=== PATIENT | female | born 1990 | race Caucasian/White ===

== ENCOUNTER → 2022-01-13 14:11 | Outpatient (CLI) | payer OTHER, SELFPAY ==
--- NOTE | ~2022-01-13 | XR_ITS ---
EXAMINATION: XR chest 2V 01/13/2022 14:25 INDICATION: Cough PROCEDURE: 2 view chest COMPARISON: No prior studies for comparison. FINDINGS: The lungs are clear. The cardiomediastinal silhouette is within normal limits. There are no pleural effusions. There is no pneumothorax suspected. IMPRESSION: 1: NO ACUTE CARDIOPULMONARY DISEASE. Reviewed, dictated and finalized at location B.
== END ==
PROVIDERS: PCP Nurse Practitioner; Visit Provider Nurse Practitioner
DX: R05.9 Cough, unspecified (principal)
CPT/HCPCS: 71046

== ENCOUNTER 2024-09-22 19:55 | Outpatient (CLI) | payer OTHER, SELFPAY ==
[2024-09-22] VITALS (11 sets, daily range): BP systolic 111–124; BP diastolic 48–64; PULSE 81–111; O2SAT 99–100; BMI 44.4
[2024-09-22] MEDS: TERBUTALINE SULFATE 1 MG/ML VIAL 0.25 MG SUB-Q (21:33)
--- NOTE | 2024-09-22 22:11 | PM.OBTRLD ---
OB - Triage/Final Diagnosis Visit Information Reason for evaluation: threatened labor and other ( leaking of fluid) Comments/Additional reasons for admission: I have assessed the risk for this patient, Marika Caban, and determined that she would benefit from observation care. Evaluation Vital signs: Vital Signs - 24 hr 09/22/24 20:23 09/22/24 20:30 09/22/24 21:33 Pulse Rate 111 H 96 Blood Pressure 124/64 111/48 L Pulse Oximetry 100 09/22/24 21:38 09/22/24 21:43 09/22/24 21:48 Pulse Rate Blood Pressure Pulse Oximetry 100 100 100 09/22/24 21:53 09/22/24 21:55 09/22/24 21:58 Pulse Rate 93 Blood Pressure 121/63 Pulse Oximetry 100 100 09/22/24 22:03 09/22/24 22:08 Pulse Rate Blood Pressure Pulse Oximetry 99 100
[2024-09-22 23:54] LABS: Add Urine Microscopic? YES; Appearance Urine Cloudy (Clear); Bacteria Urine 1+ /hpf; Bilirubin Urine 1+ (Negative); Blood Urine Negative (Negative); Color Urine Dark Yellow (Yellow); Glucose Urine UA 1+ mg/dL (Negative); Ketones Urine 3+ mg/dL (Negative); Leukocyte Esterase Ur Negative LEU/UL (Negative); Mucus Urine Present /lpf; Need Manual Microscopic Reviewed; Nitrate Urine Negative (Negative); Protein Urine 1+ mg/dL (Negative); Specific Grav Ur 1.035 (1.001-1.035); Squamous Epithelial Cell Urine Few /hpf (Few); pH Urine 5.5 (5.0-9.0)
== END 2024-09-22 23:05 | disposition home or self-care (01) ==
LOC: ANHOBOP 20:04 → ANHLDR 20:07
PROVIDERS: Obstetrics & Gynecology Gynecology; PCP Obstetrics & Gynecology; Visit Provider Obstetrics & Gynecology
DX: O41.8X90 Other specified disorders of amniotic fluid and membranes, unspecified trimester, not applicable or unspecified (principal); Z3A.00 Weeks of gestation of pregnancy not specified
CPT/HCPCS: 81001; 84112; 87086; J3105

== ENCOUNTER 2024-10-15 15:57 | Outpatient (RCR) | payer OTHER, SELFPAY ==
[2024-09-03 16:46] VITALS: BP 120/59; PULSE 84
[2024-09-03 17:00] VITALS: BP 108/61; PULSE 85
[2024-09-03 17:19] VITALS: BP 120/59; PULSE 85
[2024-09-10 18:26] VITALS: BP 122/47; PULSE 93
[2024-09-17 17:37] VITALS: BP 131/73; PULSE 86
[2024-09-19] VITALS (9 sets, daily range): BP systolic 114–119; BP diastolic 60–67; PULSE 88–99; O2SAT 99–100
--- NOTE | 2024-09-19 21:03 | PC.NURSE ---
Called Dr. Vaughn Bryant, update on pt , decreased movement, pt marking movement, tracing, and blood pressure. Orders received to discharge pt with instructions to keep next scheduled appointment and when to return to the unit.
--- NOTE | 2024-09-19 21:06 | PC.NURSE ---
Pt discharged with instructions to keep next scheduled appointment and when to return to the unit.
[2024-10-01 09:12] VITALS: BP 128/76; PULSE 100
[2024-10-08 10:27] VITALS: BP 102/71; PULSE 96
[2024-10-15 17:16] VITALS: BP 116/70; PULSE 967
== END 2024-11-10 16:15 | disposition home or self-care (01) ==
LOC: ANHOBOP 15:57
PROVIDERS: PCP Obstetrics & Gynecology; Visit Provider Obstetrics & Gynecology
DX: O24.419 Gestational diabetes mellitus in pregnancy, unspecified control (principal); Z3A.31 31 weeks gestation of pregnancy
CPT/HCPCS: 59025

== ENCOUNTER 2024-10-17 18:22 | Outpatient (CLI) | payer OTHER, SELFPAY ==
[2024-10-17] VITALS (19 sets, daily range): BP systolic 125–130; BP diastolic 69–78; PULSE 72–94; TEMP 36.6; O2SAT 99–100; BMI 44.9
--- NOTE | 2024-10-17 18:22 | PC.NURSE ---
Pt arrives to unit with a headache, blurred vision, and nausea.
[2024-10-17 19:16] LABS: Basophils Percent Auto 0.2 % (0.2-1.2); Eosinophils Absolute Auto 0.1 K/mm3 (0-0.3); Eosinophils Percent Auto 0.5 % (0-4.4); Hemoglobin 8.4 g/dL (12.0-15.0); Immature Granulocyte Absolute 0.05 K/mm3 (0.00-0.031); Immature Granulocyte Percent A 0.5 % (0-0.5); Immature Platelet Fraction Pct 16.2 % (0.9-11.2); Lymphocytes Absolute Auto 1.62 K/mm3 (0.9-3.2); Lymphocytes Percent Auto 16.6 % (18.3-44.2); Mean Corpuscular Hemoglobin 20.2 pg (26-34); Mean Corpuscular Volume 69.9 fl (80-100); Monocytes Absolute Auto 0.6 K/mm3 (0.1-0.6); Monocytes Percent Auto 6.1 % (2.6-8.5); Neutrophils Absolute Auto 7.4 K/mm3 (1.3-6.7); Neutrophils Percent Auto 76.1 % (45.5-73.1); Platelet Count Result 151 k/mm3 (150-375); Red Blood Count 4.15 M/mm3 (4.2-5.4); Red Cell Distribution Width 17.2 % (11.5-14.5); White Blood Count 9.7 K/mm3 (4.5-10.0)
[2024-10-17 19:25] LABS: Alanine Aminotransferase 8 U/L (6-35); Albumin Level 3.6 g/dL (3.5-5.1); Alkaline Phosphatase 142 U/L (38-126); Anion Gap 3 mmol/L (4-12); Aspartate Amino Transferase 14 U/L (14-36); Bilirubin,Total 0.5 mg/dL (0.2-1.3); Blood Urea Nitrogen 17 mg/dL (7-17); Calcium 8.6 mg/dL (8.4-10.2); Carbon Dioxide 20 mmol/L (22-30); Chloride 107 mmol/L (98-107); Estimated CRCL calculation 146 ml/min; Estimated Glomerular Filt Rate > 60; Glucose 91 mg/dL (65-110); Potassium 3.6 mmol/L (3.4-5.0); Sodium 130 mmol/L (137-145)
[2024-10-17 19:42] LABS: Platelet Estimate Adequate (Adequate)
[2024-10-17 19:43] LABS: Hypochromasia 1+; Microcytosis 1+ (NORMAL); Schistocytes None Seen
[2024-10-17 19:44] LABS: Anisocytosis 2+
--- NOTE | 2024-10-17 20:05 | PC.NURSE ---
Called Dr. Vaughn Bryant, update on pt, headache, blurred vision, nausea, swelling, blood pressure, tracing, and labs. Orders received to discharge pt with instructions to hydrate, make an appointment for early next week if wants to see the provider before scheduled section, and when to return to the unit.
--- NOTE | 2024-10-17 20:16 | PC.NURSE ---
Pt discharged with instructions to hydrate, make an appointment for next week to see provider if wants to be seen before section, and when to return to the unit, pt verbalizes understanding.
--- NOTE | 2024-10-17 21:22 | PM.OBTRLD ---
OB - Triage/Final Diagnosis Visit Information Date of evaluation: 10/17/24 Reason for evaluation: threatened labor Comments/Additional reasons for admission: I have assessed the risk for this patient, Marika Caban, and determined that she would benefit from observation care. Evaluation Laboratory results: Laboratory Tests 10/17/24 18:47 WBC 9.7 RBC 4.15 L Hgb 8.4 L Hct 29.0 L MCV 69.9 L MCH 20.2 L MCHC 29.0 L RDW 17.2 H Plt Count 151 D MPV TNP Immature Gran % (Auto) 0.5 Neut % (Auto) 76.1 H Lymph % (Auto) 16.6 L [place] % (Auto) 6.1 Eos % (Auto) 0.5 Baso % (Auto) 0.2 Lymph # (Auto) 1.62 [place] # (Auto) 0.6 Eos # (Auto) 0.1 Baso # (Auto) 0.0 Abs Immat Gran (auto) 0.05 H Absolute Neuts (auto) 7.4 H Absolute Nucleated RBC 0.000 Nucleated RBC % 0.0 Platelet Estimate Adequate % Immature Plt Fraction 16.2 H Hypochromasia 1+ Anisocytosis 2+ Microcytosis 1+ Schistocytes None seen Sodium 130 L Potassium 3.6 Chloride 107 Carbon Dioxide 20 L Anion Gap 3 L BUN 17 Creatinine 0.60 L Estim Creat Clear Calc 146 Estimated GFR > 60 Glucose 91 Uric Acid 3.0 Calcium 8.6 Total Bilirubin 0.5 AST 14 ALT 8 Alkaline Phosphatase 142 H Total Protein 7.0 Albumin 3.6 Vital signs: Vital Signs - 24 hr 10/17/24 18:56 10/17/24 18:58 10/17/24 18:59 Temperature Pulse Rate 84 80 Blood Pressure 125/69 Blood Pressure [Left Arm] 125/69 Pulse Oximetry 100 10/17/24 19:00 10/17/24 19:01 10/17/24 19:06 Temperature 97.8 F Pulse Rate 75 Blood Pressure 130/73 Blood Pressure [Left Arm] Pulse Oximetry 99 100 10/17/24 19:11 10/17/24 19:16 10/17/24 19:21 Temperature Pulse Rate Blood Pressure Blood Pressure [Left Arm] Pulse Oximetry 100 100 100 10/17/24 19:26 10/17/24 19:31 10/17/24 19:36 Temperature Pulse Rate 81 Blood Pressure 129/76 Blood Pressure [Left Arm] Pulse Oximetry 100 99 100 10/17/24 19:49 10/17/24 19:54 10/17/24 19:59 Temperature Pulse Rate Blood Pressure Blood Pressure [Left Arm] Pulse Oximetry 100 100 100 10/17/24 20:01 10/17/24 20:05 10/17/24 20:10 Temperature Pulse Rate 81 Blood Pressure 130/78 Blood Pressure [Left Arm] Pulse Oximetry 100 100
== END 2024-10-17 20:16 | disposition home or self-care (01) ==
LOC: ANHOBOP 18:26 → ANHOBPP 18:27
PROVIDERS: PCP Obstetrics & Gynecology; Visit Provider Obstetrics & Gynecology
DX: O13.9 Gestational [pregnancy-induced] hypertension without significant proteinuria, unspecified trimester (principal); Z3A.00 Weeks of gestation of pregnancy not specified
CPT/HCPCS: 36415; 59025; 80053; 84550; 85025; 85055

== ENCOUNTER 2024-10-25 04:54 | Inpatient (IN) | payer OTHER, SELFPAY ==
[2024-10-25] VITALS (43 sets, daily range): BP systolic 84–134; BP diastolic 29–103; PULSE 49–141; RESP 13–18; TEMP 36.6–37.4; O2SAT 97–100; BMI 43.2; BMI 43.3
[2024-10-25] MEDS: LACTATED RINGERS 1,000 ML 125 ML IV CONT ×2 (05:15→06:33)
[2024-10-25] MEDS: ACETAMINOPHEN 500 MG TABLET 1000 MG PO (05:30)
--- NOTE | 2024-10-25 05:34 | LDADM ---
This patient, Marika Caban, was admitted to Labor/Delivery/Recovery 120 on 10/25/24 at 04:54. Plans for labor, pain management and were discussed with patient. Patient/family oriented to hospital policies and general routines including ID bracelet, bed and alarms, visiting hours, pain management, procedures, bathroom and other care routines, personal items, smoking policy, room service/diet and guest tray routines, infant security routines, and visiting hours. Patient/Family are encouraged to report perceived risks to care and to ask questions if they do not understand what they are told or what they should do. See OBIX for further documentation.
[2024-10-25 05:47] LABS: Basophils Percent Auto 0.4 % (0.2-1.2); Eosinophils Percent Auto 0.5 % (0-4.4); Hemoglobin 8.1 g/dL (12.0-15.0); Immature Granulocyte Absolute 0.03 K/mm3 (0.00-0.031); Immature Granulocyte Percent A 0.4 % (0-0.5); Immature Platelet Fraction Pct 16.3 % (0.9-11.2); Lymphocytes Absolute Auto 1.32 K/mm3 (0.9-3.2); Lymphocytes Percent Auto 17.5 % (18.3-44.2); Mean Corpuscular HGB Conc 28.9 g/dl (32-36); Mean Corpuscular Hemoglobin 20.3 pg (26-34); Monocytes Absolute Auto 0.4 K/mm3 (0.1-0.6); Monocytes Percent Auto 5.2 % (2.6-8.5); Neutrophils Absolute Auto 5.7 K/mm3 (1.3-6.7); Platelet Count Result 145 k/mm3 (150-375); White Blood Count 7.5 K/mm3 (4.5-10.0)
[2024-10-25 06:23] LABS: HIV 1/2 Ab P24 Ag Result Negative (Negative)
[2024-10-25 06:24] LABS: Anisocytosis 2+; Hypochromasia 1+; Microcytosis 1+ (NORMAL); Platelet Estimate Adequate (Adequate)
[2024-10-25 06:25] LABS: Schistocytes None Seen
--- NOTE | 2024-10-25 06:41 | PM.IMHP ---
H&P: HPI History of Present Illness Date/Time: 10/25/24 06:41 Chief Complaint: Repeat section tubal ligation Narrative: this is a 34-year-old 5 para 3 whose last menstrual period was 01/26/2024, EDC is 11/01/2024, presents at 39 weeks gestation for repeat section bilateral tubal ligation. She desires permanent irreversible sterilization. Her has been complicated by gestational diabetes but has been diet controlled. She is also positive for group B strep she understands the bilateral tubal ligation be permanent and irreversible for and risks and benefits reviewed with out in full. Review of Systems Review of Systems: All systems reviewed & are unremarkable except as noted in HPI and below PMFSH Family History Family History Other No pertinent family history Social History Social History Smoking status: Never smoker Second hand tobacco smoke exposure: No Substance use: never Do You Feel Safe in your Home?: Yes Lack of Transportation: No Lack of Food: Never True Current Housing: I Have Housing Concerned About Future Housing: No Difficulty Paying Gas/Electric Bills: No Difficulty Paying for Meds: No Currently Unemployed: No Education: Associate Degree Difficulty w/ Childcare or Family Care: No Gender identity (if verbalized by the patient): Female Spiritual care concerns: No Meds Home Medications and Allergies Home Medications ?Medication ?Instructions ?Recorded ?Confirmed ?Type ferrous sulfate 142 mg (45 mg 142 mg PO DAILY 10/15/19 10/22/24 History iron) tablet,extended release (Slow Fe) vit no.133-ferrous 1 tablet PO DAILY 10/15/19 10/22/24 History fumarate 28 mg-folic acid 800 mcg tablet () Allergies Allergy/AdvReac Type Severity Reaction Status Date / Time No Known Allergies Allergy Verified 10/22/24 15:50 Vital Signs Vital Signs - 24 hr 10/25/24 05:08 10/25/24 05:30 10/25/24 05:32 Temperature Pulse Rate 91 95 Blood Pressure 132/85 134/75 Pulse Oximetry Oxygen Delivery Room Air 10/25/24 05:45 10/25/24 05:45 10/25/24 05:50 Temperature 99.4 F Pulse Rate 84 Blood Pressure 126/72 Pulse Oximetry 100 Oxygen Delivery 10/25/24 05:55 10/25/24 06:00 10/25/24 06:05 Temperature Pulse Rate Blood Pressure Pulse Oximetry 100 100 100 Oxygen Delivery 10/25/24 06:10 10/25/24 06:15 10/25/24 06:20 Temperature Pulse Rate Blood Pressure Pulse Oximetry 100 100 100 Oxygen Delivery Exam Const: General: cooperative, healthy appearing and comfortable Nutritional Appearance: average body habitus Orientation/consciousness: oriented to person, oriented to place and oriented to time HENMT: Head: normal to inspection Resp: Effort & Inspection: normal respiratory effort Cardio: Rate: regular rate Rhythm: regular rhythm Heart sounds: S1 normal heart sound present and S2 normal heart sound present GI: Inspection: normal to inspection ( Gravid soft uterus) : External Female Exam: normal external appearance Speculum Exam - Vagina: normal appearance of the vagina Bimanual Exam- Adnexa, other: normal adnexae H&P: Results Labs Labs: Short CBC 10/25/24 Range/Units 05:25 WBC 7.5 (4.5-10.0) K/mm3 Hgb 8.1 L (12.0-15.0) g/dL Hct 28.0 L (37.0-47.0) % Plt Count 145 L (150-375) k/mm3 Assessment and Plan Assessment and plan (1) Term : Code(s): Z34.90 - Encounter for supervision of normal , unspecified, unspecified trimester Status: Acute (2) Previous section: Code(s): Z98.891 - History of uterine scar from previous surgery Status: Acute (3) Sterilization: Code(s): Z30.2 - Encounter for sterilization Status: Acute Plan proceed with low-transverse section and bilateral tubal ligation
--- NOTE | 2024-10-25 06:45 | WPDHPUPDATE1 ---
History and Physical Update Update Date/Time: 10/25/24 06:45 History and Physical has been reviewed, including an updated exam of the patient. There are NO changes in the patient's condition. Risks, benefits, and alternatives have been discussed and questions answered. Patient agrees to proceed with procedure.
--- NOTE | 2024-10-25 06:48 | P.PNAN_ITS ---
Anes - Initial Pre Proc Eval Procedure: Operation Date: 10/25/24 07:30 Proposed Procedures p Repeat Section with Tubal Ligation with Rings - Jj Bryant MD Date/Time: 10/25/24 06:48 Surgeon: Jj Bryant MD Pre Op Diagnosis: C/S Patient Data Age: 34 Gender: F Height: 1.65 m Weight: 118.18 kg Last Vital Signs Temp 37.4 C 10/25/24 05:45 Pulse 84 10/25/24 05:45 BP 126/72 10/25/24 05:45 Pulse Ox 100 10/25/24 06:20 O2 Del Method Room Air 10/25/24 05:32 Allergies Allergy/AdvReac Type Severity Reaction Status Date / Time No Known Allergies Allergy Verified 10/22/24 15:50 Home Medications ?Medication ?Instructions ?Recorded ?Confirmed ?Type ferrous sulfate 142 mg (45 mg 142 mg PO DAILY 10/15/19 10/22/24 History iron) tablet,extended release (Slow Fe) vit no.133-ferrous 1 tablet PO DAILY 10/15/19 10/22/24 History fumarate 28 mg-folic acid 800 mcg tablet () hydrocodone 5 mg-acetaminophen 325 1 tablet PO Q4H PRN pain #30 tabs 10/25/24 Rx mg tablet Laboratory Tests 10/25/24 05:25 WBC 7.5 K/mm3 (4.5-10.0) RBC 4.00 L M/mm3 (4.2-5.4) Hgb 8.1 L g/dL (12.0-15.0) Hct 28.0 L % (37.0-47.0) MCV 70.0 L fl (80-100) MCH 20.3 L pg (26-34) MCHC 28.9 L g/dl (32-36) RDW 17.0 H % (11.5-14.5) Plt Count 145 L k/mm3 (150-375) MPV TNP Immature Gran % (Auto) 0.4 % (0-0.5) Neut % (Auto) 76.0 H % (45.5-73.1) Lymph % (Auto) 17.5 L % (18.3-44.2) [place] % (Auto) 5.2 % (2.6-8.5) Eos % (Auto) 0.5 % (0-4.4) Baso % (Auto) 0.4 % (0.2-1.2) Lymph # (Auto) 1.32 K/mm3 (0.9-3.2) [place] # (Auto) 0.4 K/mm3 (0.1-0.6) Eos # (Auto) 0.0 K/mm3 (0-0.3) Baso # (Auto) 0.0 K/mm3 (0.0-0.1) Abs Immat Gran (auto) 0.03 K/mm3 (0.00-0.031) Absolute Neuts (auto) 5.7 K/mm3 (1.3-6.7) Absolute Nucleated RBC 0.000 K/mm3 (0.0-0.012) Nucleated RBC % 0.0 % (0.0-0.2) Platelet Estimate Adequate (Adequate) % Immature Plt Fraction 16.3 H % (0.9-11.2) Hypochromasia 1+ Anisocytosis 2+ Microcytosis 1+ (NORMAL) Schistocytes None seen RPR Pending Hep Bs Antigen Pending HIV 1&2 Ab/P24 Ag 4thGn Negative (Negative) Blood Type Pending Antibody Screen Pending Patient hx anesthesia problems: none Family hx anesthesia problems: none Results Review: All pre-operative results and documents have been reviewed as part of the pre- operative evaluation. [facility] Past Medical History Medical History (Updated 10/25/24 @ 07:06 by Leon Griffin DO) GDM (gestational diabetes mellitus) Family History Family History Other No pertinent family history Social History Social History Smoking status: Never smoker Second hand tobacco smoke exposure: No Substance use: never Do You Feel Safe in your Home?: Yes Lack of Transportation: No Lack of Food: Never True Current Housing: I Have Housing Concerned About Future Housing: No Difficulty Paying Gas/Electric Bills: No Difficulty Paying for Meds: No Currently Unemployed: No Education: Associate Degree Difficulty w/ Childcare or Family Care: No Gender identity (if verbalized by the patient): Female Spiritual care concerns: No Anes - Eval Final PreProcedure Day of Procedure 12/26/24 06:48 Patient weight: morbidly obese Heart: regular rate and rhythm Lungs: clear to auscultation and normal air movement Airway: Mallampati scale class II Neurological: alert and oriented Last oral intake: >/= 8 hours ASA classification: III Emergent: no Anesthetic plan: proceed Anesthesia type and monitoring: regional spinal and standard monitoring Results Review: All pre-operative results and documents have been reviewed as part of the pre- operative evaluation. Informed Consent: The patient's anesthetic plan and its attendant risks and benefits were discussed with the patient/family/POA. Questions were solicited and answers provided to the satisfaction of the patient/family/POA.
[2024-10-25 06:56] LABS: Hepatitis B Surface Antigen Negative (Negative)
[2024-10-25] MEDS: FAMOTIDINE 20 MG/2 ML VIAL IV PUSH (06:59)
[2024-10-25] MEDS: ONDANSETRON INJ 4 MG/2 ML VIAL IV PUSH (06:59)
[2024-10-25] MEDS: ceFAZolin 2 GM/D5W 50 ML 2 GM/50 ML BAG IVPB (07:23)
[2024-10-25 07:50] LABS: Rapid Plasma Reagin Non-Reactive (NonReactive)
--- NOTE | 2024-10-25 08:20 | W.PM.OBCSD ---
OB - Delivery Note Procedure Delivery date: 10/25/24 Pre-op diagnosis: Previous Delivery and Other ( sterilization) Post-op Diagnosis: Same Induction method: None Delivery monitor: External FHT Prior to decision for section, ACOG/SMFM labor guidelines were considered and discussed with the patient and staff. Decision made to proceed with the section.: Yes Procedure Performed: Repeat and Tubal Ligation Surgeon: Jj Bryant MD Anesthesia type: Spinal Description of Procedure/Findings: patient was prepped draped in normal sterile fashion placed in the supine position. Under excellent spinal anesthetic the abdomen was entered through the previous Pfannenstiel incision progressive layers the fascia. Fascia incised midline carried in upward outward fashion bilaterally. Underlying muscles sharply dissected. Parietal perineum 0 by Estelle clamps and by sharp dissection in was carried superiorly inferiorly of the bladder. Bladder blade placed. Bladder flap formed. Bladder blade returned. Low-transverse incision made the head delivered in the ALLISON position. Nuchal cord noted be loose x2 relieved around occiput. Anterior posterior shoulder delivered spontaneously. Cord clamped x2 and cut passed off the table with a cry. Placenta delivered intact manually. Uterus delivered the abdomen wrapped in a moist towel. After assuring no membranes or debris remained in the uterus, the uterus closed continuous running locking 0 Vicryl from lateral edge to lateral edge. This followed by 2nd imbricating running locking 0 Vicryl from lateral edge to lateral edge. Hemostasis was assured. Multiple fibroids were noted. The patient had desired tubal ligation. The right fallopian tube was grasped at its midportion. A good knuckle of tube free tied with 0 chromic the distal and proximal legs and free tied with 0 chromic the portion between cut passed off as portion right fallopian tube. In similar fashion on the left the right the left fallopian tube was grasped with Katie clamp. Free tied with 0 chromic. The distal proximal portions were free tied with 0 chromic in portion between cut passed off the table as portions left fallopian hemostasis was assured. The laps removed and accounted for after the uterus was turned the abdomen. Uterine incision noted be hemostatic. The fascia closed with continuous running 0 Vicryl from lateral edge to lateral edge. Irrigation subcutaneous layer and the skin closed with 4 Monocryl glue. QBL was 305. All sponge, needle, instrument counts were correct. There were immediate complications Specimen: Yes ( bilateral fallopian tubes) Estimated Blood Loss: 305 Drains: No Packing: No Pathology: Yes ( bilateral portions of fallopian tubes) Complications: No immediate complications Condition: Stable Disposition: Floor [place] Baby Date of : 10/25/24 Time of : 07:52 Gestational Age by Date: 39 Infant gender: Male Weight (pounds): 7 Weight (ounces): 10 presentation: vertex position: Right Occiput Anterior Placenta delivery description: Manual Removal Cord Vessel Description: 3 Vessels and Nuchal Cord ( x2)
--- NOTE | 2024-10-25 08:26 | PM.DS ---
DS: Admitting Diagnosis Discharge Date 10/27/24 <Karen Peacock MD - Last Filed: 10/27/24 12:03> Admitting Diagnosis term /previous section / sterilization <Jj Bryant MD - Last Filed: 10/25/24 08:29> DS: Discharge Diagnosis Discharge Diagnosis (1) Sterilization: Code(s): Z30.2 - Encounter for sterilization <Jj Bryant MD - Last Filed: 10/25/24 08:29> Status: Acute <Jj Bryant MD - Last Filed: 10/25/24 08:29> (2) Previous section: Code(s): Z98.891 - History of uterine scar from previous surgery <Jj Bryant MD - Last Filed: 10/25/24 08:29> Status: Acute <Jj Bryant MD - Last Filed: 10/25/24 08:29> (3) Term : Code(s): Z34.90 - Encounter for supervision of normal , unspecified, unspecified trimester <Jj Bryant MD - Last Filed: 10/25/24 08:29> Status: Acute <Jj Bryant MD - Last Filed: 10/25/24 08:29> DS: Summary Hospital Course Reason for hospitalization: patient was admitted for repeat section bilateral tubal ligation. She underwent an unremarkable in procedure on 10/25/2024. <Jj Bryant MD - Last Filed: 10/25/24 08:29> Hospital Course: Patient's hospital course unremarkable. She remained afebrile. She was up, voiding, regular, <Jj Bryant MD - Last Filed: 10/25/24 08:29> Time Spent with Patient Time attestation: Total time spent providing and/or coordinating discharge services: <Jj Bryant MD - Last Filed: 10/25/24 08:29> Exam Const: General: cooperative, healthy appearing and comfortable <Jj Bryant MD - Last Filed: 10/25/24 08:29> Nutritional Appearance: average body habitus <Jj Bryant MD - Last Filed: 10/25/24 08:29> Orientation/consciousness: oriented to person, oriented to place and oriented to time <Jj Bryant MD - Last Filed: 10/25/24 08:29> HENMT: Head: normal to inspection <Jj Bryant MD - Last Filed: 10/25/24 08:29> Resp: Effort & Inspection: normal respiratory effort <Jj Bryant MD - Last Filed: 10/25/24 08:29> Cardio: Rate: regular rate <Jj Bryant MD - Last Filed: 10/25/24 08:29> Rhythm: regular rhythm <Jj Bryant MD - Last Filed: 10/25/24 08:29> Heart sounds: S1 normal heart sound present and S2 normal heart sound present <Jj Bryant MD - Last Filed: 10/25/24 08:29> GI: Inspection: normal to inspection and incision ( wound is clean dry and intact) <Jj Bryant MD - Last Filed: 10/25/24 08:29> DS: Data Data Completed and Pending Labs on day of discharge: Labs from last 24 hours 10/25/24 05:25 WBC 7.5 RBC 4.00 L Hgb 8.1 L Hct 28.0 L MCV 70.0 L MCH 20.3 L MCHC 28.9 L RDW 17.0 H Plt Count 145 L MPV TNP Immature Gran % (Auto) 0.4 Neut % (Auto) 76.0 H Lymph % (Auto) 17.5 L [place] % (Auto) 5.2 Eos % (Auto) 0.5 Baso % (Auto) 0.4 Lymph # (Auto) 1.32 [place] # (Auto) 0.4 Eos # (Auto) 0.0 Baso # (Auto) 0.0 Abs Immat Gran (auto) 0.03 Absolute Neuts (auto) 5.7 Absolute Nucleated RBC 0.000 Nucleated RBC % 0.0 Platelet Estimate Adequate % Immature Plt Fraction 16.3 H Hypochromasia 1+ Anisocytosis 2+ Microcytosis 1+ Schistocytes None seen RPR Non-reactive Hep Bs Antigen Negative HIV 1&2 Ab/P24 Ag 4thGn Negative Blood Type A Positive Antibody Screen Negative <Jj Bryant MD - Last Filed: 10/25/24 08:29> Discharge Plan Discharge Attending physician on discharge: Jj King <Jj Bryant MD - Last Filed: 10/25/24 08:29> Jj King <Karen Peacock MD - Last Filed: 10/27/24 12:03> Discharging Clinician: Karen Peacock <Jj Bryant MD - Last Filed: 10/25/24 08:29> Karen Peacock <Karen Peacock MD - Last Filed: 10/27/24 12:03> Patient Disposition: Home, Self-Care <Jj Bryant MD - Last Filed: 10/25/24 08:29> Activity: may shower, no straining and pelvic rest <Jj Bryant MD - Last Filed: 10/25/24 08:29> may shower, no straining and pelvic rest <Karen Peacock MD - Last Filed: 10/27/24 12:03> Diet: heart healthy <Jj Bryant MD - Last Filed: 10/25/24 08:29> heart healthy <Karen Peacock MD - Last Filed: 10/27/24 12:03> Wound Care Instructions: follow printed instructions <Jj Bryant MD - Last Filed: 10/25/24 08:29> follow printed instructions <Karen Peacock MD - Last Filed: 10/27/24 12:03> Patient Instructions: Antibiotic Form <Jj Bryant MD - Last Filed: 10/25/24 08:29> Patient Language: Mozambican <Jj Bryant MD - Last Filed: 10/25/24 08:29> Stand Alone Forms: General Discharge Information <Jj Bryant MD - Last Filed: 10/25/24 08:29> Follow-up/Referrals: Jj King MD [Physician] - <Jj Bryant MD - Last Filed: 10/25/24 08:29> Discharge Medications: New hydrocodone-acetaminophen 5-325 mg tablet 1 tablet PO Q4H PRN (Reason: pain) Qty: 30 0RF Continued ferrous sulfate [Slow Fe] 142 mg (45 mg iron) Tablet Extended Release 142 mg PO DAILY 28-800 mg-mcg Tablet 1 tablet PO DAILY <Jj Bryant MD - Last Filed: 10/25/24 08:29> Date of admission: 10/25/24 04:54 <Jj Bryant MD - Last Filed: 10/25/24 08:29> Primary Care Provider: UNKNOWN,DOCTOR <Jj Bryant MD - Last Filed: 10/25/24 08:29> Admitting Provider: Jj King <Jj Bryant MD - Last Filed: 10/25/24 08:29> Attending physician on admission: Jj King <Jj Bryant MD - Last Filed: 10/25/24 08:29> Condition: Stable <Jj Bryant MD - Last Filed: 10/25/24 08:29>
[2024-10-25] MEDS: OXYTOCIN 30 UNITS/NS 500 ML 30 UNITS/500 ML BAG 125 UNITS IV CONT (08:59)
[2024-10-25] MEDS: diphenhydrAMINE HCl INJ 50 MG/ML VIAL 25 MG IV PUSH (09:03)
[2024-10-25 09:28] LABS: Glucose Point of Care 64 mg/dl (65-105)
[2024-10-25] MEDS: KETOROLAC 15 MG/ML VIAL (*BKC) IV PUSH (12:08)
[2024-10-25] MEDS: SIMETHICONE 80 MG TAB.CHEW PO (12:08)
[2024-10-25] MEDS: ACETAMINOPHEN 325 MG TABLET 650 MG PO ×2 (12:08→19:12)
[2024-10-25] MEDS: DEXTROSE 5%/0.45% SOD CHL 1,000 ML 125 ML IV CONT (13:37)
[2024-10-25] MEDS: DOCUSATE SODIUM 100 MG CAPSULE PO (19:12)
[2024-10-25] MEDS: IBUPROFEN 600 MG TABLET PO (19:23)
[2024-10-26] MEDS: ACETAMINOPHEN 325 MG TABLET 650 MG PO ×4 (01:14→20:17)
[2024-10-26] MEDS: IBUPROFEN 600 MG TABLET PO ×4 (01:14→20:16)
[2024-10-26 01:16] VITALS: BP 108/49; PULSE 74; RESP 18; TEMP 36.6; O2SAT 100
--- NOTE | 2024-10-26 06:46 | P.PNOB_ITS ---
OB - PN: Subj Subjective Date/time seen: 10/26/24 06:46 Patient comments: no complaints, pain well controlled, tolerating diet and flatus present Mcdavid baby status: doing well (level II) OB - PN: Obj Data Labs 10/25/24 05:25 Labs: Laboratory Results - last 24 hr 10/25/24 10/25/24 05:25 06:54 POC Capillary Glucose 64 L RPR Non-reactive Hep Bs Antigen Negative Blood Type A Positive Antibody Screen Negative OB - PN A/P Assessment and Plan (1) Sterilization: Code(s): Z30.2 - Encounter for sterilization Status: Acute (2) Previous section: Code(s): Z98.891 - History of uterine scar from previous surgery Status: Acute (3) Term : Code(s): Z34.90 - Encounter for supervision of normal , unspecified, unspecified trimester Status: Acute (4) Anemia: Code(s): D64.9 - Anemia, unspecified Status: Acute Plan Comments: start iron. routine care Time Spent With Patient Time: Total time spent is greater than 50% in coordination of care (as documented) at patient's floor/unit and/or counseling patient: Review of Systems 2 Review of Systems: All systems reviewed & are unremarkable except as noted in HPI and below Exam 2 Const: General: cooperative, healthy appearing and comfortable Nutritional Appearance: average body habitus Orientation/consciousness: oriented to person, oriented to place and oriented to time Resp: Effort & Inspection: normal respiratory effort Cardio: Rate: regular rate Rhythm: regular rhythm Heart sounds: S1 normal heart sound present and S2 normal heart sound present GI: Inspection: normal to inspection and incision (cdi)
[2024-10-26 07:50] VITALS: BP 108/56; PULSE 79; RESP 16; TEMP 36.4
[2024-10-26] MEDS: SIMETHICONE 80 MG TAB.CHEW PO ×3 (07:52→16:45)
[2024-10-26] MEDS: DOCUSATE SODIUM 100 MG CAPSULE PO ×2 (07:52→16:45)
[2024-10-26] MEDS: POLYSACCHARIDE IRON COMPLEX 150 MG CAPSULE PO ×2 (07:52→16:45)
[2024-10-26 09:22] LABS: Basophils Percent Auto 0.4 % (0.2-1.2); Eosinophils Absolute Auto 0.1 K/mm3 (0-0.3); Eosinophils Percent Auto 0.7 % (0-4.4); Hematocrit 24.5 % (37.0-47.0); Hemoglobin 7.1 g/dL (12.0-15.0); Immature Granulocyte Absolute 0.06 K/mm3 (0.00-0.031); Immature Granulocyte Percent A 0.6 % (0-0.5); Immature Platelet Fraction Pct 14.9 % (0.9-11.2); Lymphocytes Absolute Auto 0.93 K/mm3 (0.9-3.2); Lymphocytes Percent Auto 8.8 % (18.3-44.2); Mean Corpuscular Hemoglobin 20.5 pg (26-34); Mean Corpuscular Volume 70.6 fl (80-100); Monocytes Absolute Auto 0.5 K/mm3 (0.1-0.6); Monocytes Percent Auto 4.9 % (2.6-8.5); Neutrophils Absolute Auto 8.9 K/mm3 (1.3-6.7); Neutrophils Percent Auto 84.6 % (45.5-73.1); Platelet Count Result 111 k/mm3 (150-375); Red Blood Count 3.47 M/mm3 (4.2-5.4); Red Cell Distribution Width 17.2 % (11.5-14.5); White Blood Count 10.5 K/mm3 (4.5-10.0)
[2024-10-26 10:02] LABS: Hypochromasia 2+; Microcytosis 2+ (NORMAL); Platelet Estimate Slightly Decreased (Adequate)
[2024-10-26 10:04] LABS: Ovalocytes 1+; Schistocytes None Seen
--- NOTE | 2024-10-26 10:05 | WPDANLDPN2 ---
Anes-Prog Note L&D Date/Time: 10/26/24 10:05 Comfortable throughout: section Neuraxial method: epidural (CSE) Epidural/Spinal procedure site: clean & non-tender Neuro status: Neuro function grossly intact. Cardiovascular status: normal Respiratory status: normal Airway patency: baseline Mental status: baseline Post-Op hydration status: normal Vital Signs: Last Vital Signs Temp 36.4 C L 10/26/24 07:50 Pulse 79 10/26/24 07:50 Resp 16 10/26/24 07:50 BP 108/56 L 10/26/24 07:50 Pulse Ox 100 10/26/24 01:16 O2 Del Method Room Air 10/26/24 01:16 Pain score (VAS): 0/10 I/O: Intake & Output 10/25/24 10/26/24 10/26/24 23:59 07:59 15:59 Intake Total 1110 Output Total 1625 Balance -515 Post-procedural complaints: none Patient feedback: Patient satisfied with anesthetic care.
--- NOTE | 2024-10-26 10:05 | WPDANLDNPN2 ---
Anes-Prog Note L&D-Neuraxial Date/Time: 10/26/24 10:05 Neuraxial medications: intrathecal PF morphine Opiod-related complaints: pruritis moderate, treatment effective Patient feedback: Patient satisfied with post-operative pain management.
[2024-10-26] MEDS: HYDROcodone/acetaminophen (*CRX) 5-325 MG TABLET 1 TAB PO ×3 (11:41→23:36)
[2024-10-26] MEDS: HYDROcodone/acetaminophen (*CRX) 10-325 MG TABLET 1 TAB PO (18:39)
[2024-10-26 20:15] VITALS: BP 115/51; PULSE 74; RESP 16; TEMP 36.8; O2SAT 100
[2024-10-27] MEDS: ACETAMINOPHEN 325 MG TABLET 650 MG PO ×2 (02:18→08:12)
[2024-10-27] MEDS: IBUPROFEN 600 MG TABLET PO ×2 (02:18→08:12)
[2024-10-27 04:30] VITALS: BP 101/54; PULSE 60; RESP 16; TEMP 36.7; O2SAT 99
[2024-10-27] MEDS: HYDROcodone/acetaminophen (*CRX) 10-325 MG TABLET 1 TAB PO (05:40)
[2024-10-27 08:05] VITALS: BP 116/60; PULSE 81; RESP 16; TEMP 36.3
[2024-10-27] MEDS: POLYSACCHARIDE IRON COMPLEX 150 MG CAPSULE PO (08:12)
[2024-10-27] MEDS: SIMETHICONE 80 MG TAB.CHEW PO (08:12)
[2024-10-27] MEDS: DOCUSATE SODIUM 100 MG CAPSULE PO (08:12)
--- NOTE | 2024-10-27 12:00 | P.PNOB_ITS ---
OB - PN: Subj Subjective Date/time seen: 10/27/24 12:00 Patient comments: no complaints and pain well controlled baby status: doing well OB - PN: Obj Data Labs 10/26/24 09:05 OB - PN A/P Plan day: 2 Plan: routine care and discharge home Time Spent With Patient Time: Total time spent is greater than 50% in coordination of care (as documented) at patient's floor/unit and/or counseling patient: Exam 2 Narrative: inc c/d/i : Bimanual exam- vagina & uterus: other (Uterus firm, nt @U)
[2024-10-29 10:29] VITALS: BP 129/77; PULSE 80; RESP 18; TEMP 36.9; O2SAT 100
--- OUTSIDE RECORDS SUMMARY | 2024-11-01 05:19 | XMS_ITS | Clinical Summary ---
Author Organization [facility] [employer] Address [address] [place] [address] Care Team Providers Care Digital Print Operator Name Role Phone Catina Rios APRN-PRODUCTION MATERIAL COORDINATOR Primary Care Provi saloni Source Comments [facility] [employer],non-owned Affiliates and Associated Physician Practices is amultiple site organization consisting of ambulatory clinics and hospital sitesin [place], [place], [place] and [place]. This disclosure is being madepursuant to the Care Everywhere program and may not contain all information available regarding this patient. Last updated 18.[facility] [employer] Allergies No known active allergies Medications * Be aware that medications may not be up to date on this document. Alwaysverify current medications with the patient. Medication Sig Dispensed Refills Start Date End Date Status biotin 2.5 MG tablets Take 1 (one) tablet by mouth once daily Active senna-docusate (Senokot-S) 8.6-50 MG tablet Take 1 (one) tablet by mouth 2 times daily as needed for Constipation 12/15/2022 Active Additional Information Patient not taking.Reported on 12/27/2022 ondansetron, disintegrating, (Zofran ODT) 4 MG tablet Take 1 (one) tablet by mouth every 6 hours as needed for Nausea/Vomiting Allow tablet to dissolve on the tongue 30 tablet 12/15/2022 Active Additional Information Patient not taking.Reported on 12/27/2022 oxyCODONE (Roxicodone) 5 MG/5ML oral solutionIndications :Abdominal pain, generalized Take 5 mL by mouth every 6 hours as needed for Pain 120 mL 12/15/2022 Active Additional Information Patient not taking.Reported on 12/27/2022 Active Problems Problem Noted Date Diagnosed Date Acute pancreatitis, unspecif ied complication status, unspecified pancreatitis type 12/13/2022 Transaminitis 12/13/2022 Morbid obesity 06/09/2022 Fall 02/21/2009 Asthma Overview (07/16/2008): does not use inhaler Immunizations Name Administration Dates Next Due Covid Moderna primary monovalent 12+ yr 0.5mL INFLUENZA VACCINE, QUADR. (F LUZONE; FLULAVAL; FLUARIX; AFLURIA QUADRIVALENT; 6MO+), 0.5 ML (IIV4) 10/18/2019 TDAP (7yrs+) 10/15/2019,02/21/2009 Family History Medical History Relation Name Comments Asthma Maternal Grandmother Asthma Mother Hypertension Mother Migraine Mother Other Mother Relation Name Status Comments Father Alive Maternal Grandmother Mother Social History Tobacco Use Types Packs/Day Years Used Date Smoking Tobacco: Never Smokeless Tobacco: Never Alcohol Use Standard Drinks/Week Comments Yes 0 (1 standard drink = 0.6 oz pur e alcohol) AUDIT-C Answer Date Recorded Q1: How often do you have a drink containing alc ohol? Monthly or less 12/13/2022 Q2: How many drinks containi ng alcohol do you have on a typical day when you are drinking? 1 or 2 12/13/2022 Q3: How often do you have si x or more drinks on one occasion? Less than monthly 12/13/2022 Overall Financial Resource Strain (CARDIA) Answe r Date Recorded How hard is it for you to pa y for the very basics like food, housing, medical care, and heating? Not hard at all 12/14/2022 [facility] [place] of Occupat ional Health - Occupational Stress Questionnaire Answer Date Recorded Do you feel stress - tense, restless, nervous, or anxious, or unable to sleep at night because your mind is troubled all the time - these days? Not at all 12/14/2022 Hunger Vital Sign Answer Date Recorded Within the past 12 months, y ou worried that your food would run out before you got the money to buy more. Never true 12/14/19 23 Within the past 12 months, t he food you bought just didn't last and you didn't have money to get more. Never true 12/14/2022 PRAPARE - Transportation Answer Date Re corded In the past 12 months, has l ack of transportation kept you from medical appointments or from getting medications? No 12/01 In the past 12 months, has l ack of transportation kept you from meetings, work, or from getting things needed for daily living? No 12/14/2022 Housing Stability Vital Sign Answer Gilbert e Recorded In the last 12 months, was t here a time when you were not able to pay the mortgage or rent on time? No 12/14/2022 In the last 12 months, how many places have you lived? 1 12/14/2022 In the last 12 months, was t here a time when you did not have a steady place to sleep or slept in a detention (including now)? No 12/14/2022 Sex and Gender Information Value Date Recorded Sex Assigned at Not on file Gender Identity Not on file Sexual Orientation Not on file Last Filed Vital Signs Vital Sign Reading Time Taken Comments Blood Pressure 119/85 12/27/2022 11:41 AM CIGAR HEAD PEGGER Pulse 78 12/27/2022 11:41 AM CIGAR HEAD PEGGER Temperature 36.7 ??C (98.1 ??F) 12/15/2022 3:09 PM CS T Respiratory Rate 16 12/15/2022 3:09 PM CIGAR HEAD PEGGER Oxygen Saturation 97% 12/27/2022 11:41 AM CIGAR HEAD PEGGER Inhaled Oxygen Concentration - - Weight 110.2 kg (243 lb) 12/27/2022 11:41 AM CIGAR HEAD PEGGER Height 165.1 cm (5' 5 ) 12/27/2022 11:41 AM CIGAR HEAD PEGGER Body Mass Index 40.44 12/27/2022 11:41 AM CIGAR HEAD PEGGER Plan of Treatment Health Maintenance Due Date Last Done Comments PAP SMEAR 1989 PNEUMOCOCCAL VACCINE (1 of 2 - PCV) 1995 HIV SCREENING 2004 HEPATITIS C SCREENING 08/11/2007 HEPATITIS B VACCINE (1 of 3 - 19+ 3-dose series) 2008 DEPRESSION SCREENING 10/31/2023 COVID-19 VACCINE (2 - 2023-2 5 season) 2024 11/20/2020 INFLUENZA VACCINE (#1) 2024 10/18/2019 DTAP/TDAP/TD VACCINES (3 - T d or Tdap) 10/15/2029 10/15/2019, 02/21/2009 ZOSTER VACCINE (1 of 2) 2039 HIB VACCINE Aged Out No longer eligi ble based on patient's age to complete this topic HPV VACCINE Aged Out No longer eligi ble based on patient's age to complete this topic MENINGOCOCCAL VACCINE Aged Out No elela elise eligible based on patient's age to complete this topic Advance Directives * Full Code (Latest Code Status on File) Date Activated Date Inactivated Comments 12/14/2022 1:52 AM 12/15/2022 7:00 PM * Full Code Date Activated Date Inactivated Comments 06/09/2022 1:40 PM 06/10/2022 8:21 PM * Full Code Date Activated Date Inactivated Comments 07/16/2008 2:32 AM 07/20/2008 3:38 AM Care Teams Digital Print Operator Relationship Specialty Start Date End Date Catina Rios, PETROPHYSICAL ENGINEER-PRODUCTION MATERIAL COORDINATOR [address] [place] [address] PCP - General Nurse Practitioner 03/30/22
--- OUTSIDE RECORDS SUMMARY | 2024-11-01 05:19 | XMS_ITS | Referral Summary ---
Author Organization [facility] [employer] Address [address] [place] [address] Care Team Providers Care Forest Engineer Name Role Phone Catina Rios APRN-VASCULAR ULTRASOUND TECHNOLOGIST Primary Care Provi saloni Source Comments [facility] [employer],non-owned Affiliates and Associated Physician Practices is amultiple site organization consisting of ambulatory clinics and hospital sitesin [place], [place], [place] and [place]. This disclosure is being madepursuant to the Care Everywhere program and may not contain all information available regarding this patient. Last updated 18.[facility] [employer] Allergies No known active allergies Medications * [...] 0.5 ML (IIV4) 10/18/2019 TDAP (7yrs+) 10/15/2019,02/21/2009 Social History Tobacco Use Types Packs/Day Years [...] and heating? Not hard at all 12/14/2022 [facility] [place] of Occupat ional Health - Occupational Stress [...] place to sleep or slept in a fpc (including now)? No 12/14/2022 Sex and Gender Information Value Date Recorded Sex Assigned at Not on file Gender Identity Not on file Sexual Orientation Not on file Last Filed Vital Signs Vital Sign Reading Time Taken Comments Blood Pressure 119/85 12/27/2022 11:41 AM SANITARIAN AIDE Pulse 78 12/27/2022 11:41 AM SANITARIAN AIDE Temperature 36.7 ??C (98.1 ??F) 12/15/2022 3:09 PM CS T Respiratory Rate 16 12/15/2022 3:09 PM SANITARIAN AIDE Oxygen Saturation 97% 12/27/2022 11:41 AM SANITARIAN AIDE Inhaled Oxygen Concentration - - Weight 110.2 kg (243 lb) 12/27/2022 11:41 AM SANITARIAN AIDE Height 165.1 cm (5' 5 ) 12/27/2022 11:41 AM SANITARIAN AIDE Body Mass Index 40.44 12/27/2022 11:41 AM SANITARIAN AIDE Functional Status Functional Status Response Date of Assess ment Is person deaf or have serious hearing difficult y? No 12/14/2022 Is person blind or have serious difficulty seein g? No 12/14/2022 Does person have serious dif ficulty walking/climbing stairs? No 12/14/2022 Does person have difficulty dressing/bathing? No 12/14/2022 Does person have difficulty doing errands alone? No 12/14/2022 Cognitive Status Response Date of Assessm ent Does person have difficulty concentrating/remembering/making decisions? No 12/14/2022 Plan of Treatment Not on file Advance Directives * Full Code (Latest Code Status on File) Date Activated Date Inactivated Comments 12/14/2022 1:52 AM 12/15/2022 7:00 PM * Full Code Date Activated Date Inactivated Comments 06/09/2022 1:40 PM 06/10/2022 8:21 PM * Full Code Date Activated Date Inactivated Comments 07/16/2008 2:32 AM 07/20/2008 3:38 AM Care Teams Forest Engineer Relationship Specialty Start Date End Date Catina Rios APRN-MARIS [address] [place] [address] PCP - General Nurse Practitioner 03/30/22
--- OUTSIDE RECORDS SUMMARY | 2024-11-01 05:20 | XMS_ITS | Encounter Summary ---
Author Organization [facility] Address [address] [place] [address] Care Team Providers Care Manager Rn Case Name Role Phone Catina Rios [facility] Primary Care Provi slaoni Encounter Details Date Type Department Care Team (Late st Contact Info) Description 12/27/2022 11:30 AM SHOP TAILOR Office Visit [facility] Weight Management Services [id number] [place] [address] [address] [place] [address] Jenny Pollard [facility] [address] [place] [address] S/P laparoscopic cholecystectomy (Primary Dx) Social History Tobacco Use Types Packs/Day Years [...] and heating? Not hard at all 12/14/2022 [facility] [place] of Occupat ional Health - Occupational Stress [...] place to sleep or slept in a halfway (including now)? No 12/14/2022 Sex and Gender Information Value Date Recorded Sex Assigned at Not on file Gender Identity Not on file Sexual Orientation Not on file COVID-19 Exposure Response Date Recorded In the last 10 days, have yo u been in contact with someone who was confirmed or suspected to have Coronavirus/COVID-19? No / Unsure 12/27/2022 11:17 AM SHOP TAILOR documented as of this encounter Last Filed Vital Signs Vital Sign Reading Time Taken Comments Blood Pressure 119/85 12/27/2022 11:41 AM SHOP TAILOR Pulse 78 12/27/2022 11:41 AM SHOP TAILOR Temperature - - Respiratory Rate - - Oxygen Saturation 97% 12/27/2022 11:41 AM SHOP TAILOR Inhaled Oxygen Concentration - - Weight 110.2 kg (243 lb) 12/27/2022 11:41 AM SHOP TAILOR Height 165.1 cm (5' 5 ) 12/27/2022 11:41 AM SHOP TAILOR Body Mass Index 40.44 12/27/2022 11:41 AM SHOP TAILOR documented in this encounter Functional Status Functional Status Response Date of [...] person have difficulty concentrating/remembering/making decisions? No 12/14/2022 documented as of this encounter Progress Notes * Jenny Pollard, BUN PANNER-PROCESSING ASSISTANT - 12/27/2022 9:37 AM CST Bariatric Surgery Clinic Note Marika Caban CC: Abdominal Pain, abnormal test results Previous Procedure: Laparoscopic Cholecystectomy with intraoperative fluoroscopic cholangiogram (04332) ([facility]) Date of Procedure: 12/13/2022 Initial Weight: 240 Todays Weight: 243 Weight Lost: -3 IBW: 150 EBW: 90 % of EBW loss 0% Subjective: Patient is here today for their 1 week post surgery follow up She reports overall she is doing better She is getting in all of the protein She is getting in all of the fluids She has not started on the recommended daily vitamins as instructed She has been up and ambulating. She denies any fevers, CP or SOB She denies any nausea, vomiting or reflux. She has started on the PPI as instructed Abdominal pain is minimal-off pain medications She is moving her bowels without difficulty. Incisions: C/D/I Tolerating a Regular diet well She was constipated and lots of gas pains. She was having chest pains with this. She did speak with. Gemr. Her CP subsided and so she didn't go to the ED . She did a supossitory that evening and had a BM which helped Data Vitals: 12/27/22 1141 BP: 119/85 Pulse: 78 SpO2: 97% Weight: 110.2 kg (243 lb) Height: 1.651 m (5' 5 ) BMI (Calculated): 40.44 Current Outpatient Medications Medication ??? biotin 2.5 MG tablets ??? ondansetron, disintegrating, (Zofran ODT) 4 MG tablet ??? oxyCODONE (Roxicodone) 5 MG/5ML oral solution ??? senna-docusate (Senokot-S) 8.6-50 MG tablet No current facility-administered medications for this visit. Recent Labs Component Name 12/15/2221012/14/2221012/13/22 1727 SODIUM 142 138 140 POTASSIUM 3.3* 3.4* 3.5 CHLORIDE 115* 108* 107 CO2 18* 24 23 BUN 11 15 17 CREATININE 0.58 0.69 0.78 GLUCOSE 71 89 105 CALCIUM 7.2* 8.3* 9.3 Recent Labs Component Name 12/15/2221012/14/2221012/13/22 1727 WBC 3.5* 3.5* 7.2 HGB 10.5* 10.3* 12.8 HCT 31.3* 30.7* 37.7 PLTCOUNT 138* 137* 184 Physical Exam A+O x 3, NAD CTA B/L RRR ABD soft, ND, NT, incisions C/D/I, no e/o hernias Neg BLE edema Assessment/Plan: Pt s/p Laparoscopic Cholecystectomy with intraoperative fluoroscopic cholangiogram (54522) ([facility]) - we reviewed postoperative complications following bariatric surgery and when to call the office. Patient is to continue with Regular diet as tolerated - we discussed signs and symptoms of dehydration and when to call the office Incisional pain - pain has overall improved - patient is off pain medication - continue with ICE pack PRN - continue with abdominal binder - patient is to call the office with any worsening abdominal pain. Constipation : - add fiber daily - add stool softener 1-2 per day - add MOM or miralax daily PRN Patient is to advance activity to include light cardio,light weights and no heavy lifting over 15 lbs for the next 3 weeks until seen in the office. Patient is not to start on the recommended daily vitamins until the 1 month visit Patient is to follow up with PCP in 1-2 week Patient is to RTC in 3 weeks ADAM Robles TAILOR documented in this encounter Plan of Treatment Not on file documented as of this encounter Visit Diagnoses Diagnosis S/P laparoscopic cholecystectomy- Primary Other postprocedural status documented in this encounter Care Teams Manager Rn Case Relationship Specialty Start Date End Date Catina Rios APRN-MARIS [address] [place] [address] PCP - General Nurse Practitioner 03/30/22 documented as of this encounter
--- OUTSIDE RECORDS SUMMARY | 2024-11-01 05:20 | XMS_ITS | Encounter Summary ---
Author Organization [facility] Address [address] [place] [address] Care Team Providers Care Dish Network Installer Name Role Phone [facility] Primary Care Provi saloni Reason for Visit * Reason Onset Date Comments Pre Authorization 12/13/2022 Surgery Scheduling 12/13/2022 Encounter Details Date Type Department Care Team (Late st Contact Info) Description 12/13/2022 Telephone [facility] Weight Management Services [id number] [place] [address] [place] [address] [address] Pre Authorization; Surgery Scheduling Social History Tobacco Use Types Packs/Day Years [...] and heating? Not hard at all 12/14/2022 [facility] [place] of Occupat ional Health - Occupational Stress [...] place to sleep or slept in a long-term (including now)? No 12/14/2022 Sex and Gender Information Value Date Recorded Sex Assigned at Not on file Gender Identity Not on file Sexual Orientation Not on file COVID-19 Exposure Response Date Recorded In the last 10 days, have yo u been in contact with someone who was confirmed or suspected to have Coronavirus/COVID-19? No / Unsure 12/09/2022 12:27 PM COLOR STRAINING BAG WASHER documented as of this encounter Functional Status Functional Status Response Date of Assess ment Is person deaf or have serious hearing difficult y? No 06/09/2022 Is person blind or have serious difficulty seein g? No 06/09/2022 Does person have serious dif ficulty walking/climbing stairs? No 06/09/2022 Does person have difficulty dressing/bathing? No 06/09/2022 Does person have difficulty doing errands alone? No 06/09/2022 Cognitive Status Response Date of Assessm ent Does person have difficulty concentrating/remembering/making decisions? No 06/09/2022 documented as of this encounter Miscellaneous Notes * Telephone Encounter - Yesenia Leos - 12/14/2022 10:18 AM CST Patient went to ER evening of 12/13/22 and has been admitted. Surgery is now scheduled for 12/15/22. R STRAINING BAG WASHER * Telephone Encounter - Yesenia Leos - 12/14/2022 10:04 AM CST Sx Date : 12/20/22 Prior Authorization for CPT 79270 Laparoscopic Cholecystectomy Dx: K82.8 Gallbladder dysmotility, R10.13 Epigastric pain Referring Provider: Dr. Alverto Engel Hospital: [facility], Outpatient Insurance Name: [facility] Insurance Group #: [id number] Insurance Rep you spoke to: Chaparrita Baig Auth/Reference #: No auth required Auth Phone #: [phone] Auth Fax #: N/R Call Reference Number: [id number] Clinicals: Not required R STRAINING BAG WASHER * Telephone Encounter - Yesenia Leos - 12/13/2022 3:01 PM CST ----- Message from ADAM Robles sent at 12/13/2022 10:58 AM COLOR STRAINING BAG WASHER ----- Eduardo, This patient needs to be scheduled for a Lap Mala with Dr. Engel on Tuesday12/20/2022. She is having abdominal pain. She had a HIDA with an EF 15%. ELIZABETH Williamson R STRAINING BAG WASHER documented in this encounter Plan of Treatment Not on file documented as of this encounter Visit Diagnoses Not on filedocumented in this encounter Care Teams Dish Network Installer Relationship Specialty Start Date End Date Catina Rios APRN-CNP [address] [place] [address] PCP - General Nurse Practitioner 03/30/22 documented as of this encounter
--- OUTSIDE RECORDS SUMMARY | 2024-11-01 05:20 | XMS_ITS | Encounter Summary ---
Author Organization [facility] Address [address] [place] [address] Care Team Providers Care Correctional Agency Director Name Role Phone Catina Rios APRN-DISTANCE LEARNING PROGRAM COORDINATOR Primary Care Provi saloni Encounter Details Date Type Department Care Team (Latest Contact Info) Description 04/16/2022 10:15 AM CDT Clinical Support [facility] Weight Management Services [address] [place] [address] [phone] Morbid obesity (HCC) Social History Tobacco Use Types Packs/Day Years Used Date Smoking Tobacco: Never Smokeless Tobacco: Never Alcohol Use Standard Drinks/Week Comments No 0 (1 standard drink = 0.6 oz pur e alcohol) Sex and Gender Information Value Date Recorded Sex Assigned at Not on file Gender Identity Not on file Sexual Orientation Not on file documented as of this encounter Last Filed Vital Signs Vital Sign Reading Time Taken Comments Blood Pressure - - Pulse - - Temperature - - Respiratory Rate - - Oxygen Saturation - - Inhaled Oxygen Concentration - - Weight 142.6 kg (314 lb 6.4 oz) 04/16/2022 9:58 AM CDT Height 165.1 cm (5' 5 ) 04/16/2022 9:58 AM CDT Body Mass Index 52.32 04/16/2022 9:58 AM CDT documented in this encounter Progress Notes * Marcial Garza, MAC/LD - 04/16/2022 9:24 AM CDT Weight Management Medical Nutrition Therapy Session 2 Date: 04/16/2022 Patient: Marika Garcia Arsh Date of : 1990 (31 year old) PCP Physician: Catina Rios, SURVEILLANCE OPERATOR-DISTANCE LEARNING PROGRAM COORDINATOR Referring Physician: Alverto Engel MD Progress towards previous goals: 1. Continue with current behaivors, emphasizing adequate fluids (70oz), protein (75g), and activitydaily. - Goal Met Assessment: Pt planning sleeve. 17 lb weight loss. Pt appears to be making dietary and behavior modifications suggested to her. Pt has eliminated sugar and caffeine, her activity level is high, and protein and fluids remain adequate. Diet recall suggests similar intake to previous assessment. Vitamins and calcium discussed today. Pt asked appropriate questions PRN. Past Medical History: Diagnosis Date ??? Asthma does not use inhaler Pertinent Nutrition Medications: Reviewed Pertinent Nutrition Labs: Reviewed Clinical Data: Height: 5' 5 (165.1 cm) Weight: (!) 314 lb 6.4 oz (142.6 kg) BMI (Calculated): 52.[address] visit: 331 Diagnostic Statement: Obesity related to excess energy intake and decreased physical activity AEB elevated BMI. Interventions: Bariatric Nutrition Guide provided and reviewed, including: portion sizes using food models, adequate hydration, proper eating habits, tips for dining out and goals for a lifetime of success and previous food records, goals, and behavior modification tips reviewed Materials Provided: Bariatric Nutrition Guide, Support Group Schedule, High Protein Liquid Supplement Handout, Fitness Center Membership Information and Vitamin Option Sheet Behavior and Lifestyle Modifications Discussed: Eat 3 meals daily with 1-2 high protein snacks as needed Choose low fat/low sugar items Eat 75 gm protein per day Eliminate caloric beverages, carbonated beverages and limit caffeine Perform 30 minutes of cardiovascular exercise per day, most days of the week as able and approved by physician Do not graze between meals Incorporate fruits and vegetables Include whole grain foods Take 15-20 minutes to eat meals Reduce stress and emotional eating Portion control Recipe modifications/cooking methods Monitoring: Pt encouraged to call RD with questions and/or concerns. Pt verbalizes understanding of expectation of gradual weight loss or weight maintenance prior to surgery. Evaluation of Overall Compliance Potential: High Nutritional Review ?? Cleared, no additional RD visits required ___ ?? Not cleared, additional RD visit(s) required ___ ?? Continue with Medically Managed Diet visits _X__ ?? Bariatric Case Conference review required ___ Session Information Session date: 04/16/2022 Session total minutes: [address]/[place] documented in this encounter Plan of Treatment Not on file documented as of this encounter Visit Diagnoses Diagnosis Morbid obesity (HCC)- Primary Morbid obesity documented in this encounter Care Teams Correctional Agency Director Relationship Specialty Start Date End Date Catina Rios APRN-DISTANCE LEARNING PROGRAM COORDINATOR [address] [place] [address] PCP - General Nurse Practitioner 03/30/22 documented as of this encounter
--- OUTSIDE RECORDS SUMMARY | 2024-11-01 05:20 | XMS_ITS | Encounter Summary ---
Author Organization [facility] Address [address] [place] [address] Care Team Providers Care Diamond Sizer And Sorter Name Role Phone Maverick Kauffman MD Primary Care Provider [phone] Reason for Visit * Reason Comments Rupture of Membranes at 0100 clear fluid Encounter Details Date Type Department Care Team (Latest Contact Info) Description 07/16/2008 1:24 AM CDT - 07/19/2008 2:45 PM CDT Hospital Encounter [facility] - Labor & Delivery [address] [place] [address] Margarito Vega MD [address] [place] [address] Obstetrics Discharge Disposition: Cancer Center or [facility] Social History Tobacco Use Types Packs/Day Years Used Date Smoking Tobacco: Never Alcohol Use Standard Drinks/Week Comments No 0 (1 standard drink = 0.6 oz pur e alcohol) Sex and Gender Information Value Date Recorded Sex Assigned at Not on file Gender Identity Not on file Sexual Orientation Not on file documented as of this encounter Last Filed Vital Signs Vital Sign Reading Time Taken Comments Blood Pressure 141/68 07/19/2008 2:00 PM CDT Pulse 76 07/19/2008 2:00 PM CDT Temperature 36.8 ??C (98.3 ??F) 07/19/2008 2:00 PM CD T Respiratory Rate 16 07/19/2008 2:00 PM CDT Oxygen Saturation 98% 07/16/2008 8:30 PM CDT Inhaled Oxygen Concentration - - Weight 113.4 kg (250 lb) 07/16/2008 1:34 AM CDT Height 167.6 cm (5' 6 ) 07/16/2008 1:34 AM CDT Body Mass Index 40.35 07/16/2008 1:34 AM CDT Body Mass Index Percentile 98.96% 07/16/2008 1:3 4 AM CDT Growth Chart: [facility] (Girls, 2- 20 Years) documented in this encounter Discharge Summaries * Margarito Vega MD - 07/19/2008 8:46 AM CDT OB Discharge Note Subjective: Patient is feeling well, pain adequately controlled, passing flatus, tolerating diet, ambulating. Objective: Vitals: 07/18/2008 12:35 PM 07/18/2008 5:00 PM 07/19/2008 12:30 AM 07/19/2008 7:45 AM BP: 133/62 148/66 144/69 Pulse: 94 74 77 Temp: 98.7 ??F 98.2 ??F 98.5 ??F 98.2 ??F Resp: 16 18 Weight: SpO2: No intake or output data in the 24 hours ending 07/19 846 Exam: Lungs: breath sounds normal and symmetric; no rales or wheezes Heart: regular rhythm Extremities: NT Abdomen: Soft, non-distended. Incision intact, clean. Scant flow. Results: There are no new results to review at this time. Reasons for Admission: labor management Discharge Date: 07/19/2008 Discharge Diagnosis: Pre-term delivery. Delivery Type: section Antepartum complications: none Incision: Pfannensteil or LCT uterus Feeding method: breast Rhogam: not indicated Rubella: not indicated Assessment: 1, Para 1, None filed, Estimated Date of Delivery: None noted. Gestational Age day 3, section. Complications: none Condition at discharge: good Discharge Instructions: Discharge Procedure Orders REGULAR DIET AT HOME FOLLOW UP Follow up with Dr. Vega in 2 weeks.. NOTHING PER VAGINA until follow up appointment. DISCHARGE ACTIVITY RESTRICTIONS Tonal Regulator activity until follow up appointment. Order Specific Question Answer Comments For how long? Until follow up appointment DRIVING RESTRICTIONS No driving for 2 weeks. NO HEAVY LIFTING for 6 weeks. CALL PHYSICIAN Call Physician for fever of 101.0 or higher, increased vaginal bleeding, increased pain, or wound drainage. CALL PHYSICIAN Call MD if increasing redness or discharge from incision site. CALL PHYSICIAN If severe pain/cramping or if heavy vaginal bleeding occurs SHOWER AND BATH INSTRUCTIONS May shower. No baths for 2 weeks. START taking these medications ibuprofen (MOTRIN) 600 MG tablet Ordered Dose: 600 mg Take 1 Tab by mouth every 6 hours as needed for Pain. Qty: 30 Refills: 1 oxycodone-acetaminophen (PERCOCET) 5-325 MG tablet Ordered Dose: 1-2 Tab Take 1-2 Tabs by mouth every 4 hours as needed for Pain. Qty: 50 Refills: 0 Instructions: Call if increased pain, bleeding, or temperature greater than 101. Discharge to home. documented in this encounter Discharge Instructions * Discharge Instructions* Loretta Leon RN - 07/19/2008 9:24 AM CDT DELIVERED MOTHER DISCHARGE INSTRUCTIONS for: Marika Liu Refer to Care for Mother Booklet for more information. Please contact your dispatch machine runner for the following (page 4): 1. Any burning or itching when urinating. 2. Any significant increase or change in color or odor of vaginal discharge. 3. Any increased vaginal bleeding that may contain clots. 3. Temperature greater than 100.4 degrees. 4. Any significant increase in pain, tenderness, or redness in your abdominal incision (). 5. Any pus draining from your abdominal incision (). 6. Any pus or blood draining from nipples. START taking these medications ibuprofen (MOTRIN) 600 MG tablet Ordered Dose: 600 mg Take 1 Tab by mouth every 6 hours as needed for Pain. Qty: 30 Refills: 1 oxycodone-acetaminophen (PERCOCET) 5-325 MG tablet Ordered Dose: 1-2 Tab Take 1-2 Tabs by mouth every 4 hours as needed for Pain. Qty: 50 Refills: 0 Discharge Procedure Orders REGULAR DIET AT HOME FOLLOW UP Follow up with Dr. Vega in 2 weeks.. NOTHING PER VAGINA until follow up appointment. DISCHARGE ACTIVITY RESTRICTIONS Tonal Regulator activity until follow up appointment. Order Specific Question Answer Comments For how long? Until follow up appointment DRIVING RESTRICTIONS No driving for 2 weeks. NO HEAVY LIFTING for 6 weeks. CALL PHYSICIAN Call Physician for fever of 101.0 or higher, increased vaginal bleeding, increased pain, or wound drainage. CALL PHYSICIAN Call MD if increasing redness or discharge from incision site. CALL PHYSICIAN If severe pain/cramping or if heavy vaginal bleeding occurs SHOWER AND BATH INSTRUCTIONS May shower. No baths for 2 weeks. Do not smoke. Avoid second hand smoke. Remember to collect all your belongings kept at the beside, for example: your cell phone and cell phone edge glue machine tender. The following belongings have been returned to you: Clothing Clothing: Yes With Patient: Shirt;Pants Sent Home: Shirt;Pants Jewelry Jewelry: Yes With Patient: Earring Sent Home: Earring Electronics Electronic Items: Yes With Patient: Cell Phone Sent Home: Cell Phone Dentures Dentures/Retainers: None Vision Visual Aids: None Hearing Aids Hearing Aids: None Equipment/Assistive Devices Equipment with Patient: None Equipment At Home: None Home Medications Home Medications: None Miscellaneous Belongings Miscellaneous Items: None PLEASE REMEMBER: 1) Always place your on his/her back to sleep. 2) Always use a car seat when transporting your child. I have received and understand my self care instructions. If I have any problems or questions, I will call my physician. Patient Signature: Nurse's Signature: 07/19/2008 * Discharge Instructions* Document, Scanned - 07/16/2008 12:00 AM CDT documented in this encounter Medications at Time of Discharge Medication Sig Dispensed Refills Start Date End Date ibuprofen (MOTRIN) 600 MG tablet Take 1 Tab by mouth every 6 hours as needed for Pain. 30 1 07/19/2008 02/21/2009 oxycodone-acetaminophen (PERCOCET) 5-325 MG tablet Take 1-2 Tabs by mouth every 4 hours as needed for Pain. 50 0 07/19/2008 02/21/2009 documented as of this encounter Progress Notes * Margarito Vega MD - 07/18/2008 8:18 AM CDT OB Progress Note Subjective: Patient is feeling well, pain adequately controlled, passing flatus, tolerating diet, ambulating. Objective: Temp (36hrs) Max:98.8 ??F Vitals: 07/17/2008 8:30 AM 07/17/2008 4:00 PM 07/17/2008 5:40 PM 07/18/2008 12:00 AM BP: 117/50 134/64 123/51 Pulse: 103 101 Temp: 98.8 ??F 98.3 ??F 98.5 ??F Resp: 18 20 16 Weight: SpO2: Intake/Output Summary (Last 24 hours) at 07/18 818 Last data filed at 07/17 2000 Gross per 24 hour Intake 600 ml Output 2200 ml Net -1600 ml Exam: Lungs: breath sounds normal and symmetric; no rales or wheezes Heart: regular rhythm Extremities: NT Abdomen: Soft, non-distended. Dressing clean, dry Small amt flow. Data: Results: There are no new results to review at this time. Assessment: day 2, section. Complications: none The patient feels well. Pain is well controlled with current medications. Urinary output is adequate. The patient is ambulating well. The patient is tolerating a normal diet. Flatus has been passed. Plan: Routine care. * Margarito Vega MD - 07/17/2008 8:30 PM CDT MgSO4 off, arellano dc'd. Pt. Ambulating, feels well, pain controlled. BP OK. Stable. Previous note re Robitussin and Z-ela in error - wrong pt. * Margarito Vega MD - 07/17/2008 8:24 PM CDT RX for Robitussin ac and Z-ela given. * Margarito Vega MD - 07/17/2008 11:25 AM CDT OB Progress Note Subjective: Patient is feeling well, pain adequately controlled, passing flatus, tolerating diet, ambulating. Objective: Temp (36hrs) Max:98.8 ??F Vitals: 07/16/2008 9:30 PM 07/17/2008 12:20 AM 07/17/2008 3:51 AM 07/17/2008 8:30 AM BP: 146/68 108/42 106/47 117/50 Pulse: Temp: 98.7 ??F 98.5 ??F 97.6 ??F 98.8 ??F Resp: Weight: SpO2: Intake/Output Summary (Last 24 hours) at 07/17 1125 Last data filed at 07/17 0731 Gross per 24 hour Intake 4000 ml Output 3475 ml Net 525 ml Exam: Lungs: breath sounds normal and symmetric; no rales or wheezes Heart: RRR Extremities: NT. Abdomen: FF. Dressing clean, dry. Small amt. Flow. Data: Results: WBCs 12.8. H/H 9.9/29.9. Plt 100K Assessment: day 1, section. Complications: none The patient feels well. Pain is well controlled with current medications. Urinary output is adequate. The patient is not ambulating well. Plan: eileen Willoughby at 7pm. * Dwayne Wang MD - 07/16/2008 7:31 PM CDT I assisted at at the request of the patient's attending physician. * Dwayne Wang MD - 07/16/2008 11:32 AM CDT T's improved, Dr. Vega informed. * Deborah Davis - 07/16/2008 11:26 AM CDT At 1100 am noted lated decelerations with baseline of 145 moderate variability. BP 137/59. LR bolusinfusing. At 1104am pitocin discontinued, pt. Turned to right side. Continued to have frequent contractions; lates with each contraction. Pt. Turned back to left side and O2 at 15L/min per nrb mask at 1111am. Dr. Dominguez at bedside to review tracing. SVE done per Ole Ramirez. Scalp stimulation done Cervix noted to be 3cm/70/-3. At 1125am Dr. Dominguez notified Dr. Vega of FHT late decelerations, pitocin off, current tracing review. Will continue to watch at present. * Dwayne Wang MD - 07/16/2008 11:22 AM CDT CTSP re late decelerations after epidural placement. There was a small pressure change. Pt repositioned and Pitocin turned off. Pt is now 3/75/-2. FHT's improving. Will leave Pitocin off for now to see how pt does on her spontaneous contractions. * Dwayne Wagn MD - 07/16/2008 9:06 AM CDT At the request of the patient's private physician, an IUPC and FSE were inserted. The partient's membranes were previously ruptured. FHT's were satisfactory. Cervical exam was as follows: 1-2 cm/50% effaced/-2 station. documented in this encounter H&P Notes * Surjit Roche MD - 07/16/2008 2:51 AM CDT Obstetric History and Physical Exam Subjective: Marika Alan is a 17 y.o. G 1 P None filed A None filed female at 35w 5d weeks gestation. Patient reports: leaking of clear fluid since 003. Her current obstetrical history is significant for: Unremarkable. is galindo. Movement: normal.Pt states that 18wk ultrasound showed 08/03/08 as her EDC. No record is available at time of examination. Objective: BP 150/82 Pulse 94 Resp 20 Ht 1.676 m (5' 6 ) Wt 113.399 kg (250 lb) LMP OB (08/15/08) ? Yes Allergies: NKDA Curent Medications: Vitamins Obstetric History T0 E0 M0 L0 Name of Baby 1 Not recorded ??? Outcome Date Not recorded GA Not recorded ??? Outcome / Delivery Type Not recorded ??? at 1 min. Not recorded at 5 min. Not recorded ??? Is living? Not recorded Surgeries: none Medical History: no significant illness Family History: History is not significant for heart diseases, stroke hypertension, renal disease, significant defects or chromosomal disorders. Social History: Patient denies smoking, alcohol abuse and drug abuse. Review of Systems: A 12 point review of systems was obtained and is negative . Physical Exam: General: alert, cooperative, no distress Lungs: clear to auscultation bilaterally Heart: regular rate and rhythm, S1, S2 normal, no murmur, click, rub or gallop Extremities: normal, non-tender bilaterally Abdomen: gravid Deep tendon reflexes 4+/4+ Cervix: Dilation: 1-2cm Effacement: 50% Station: -3 Consistency: Soft Position: Posterior heart tones: 150 BPM heart variability: moderate Membranes: Grossly ruptured Lab Review: Blood type: unknown GBS: unknown Nitrizine: N/A Fern: N/A Assessment: 1, Para None filed, None filed, Estimated Date of Delivery: 08/15/08 Gestational Age 35w 5d Not in labor. Obstetrical history Unremarkable. Last BP 148/97 Clinical picture compatable with some degree of pre-eclampsia. Plan: As per Dr. Vega who was informed of the patient's arrival to Labor and Delivery Admitted for SROM. Will institute magnesium sulfate drip and prophylactically treat for unknown GBS status. Will probably require pitocin augmentation of labor. [facility] labs ordered. documented in this encounter Consult Notes * Leeann Martell - 07/19/2008 2:32 PM CDT handouts given and explained. discharge plan completed. Resource numbers given for contact. * Alicja Torres - 07/16/2008 11:48 AM CDTAssociated Order(s): IP CONSULT TO CASE MANAGEMENT Referral received for teen . Pt is an 17 year old female admitted for labor and delivery. SW met with the pt and her family. Pt lives with her parents and plans to return home at discharge. Pt reported her family is supportive and will provide assistance with the baby. Pt has private insurance and plans to add the baby when he is born. Pt said she has all the necessary equiptment and supp lies for the baby and her family confirmed this. Pt said she has information about [facility] but she has not met with them yet. Pt plans to follow up with the [facility] office at discharge. Pthas no other concerns or questions at this time. Pt is aware she can ask for SW if a need arises. documented in this encounter OR Notes * Operative - Margarito Vega MD - 07/16/2008 12:[facility] PATIENT NAME: MARIKA ALAN MR#: [id number] ROOM#: [id number] SEX: F SURGEON: MARGARITO VEGA M.D. : 1990 SURGERY DATE: 07/16/2008 PREOPERATIVE DIAGNOSES: 1. Intrauterine at 36 weeks; failure to progress in labor. 2. Mild preeclampsia PROCEDURE: Primary low transverse section. POSTOPERATIVE DIAGNOSES: 1. Intrauterine at 36 weeks; failure to progress in labor. 2. Mild preeclampsia ANESTHESIA: Epidural. VISUAL EFFECTS EDITOR: Dr. Dwayne Wang. INDICATIONS FOR PROCEDURE: Events leading up to , the patient is an 17-year-old, 1, para 0 at 36 weeks gestation by early ultrasound. She presented on the morning of after spontaneous rupture of membranes. The patient on admission after spontaneous rupture of membranes, the patient was mikayla very irregularly. However, her blood pressure was elevated with brisk reflexes. Pre- eclamptic labs show a platelet count of 118,000. Decision at that time was made to proceed with magnesium sulfate and induction of labor. An epidural was placed per patient's request. After the epidural, there were repetitive late decelerations which stopped when the oxytocin was discontinued. It was later restarted without return and variability remained good. The patient was 3 cm dilated at 11:00 a.m. with station was high. At 5:30 p.m., she was only 4 cm, again with extreme high station. Decision at this time was made to proceed with section for failure to progress. PROCEDURE IN DETAIL: The patient was placed on the operating table in the supine position. An epidural was already in place as was a Arellano catheter. A Pfannenstiel skin incision was then made with a scalpel down into the level of fascia. The fascia was nicked in the midline and carried the length incision with the Gates scissors. The fascia was bluntly and sharply dissected from the underlying rectus muscles. The muscles bluntly and sharply dissected in the midline. The peritoneum was then grasped, entered bluntly and extended in a vertical manner. The bladder blade was then placed. The visceral peritoneum overlying the uterus was then taken down by blunt and sharp dissection and placed beneath the bladder blade. A low transverse uterine incision was then made with a scalpel and extended with the alysonage scissors. A hand was placed through the incision, the 's head elevated and delivered using fundal pressure. The mouth and nose were bulb suctioned and the rest of the infant delivered in normal vertex fashion. The cord was doubly cut, clamped and cut. The handed off the table to the awaiting nursing personnel and maintenance shop clerk. The is a viable male weighing 7 pounds 7 ounces, having scores of 9 at one minutes and 9 at five minutes. No resuscitation was required. The uterus was then exteriorized and oxytocin infusion begun. The uterine cavity was moist lapped free of any remaining placental fragments. The uterine incision was then closed in layers, the first of which was a running locking suture of 0 chromic and a second layer, a running locking imbricating suture of 0 chromic was placed. This adequately controlled hemostasis. The anterior and posterior cul-de-sacs were then damp lapped free of any remaining blood and clots. The uterus returned to the abdomen. The gutters were damp lapped free of any remaining blood clots. The anterior peritoneum closed with a running suture of 2-0 chromic. The muscles were reapproximated in the midline with 2-0 chromic. The fascia was then closed with running suture of 0 Vicryl from one corner to the midline and the opposite corner to the midline. The subcutaneous tissue was then irrigated with warm normal saline and several small bleeders cauterized. The subcutaneous tissue was then reapproximated using interrupted sutures of 3-0 plain. The skin edges were reapproximated using running subcuticular suture of 4-0 Vicryl. A sterile dressing was then applied. The patient tolerated the procedure well and there were no complications. Estimated blood loss 800 mL. Both patient and infant were returned to [facility] in stable condition. Ish ROCHA A:mq - [id number] cc: documented in this encounter Miscellaneous Notes * Delivery Summary - Deborah Davis RN - 07/17/2008 7:35 AM CDT Delivery Summary /Para: GBS: Unknown Number of Antibiotic Doses: 4 Transcribed Labs: Blood Type (Manually Reproduced): A RH (Manually Reproduced): Positive Syphilis Serology (Manually Reproduced): Negative HIV (Manually Reproduced): Negative Hepatitis B Surface Antigen (Manually Reproduced): Negative Rubella Status ( Manually Reproduced): Immune Delivery Data Mother: Labor Events Membrane Status: Ruptured Rupture Date: 07/16/2008 Rupture Time: 1:00 AM Fluid Description: Clear Augmentation Method: Oxytocin Induction Method: None Intrapartum Events Anesthesia/Analgesia: Epidural Time of Decision for C/S: 1740 Indications: Failure to progress Labor Complications: None Delivery Estimated Blood Loss: 600 Delivery Personnel Resident: assist:eloina Arrival: RN Name: suellen davis/carlos ramirez Arrival: Physician: brooke Arrival: COLOR CONTROL SUPERVISOR/MDA: nadir leo Arrival: Anesthesiologist: srinivasan Arrival: Delivery Data: Information for the patient's : Key Baby Boy [[id number]] Estimated Gestational Age: Unknown Delivery Details Date of 07/16/2008 Time of : 6:43 PM Delivery Type: Primary Delivering Clinician: Dr. Vega Placenta Data Placenta Delivery Date and Time: 07/16/2008 6:44 PM Placenta Appearance/Removal: Manual Removal Cord Data Cord Vessels: 3 Vessels Cord Blood Disposition: Lab Airway Suction Method: Suction Trap Bulb Secretions: Clear More Interventions Needed: No Assessment (1 min): 9 (5 min): 9 Delivery Outcome Living: Yes Sex: Male Measurements Weight: 3387 g (7 lb 7.5 oz) Length: 20 Head Circumference: 13.75 in. Chest Circumference: 12.756 in Delivery Personnel Assistant Restaurant General Manager: Arrival: RN: nadir kramer Arrival: ING GUIDE * Miscellaneous Scans - Document, Scanned - 07/16/2008 12:00 AM CDT * Miscellaneous Scans - Document, Scanned - 07/16/2008 12:00 AM CDT * Miscellaneous Scans - Document, Scanned - 07/16/2008 12:00 AM CDT * Miscellaneous Scans - Document, Scanned - 07/16/2008 12:00 AM CDT * Miscellaneous Scans - Document, Scanned - 07/16/2008 12:00 AM CDT * Miscellaneous Scans - Document, Scanned - 07/16/2008 12:00 AM CDT documented in this encounter Plan of Treatment Not on file documented as of this encounter Procedures Procedure Name Priority Date/Time Associated Diagnosis Comments MAGNESIUM BLOOD Routine 07/18/2008 5:54 AM CDT Complic Labor NEC-Antepart (HCC) CBC W AUTO DIFFERENTIAL Routine 07/17/2008 7:09 AM CDT Complic Labor [facility]-Antepart (HCC) URIC ACID BLOOD STAT 07/16/2008 3:15 AM CDT Complic Labor [facility]EC-Antepart (HCC) CBC W AUTO DIFFERENTIAL STAT 07/16/2008 3:15 AM CDT Complic Labor [facility]EC-Antepart (HCC) COMPREHENSIVE METABOLIC PANEL STAT 07/16/2008 3:15 AM CDT Complic Labor NEC-Antepart (HCC) documented in this encounter Results * MAGNESIUM BLOOD (07/18/2008 5:54 AM CDT) Magnesium 1.7 1.4 - 1.8 mEq/L [facility] 07/18/2008 5:54 AM CDT 07/18/2008 5:59 AM CDT Margarito Vega MD LAB - CHEMISTRY MARIBEL WEISS [facility] Organization Address City/State/[facility] Co de Phone Number [address] [address] * (ABNORMAL) CBC W AUTO DIFFERENTIAL (07/17/2008 7:09 AM CDT) WBC 12.8(H) 4.2 - 10.2 K/CUMM [facility] RBC 3.61(L) 4.10 - 5.10 M/CUMM [facility] Hemoglobin 9.9(DL) 12.0 - 15.5 gm/dl [facility] Hematocrit 29.9(DL) 36 - 47 % [facility] MCV 82.8 78 - 102 fl [facility] MCH 27.4 27.1 - 33.1 pg [facility] MCHC 33.1 32 - 36 gm/dl [facility] RDW 14.7(H) 11.5 - 14.5 % [facility] Platelet Count 100(L) 150 - 400 K/CUMM [facility] Granulocytes % 87.0(H) 45 - 73 % [facility] Lymphocytes % 7.3(L) 22 - 41 % [facility] Monocytes % 5.4 2 - 13 % [facility] Eosinophils % 0.2 0 - 6 % [facility] Basophils % 0.1 0 - 2 % [facility] Granulocytes Absolute 11.1(H) 1.7 - 7.7 [facility] Lymphocytes Absolute 0.9(L) 1.0 - 3.0 [facility] Monocytes Absolute 0.7 0.2 - 1.0 [facility] Eosinophils Absolute 0.0 0.0 - 0.4 [facility] Basophils Absolute 0.0 0.0 - 0.1 [facility] Comment Manual Diff Automated Diff Performed [facility] BLOOD SPECIMEN / Unknown 07/17/2008 7:09 AM CDT 07/17/2008 7:17 AM CDT Margarito Vega MD LAB - HEMATOLOGY ORD LEVI Performing Organization Address City/[facility]/ZIP Co de Phone Number [address] [address] * URIC ACID BLOOD (07/16/2008 3:15 AM CDT) Uric Acid 3.4 3.0 - 5.8 mg/dL [facility] BLOOD SPECIMEN / Unknown 07/16/2008 3:15 AM CDT 07/16/2008 3:27 AM CDT Margarito Vega MD LAB - CHEMISTRY MARIBEL WEISS Performing Organization Address [facility] Co de Phone Number [address] [address] * (ABNORMAL) COMPREHENSIVE METABOLIC PANEL (07/16/2008 3:15 AM CDT) Glucose 115.(H) 70 - 106 mg/dL [facility] BUN 10. 7 - 18 mg/dL [facility] Creatinine .55 0.50 - 1.05 mg/dL [facility] BUN/Creatinine Ratio 17.4 [facility] Sodium 137. 137 - 145 mEq/L [facility] Potassium 4.1 3.6 - 5.0 mEq/L [facility] Chloride 109.(H) 98 - 107 mEq/L [facility] CO2 21.(L) 22 - 31 mEq/L [facility] Anion Gap 7. [facility] Calcium 8.9 8.4 - 10.6 mg/dL [facility] Alkaline Phosphatase 155.(H) 38 - 126 U/L [facility] ALT 17. 5 - 35 U/L [facility] AST 16. 5 - 40 U/L [facility] Protein Total 5.9(L) 6.3 - 8.6 gm/dl [facility] Albumin 3.1(L) 3.7 - 5.6 gm/dl [facility] Bilirubin Total .2 0.2 - 1.3 mg/dL [facility] eGFR by MDRD >60 SEE BELOW mL/min/1.7 3 m2 [facility] Comment: >60 Normal Chronic Disease <60 Renal Failure <15 BLOOD SPECIMEN / Unknown 07/16/2008 3:15 AM CDT 07/16/2008 3:27 AM CDT Margarito Vega MD LAB - CHEMISTRY [facility] Organization Address City/State/ZIP Co de Phone Number [facility] [address] [place] [address] * (ABNORMAL) CBC W AUTO DIFFERENTIAL (07/16/2008 3:15 AM CDT) WBC 11.7(H) 4.2 - 10.2 K/CUMM [facility] RBC 4.17 4.10 - 5.10 M/CUMM [facility] Hemoglobin 11.4(L) 12.0 - 15.5 gm/dl [facility] Hematocrit 34.0(L) 36 - 47 % [facility] MCV 81.5 78 - 102 fl [facility] MCH 27.3 27.1 - 33.1 pg [facility] MCHC 33.5 32 - 36 gm/dl [facility] RDW 14.5 11.5 - 14.5 % [facility] Platelet Count 118(L) 150 - 400 K/CUMM [facility] Granulocytes % 79.8(H) 45 - 73 % [facility] Lymphocytes % 12.6(L) 22 - 41 % [facility] Monocytes % 6.8 2 - 13 % [facility] Eosinophils % 0.6 0 - 6 % [facility] Basophils % 0.2 0 - 2 % [facility] Granulocytes Absolute 9.3(H) 1.7 - 7.7 [facility] Lymphocytes Absolute 1.5 1.0 - 3.0 [facility] Monocytes Absolute 0.8 0.2 - 1.0 [facility] Eosinophils Absolute 0.1 0.0 - 0.4 [facility] Basophils Absolute 0.0 0.0 - 0.1 [facility] Comment Manual Diff Automated Diff Performed [facility] RBC Morphology Occasional Macrocytes, Occasional Ovalocytes [facility] BLOOD SPECIMEN / Unknown 07/16/2008 3:15 AM CDT 07/16/2008 3:28 AM CDT Margarito Vega MD LAB - HEMATOLOGY ORD ERABLES Performing Organization Address City/State/[facility] Co de Phone Number [address] [address] documented in this encounter Visit Diagnoses Diagnosis Other specified indication for care or intervention related to labor and delivery, antepartum (HCC) Other specified indication for care or intervention related to labor and delivery, antepartum documented in this encounter Administered Medications Inactive Administered Medications - up to 3 most recent administrations Medication Order MAR Action Action Date Dose Rate Site ampicillin (OMNIPEN) IVPB+ 1 g 1 g, at 100 mL/hr, Intravenous, EVERY 4 HOURS, First dose on Tue07/16/08 at 0645, Until Discontinued $ Given 07/16/2008 4:29 PM CDT 1 g 100 mL/hr $ Given 07/16/2008 8:23 AM CDT 1 g 100 mL/hr ampicillin (OMNIPEN) IVPB+ 2 g 2 g, at 200 mL/hr, Intravenous, ONCE, 1 dose, On Tue07/16/08 at 0245, Infuse over 30 minutes $ Given 07/16/2008 3:49 AM CDT 2 g 200 mL/hr ceFAZolin (ANCEF) IV syringe 2 g 2 g, Intravenous, EVERY 8 HOURS, First dose on Tue07/16/08 at 2200, Until Discontinued $ Given 07/17/2008 7:00 PM CDT 2 g $ Given 07/17/2008 11:17 AM CDT 1 g $ Given 07/17/2008 3:39 AM CDT 2 g citric acid-sodium citrate (BICITRA) solution 30 mL 30 mL, Oral, PRE-OP ONCE, 1 dose, Dilute in water before taking; follow with additional water if desired. $ Given 07/16/2008 6:14 PM CDT 15 mL dextrose 5 % and 0.45% nacl infusion at 125 mL/hr, Intravenous, CONTINUOUS, Starting on Tue07/16/08 at 1930, Until Tue07/17/08 at 1131, May discontinue IV when taking PO and afebrile. $ New Bag/Syringe 07/17/2008 6:10 AM CDT 125 mL/hr $ New Bag/Syringe 07/16/2008 9:27 PM CDT 125 mL /hr dextrose 5 % and 0.45% nacl infusion at 75 mL/hr, Intravenous, CONTINUOUS, Starting on Tue07/17/08 at 1145, Until Kavya 07/18/08 at 0747, May discontinue IV when taking PO and afebrile. $ New Bag/Syringe 07/17/2008 4:27 PM CDT 75 mL/hr diphenhydrAMINE (BENADRYL) injection 25-50 mg 25-50 mg, Intravenous, EVERY 4 HOURS PRN, Itching, Starting on Tue07/16/08 at 1756, Until 07/20/08 at 0338, May use IM or IV $ Given 07/17/2008 12:37 AM CDT 25 mg docusate sodium (COLACE) capsule 100-200 mg 100-200 mg, Oral, AT BEDTIME PRN, Constipation, Starting on Tue07/16/08 at 1921, Until 07/20/08 at 0338 $ Given 07/19/2008 5:47 AM CDT 200 mg famotidine (PEPCID) injection 20 mg 20 mg, Intravenous, PRE-OP ONCE, 1 dose $ Given 07/16/2008 6:15 PM CDT 20 mg fentanyl 2 mcg/ml and ropivicaine 0.2% in 0.9% nacl Epidural at 10 mL/hr, Epidural, CONTINUOUS, Starting on Tue07/16/08 at 1000, Until Tue07/16/08 at 2304, Prior to infusion 7 ml bolus. PCEA 5 ml bolus every 30 minutes PRN. $ New Bag/Syringe 07/16/2008 10:32 AM CDT 10 mL/hr 10 mL/hr ibuprofen (MOTRIN) tablet 600 mg 600 mg, Oral, EVERY 6 HOURS PRN, Pain, Starting on Tue07/16/08 at 1921, Until Tue07/20/08 at 0338, Mild per patient description. Maximum allowable ibuprofen amount = 3200 mg / 24 hours. $ Given 07/19/2008 11:38 AM CDT 600 mg $ Given 07/19/2008 5:46 AM CDT 600 mg $ Given 07/19/2008 1:00 AM CDT 600 mg lactated ringers infusion at 125 mL/hr, Intravenous, CONTINUOUS, Starting on Tue07/16/08 at 0245, Until Tue07/16/08 at 2304, Start IV with 18 gauge angiocath. $ New Bag/Syringe 07/16/2008 9:50 AM CDT 125 mL /hr $ New Bag/Syringe 07/16/2008 3:06 AM CDT 125 mL /hr lactated ringers infusion at 125 mL/hr, Intravenous, CONTINUOUS, Starting on Tue07/16/08 at 1000, Until Tue07/16/08 at 2304 $ New Bag/Syringe 07/16/2008 5:56 PM CDT 125 mL/hr $ New Bag/Syringe 07/16/2008 11:12 AM CDT 125 m L/hr magnesium sulfate in sterile water bag 2 g/hr 2 g/hr (rounded to 50 mL/hr), Intravenous, CONTINUOUS, Starting on Tue07/16/08 at 0245, Until Tue07/17/08 at 1131, 2 g/hr = 50 ml/hr $ New Bag/Syringe 07/16/2008 2:11 PM CDT 2 g/hr 50 mL/hr $ New Bag/Syringe 07/16/2008 3:49 AM CDT 2 g/hr 50 mL/ hr magnesium sulfate in sterile water bag 2 g/hr 2 g/hr (rounded to 50 mL/hr), Intravenous, CONTINUOUS, Starting on Tue07/16/08 at 1930, Until Tue07/17/08 at 1131 $ New Bag/Syringe 07/17/2008 3:23 AM CDT 2 g/hr 50 mL/hr Restarted 07/16/2008 7:50 PM CDT 2 g/hr 50 mL/hr magnesium sulfate in sterile water bag 2 g/hr 2 g/hr (rounded to 50 mL/hr), Intravenous, CONTINUOUS, Starting on Tue07/17/08 at 1145, Until Tue07/17/08 at 1844 $ New Bag/Syringe 07/17/2008 2:41 PM CDT 2 g/hr 50 mL/hr magnesium sulfate in sterile water bag 4 g 4 g, Intravenous, BOLUS IV, 1 dose, On Tue07/16/08 at 0245, Run over 20-30 minutes. Monitor BP, Pulse, and Respirations every 5 minutes, and assess for the following side effects: - [employer]STATION SUPER[employer]OR Depression - Chest Pain - Palpitations - Flushing - Nausea - Vomiting - Headache - Blurred Vision - Respiratory Depression $ Given 07/16/2008 3:18 AM CDT 4 g metoclopramide (REGLAN) injection 10 mg 10 mg, Intravenous, PRE-OP ONCE, 1 dose $ Given 07/16/2008 6:14 PM CDT 10 mg nalbuphine (NUBAIN) injection 10 mg 10 mg, Intravenous, EVERY 6 HOURS PRN, Pain, Starting on Tue07/16/08 at 1757, Until Tue07/17/08 at 1756 $ Given 07/17/2008 3:39 AM CDT 10 mg ondansetron (ZOFRAN) injection 4 mg 4 mg, Intravenous, EVERY 6 HOURS PRN, Nausea/Vomiting, Starting on Tue07/16/08 at 0231, Until 07/20/08 at 0338 $ Given 07/16/2008 4:29 PM CDT 4 mg ondansetron (ZOFRAN) injection 4 mg 4 mg, Intravenous, PRE-OP ONCE, 1 dose $ Given 07/16/2008 6:14 PM CDT 4 mg ondansetron (ZOFRAN) injection 4 mg 4 mg, Intravenous, EVERY 4 HOURS PRN, Nausea/Vomiting, Starting on Tue07/16/08 at 1757, Until 07/20/08 at 0338 $ Given 07/16/2008 10:54 PM CDT 4 mg oxycodone-acetaminophen (PERCOCET) 5-325 MG tablet 1-2 Tab 1-2 tablet, Oral, EVERY 4 HOURS PRN, Pain, Starting on Tue07/16/08 at 1921, Until 07/20/08 at 0338, For pain not controlled by non-opiod analgesics. Maximum allowable acetaminophen amount = 4 Grams / 24 hours. $ Given 07/19/2008 2:40 PM CDT 1 tablet $ Given 07/19/2008 5:46 AM CDT 1 tablet $ Given 07/19/2008 1:00 AM CDT 1 tablet oxytocin (PITOCIN) 30 units in 500 ml normal saline IV solution 1-12 raffaele-units/min (rounded to 1-12 mL/hr), Intravenous, CONTINUOUS, Starting on Tue07/16/08 at 0715, Until Tue07/16/08 at 2304, Initiate Oxytocin infusion at 1 milliunits/min. Increase up to 2, 4, 8, 12,16, 20 milliunits per minute every 60 minutes PRN good labor. If Oxytocin infusion is turned off, restart as followed: A. If Oxytocin has been off for less than 30 minutes, restart induction at rate prior to non-reassuring pattern or per physicians order. B. If Oxytocin has been off for more than 30 minutes, restart induction at half rate, or per physicians order. Rate Change 07/16/2008 5:34 PM CDT 12 raffaele-units/min 12 mL/hr Rate Change 07/16/2008 5:02 PM CDT 10 raffaele-units/min 10 m L/hr Rate Change 07/16/2008 4:00 PM CDT 9 raffaele-units/min 9 mL/ hr documented in this encounter Active and Recently Administered Medications Times are shown in CDT. Scheduled Medication Order 07/17/2008 07/18/2008 07/19/2008 ceFAZolin (ANCEF) IV syringe 2 g (CANCELED) 2 g, Intravenous, EVERY 8 HOURS, First dose on Tue07/16/08 at 2200, Until Discontinued 0339 ($ Given - Provider: Lilian Fraser RN)1117 ($ Given - Provider: Mary Corrales)1900 ($ Given - Provider: Mary Corrales)2200 (Due) 0600 (Due) Continuous Medication Order 07/17/2008 07/18/2008 07/19/2008 dextrose 5 % and 0.45% nacl infusion (CANCELED) at 125 mL/hr, Intravenous, CONTINUOUS, Starting on Tue07/16/08 at 1930, Until Tue07/17/08 at 1131, May discontinue IV when taking PO and afebrile. 0610 ($ New Bag/Syringe - Provider: Lilian Fraser, CODY) dextrose 5 % and 0.45% nacl infusion (CANCELED) at 75 mL/hr, Intravenous, CONTINUOUS, Starting on Tue07/17/08 at 1145, Until Kavya 07/18/08 at 0747, May discontinue IV when taking PO and afebrile. 1627 ($ New Bag/Syringe - Provider: Mary Corrales) magnesium sulfate in sterile water bag 2 g/hr (CANCELED) 2 g/hr (rounded to 50 mL/hr), Intravenous, CONTINUOUS, Starting on Tue07/16/08 at 1930, Until Tue07/17/08 at 1131 0323 ($ New Bag/Syringe - Provider: Lilian Fraser RN) magnesium sulfate in sterile water bag 2 g/hr () 2 g/hr (rounded to 50 mL/hr), Intravenous, CONTINUOUS, Starting on Tue07/17/08 at 1145, Until Tue07/17/08 at 1844 1441 ($ New Bag/Syringe - Provider: Mary Corrales) PRN Medication Order 07/17/2008 07/18/2008 07/19/2008 diphenhydrAMINE (BENADRYL) injection 25-50 mg (CANCELED) 25-50 mg, Intravenous, EVERY 4 HOURS PRN, Itching, Starting on Tue07/16/08 at 1756, Until 07/20/08 at 0338, May use IM or IV 0037 ($ Given - Provider: Lilian Fraser, CODY) docusate sodium (COLACE) capsule 100-200 mg (CANCELED) 100-200 mg, Oral, AT BEDTIME PRN, Constipation, Starting on Tue07/16/08 at 1921, Until 07/20/08 at 0338 0547 ($ Given - Provider: Shanita Glasgow) ibuprofen (MOTRIN) tablet 600 mg (CANCELED) 600 mg, Oral, EVERY 6 HOURS PRN, Pain, Starting on Tue07/16/08 at 1921, Until 07/20/08 at 0338, Mild per patient description. Maximum allowable ibuprofen amount = 3200 mg / 24 hours. 190 ($ Given - Provider: Mary Corrales) 0936 ($ Given - Provider: Archana Madrigal)142 ($ Given - Provider: Archana Madrigal) 0100 ($ Given - Provider: Britany Fernandes)0546 ($ Given - Provider: Shanita Glasgow)1138 ($ Given - Provider: Loretta Leon, CODY) nalbuphine (NUBAIN) injection 10 mg () 10 mg, Intravenous, EVERY 6 HOURS PRN, Pain, Starting on Tue07/16/08 at 1757, Until Tue07/17/08 at 1756 0339 ($ Given - Provider: Lilian Fraser RN) oxycodone-acetaminophen (PERCOCET) 5-325 MG tablet 1-2 Tab (CANCELED) 1-2 tablet, Oral, EVERY 4 HOURS PRN, Pain, Starting on Tue07/16/08 at 1921, Until 07/20/08 at 0338, For pain not controlled by non-opiod analgesics. Maximum allowable acetaminophen amount = 4 Grams / 24 hours. 1900 ($ Given - Provider: Mary Corrales) 0936 ($ Given - Provider: Archana Madrigal)1420 ($ Given - Provider: Archana Madrigal)2020 ($ Given - Provider: Shanita Glasgow) 0100 ($ Given - Provider: Britany Fernandes)0546 ($ Given - Provider: Shanita Glasgow)1440 ($ Given - Provider: Loretta Leon, CODY) documented in this encounter Care Teams Diamond Sizer And Sorter Relationship Specialty Start Date End Date Maverick Kauffman MD [address] [place] [id number] PCP - General 03/15/08 05/02/09 documented as of this encounter
--- OUTSIDE RECORDS SUMMARY | 2024-11-01 05:20 | XMS_ITS | Encounter Summary ---
Author Organization [facility] Address [address] [place] [address] Care Team Providers Care Development Vice President Name Role Phone Catina Rios APRNENCOM[facility] Primary Care Provi saloni Reason for Referral * Radiology Services (Routine) - Closed Specialty Diagnoses / Procedures Referred By Contac t Referred To Contact Diagnoses Morbid obesity due to excess calories (HCC) Preop testing BMI 50.0-59.9, adult (HCC) [place] [address] [place] [address] Referral ID Status Reason Start Date Expiration Date Visits Re quested Visits Authorized [id number] Closed 03/16/2022 03/16/2023 1 1 Reason for Visit * Radiology Services (Routine) - Closed Specialty Diagnoses / Procedures Referred By Contac t Referred To Contact Diagnoses Morbid obesity due to excess calories (HCC) Preop testing BMI 50.0-59.9, adult (HCC) [place] [address] [place] [address] Referral ID Status Reason Start Date Expiration Date Visits Re quested Visits Authorized [id number] Closed 03/16/2022 03/16/2023 1 1 Encounter Details Date Type Department Care Team (Latest Contact Info) Description 03/30/2022 8:58 AM CDT - 03/30/2022 11:59 PM CDT Hospital Encounter [facility] Health Imaging Services - Radiology [address] [place] [address] [place] [address] [place] [phone] Discharge Disposition: Home or Self Care Social History Tobacco Use Types Packs/Day Years Used Date Smoking Tobacco: Never Smokeless Tobacco: Never Alcohol Use Standard Drinks/Week Comments No 0 (1 standard drink = 0.6 oz pur e alcohol) Sex and Gender Information Value Date Recorded Sex Assigned at Not on file Gender Identity Not on file Sexual Orientation Not on file documented as of this encounter Medications at Time of Discharge Medication Sig Dispensed Refills Start Date End Date albuterol HFA (PROVENTIL; VENTOLIN; PROAIR) 108 (90 Base) MCG/ACT inhaler Inhale 2 puffs by mouth every 6 hours as needed 10/07/2021 06/09/2022 Cholecalciferol 50 MCG (1999 UT) 06/09/2022 diclofenac sodium EC (VOLTAREN) 75 MG tablet Take 75 mg by mouth 2 times daily 06/09/2022 naproxen (NAPROSYN) 500 MG tablet Take 1 Tab by mouth 2 times daily as needed for Pain. 20 0 05/03/2009 06/09/2022 oxycodone-acetaminophen (PERCOCET) 5-325 MG tablet Take 1 Tab by mouth every 4 hours as needed for Pain. 20 0 05/03/2009 06/09/2022 penicillin v potassium (VEETIDS) 500 MG tablet Take 1 Tab by mouth every 6 hours. 28 0 05/03/2009 06/09/2022 documented as of this encounter Plan of Treatment Not on file documented as of this encounter Procedures Procedure Name Priority Date/Time Associated Diagnosis Comments FL UGI SERIES Routine 03/30/2022 9:41 AM CDT Morbid obesity due to excess calories (HCC) Preop testing BMI 50.0-59.9, adult (HCC) documented in this encounter Results * FL UGI SERIES (03/30/2022 9:41 AM CDT) Anatomical Region Laterality Modality Abdomen Radio Fluoroscop y 03/30/2022 9:44 AM CDT Impressions 03/30/2022 10:02 AM CDT Normal upper GI. Delfino Hardwick, have personally reviewed the images and I agree with this report. *Reading Radiologist: Delfino Teran on 03/30/2022 at 10:02 AM Narrative 03/30/2022 10:02 AM CDT INDICATION: Pre-operative evaluation for bariatric surgery COMPARISON: None available. CONTRAST: 1 cup thin barium administered by mouth. FLUOROSCOPY: 1 minutes 2 seconds FINDINGS: The initiation of deglutition is normal. There are no episodes of laryngeal penetration or aspiration during limited visualization of swallowing. The esophagus demonstrates normal distensibility and peristalsis. There are no intrinsic or extrinsic abnormalities. The stomach distends normally and empties promptly. The gastric mucosal pattern is normal. There is no evidence of hiatal hernia. The duodenal sweep is normal. The duodenojejunal junction is in normal position. Procedure Note Delfino Teran MD - 03/30/2022 INDICATION: Pre-operative evaluation for bariatric surgery COMPARISON: None available. CONTRAST: 1 cup thin barium administered by mouth. FLUOROSCOPY: 1 minutes 2 seconds FINDINGS: The initiation of deglutition is normal. There are no episodes of laryngeal penetration or aspiration during limited visualization of swallowing. The esophagus demonstrates normal distensibility and peristalsis. There are no intrinsic or extrinsic abnormalities. The stomach distends normally and empties promptly. The gastric mucosal pattern is normal. There is no evidence of hiatal hernia. The duodenal sweep is normal. The duodenojejunal junction is in normal position. IMPRESSION Normal upper GI. Delfino Hardwick, have personally reviewed the images and I agree with this report. *Reading Radiologist: Delfino Teran on 03/30/2022 at 10:02 AM Alverto Engel MD FLUOROSCOPY ORDERABL ES documented in this encounter Visit Diagnoses Diagnosis Morbid obesity due to excess calories (HCC) Preop testing Preoperative examination, unspecified BMI 50.0-59.9, adult (HCC) Body Mass Index 50.0-59.9, adult documented in this encounter Care Teams Development Vice President Relationship Specialty Start Date End Date Catina Rios APRN-[facility] [place] [address] [place] [address] PCP - General Nurse Practitioner 03/30/22 documented as of this encounter
--- OUTSIDE RECORDS SUMMARY | 2024-11-01 05:20 | XMS_ITS | Encounter Summary ---
Author Organization [facility] Address [address] [place] [address] Care Team Providers Care Crayon Sawyer Name Role Phone Unknown, Provider Primary Care Provider Unavaila ble Reason for Visit * Reason Comments Diet Encounter Details Date Type Department Care Team (Latest Contact Info) Description 03/16/2022 10:45 AM CDT Clinical Support [facility] Weight Management Services [address] [place] [address] [phone] Morbid obesity (HCC) Social History Tobacco Use [...] - Inhaled Oxygen Concentration - - Weight 150.4 kg (331 lb 9.6 oz) 022 10:47 AM CDT Height 165.1 cm (5' 5 ) 03/16/2022 10:4 7 AM CDT Body Mass Index 55.18 03/16/2022 10:47 AM CDT documented in this encounter Progress Notes * Marcial Garza RD/LD - 03/16/2022 10:40 AM CDT Weight Management Medical Nutrition Therapy Session 1 Date: 03/16/2022 Patient: Marika Caban Date of : 1990 (31 year old) PCP Physician: Provider Unknown Referring Physician: Alverto Engel MD Assessment: Pt planning sleeve or RNY. Pt states she has struggled with weight her entire life. Hasbeen considering tello since 2011. Pt appears to have made a lot of positive changes since she has begun the process. Caffiene is limited to a cup. Denies carbonated soda and smoking. Occasional alcohol. Recommendations for previous behaviors were noted. Fluids are self reported as low-moderate and could improve. Activity is high, 3-5x/week for about an hour. Diet recall suggests pretty bariatric friendly diet. Pt consumes 3 meals with 1 snack daily, tracks using eulalio as well. Currently eulalio is about 2200 calories with smaller breakfast and progressive calories throughout the day. B - Protein shake, OJ, czech yogurt, or oatmeal with bananas, eggs and avocado L - varies, S - yogurt or granola D - protein source and vegetable Discussed expectations of the program, diet principles, importance of protein, calories and macros currently vs after surgery, and brief overview of Na and recommendations. Pt asked appropriate questions PRN. Past Medical History: Diagnosis Date ??? Asthma does not use inhaler Pertinent Nutrition Medications: Reviewed Pertinent Nutrition Labs: Reviewed Clinical Data: Height: 5' 5 (165.1 cm) Weight: (!) 331 lb 9.6 oz (150.4 kg) BMI (Calculated): 55.18 Diagnostic Statement: Obesity related to excess energy intake and decreased physical activity AEB elevated BMI. Interventions: Bariatric Nutrition Guide provided and reviewed, including: portion sizes using food models, adequate hydration, proper eating habits, potential Bariatric post- op concerns: dumping syndrome, nausea/vomiting, constipation and previous food records, goals, and behavior modification tips reviewed Materials Provided: Bariatric Nutrition Guide, Food and Activity Guide, Support Group Schedule, High Protein Liquid Supplement Handout, Fitness Center Membership Information and Vitamin Option Handout Behavior and Lifestyle Modifications Discussed: Eat 3 [...] surgery. Evaluation of Overall Compliance Potential: High Pt has reviewed pre-operative weight management contract, and verbalizes understanding of program expectations: Yes Goals for this month: 1. Continue with current behaivors, emphasizing adequate fluids (70oz), protein (75g), and activitydaily. Nutritional Review ?? Cleared, no additional RD visits required ___ ?? Not cleared, additional RD visit(s) required ___ ?? Continue with Medically Managed Diet visits _X__ ?? Bariatric Case Conference review required ___ Session Information Session date: 03/16/2022 Session total minutes: [address]/[place] documented in this encounter Plan of Treatment Not on file documented as of this encounter Visit Diagnoses Diagnosis Morbid obesity (HCC)- Primary Morbid obesity documented in this encounter Care Teams Crayon Sawyer Relationship Specialty Start Date End Date Unknown, Provider PCP - General 09/18/21 03/29/22 documented as of this encounter
--- OUTSIDE RECORDS SUMMARY | 2024-11-01 05:20 | XMS_ITS | Encounter Summary ---
Author Organization [facility] Address [address] [place] [address] Care Team Providers Care Office Machine Servicer Name Role Phone [facility] Primary Care Provi saloni Reason for Visit * Auth/Cert Specialty Diagnoses / Procedures Referred By Contac t Referred To Contact Procedures LAPAROSCOPIC GASTRECTOMY (LONGITUDINAL/SLEEVE) Referral ID Status Reason Start Date Expiration Date Visits Re quested Visits Authorized [id number] 1 1 Encounter Details Date Type Department Care Team (Latest Contact Info) Description 06/09/2022 7:01 AM CDT - 06/10/2022 7:21 PM CDT Hospital Encounter [facility] 2S SURG/BARIATRIC [address] [place] [address] [place] [address] [facility] [address] [place] [address] Bariatric Surgery Discharge Disposition: Home or Self Care Social History Tobacco Use Types Packs/Day Years Used Date Smoking Tobacco: Never Smokeless Tobacco: Never Alcohol Use Standard Drinks/Week Comments No 0 (1 standard drink = 0.6 oz pur e alcohol) AUDIT-C Answer Date Recorded Q1: How often do you have a drink containing alcohol? Monthly or less 06/09/2022 Q2: How many drinks containi ng alcohol do you have on a typical day when you are drinking? Patient does not drink Q3: How often do you have si x or more drinks on one occasion? Never 06/09/2022 Hunger Vital Sign Answer Date Recorded Within the past 12 months, y ou worried that your food would run out before you got the money to buy more. Never true 06/10/20 22 Within the past 12 months, t he food you bought just didn't last and you didn't have money to get more. Never true 06/10/2022 Sex and Gender Information Value Date Recorded Sex Assigned at Not on file Gender Identity Not on file Sexual Orientation Not on file COVID-19 Exposure Response Date Recorded In the last 10 days, have yo u been in contact with someone who was confirmed or suspected to have Coronavirus/COVID-19? No / Unsure 05/21/2022 9:14 AM CDT documented as of this encounter Last Filed Vital Signs Vital Sign Reading Time Taken Comments Blood Pressure 124/80 06/10/2022 11:18 AM CDT Pulse 52 06/10/2022 11:18 AM CDT Temperature 36.8 ??C (98.2 ??F) 06/10/2022 11:18 AM C DT Respiratory Rate 18 06/10/2022 11:18 AM CDT Oxygen Saturation 100% 06/10/2022 11:18 AM CDT Inhaled Oxygen Concentration - - Weight 136 kg (299 lb 12.8 oz) 06/09/2022 7:21 A M CDT Height 165.1 cm (5' 5 ) 06/09/2022 7:21 AM CDT Body Mass Index 49.89 06/09/2022 7:21 AM CDT documented in this encounter Functional Status Functional [...] No 06/09/2022 documented as of this encounter Discharge Summaries * Adriana Zimmerman APRN-CNP - 06/10/2022 3:17 PM CDT Physician Discharge Summary PCP: ADAM Lr, Admit date: 06/09/2022 Discharge date: 06/10/2022 Admitting Physician: Alverto Engel MD Attending Physician: Alverto Engel MD Discharge Provider : ADAM Mauro Admission weight: Weight: 299 lb 12.8 oz (136 kg) (06/09/22720) Most recent weight: Weight: 299 lb 12.8 oz (136 kg) (06/09/22720) [id number] Admitting Diagnosis Clinically Severe Obesity with multiple co-morbidities Body mass index is 49.89 kg/m??. Past Medical History: Diagnosis Date ??? Asthma does not use inhaler Discharge Diagnosis: Same Consults : hospitalist Diagnostic Studies UGI Principal Procedures Performed: 1. Laparoscopic sleeve gastrectomy Hospital Course The patient underwent the procedures noted above on the day of admission. Following surgery, the patient was taken from the operating room to the recovery room, and later to hospital room. Vital signs were carefully monitored. The patient was started on a phase I bariatric diet. The patient underwent an UGI study which demonstrated no evidence of gastric leak or obstruction. Preoperative medication was administered when indicated by either an oral or parenteral route. Additional assessments of the patient's vital signs, laboratory values and level of pain were performed throughout the patient's hospitalization. The patient was also followed by a hospitalist to manage comorbid conditions. Onthe day of discharge, the patient was instructed on diet and medication, as well as on wound care. The patient was given a prescription for pain medication and told to take a PPI daily. Patient was educated and instructions given on vitamin supplement and when to begin. Showers were allowed, but the patient was told not to submerge in water. The patient was instructed on constipation management if needed. Finally, the patient was printed discharge instructions. We are to see the patient in the office in 1 week and this appointment has been arranged. The patient is to call if fever occurred, nausea persisted, emesis occurred or if there was excessive redenss at the wound sites. Patient Instructions Current Discharge Medication List START taking these medications Instructions Authorizing Provider acetaminophen 160 MG/5ML solution Commonly known as: Tylenol Take 31.25 mL by mouth every 8 hours as needed for Fever or Pain ADAM Robles magnesium hydroxide 400 MG/5ML suspension Commonly known as: Milk Of Magnesia Take 15 mL by mouth as needed for Constipation ADAM Robles omeprazole 20 MG capsule Commonly known as: PriLOSEC Quantity Dispensed: 30 capsule Take 1 (one) capsule by mouth once daily ADAM Robles ondansetron (disintegrating) 4 MG tablet Commonly known as: Zofran ODT Quantity Dispensed: 20 tablet Take 1 (one) tablet by mouth every 6 hours as needed for Nausea/Vomiting Allow tablet to dissolve on the tongue ADAM Robles oxyCODONE 5 MG/5ML oral solution Commonly known as: Roxicodone Quantity Dispensed: 120 mL Take 5 mL by mouth every 6 hours as needed for Pain Alverto Engel MD senna-docusate 8.6-50 MG tablet Commonly known as: Senokot-S Take 1 (one) tablet by mouth 2 times daily as needed for Constipation ADAM Robles Discharge Procedure Orders Why you were hospitalized Order Specific Question Answer Comments Your discharge diagnosis is: Bariatric surgery status [V45.86.ICD-9-CM] Activity as tolerated -- Walk at least four times a day. -- If you are driving for longer than an hour, stop and walk for ten minutes every hour during the drive. No heavy lifting Do not lift anything over 15 pounds until cleared by Dr. Engel Shower with incision uncovered -- Remove dressings before showering, then replace dressing afterwards. -- Leave dressings off after 48 hours. No tub baths Until your incision(s) are completely healed. Incentive spirometer Continue to use your incentive spirometer four times a day for two more weeks. Return to work -- You may return to work after you are cleared by Dr. Engel Follow up with Primary Care Provider (PCP) Our records show your Primary Care Provider (PCP) is ADAM Lr. Order Specific Question Answer Comments Follow Up Instructions: 1-2 weeks Follow up with provider Order Specific Question Answer Comments Follow Up Instructions: 1 week Medication instructions Upon discharge from the hospital you may take capsules and regular pills (nothing larger than the size of an aspirin). Bariatric vitamins Patient not to take bariatric multivitamin or calcium supplement until your 1 month follow up Ok to take Prilosec No aspirin or NSAID's Until cleared by Dr. Engel -- Aspirin may be found in other medications, such as Excedrin or Anacin. -- Non-steroidal Anti-inflammatories (NSAID's) are found in many other medications, such as ibuprofen, Motrin, Aleve, or naproxen. -- Please ask if you are unsure about any medications. For relief of pain Take prescribed pain medications for relief of pain or discomfort. Diet instructions No alcoholic drinks Until cleared by Dr. Engel When to call your provider Call Dr. Engel if you have questions or concerns, or for any of the following issues: -- heart rate over 100 -- temperature higher than 101 F -- increased shortness of breath -- pain that gets worse or does not get better after taking your pain medication(s) as directed. Severe abdominal pain is defined as 8-10 on the pain scale. -- nausea or vomiting or cannot eat or drink -- bleeding from your incision or IV site -- if your incision or IV site looks infected (red, swollen, warm to the touch, or non-clear, foul-smelling drainage) documented in this encounter Discharge Instructions * Discharge Instructions* Greta Humphrey, RD/LDN - 06/10/2022 3:19 PM CDT Bariatric Surgery Guidelines Daily Protein Goal: Men - 80 gm Daily Fluid Goal: 64 oz (includes protein drinks) Women - 60 gm In hospital start sipping slowly 1 to 2 oz/hour increasing to goal of 4 to 6 oz/hour Initial Diet Guidelines After Surgery: Ice chips/water when ordered by physician. Phase 1 diet once tolerating ice chips/water. Phase 1 Diet - Sugar-free Clear Liquids + Protein supplements(4-6oz/hr for 64oz daily) Includes clear broth, tea/coffee (only 2 cups of caffeine per day), sugar-free gelatin, sugar-free Crystal Light/Garfield-Aid, sugar-free fruit ices, sugar-free popsicles, low-carbohydrate sports drinks (with 50 calories or less per serving), juice diluted 1:1 with water (limit to 3 servings daily - nocitrus), skim milk with protein powder and/or protein supplements, unsweetened soy or almond milk. At 1 to 1 ?? weeks (after follow-up appointment with MD): Phase 2 Diet - Semi-soft foods (3 meals per day - ?? cup food per meal) Includes cooked cereal ( cream of wheat, cream of rice or blended oatmeal), low- fat or fat-free cottage cheese, low-fat/low sugar yogurt, boiled/mashed potato, blended soups (chicken noodle, chicken rice, cream of chicken, cream of mushroom, turkey noodle, vegetarian vegetable, cream of potato, andcream of tomato), sugar-free pudding Refer to Bariatric Nutrition Guide for further information on diet progression. Vitamin/Mineral Supplementation (For Life) Multivitamin - Bariatric formula chewable multivitamin recommended. Gastric sleeve / Latrice-en-Y : 1/day multivitamin Duodenal Switch : 3/day capsule or 2/day chewable multivitamin Calcium Citrate 1500mg daily - take 500mg TID for optimal absorption. Additional B12 &/or Vitamin D may be needed depending on your lab values. NOTE: Begin vitamins when instructed by MD (typically 1 month post op). You may take regular pills and capsules as long as they are no bigger than a regular aspirin. Normal sized pills or capsules can be resumed after the first month per physician's order. Use chewable or open capsule if instructedto take multivitamin in first month. Additional herbs or supplements must be cleared by your physician. Reminders No alcohol for one year, unless directed otherwise by physician No carbonated beverages or flat soda No shredded coconut Avoid high fat foods and simple sugars Chew foods thoroughly and take small bites Stop drinking liquids 15 min. before meals and do not resume drinking until 30 min. after meals Eat protein foods first. Do not lie down 1 hour after eating Support Group: Tuesday of the month from 5:30PM to 7:00PM Contact Information: [facility]: [phone] email: [email or web address] [facility]: [phone] Weight Management Program: [phone] [facility] Program: [phone] High Protein Supplements Options High Protein Supplement Calories* Carbohydrate* Protein* Acceptable for Lactose Intolerance Atkins Advantage (11 oz) (www.atkins.YesVideo) 160 7 15 No Ensure Max Protein (11 oz) (www.abbottnutrition.com) 150 6 30 Yes Muscle Milk (14 oz) (www.YoombaacostThe Social Coin SL or JasonDB) 170 11 25 Yes Optisource (8 oz) (www.nestlenutritionstore.YesVideo) 200 12 24 Yes Bariatric Advantage High Protein Meal Replacement Powder 160 11 27 No Advanced Nutrition Slim Fast (11oz) (www.[employer] or JasonDB) 180 7 20 Yes Fairlife Core Power 170 8 26 Yes Fairlife High Protein Shake 150 3 30 Yes Bariatric Advantage Clearly Protein (16.9 oz) ([facility] or Bariatric Advantage Website) 80 0 20 No Qjnlkam95 Water (qxqkjhkypimk26.com) 70 7 15 Yes Premier Protein Shake (11oz) (Dobleas or coin4ce) 160 5 30 No Unjury Protein Powder (per 1 Scoop) (www.FiberZone Networks) 100 3 21 Yes *Calories, Carbohydrate, and Protein amounts may vary slightly with each different flavor. Supplements must contain at least twice the protein amount as carbohydrate. High Protein Recipes High Protein Fruit Punch Instructions: In a snuff blender, mix: 6 ounces sugar-free powdered fruit Drink (such as Crystal Light or Sugar-free Garfield Aid) 2 scoops(ounce) protein powder 4 ice cubes This recipe provides: 110 calories 20 grams protein 4 grams carbohydrate High Protein Cream Soup Instructions: Mix: 1/3 cup nonfat dry milk powder 1 teaspoon chicken or beef bouillon 3 tablespoons protein powder Add enough hot water to equal 1 cup. Mix well. Eat soup when it is lukewarm. This recipe provides: 200calories 24grams protein 20 grams carbohydrate documented in this encounter Medications at Time of Discharge Medication Sig Dispensed Refills Start Date End Date acetaminophen (Tylenol) 160 MG/5ML solution Take 31.25 mL by mouth every 8 hours as needed for Fever or Pain 06/09/2022 12/14/2022 magnesium hydroxide (Milk Of Magnesia) 400 MG/5ML suspension Take 15 mL by mouth as needed for Constipation 06/09/2022 12/09/2022 omeprazole (PriLOSEC) 20 MG capsule Take 1 (one) capsule by mouth once daily 30 capsule 06/09/2022 12/14/2022 ondansetron, disintegrating, (Zofran ODT) 4 MG tablet Take 1 (one) tablet by mouth every 6 hours as needed for Nausea/Vomiting Allow tablet to dissolve on the tongue 20 tablet 06/09/2022 12/14/2022 oxyCODONE (Roxicodone) 5 MG/5ML oral solution Take 5 mL by mouth every 6 hours as needed for Pain 120 mL 06/10/2022 12/09/2022 senna-docusate (Senokot-S) 8.6-50 MG tablet Take 1 (one) tablet by mouth 2 times daily as needed for Constipation 06/09/2022 12/09/2022 documented as of this encounter Progress Notes * Jose G Banks RN - 06/10/2022 3:45 PM CDT Discharge Summary: IV Removed Went over discharge orders/instructions/follow up visits/meds Verified pt had all belongings Received meds [facility]. * Greta Humphrey RD/BABATUNDE - 06/10/2022 3:20 PM CDT Nutrition: Consult received post bariatric surgery. Education materials attached to chart. Diet order accuracy Current diet order: Bariatric Phase 1 Nutrition recommendation: agree with current nutrition order P.O.Intake for the past 48 hrs:% Meal Taken Av % Min: 0 % Max: 0 % Height: 5' 5 (165.1 cm) Weight: 299 lb 12.8 oz (136 kg) Body mass index is 49.89 kg/m??. Laboratory values reviewed. Medications noted. No acute nutrition issues identified at this time. Recommendations: Continue Phase 1 diet Monitor nutrition per nutrition guidelines. * Jose G Banks RN - 06/10/2022 2:43 PM CDT Shift Summary: Pt A&Ox4 Up ad lamonte Phase 1 diet/Tolerating Well Ambulated halls several times Passing Gas/No BM today Pt has denied pain/discomfort during shift Pt currently resting in bed IV Fluids infusing Will continue to monitor. * Jose G Banks RN - 06/10/2022 2:42 PM CDT Problem: Pain/Discomfort Goal: Patient exhibits reduced pain/discomfort as evidenced by pain scores Outcome: Progressing * Jaden Lemus MD - 06/10/2022 12:35 PM CDT IM PROGRESS NOTE Admit Date: 06/09/2022 7:01 AM Hospital Day: 1 PCP:Catina Rios APRN-RESISTOR [employer]IVE Patient is seen and examined at bedside No acute events overnight, states feeling better. No nausea, vomiting, positive cast. Upper GI series negative Assessment and Plan ??Severe obesity POA History of asthma. History of prediabetes Prophylaxis ?? Plan: - s/p laparoscopic sleeve gastrectomy, currently on bariatric phase 1 diet. Pain control on IVF. P.r.n., Reglan - encouraged to be up ad lamonte, incentive spirometry. Upper GIs series negative, able to tolerate diet. Possible DC home later today - on p.r.n. albuterol inhaler. - ordered A1c. - DVT prophylaxis on heparin This note was transcribed using a voice recognition system without human business support professional. This report has not been adjusted for typographical, grammatical, and syntax mistakes by a trained medical case worker. Jaden Lemus MD [employer] Exam Patient Vitals for the past 12 hrs: Temp Pulse Resp BP 06/10/22 0123 98.2 ??F (36.8 ??C) 64 18 135/75 06/10/22 0458 98.3 ??F (36.8 ??C) 66 18 154/54 06/10/22 0822 98.3 ??F (36.8 ??C) 61 18 137/81 06/10/22 1118 98.2 ??F (36.8 ??C) 52 18 124/80 Supplemental Oxygen (last filed value): O2 L/M: 2 (06/09/22 1045) General appearance: alert, cooperative, no distress Head/eyes: No deformity, non icteric conjunctiva ENT: mucous membranes moist CVS: regular rhythm, normal S1 and S2, without murmurs, rubs or gallops Pulm: breath sounds normal and symmetric; no rales or wheezes GI: soft without mass, non-tender, with normal bowel sounds MSK: no clubbing, cyanosis or edema Neuro: Alert and oriented x 3 , Strength 5/5 in bilateral UE and LE , No gross focal deficits Data Recent Labs Component Name 06/10/22 0518 06/09/22 0733 SODIUM 139 - POTASSIUM 4.1 3.8 CHLORIDE 112* - CO2 21* - BUN 8 - CREATININE 0.74 - GLUCOSE 130* - CALCIUM 8.8 - Recent Labs Component Name 06/10/22 0518 WBC 12.5* HGB 12.9 HCT 39.4 PLTCOUNT 203 Labs and imaging were reviewed by me Current Meds SCHEDULED MEDICATIONS: acetaminophen (Tylenol) solution 1,000 mg, Oral, q8h dextrose 5 % 500 mL with M.V.I. (MVI Adult) 10 mL infusion, Intravenous, QDAY heparin injection 5,000 Units, Subcutaneous, BID hyoscyamine (Levsin SL) sublingual tablet 0.125 mg, Sublingual, q6h iopamidol (Isovue 300) 61 % contrast, Oral, Contrast - Once ketorolac (Toradol) injection 15 mg, Intravenous, q8h ondansetron (Zofran) injection 4 mg, Intravenous, q6h pantoprazole (Protonix) injection 40 mg, Intravenous, QDAY [COMPLETED] dexAMETHasone (Decadron) injection 10 mg, Intravenous, Once [COMPLETED] magnesium hydroxide (Milk Of Magnesia) suspension 15 mL, Oral, Once CONTINUOUS MEDICATIONS: 0.45% NaCl with potassium chloride 20meq infusion, Intravenous, Continuous Peripheral IV Left Wrist (Active) Placement Date/Time: 06/09/22 0737 Orientation: Left Location: Wrist Name/Credentials of person whoplaced: CODY Cummins IV Catheter Size: 20 Gauge Number of start attempts: 1 Local Anesthetic Used?: None Procedure Tolerance: Well Number of days: 1 Procedural Site (Incision) Upper Abdomen (Active) Date/Time: 06/09/22 0937 Orientation: Upper Location: Abdomen Number of days: 1 * Nina Malave RN - 06/10/2022 9:23 AM CDT Case Management Progress Note Anticipated level of care at discharge: Home Laparoscopic sleeve gastrectomy Discharge Plan: home when medically stable Basic Needs Assessment (BNA) Score: 5 Anticipated Discharge Date: Anticipated Discharge Date: 06/11/22 Patient/Family provided with list of resources? Yes Preferred Provider / High Quality Network List given?: Unknown Reason for provider choice: Pt. choice - Physician driven Transportation at Discharge: Family Follow Up Appointment: Follow up appointment/arrangements made Physician Follow Up Appointment(s) Made: Yes Appointment(s) made with the following physician providers: Surgeon Follow up date with Surgeon: 06/16/22 Transportation to MD:Drives self Equipment at Home: List DME patient requires but does not have: List DME pt. requires but does not have.: None Hunger Screening: Within the past 12 months, you worried that your food would run out before you got the money to buymore.: Never true Within the past 12 months, the food you bought just didn't last and you didn't have money to get more.: Never true [employer] Resources Provided: Not offered to the patient Medication affordability concerns: No Auth Number (if required) NH: DME: Medications: Transportation: Name: Nina Malave RN Phone: [phone] * Adriana Zimmerman APRN-MARIS - 06/10/2022 5:55 AM CDT Bariatric Surgery Progress Note Marika Caban Admit Date: 06/09/2022 7:01 AM Hospital Day: 1 Procedure: Laparoscopic sleeve gastrectomy POD#1 Overnight Events: Nausea and vomiting Subjective: Pain well controlled, nausea and vomiting most of yesterday, decadron given. She feels better than she did. She was able to drink 2 oz of water this am , better this am, ambulated, denies any CP or SOB Tolerating Phase I diet, slowly Positive gas Data Vitals: 06/09/22 1537 06/09/22 2017 06/10/22 0123 06/10/22 0458 BP: 157/83 157/88 135/75 154/54 Pulse: 62 63 64 66 Resp: 18 18 18 18 Temp: 97.9 ??F (36.6 ??C) 98.5 ??F (36.9 ??C) 98.2 ??F (36.8 ??C) 98.3 ??F (36.8 ??C) SpO2: 100% 100% 100% 96% Weight: Height: Intake/Output Summary (Last 24 hours) at 06/10/2022 0555 Last data filed at 06/10/2022 0513 Gross per 24 hour Intake 1300 ml Output 100 ml Net 1200 ml Current Facility-Administered Medications Medication ??? 0.45% NaCl with potassium chloride 20meq infusion ??? acetaminophen (Tylenol) solution 1,000 mg ??? acetaminophen (Tylenol) solution 500 mg ??? albuterol HFA (Proventil; Ventolin; Proair) 108 (90 Base) MCG/ACT inhaler 2 puff ??? dextrose 5 % 500 mL with M.V.I. (MVI Adult) 10 mL infusion ??? heparin injection 5,000 Units ??? hyoscyamine (Levsin SL) sublingual tablet 0.125 mg ??? ketorolac (Toradol) injection 15 mg ??? metoclopramide (Reglan) injection 10 mg ??? ondansetron (Zofran) injection 4 mg ??? oxyCODONE (Roxicodone) oral solution 5 mg ??? pantoprazole (Protonix) injection 40 mg ??? prochlorperazine (Compazine) injection 10 mg Recent Labs Component Name 06/09/22 0733 POTASSIUM 3.8 No results for input(s): WBC, HGB, HCT, PLTCOUNT in the last 79675 hours. UGI: pending Physical Exam A+O x 3, NAD ABD soft, ND, appropriate TTP, incisions C/D/I Neg BLE edema Assessment/Plan: S/P Laparoscopic sleeve gastrectomy POD #1 Neuro: PO pain control PULM: aggressive IS, ambulation, OOBTC CV: stable GI: Cont Phase I diet, PPI, UGI pending - nausea and vomiting: s/p decadron last night. Better this am Await UGI , may need second dose of decadron FEN: wean IVF : adequate UOP HEME: stable H/H ID: afebrile, no abx DVT: cont SCD and heparin Dispo: await UGI results, - continue with pain and nausea control and monitor oral intake - discharge instructions reviewed. - discussed prescriptions for pain medication and antiemetics, these will be sent down to our pharmacy. Patient is agreeable. Adriana Zimmerman APRN-RESISTOR WINDER * Lilian Hollins RN - 06/10/2022 12:27 AM CDT Problem: Pain/Discomfort Goal: Patient exhibits reduced pain/discomfort as evidenced by pain scores Outcome: Progressing Goal: Patient uses pharmacological and non-pharmacological pain management strategies. Outcome: Progressing Goal: Patient verbalizes acceptable level of pain relief and ability to engage in desired activity. Outcome: Progressing * Gabriele Soto PharmD - 06/09/2022 5:55 PM CDT Bariatric Surgery Pharmacy Service Issa Caban is a 31 year old female Height: 5' 5 (165.1 cm) Weight: 136 kg (299 lb 12.8 oz) BMI (Calculated): 49.89 Type of Bariatric Surgery: sleeve gastrectomy Recommendations Due to size restriction and absorption changes, it is recommend for the first four weeks postop, all medications be changed to liquid when possible and to crush medications larger than an aspirin or M&M. NSAIDS (other than aspirin for cardiac benefit) are not recommended post surgery in bariatric patients. Changes during inpatient admission -Recommend holding all vitamins from home medication list x 1 month. -All other home medications can be safely swallowed whole due to small size, and do not require adjustment for this admission. Education performed -Discussed above recommendations. -Use of daily OTC omeprazole. Please add OTC omeprazole 20 mg daily to discharge paperwork. -Importance of avoiding NSAIDs., Importance of avoiding any medications larger than the size of an aspirin or M&M, and prescription pain medication + common side effects will be discussed during discharge education class. Thank you for including pharmacy in the care of this patient, Gabriele Soto PharmD 06/09/2022 5:55 PM * Gabriele Soto PharmD - 06/09/2022 5:55 PM CDT [facility] Pharmacy Services Admission Medication Review Marika Caban is a 31 year old female I have reviewed patient's home medication list with the patient and the electronic medical record. The medication list review was after the physician has seen and acted upon, and is now ready for re-review/order by physician. Medication List Revisions Medications removed: albuterol HFA Thank you for the opportunity to take part of Marika Caban's care. Gabriele Soto PharmD * Siena Lopez RN - 06/09/2022 4:13 PM CDT Pt arrived at 13:34. Received report from Agnieszka ROSS. Pt A and O x 4. VSS. Pt tolerating her diet. Upwith SBA . IVF infusing. Pt complaining of abdominal pain given Toradol and she verbalized relief. Will continue to monitor.Siena Lopez RN 06/09/2022 4:15 PM Pt is complaining of nausea given Zofran and she verbalized relief. Pt is been ambulating in the evans with her and tolerating well. documented in this encounter H&P Notes * Alverto Engel MD - 06/04/2022 10:39 AM CDT BARIATRIC EVALUATION HISTORY & PHYSICAL Height: 5' 5 (165.1 cm) Weight: 299 lb 12.8 oz (136 kg) BMI (Calculated): 49.89 Chief Complaint: Morbid Obesity HPI: Pt is a 31 year old year old female with a hx of morbid obesity who presents for surgical tx. Pt has attempted multiple weight loss regimens in the past including medical, exercise and dietary without detention success. Pt has now attained a BMI (Calculated): 49.89 and has failed multiple non surgical weight loss regimens for >5yrs. BMI: Body mass index is 49.89 kg/m??. Laurel body weight: 57 kg (125 lb 10.6 oz) Adjusted ideal body weight: 88.6 kg (195 lb 5.1 oz) Medical: no new medical changes Review of previous provider notes in [employer] Everywhere was performed on the day of service. Past Medical History: Diagnosis Date ??? Asthma does not use inhaler Past Surgical History: Procedure Laterality Date ??? BILATERAL TUBAL LIGATION (BTL) REVERSAL ??? Section x3 PATIENT MEDICAL HISTORY SCREENING: Morbid Obesity............................................. Yes Diabetes....................................................... No Hypertension................................................ No Hypercholesterolemia.................................. No Gastroesophageal reflux disease................ Yes - tums but nothing regularly Sleep apnea................................................. No COPD/Emphysema ..................................... No Asthma......................................................... Yes - on inhalers , 2-3 times a year Dyspnea on exertion..................................... No Thyroid problems.......................................... No Renal Disease.............................................. No Chest pain.................................................... No Heart trouble................................................ No Stress incontinence...................................... Yes Multiple arthropathies................................... No Depression................................................... No Blood clots................................................... No Anesthetic Complications............................. No Positive history of MRSA.............................. No Immune suppression medication.................. No Including, but not limited to prednisone, humira, methotrexate, plaquenil, imuran, sosa, enbrel Significant Allergies...................................... No Other................................................. none FAMILY HISTORY SCREENING: Significant for obesity....................... Yes Blood clots........................................ No Anesthetic Complications................. No Other................................................. none Current Facility-Administered Medications Medication ??? acetaminophen (Tylenol) tablet 1,000 mg ??? ceFAZolin (Ancef) 3,000 mg in 115 mL IVPB ??? celecoxib (CeleBREX) capsule 400 mg ??? famotidine (Pepcid) injection 20 mg ??? heparin injection 5,000 Units ??? lactated ringers infusion ??? lactated ringers infusion ??? lidocaine PF (Xylocaine MPF) 1 % injection 0.5 mL ??? scopolamine (Transderm-Scop) 1 patch And ??? scopolamine patch placement confirmation No Known Allergies Social History Smoking status: Never Smoker Smokeless tobacco: Never Used Alcohol use: No Drug use: No Sexual activity: Not on file Family History Problem Relation Name Age of Onset ??? Hypertension Mother ??? Other Mother ??? Asthma Mother ??? Migraine Mother ??? Asthma Maternal Grandmother All past medical, family, and social history was reviewed and updated today. Review of Systems: Constitutional: denies recent significant weight loss HEENT: Denies headaches, vision or auditory changes Cardiovascular: Denies chest pain, orthopnea or palpitations Respiratory: Denies cough, hemoptysis. Oxygen dependent : No Gastrointestinal: denies abdominal pain, no melena or hematemesis Genitourinary: denies hematuria, dysuria Musculoskeletal: denies muscle weakness, denies joint pains Endocrine: denies diabetes mellitus, denies thyroid issues Allergic / Immuno: Normal Neuro / Psych: denies depression, denies SI/SA Skin: denies open wounds, skin infections Functional Health Status prior to surgery : Independent- The patient does not require assistance from another person for any ADLs.. Physical Examination: Ht 5' 5 (1.651 m) Wt 299 lb 12.8 oz (136 kg) Constitutional: well-developed, well-nourished, and in no distress. Head: Normocephalic and atraumatic. Eyes: EOM are normal. No scleral icterus. Neck: No tracheal deviation present. Abdominal: Soft, nontender, nondistneded Musculoskeletal: Normal range of motion. Exhibits no tenderness. Neurological: Alert and oriented. Gross motor nerves intact. Skin: Skin is warm. No erythema. Psychiatric: Mood and affect normal. No results for input(s): SODIUM, POTASSIUM, CHLORIDE, CO2, BUN, CREATININE, GLUCOSE, CALCIUM in thelast 50253 hours. No results for input(s): WBC, HGB, HCT, PLTCOUNT in the last 92531 hours. Risk / Benefits: Risks and benefits were reviewed with patient including but not limited to , blood clots of the extremities or the lungs, enteral leaks, hemorrhage, damage to organs, infections, non guaranteed weight loss results among others. There are also risks of vitamin deficiencies that can generate vitamin deficiency symptoms. There are also risks of additional procedures or operations in the perioperative and adjunct faculty for medical terminology periods. Questions were answered. Risks discussed today Covid Discussion: Because the nature of the virus is not yet completely understood, the risks associated with COVID-19 infections have not been fully identified and there may be additional risks which are not known atthis time. In addition, the impact of COVID-19 infections on the known risks associated with the deangelo atment/procedure/surgery have not been identified and there may be additional or increased risks associated with the treatment/procedure/surgery that are not known at this time. Risks of surgery during COVID19 pandemic was discussed. Discussed that testing would be done prior to operation. Questions were answered. Bariatric Surgery Patient Education: The patient was informed of other factors that are necessary to achieve weight loss in addition to surgery. Specifically, the patient was informed of the different surgical procedures, including the duodenal switch, the latrice y gastric bypass, the sleeve gastrectomy and the adjustable gastric band. It was explained that bariatric surgery is part of the overall weight loss program which includes a low calorie nutritional program with nutritional and vitamin supplementation, a frequent and consistent exercise program and a social support program or network. The patient will experience successfuland detention weight loss when these components along with bariatric surgery are followed. The patient has had the above discussions with multiple program team members including surgeon, night custodian, bariatric nurse and mental health oracle wms consultant and the patient will continue to have these discussions through the perioperative program. The MBSAQIP Bariatric Surgical Risk/Benefit Calculator has been used and results have been reviewedwith the patient. Impression: Morbid obesity with above listed comorbidities. Multiple failed diet attempts. Plan: Based on discussion with the patient and consideration of the patients medical history and diagnosis of morbid obesity the patient is an appropriate candidate for bariatric surgery. Recommendation isfor: Laparoscopic Sleeve Gastrectomy Pre-op Plan: Liquid Protein Diet: Yes for 2 Weeks Transaction Advisory Services Manager: Yes Additional Testing: Yes GI: hx of morbid obesity with increased risk of silent heartburn and hiatal hernia -EGD: Schwoerer - denied by insurance -UGI: normal, no HH CV: none Pulmonary: hx of asthma, rare inhaler use -pcp clearance for surgery-rec in media 03/10/22 Renal: none Endocrine: no diabetes Heme: no family hx of DVT / PE, no personal hx of DVT/PE, routine VTE risk -Standard post operative anticoagulation Other: none Psych/Social: -Pt has no history of drug use, alcohol use for greater than one year or treatment for alcohol or drug use for greater than one year -Pt has not smoked for at least 6 weeks Preoperative Labs: CBC, CMP, B1, B12 Preoperative weight loss: Yes -decrease from baseline as class, initial 331, DOS 299 Weight check at Class: Yes Comments: Hospitalist Consult: Yes Other Consults: No Schedule: any Standard incision, 2S, no arellano, 2 day stay Patient was seen today day of procedure Patient reports no new medical symptoms or changes since last seen in the office Planned procedure was discussed with patient and questions answered Patient voiced understanding of risks and benefits and is agreeable to proceed Alverto Engel MD 06/09/2022 documented in this encounter Consult Notes * Jaden Lemus MD - 06/09/2022 1:32 PM CDT Date of Admission : 06/09/2022 PCP: Catina Rios APRN-RESISTOR WINDER HPI: Patient is 29-year-old female with past medical history of severe obesity, asthma, prediabetes is seen as a medical consult status post laparoscopic sleeve gastrectomy. Patient has failed outpatient conservative management for obesity including exercise, diet. Currently complains of mild abdominal discomfort and nausea. Denies any in vomiting Allergies No Known Allergies Past Medical History: Diagnosis Date ??? Asthma does not use inhaler Past Surgical History: Procedure Laterality Date ??? BILATERAL TUBAL LIGATION (BTL) REVERSAL ??? Section x3 ??? Gastric Bypass 06/09/2022 gastric sleeve No current facility-administered medications on file prior to encounter. Current Outpatient Medications on File Prior to Encounter Medication Sig Dispense Refill ??? albuterol HFA (PROVENTIL; VENTOLIN; PROAIR) 108 (90 Base) MCG/ACT inhaler Inhale 2 puffs by mouth every 6 hours as needed Social History Has been reviewed Social History Socioeconomic History ??? Marital status: Spouse name: Not on file ??? Number of children: Not on file ??? Years of education: Not on file ??? Highest education level: Not on file Occupational History ??? Not on file Tobacco Use ??? Smoking status: Never Smoker ??? Smokeless tobacco: Never Used Vaping Use ??? Vaping Use: Never used Substance and Sexual Activity ??? Alcohol use: No ??? Drug use: No ??? Sexual activity: Not on file Other Topics Concern ??? Not on file Social History Narrative ??? Not on file Social Determinants of Health Financial Resource Strain: Not on file Food Insecurity: Not on file Transportation Needs: Not on file Physical Activity: Not on file Stress: Not on file Social Connections: Not on file Intimate Partner Violence: Not on file Housing Stability: Not on file Family History Has been reviewed and is noncontributory to the patient family history includes Asthma in her maternal grandmother and mother; Hypertension in her mother; Migraine in her mother; Other in her mother. ROS Comprehensive review of symptoms were reviewed and are negative excepted mentioned in HPI PHYSICAL EXAM: Patient Vitals for the past 24 hrs: Temp Pulse Resp BP 06/09/22 1315 -- 62 9 167/97 06/09/22 1300 -- 62 12 164/94 06/09/22 1245 -- 67 16 144/81 06/09/22 1230 -- 65 12 162/95 06/09/22 1215 -- 63 17 167/99 06/09/22 1200 -- 63 12 170/93 06/09/22 1145 -- 63 17 157/99 06/09/22 1130 -- 61 14 171/94 06/09/22 1115 -- 63 18 165/92 06/09/22 1100 -- 68 18 152/93 06/09/22 1059 -- 68 13 152/93 06/09/22 1045 -- 75 18 154/86 06/09/22 1039 98.1 ??F (36.7 ??C) 77 13 162/90 06/09/22 0735 96.9 ??F (36.1 ??C) 77 18 160/93 General appearance: alert, cooperative, no distress, HEENT : No JVD, non icteric conjunctiva. Normocephalic , MM moist CVS: regular rhythm, normal S1 and S2, without murmurs, rubs or gallops RS: breath sounds normal and symmetric; no rales or wheezes GI: soft without mass, lap site CDI MSK/Extremities: no clubbing, cyanosis or edema Neuro: alert and oriented x 3, no gross focal deficits Recent Labs Component Name 06/09/22 0733 POTASSIUM 3.8 No results for input(s): ALBUMIN, ALKPHOS, ALT, AST, TBIL, DBIL, TPROT in the last 54650 hours. No results for input(s): TROPONIN in the last 09500 hours. No results for input(s): WBC, HGB, HCT, PLTCOUNT in the last 72541 hours. LABS AND IMAGING DONE SINCE ADMISSION WERE REVIEWED BY ME ASSESSMENT AND PLAN Severe obesity POA History of asthma. History of prediabetes Prophylaxis Plan: - s/p laparoscopic sleeve gastrectomy, currently on bariatric phase 1 diet. Pain control on IVF. P.r.n., Reglan - encouraged to be up ad lamonte, incentive spirometry. Upper GI series scheduled for tomorrow. - on p.r.n. albuterol inhaler. - ordered A1c. - DVT prophylaxis on heparin This note was transcribed using a voice recognition system without human business support professional. This report has not been adjusted for typographical, grammatical, and syntax mistakes by a trained medical case worker. documented in this encounter OR Notes * Operative - Alverto Engel MD - 06/09/2022 9:[address] [facility] Operative Report OPERATIVE REPORT PATIENT:Marika Caban MR#: [id number] ADMIT DATE: 06/09/2022 7:01 AM DATE OF SURGERY: 06/09/2022 : 1990 PHYSICIAN: Alverto Engel MD 31 yrs Body mass index is 49.89 kg/m??. PREOPERATIVE DIAGNOSES: Morbid Obesity, Body mass index is 49.89 kg/m??. Past Medical History: Diagnosis Date ??? Asthma does not use inhaler POSTOPERATIVE DIAGNOSES: SAME PROCEDURES PERFORMED: 1. Laparoscopic sleeve gastrectomy SURGEON: Alverto Engel MD Electric Stop Installer: Olga CHOU ANESTHESIA: General endotracheal. PROCEDURE: The patient was brought to the operating suite. Pt was placed under general endotrachealanesthesia. Pt was prepped and draped in the usual sterile fashion. A 5 mm periumbilical incision was made. A 5 mm optical port was placed into the peritoneal cavity under direct vision. The peritoneal cavity was insufflated with CO2 gas to 15 mmHg pressure. A 45-degree angled laparoscope was placed in the peritoneal cavity. There was no blood, fluid, or evidence of intraabdominal injury. Separate 5 mm ports were placed in the bilateral upper quadrants. A 12 mm port was placed in the right midadbomen near the umbilicus. An abdominal wall block with liposomal stabilized bupivicaine injectable s uspension was placed in the preperitoneal space spanning the abdomen beginning in the right lateralabdomen and ending in the left abdomen. The patient was placed in steep reverse Trendelenburg position. The left lobe of the liver was elevated using a mariam liver retractor that was placed through the abdominal wall through a subxiphoid incision. The angle of His was dissected bluntly. Further dissection was carried out at the area of the GE junction and part of the fat pad was taken down. After thorough inspection, there was no dimpling, puckering or herniation at the hiatus. At this point, the short gastric vessels were taken down in their entirety along the greater curvature going up all the way up to the angle of His taking care not to injure the spleen, and then distally to approximately 4-5 cm from the pylorus. The 36 Fr gastric calibration tube was then passed through the oropharynx down the esophagus into the stomach. A laparoscopic RIGOBERTO stapler was used to begin the gastrectomy near the pylorus. Sequential firings of the stapler, using blue, then white 60 mm loads, followed for the creation of the sleeve gastrectomy. Multiple staple firings ensued with the endoscopic stapler using the gastric calibration tubing as a template for the sleeve. Care was taken at the level of the incisura to avoid narrowing it. The last staple firing was directed at the angle of His thereby excluding the fundus. At this point, the greater part of the stomach had been completely dissected free and was removed from the abdomen via the 12mm stapler. This left about 4 cm distance from the pylorus to the beginning of the antral staple line. Air insufflation using the gastric calibration tube was used to test the staple line by submersing it under saline. There was no evidence of air bubbles and no evidence of a staple line leak. 3-0 vicryl suture was used to oversew the entire staple line for additional reinforcement. Full thickness tissue bites of anterior and posterior stomach were taken and performed in a running fashion. There was no evidence of bleeding at the gastric staple line. The liver retractor was removed. The fascia of the 12mm trocar site was closed with an 0 Vicryl suture in a transfascial fashion. The remaining trocars were removed under direct visualization with no evidence of any bleeding and thepneumoperitoneum was evacuated. Skin incisions were closed with a running 4-0 vicryl suture. All sponge, needle, and instrument counts were correct at the end of the case. The patient tolerated the procedure well and was taken to recovery in stable condition. EBL: <15ml SPECIMEN: partial stomach discarded FINDINGS: No evidence of air bubbles on insufflation test. 36 Fr gastric calibration tube used for sizing gastric sleeve diameter COMPLICATIONS: None. Alverto Engel MD documented in this encounter Plan of Treatment Not on file documented as of this encounter Procedures Procedure Name Priority Date/Time Associated Diagnosis Comments GLUCOSE - POINT OF CARE Routine 06/10/2022 11:16 AM CDT FL UGI SERIES Routine 06/10/2022 9:00 AM CDT Morbid obesity (HCC) VITAMIN D 25-HYDROXY AM Draw 06/10/2022 5:18 AM CDT CBC W AUTO DIFFERENTIAL AM Draw 06/10/2022 5:18 AM CDT BASIC METABOLIC PANEL (CALCIUM TOTAL) AM Draw 06/10/2022 5:18 AM CDT GLUCOSE - POINT OF CARE Routine 06/10/2022 1:23 AM CDT GLUCOSE - POINT OF CARE Routine 06/10/2022 12:57 AM CDT GLUCOSE - POINT OF CARE Routine 06/09/2022 4:48 PM CDT GLUCOSE - POINT OF CARE Routine 06/09/2022 10:43 AM CDT W[place] LAP SLEEVE GASTRECTOMY 06/09/2022 9:08 AM CDT GLUCOSE - POINT OF CARE Routine 06/09/2022 7:36 AM CDT HCG URINE QUALITATIVE STAT 06/09/2022 7:33 AM CDT Preop examination POTASSIUM BLOOD STAT 06/09/2022 7:33 AM CDT Preop examination documented in this encounter Results * (ABNORMAL) GLUCOSE - POINT OF CARE (06/10/2022 11:16 AM CDT) Pathologist [facility] Glucose WB/POC 119(H) 70 - 106 mg/dL 06/10/2022 11:21 AM CDT [facility] Specimen Type Arterial 06/10/2022 11:21 AM CDT [facility] Blood BLOOD SPECIMEN / Unknown 06/10/2022 11:16 AM CDT 06/10/2022 11:21 AM CDT Alverto Engel MD LAB - POINT OF CARE ORDERABLES Performing Organization Address City/State/[place]UST Co de Phone Number [facility] [address] [place] [address] * FL UGI SERIES WO KUB (06/10/2022 9:00 AM CDT) Anatomical Region Laterality Modality Abdomen Radiographic Miriam ging 06/10/2022 9:17 AM CDT Narrative 06/10/2022 9:18 AM CDT Examination: Water-soluble upper GI. Indication for examination: Postop gastric sleeve surgery. Following oral administration of water-soluble contrast, there is passage of contrast from the esophagus, through the gastric sleeve and into the duodenum. No obstruction is identified. No leak is identified. Fluoroscopy time 28 seconds. 5 radiographic images were obtained. Conclusion: Status post gastric sleeve surgery. No leak identified. > Interpreting Provider: Maverick Leos MD on 06/10/2022 9:18 AM Procedure Note Maverick Leos MD - 06/10/2022 Examination: Water-soluble upper GI. Indication for examination: Postop gastric sleeve surgery. Following oral administration of water-soluble contrast, there ispassage of contrast from the esophagus, through the gastric sleeve and into the duodenum. No obstruction is identified. No leak is identified. Fluoroscopy time 28 seconds. 5 radiographic images were obtained. Conclusion: Status post gastric sleeve surgery. No leak identified. > Interpreting Provider: Maverick Leos MD on 06/10/2022 9:18 AM Alverto Engel MD FLUOROSCOPY ORDERABL ES * (ABNORMAL) CBC W AUTO DIFFERENTIAL (06/10/2022 5:18 AM CDT) WBC 12.5(H) 4.4 - 10.7 x10E9/L 06/10/2022 6:36 AM CDT [facility] WBC Corrected 06/10/2022 6:36 AM CDT [facility] RBC 4.80 3.80 - 5.20 x10E12/L 06/10/2022 6:36 AM CDT [facility] Hemoglobin 12.9 12.0 - 15.6 gm/dL 06/10/2022 6:36 AM CDT [facility] Hematocrit 39.4 35.9 - 45.5 % 06/10/2022 6:36 AM CDT [facility] MCV 82.1 80.7 - 98.3 fl 06/10/2022 6:36 AM CDT [facility] MCH 26.9 26.7 - 34.0 pg 06/10/2022 6:36 AM CDT [facility] MCHC 32.7 30.8 - 35.9 gm/dL 06/10/2022 6:36 AM CDT [facility] Platelet Count 203 153 - 416 x10E9/L 06/10/2022 6:36 AM CDT [facility] RDW-CV 14.5 12.1 - 14.9 % 06/10/2022 6:36 AM CDT [facility] MPV 13.3(H) 9.4 - 12.9 fl 06/10/2022 6:36 AM CDT [facility] Neutrophils % 90.9(H) 44.0 - 73.0 % 06/10/2022 6:36 AM CDT [facility] Lymphocytes % 5.9(L) 20.0 - 43.0 % 06/10/2022 6:36 AM CDT [facility] Monocytes % 2.5(L) 5.0 - 13.0 % 06/10/2022 6:36 AM CDT [facility] Eosinophils % 0.0 0.0 - 6.0 % 06/10/2022 6:36 AM CDT [facility] Basophils % 0.1 0.0 - 2.0 % 06/10/2022 6:36 AM CDT [facility] Immature Granulocytes 0.6 0 - 1 % 06/10/2022 6:36 AM CDT [facility] Neutrophil Absolute 11.33(H) 2.01 - 7.14 x10E9/L 06/10/2022 6:36 AM CDT [facility] Lymphocytes Absolute 0.73(L) 1.07 - 3.94 x10E9/L 06/10/2022 6:36 AM CDT [facility] Monocytes Absolute 0.31 0.26 - 1.07 x10E9/L 06/10/2022 6:36 AM CDT [facility] Eosinophils Absolute 0.00 0 - 0.47 x10E9/L 06/10/2022 6:36 AM CDT [facility] Basophils Absolute 0.01 0 - 0.08 x10E9/L 06/10/2022 6:36 AM CDT [facility] Immature Granulocytes Absolute 0.07(H) 0.00 - 0.06 x10E9/L 06/10/2022 6:36 AM CDT [facility] nRBC Auto 0 /100 WBC 06/10/2022 6:36 AM CDT [facility] Blood BLOOD SPECIMEN / Unknown Venipuncture / Unknown 06/10/2022 5:18 AM CDT 06/10/2022 5:36 AM CDT Alverto Engel MD LAB - HEMATOLOGY ORD LEVI [facility] [address] [place] [address] * (ABNORMAL) BASIC METABOLIC PANEL (CALCIUM TOTAL) (06/10/2022 5:18 AM CDT) Glucose 130(H) 70 - 105 mg/dL 06/10/2022 6:04 AM CDT [facility] Sodium 139 136 - 145 mmol/L 06/10/2022 6:04 AM CDT [facility] Potassium 4.1 3.5 - 5.1 mmol/L 06/10/2022 6:04 AM CDT [facility] Chloride 112(H) 98 - 107 mmol/L 06/10/2022 6:04 AM CDT [facility] CO2 21(L) 23 - 31 mmol/L 06/10/2022 6:04 AM CDT [facility] Calcium 8.8 8.4 - 10.4 mg/dL 06/10/2022 6:04 AM CDT [facility] Anion Gap 6(L) 8 - 18 mmol/L 06/10/2022 6:04 AM CDT [facility] BUN 8 7 - 18.7 mg/dL 06/10/2022 6:04 AM CDT [facility] Creatinine 0.74 0.57 - 1.11 mg/dL 06/10/2022 6:04 AM T [facility] eGFR by CKD-EPI >90 >=90 mL/min/1.7 3 m2 06/10/2022 6:04 AM CDT [facility] Blood BLOOD SPECIMEN / Unknown Venipuncture / Unknown 06/10/2022 5:18 AM CDT 06/10/2022 5:36 AM CDT Alverto Engel MD LAB - CHEMISTRY MARIBEL WEISS [facility] [id number] [place] [address] * (ABNORMAL) VITAMIN D 25-HYDROXY (06/10/2022 5:18 AM CDT) Pathologist [facility] Vitamin D, 25 Hydroxy 21.5(L) 30 - 100 ng/mL 06/10/2022 6:28 AM CDT [facility] Blood BLOOD SPECIMEN / Unknown Venipuncture / Unknown 06/10/2022 5:18 AM CDT 06/10/2022 5:36 AM CDT Narrative [facility] - 06/10/2022 6:28 AM CDT Vitamin D Status: ?Deficiency ? <20 ? ng/mL ?Insufficiency ?? 20-30 ??ng/mL ?Sufficiency ? 30-100 ng/mL ?Toxicity ? >100 ?ng/mL Alverto Engel MD LAB - CHEMISTRY MARIBEL WEISS Performing Organization Address [facility] de Phone Number [facility] [address] [place] [address] * (ABNORMAL) GLUCOSE - POINT OF CARE (06/10/2022 1:23 AM CDT) [facility] Glucose WB/POC 156(H) 70 - 106 mg/dL 06/10/2022 1:27 AM CDT [facility] Specimen Type Cap Fingerstick 2021 1:27 AM CDT [facility] Blood BLOOD SPECIMEN / Unknown 06/10/2022 1:23 AM CDT 06/10/2022 1:27 AM CDT Alverto Engel MD LAB - POINT OF CARE ORDERABLES Performing Organization Address [facility] de Phone Number [facility] [address] [place], [place] [id number] * (ABNORMAL) GLUCOSE - POINT OF CARE (06/10/2022 12:57 AM CDT) Glucose WB/POC 164(H) 70 - 106 mg/dL 06/10/2022 1:05 AM CDT [facility] Specimen Type Cap Fingerstick 2021 1:05 AM CDT [facility] Blood BLOOD SPECIMEN / Unknown 06/10/2022 12:57 AM CDT 06/10/2022 1:05 AM CDT Alverto Engel MD LAB - POINT OF CARE ORDERABLES Performing Organization Address [facility] de Phone Number [facility] [phone] [place] [phone] * (ABNORMAL) GLUCOSE - POINT OF CARE (06/09/2022 4:48 PM CDT) Glucose WB/POC 142(H) 70 - 106 mg/dL 06/09/2022 4:56 PM CDT [facility] Specimen Type Arterial 06/09/2022 4:56 PM CDT [facility] Blood BLOOD SPECIMEN / Unknown 06/09/2022 4:48 PM CDT 06/09/2022 4:56 PM CDT Alverto Engel MD LAB - POINT OF CARE ORDERABLES Performing Organization Address [facility] de Phone Number [facility] [phone] [place] [phone] * (ABNORMAL) GLUCOSE - POINT OF CARE (06/09/2022 10:43 AM CDT) Glucose WB/POC 153(H) 70 - 106 mg/dL 06/09/2022 10:44 AM CDT [facility] Specimen Type Cap Fingerstick 2021 10:44 AM CDT [facility] Blood BLOOD SPECIMEN / Unknown 06/09/2022 10:43 AM CDT 06/09/2022 10:44 AM CDT Alverto Engel MD LAB - POINT OF CARE ORDERABLES Performing Organization Address City/[facility] de Phone Number [facility] [address] [place] [phone] * GLUCOSE - POINT OF CARE (06/09/2022 7:36 AM CDT) [facility] Glucose WB/POC 91 70 - 106 mg/dL 06/09/2022 7:38 AM CDT [facility] Specimen Type Arterial 06/09/2022 7:38 AM CDT [facility] Blood BLOOD SPECIMEN / Unknown 06/09/2022 7:36 AM CDT 06/09/2022 7:38 AM CDT Alverto Engel MD LAB - POINT OF CARE ORDERABLES [facility] [address] [place] [phone] * HCG URINE QUALITATIVE (06/09/2022 7:33 AM CDT) [facility] hCG Qualitative Urine Negative Negative 06/09/2022 7:53 AM CDT [facility] Urine URINE / Unknown Collection / Unknown 06/09/2022 7:33 AM CDT 06/09/2022 7:47 AM CDT Ramila Liu DO LAB - URINALYSIS ORD ERABLES Performing Organization Address [facility]/ZIP Co de Phone Number [facility] [address] [place] [phone] * POTASSIUM BLOOD (06/09/2022 7:33 AM CDT) [facility] Potassium 3.8 3.5 - 5.1 mmol/L 06/09/2022 7:56 AM CDT [facility] Blood BLOOD SPECIMEN / Unknown Venipuncture / Unknown 06/09/2022 7:33 AM CDT 06/09/2022 7:47 AM CDT Alverto Engel MD LAB - CHEMISTRY ORDE RABLES Performing Organization Address City/[facility]/ZIP Co de Phone Number [facility] [address] [place] [phone] documented in this encounter Visit Diagnoses Diagnosis Morbid obesity (HCC)- Primary Morbid obesity Preop examination Preoperative examination, unspecified Morbid obesity (HCC) Morbid obesity documented in this encounter Administered Medications Inactive Administered Medications - up to 3 most recent administrations Medication Order MAR Action Action Date Dose Rate Site 0.45% NaCl with potassium chloride 20meq infusion at 150 mL/hr, Intravenous, CONTINUOUS, Starting on Tue06/09/22 at 1345, Until Tue06/10/22 at 2020, Do not infuse at same time as other fluids., Post-op $ New Bag/Syringe 06/10/2022 5:07 AM CDT 150 mL/hr $ New Bag/Syringe 06/09/2022 7:59 PM CDT 150 mL /hr $ New Bag/Syringe 06/09/2022 1:48 PM CDT 150 mL /hr acetaminophen (Tylenol) tablet 1,000 mg 1,000 mg, Oral, ONCE, 1 dose, On Tue06/09/22 at 0730, Patient preference for lesser PRN pain meds may be honored when the patient requests a less strong medication, a lower dose, or a less intrusive route of administration when the lesser drug, dose and route have been ordered for the patient. This patient request must be documented in the MAR., Pre-op $ Given 06/09/2022 7:38 AM CDT 1,000 mg albuterol HFA (Proventil; Ventolin; Proair) 108 (90 Base) MCG/ACT inhaler 2 puff 2 puff, Inhalation, EVERY 6 HOURS PRN, Shortness of Breath, Wheezing, Starting on Tue06/09/22 at 1339, Until Tue06/10/22 at 2020, Shake well before using. WASTE DISPOSAL INSTRUCTION: Send to Pharmacy for Disposal. celecoxib (CeleBREX) capsule 400 mg 400 mg, Oral, PRE-OP ONCE, 1 dose, On Tue06/09/22 at 0730, Patient preference for lesser PRN pain meds may be honored when the patient requests a less strong medication, a lower dose, or a less intrusive route of administration when the lesser drug, dose and route have been ordered for the patient. This patient request must be documented in the MAR., Pre-op $ Given 06/09/2022 7:38 AM CDT 400 mg dexAMETHasone (Decadron) injection 10 mg 10 mg, Intravenous, ONCE, 1 dose, On Tue06/09/22 at 2245 $ Given 06/09/2022 10:48 PM CDT 10 mg dextrose 5 % 500 mL with M.V.I. (MVI Adult) 10 mL infusion 125 mL/hr, Intravenous, DAILY, First dose on Tue06/09/22 at 2100, Until Discontinued, To be run over 4 hours. Do not infuse at same time as other IV fluids. , Post-op $ New Bag/Syringe 06/10/2022 10:42 AM CDT 125 mL/hr 125 mL/hr $ New Bag/Syringe 06/09/2022 10:13 PM CDT 125 mL/hr 125 m L/hr famotidine (Pepcid) injection 20 mg 20 mg, Intravenous, PRE-OP ONCE, 1 dose, On Tue06/09/22 at 0730, Give morning of surgery. Dilute with 0.9% NaCl, D5W solution, or SWI to a volume of 5 to 10 mL and administer over at least 2 minutes., Pre-op $ Given 06/09/2022 7:38 AM CDT 20 mg fentaNYL (PF) (Sublimaze) injection 25 mcg 25 mcg, Intravenous, EVERY 10 MIN PRN, Mild Pain, 4 doses, Starting on Tue06/09/22 at 1057, Until Tue06/09/22 at 1334, Maximum total of 4 doses. If patient reaches max total dose, please consult anesthesiologist prior to further administration of pain meds. Hold pain meds if there are signs of hypoventilation. Patient preference for lesser PRN pain meds may be honored when the patient requests a less strong medication, a lower dose, or a less intrusive route of administration when the lesser drug, dose and route have been ordered for the patient. This patient request must be documented in the MAR., PACU $ Given 06/09/2022 11:38 AM CDT 50 mcg heparin injection 5,000 Units 5,000 Units, Subcutaneous, PRE-OP ONCE, 1 dose, On Tue06/09/22 at 0730, Pre-op $ Given 06/09/2022 7:38 AM CDT 5,000 Units Abdominal Tissue heparin injection 5,000 Units 5,000 Units, Subcutaneous, 2 TIMES DAILY, First dose on Kavya 06/10/22 at 0900, Until Discontinued, Post-op $ Given 06/10/2022 10:42 AM CDT 5,000 Units Abd Left Lower Quadrant HYDROmorphone (Dilaudid) injection 0.5 mg 0.5 mg, Intravenous, EVERY 10 MIN PRN, Severe Pain, 4 doses, Starting on Tue06/09/22 at 1057, Until Tue06/09/22 at 1334, Maximum total of 4 doses If patient reaches max total dose, please consult anesthesiologist prior to further administration of pain meds. Hold pain meds if there are signs of hypoventilation. Patient preference for lesser PRN pain meds may be honored when the patient requests a less strong medication, a lower dose, or a less intrusive route of administration when the lesser drug, dose and route have been ordered for the patient. This patient request must be documented in the MAR., PACU $ Given 06/09/2022 10:59 AM CDT 0.5 mg hyoscyamine (Levsin SL) sublingual tablet 0.125 mg 0.125 mg, Sublingual, EVERY 6 HOURS, First dose on Tue06/09/22 at 1345, Until Discontinued, Post-op $ Given 06/10/2022 10:42 AM CDT 0.125 mg $ Given 06/10/2022 5:09 AM CDT 0.125 mg $ Given 06/09/2022 6:08 PM CDT 0.125 mg iopamidol (Isovue 300) 61 % contrast Oral, CONTRAST ONCE, Starting on Tue06/10/22 at 0651, Until Tue06/10/22 at 2020 $ Given - Contrast 06/10/2022 9:01 AM CDT 30 mL ketorolac (Toradol) injection 15 mg 15 mg, Intravenous, EVERY 8 HOURS, 6 doses, First dose on Tue06/09/22 at 1530, Last dose on Tue06/11/22 at 0600, Given 8 hours from preop celebrex Do not give if GFR <60 Dose not to exceed 60mg daily, Post-op $ Given 06/10/2022 5:08 AM CDT 15 mg $ Given 06/09/2022 10:08 PM CDT 15 mg $ Given 06/09/2022 3:46 PM CDT 15 mg lactated ringers infusion at 20 mL/hr, Intravenous, CONTINUOUS, Starting on Tue06/09/22 at 0730, Until Tue06/09/22 at 1334, Pre-op $ New Bag/Syringe 06/09/2022 10:16 AM CDT Restarted 06/09/2022 9:16 AM CDT $ New Bag/Syringe 06/09/2022 7:39 AM CDT 20 mL/ hr magnesium hydroxide (Milk Of Magnesia) suspension 15 mL 15 mL, Oral, ONCE, 1 dose, On Tue06/10/22 at 1100, Shake well before using. $ Given 06/10/2022 10:41 AM CDT 15 mL metoclopramide (Reglan) injection 10 mg 10 mg, Intravenous, EVERY 6 HOURS PRN, Nausea/Vomiting, Starting on Tue06/09/22 at 1339, Until Kavya 06/10/22 at 202, Inject undiluted IV slowly over 1 to 2 minutes., Post-op $ Given 06/09/2022 8:02 PM CDT 10 mg ondansetron (Zofran) injection 4 mg 4 mg, Intravenous, EVERY 6 HOURS, First dose on Tue06/09/22 at 1345, Until Discontinued, Administer over 2 to 5 minutes., Post-op $ Given 06/10/2022 2:03 PM CDT 4 mg $ Given 06/10/2022 5:08 AM CDT 4 mg $ Given 06/09/2022 11:35 PM CDT 4 mg pantoprazole (Protonix) injection 40 mg 40 mg, Intravenous, DAILY, 365 doses, First dose on Tue06/09/22 at 1345, Last dose on Tue06/08/23 at 0900, For every 40 mg of pantoprazole mix with 10 mL Normal Saline (final concentration = 4 mg/mL). Inject SLOWLY over 2 min., Post-op $ Given 06/10/2022 10:42 AM CDT 40 mg $ Given 06/09/2022 3:45 PM CDT 40 mg prochlorperazine (Compazine) injection 10 mg 10 mg, Intravenous, ONCE PRN, Nausea/Vomiting, 1 dose, Starting on Tue06/09/22 at 1057, Until Tue06/09/22 at 1055, Second choice, use if first choice was ineffective., PACU $ Given 06/09/2022 10:55 AM CDT 10 mg prochlorperazine (Compazine) injection 10 mg 10 mg, Intravenous, EVERY 6 HOURS PRN, Nausea/Vomiting, Starting on Tue06/09/22 at 2228, Until Kavya 06/10/22 at 2020, Max intravenous rate = 5 mg/min $ Given 06/09/2022 10:47 PM CDT 10 mg scopolamine (Transderm-Scop) 1 patch 1 patch, Administer over 72 Hours, EVERY 72 HOURS, First dose on Tue06/09/22 at 0730, Until Discontinued, Apply patch behind the ear, do not cut patch, only 1 patch should be worn at a time and remove old patch before applying new patch.This patch may contain metal and is not compatible with MRI. Notify radiology of patch location upon arrival to MRI. Each patch contains 1.5 mg scopolamine base and is formulated to deliver 1 mg of scopolamine over 72 hours. $ Applied 06/09/2022 7:38 AM CDT 1 patch Behind Right Ear documented in this encounter Active and Recently Administered Medications Times are shown in CDT. Scheduled Medication Order 06/08/2022 06/09/2022 06/10/2022 acetaminophen (Tylenol) solution 1,000 mg 1,000 mg, Oral, EVERY 8 HOURS, First dose on Tue06/09/22 at 1400, Until Discontinued, Patient preference for lesser PRN pain meds may be honored when the patient requests a less strong medication, a lower dose, or a less intrusive route of administration when the lesser drug, dose and route have been ordered for the patient. This patient request must be documented in the MAR., Post-op 1542 (Not Administered - Provider: Siena Lopez RN - Reason: See Comments - Comment: PO meds starts tomorrow)2208 (Not Administered - Provider: Lilian Hollins RN - Reason: Refused-Patient) 0508 (Not Administered - Provider: Lilian Hollins RN - Reason: Refused-Patient)1403 (Not Administered - Provider: Jose G Banks RN - Reason: Refused-Patient) acetaminophen (Tylenol) tablet 1,000 mg (COMPLETED) 1,000 mg, Oral, ONCE, 1 dose, On Tue06/09/22 at 0730, Patient preference for lesser PRN pain meds may be honored when the patient requests a less strong medication, a lower dose, or a less intrusive route of administration when the lesser drug, dose and route have been ordered for the patient. This patient request must be documented in the MAR., Pre-op 07 ($ Given - Provider: Demi Horn, CODY) ceFAZolin (Ancef) 3,000 mg in 115 mL IVPB (COMPLETED) 3,000 mg (3 g), at 230 mL/hr, Intravenous, PRE-OP ONCE, 1 dose, On Tue06/09/22 at 0730, Administer 30 minutes prior to surgical incision. Refrigerate, Indication for anti-infective therapy: Surgical prophylaxis, Pre-op 920 ($ Given - Provider: Jacki Valentine APRN-RAFAEL) celecoxib (CeleBREX) capsule 400 mg (COMPLETED) 400 mg, Oral, PRE-OP ONCE, 1 dose, On Tue06/09/22 at 0730, Patient preference for lesser PRN pain meds may be honored when the patient requests a less strong medication, a lower dose, or a less intrusive route of administration when the lesser drug, dose and route have been ordered for the patient. This patient request must be documented in the MAR., Pre-op 07 ($ Given - Provider: Demi Horn RN) dexAMETHasone (Decadron) injection 10 mg (COMPLETED) 10 mg, Intravenous, ONCE, 1 dose, On Tue06/09/22 at 2245 2248 ($ Given - Provider: Lilian Hollins RN) dextrose 5 % 500 mL with M.V.I. (MVI Adult) 10 mL infusion 125 mL/hr, Intravenous, DAILY, First dose on Tue06/09/22 at 2100, Until Discontinued, To be run over 4 hours. Do not infuse at same time as other IV fluids. , Post-op 2213 ($ New Bag/Syringe - Provider: Lilian Hollins RN) 1042 ($ New Bag/Syringe - Provider: Jose G Banks RN) famotidine (Pepcid) injection 20 mg (COMPLETED) 20 mg, Intravenous, PRE-OP ONCE, 1 dose, On Tue06/09/22 at 0730, Give morning of surgery. Dilute with 0.9% NaCl, D5W solution, or SWI to a volume of 5 to 10 mL and administer over at least 2 minutes., Pre-op 0738 ($ Given - Provider: Demi Horn, CODY) heparin injection 5,000 Units (COMPLETED) 5,000 Units, Subcutaneous, PRE-OP ONCE, 1 dose, On Tue06/09/22 at 0730, Pre-op 0738 ($ Given - Provider: Demi Horn, RN) heparin injection 5,000 Units 5,000 Units, Subcutaneous, 2 TIMES DAILY, First dose on Tue06/10/22 at 0900, Until Discontinued, Post-op 1042 ($ Given - Provider: Jose G Banks RN) hyoscyamine (Levsin SL) sublingual tablet 0.125 mg 0.125 mg, Sublingual, EVERY 6 HOURS, First dose on Tue06/09/22 at 1345, Until Discontinued, Post-op 1545 ($ Given - Provider: Siena Lopez RN)1808 ($ Given - Provider: Siena Lopez RN)2336 (Not Administered - Provider: Lilian Hollins RN - Reason: Refused-Patient) 0509 ($ Given - Provider: Lilian Hollins RN)1042 ($ Given - Provider: Jose G Banks RN)1800 (Due) iopamidol (Isovue 300) 61 % contrast Oral, CONTRAST ONCE, Starting on Tue06/10/22 at 0651, Until Tue06/10/22 at 2020 0901 ($ Given - Contrast - Provider: Sonya Rhodes, RT(R)) ketorolac (Toradol) injection 15 mg 15 mg, Intravenous, EVERY 8 HOURS, 6 doses, First dose on Tue06/09/22 at 1530, Last dose on Tue06/11/22 at 0600, Given 8 hours from preop celebrex Do not give if GFR <60 Dose not to exceed 60mg daily, Post-op 1546 ($ Given - Provider: Siena Lpoez RN)2208 ($ Given - Provider: Lilian Hollins RN) 0508 ($ Given - Provider: Lilian Hollins RN)1400 (Due) magnesium hydroxide (Milk Of Magnesia) suspension 15 mL (COMPLETED) 15 mL, Oral, ONCE, 1 dose, On Tue06/10/22 at 1100, Shake well before using. 1041 ($ Given - Provider: Jose G Banks RN) ondansetron (Zofran) injection 4 mg 4 mg, Intravenous, EVERY 6 HOURS, First dose on Tue06/09/22 at 1345, Until Discontinued, Administer over 2 to 5 minutes., Post-op 1352 ($ Given - Provider: Siena Lopez RN)1809 ($ Given - Provider: Siena Lopez RN)2335 ($ Given - Provider: Lilian Hollins RN) 0508 ($ Given - Provider: Lilian Hollins RN)1403 ($ Given - Provider: Jose G Banks RN)1800 (Due) pantoprazole (Protonix) injection 40 mg 40 mg, Intravenous, DAILY, 365 doses, First dose on Tue06/09/22 at 1345, Last dose on Tue06/08/23 at 0900, For every 40 mg of pantoprazole mix with 10 mL Normal Saline (final concentration = 4 mg/mL). Inject SLOWLY over 2 min., Post-op 1545 ($ Given - Provider: Siena Lopez RN) 1042 ($ Given - Provider: Jose G Banks RN) scopolamine (Transderm-Scop) 1 patch (CANCELED)(Linked Group 1) 1 patch, Administer over 72 Hours, EVERY 72 HOURS, First dose on Tue06/09/22 at 0730, Until Discontinued, Apply patch behind the ear, do not cut patch, only 1 patch should be worn at a time and remove old patch before applying new patch.This patch may contain metal and is not compatible with MRI. Notify radiology of patch location upon arrival to MRI. Each patch contains 1.5 mg scopolamine base and is formulated to deliver 1 mg of scopolamine over 72 hours. 0738 ($ Applied - Provider: Demi Horn RN)1546 (Removed - Provider: Siena Lopez RN - Comment: Time automatically adjusted from order being discontinued) Continuous Medication Order 06/08/2022 06/09/2022 06/10/2022 0.45% NaCl with potassium chloride 20meq infusion at 150 mL/hr, Intravenous, CONTINUOUS, Starting on Tue06/09/22 at 1345, Until Kavya 06/10/22 at 2020, Do not infuse at same time as other fluids., Post-op 1348 ($ New Bag/Syringe - Provider: Siena Lopez, RN)1959 ($ New Bag/Syringe - Provider: Lilian Hollins, CODY) 0507 ($ New Bag/Syringe - Provider: Lilian Hollins RN) lactated ringers infusion (CANCELED) at 20 mL/hr, Intravenous, CONTINUOUS, Starting on Tue06/09/22 at 0730, Until Tue06/09/22 at 1334, Pre-op 0739 ($ New Bag/Syringe - Provider: Demi Horn RN)0915 (Paused - Provider: BRANDY Tanner - Comment: Switch to gravity)0916 (Restarted - Provider: BRANDY Tanner)1016 ($ New Bag/Syringe - Provider: BRANDY Tanner) PRN Medication Order 06/08/2022 06/09/2022 06/10/2022 0.9% NaCl injection (CANCELED) PRN, Starting on Tue06/09/22 at 0939, Until Tue06/09/22 at 1039, Intra-op 0939 ($ Given - Provider: Alverto Engel MD) 0.9% nacl irrigation solution (CANCELED) PRN, Starting on Tue06/09/22 at 0939, Until Tue06/09/22 at 1039, Intra-op 0939 ($ Given - Provider: Alverto Engel MD) acetaminophen (Tylenol) solution 500 mg 500 mg, Oral, DAILY PRN, Moderate Pain, for moderate breakthrough pain given 4 hours after previous scheduled dose of tylenol, Starting on Tue06/09/22 at 1339, Until Kavya 06/10/22 at 2020, for moderate breakthrough pain given 4 hours after previous scheduled dose of tylenol Patient preference for lesser PRN pain meds may be honored when the patient requests a less strong medication, a lower dose, or a less intrusive route of administration when the lesser drug, dose and route have been ordered for the patient. This patient request must be documented in the MAR., Post-op albuterol HFA (Proventil; Ventolin; Proair) 108 (90 Base) MCG/ACT inhaler 2 puff 2 puff, Inhalation, EVERY 6 HOURS PRN, Shortness of Breath, Wheezing, Starting on Tue06/09/22 at 1339, Until Kavya 06/10/22 at 2021, Shake well before using. WASTE DISPOSAL INSTRUCTION: Send to Pharmacy for Disposal. bupivacaine liposome (Exparel) 1.3 % injection (CANCELED) PRN, Starting on Tue06/09/22 at 0939, Until Tue06/09/22 at 1039, Intra-op 0939 ($ Given - Provider: Alverto Engel MD) fentaNYL (PF) (Sublimaze) injection 25 mcg (CANCELED) 25 mcg, Intravenous, EVERY 10 MIN PRN, Mild Pain, 4 doses, Starting on Tue06/09/22 at 1057, Until Tue06/09/22 at 1334, Maximum total of 4 doses. If patient reaches max total dose, please consult anesthesiologist prior to further administration of pain meds. Hold pain meds if there are signs of hypoventilation. Patient preference for lesser PRN pain meds may be honored when the patient requests a less strong medication, a lower dose, or a less intrusive route of administration when the lesser drug, dose and route have been ordered for the patient. This patient request must be documented in the MAR., PACU 1138 ($ Given - Provider: More Villanueva RN - Comment: pain level) HYDROmorphone (Dilaudid) injection 0.5 mg (CANCELED) 0.5 mg, Intravenous, EVERY 10 MIN PRN, Severe Pain, 4 doses, Starting on Tue06/09/22 at 1057, Until Tue06/09/22 at 1334, Maximum total of 4 doses If patient reaches max total dose, please consult anesthesiologist prior to further administration of pain meds. Hold pain meds if there are signs of hypoventilation. Patient preference for lesser PRN pain meds may be honored when the patient requests a less strong medication, a lower dose, or a less intrusive route of administration when the lesser drug, dose and route have been ordered for the patient. This patient request must be documented in the MAR., PACU 1059 ($ Given - Provider: More Villanueva RN) metoclopramide (Reglan) injection 10 mg 10 mg, Intravenous, EVERY 6 HOURS PRN, Nausea/Vomiting, Starting on Tue06/09/22 at 1339, Until Kavya 06/10/22 at 2020, Inject undiluted IV slowly over 1 to 2 minutes., Post-op 2001 ($ Given - Provider: Lilian Hollins, CODY) oxyCODONE (Roxicodone) oral solution 5 mg 5 mg, Oral, EVERY 6 HOURS PRN, Severe Pain, Starting on Tue06/09/22 at 1339, Until Kavya 06/10/22 at 2020, Patient preference for lesser PRN pain meds may be honored when the patient requests a less strong medication, a lower dose, or a less intrusive route of administration when the lesser drug, dose and route have been ordered for the patient. This patient request must be documented in the MAR., Allow a repeat dose for severe pain? No, Post-op prochlorperazine (Compazine) injection 10 mg (COMPLETED) 10 mg, Intravenous, ONCE PRN, Nausea/Vomiting, 1 dose, Starting on Tue06/09/22 at 1057, Until Tue06/09/22 at 1055, Second choice, use if first choice was ineffective., PACU 1055 ($ Given - Provider: More Villanueva RN) prochlorperazine (Compazine) injection 10 mg 10 mg, Intravenous, EVERY 6 HOURS PRN, Nausea/Vomiting, Starting on Tue06/09/22 at 2228, Until Kavya 06/10/22 at 2020, Max intravenous rate = 5 mg/min 2247 ($ Given - Provider: Lilian Hollins RN) Linked Groups Order Group 1: scopolamine (Transderm-Scop) 1 patch (CANCELED)Jump to med 1 patch, Administer over 72 Hours, EVERY 72 HOURS, First dose on Tue06/09/22 at 0730, Until Discontinued, Apply patch behind the ear, do not cut patch, only 1 patch should be worn at a time and remove old patch before applying new patch.This patch may contain metal and is not compatible with MRI. Notify radiology of patch location upon arrival to MRI. Each patch contains 1.5 mg scopolamine base and is formulated to deliver 1 mg of scopolamine over 72 hours. 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
--- OUTSIDE RECORDS SUMMARY | 2024-11-01 05:20 | XMS_ITS | Encounter Summary ---
Author Organization [facility] Address [address] [place] [address] Care Team Providers Care Completions Engineer Name Role Phone Catina Rios APRN-PULVI MIXER OPERATOR Primary Care Provi saloni Reason for Visit * Reason Comments Follow-up follow up testing Encounter Details Date Type Department Care Team (Late st Contact Info) Description 05/14/2022 10:40 AM CDT Office Visit [facility] [id number] [place] [id number] [place] [phone] [address] Morbid obesity due to excess calories (HCC) (Primary Dx); Preop testing; BMI 50.0-59.9, adult (HCC) Social History Tobacco Use Types Packs/Day [...] Sign Reading Time Taken Comments Blood Pressure 140/80 05/14/2022 10:20 AM CDT Pulse 91 05/14/2022 10:20 AM CDT Temperature - - Respiratory Rate - - Oxygen Saturation - - Inhaled Oxygen Concentration - - Weight 142 kg (313 lb) 05/14/2022 10:20 AM CDT Height 165.1 cm (5' 5 ) 05/14/2022 10:20 AM CDT Body Mass Index 52.09 05/14/2022 10:20 AM CDT documented in this encounter Progress Notes * Alverto Engel MD - 05/14/2022 10:40 AM CDT BARIATRIC EVALUATION HISTORY & PHYSICAL Height: 5' 5 (165.1 cm) Weight: (!) 313 lb (142 kg) BMI (Calculated): 52.09 Chief Complaint: Morbid Obesity HPI: Pt is a 31 year old year old female with a hx of morbid obesity who presents for surgical tx. Pt has attempted multiple weight loss regimens in the past including medical, exercise and dietary without intermediate success. Pt has now attained a BMI (Calculated): 52.09 and has failed multiple non surgical weight loss regimens for >5yrs. BMI: Body mass index is 52.09 kg/m??. [place] body weight: 57 kg (125 lb 10.6 oz) Adjusted ideal body weight: 91 kg (200 lb 9.6 oz) Medical: no new medical changes Review of previous provider notes in [employer] Everywhere was performed on the day of [...] No Anesthetic Complications................. No Other................................................. none Current Outpatient Medications Medication ??? albuterol HFA (PROVENTIL; VENTOLIN; PROAIR) 108 (90 Base) MCG/ACT inhaler ??? Cholecalciferol 50 MCG (2000 UT) ??? diclofenac sodium EC (VOLTAREN) 75 MG tablet ??? naproxen (NAPROSYN) 500 MG tablet ??? oxycodone-acetaminophen (PERCOCET) 5-325 MG tablet ??? penicillin v potassium (VEETIDS) 500 MG tablet No current facility-administered medications for this visit. No Known Allergies Social History Smoking status: [...] another person for any ADLs.. Physical Examination: BP 140/80 Pulse 91 Ht 5' 5 (1.651 m) Wt (!) 313 lb (142 kg) Constitutional: well-developed, well-nourished, and in no [...] CO2, BUN, CREATININE, GLUCOSE, CALCIUM in thelast 19386 hours. No results for input(s): WBC, HGB, HCT, PLTCOUNT in the last 33291 hours. Risk / Benefits: Risks and benefits [...] procedures or operations in the perioperative and intermediate periods. Questions were answered. Risks discussed today [...] or network. The patient will experience successfuland intermediate weight loss when these components along with bariatric surgery are followed. The patient has had the above discussions with multiple program team members including surgeon, technical support intern, bariatric nurse and mental health millinery worker and the patient will continue to have [...] Liquid Protein Diet: Yes for 2 Weeks Adjunct Writing Instructor: Yes Additional Testing: Yes GI: hx of [...] Yes -decrease from baseline as class, initial 331 Weight check at Class: Yes Comments: Hospitalist Consult: Yes Other Consults: No Schedule: any Standard incision, 2S, no arellano, 2 day stay Alverto Engel MD 05/14/2022 documented in this encounter Plan of Treatment Not on file documented as of this encounter Visit Diagnoses Diagnosis Morbid obesity due to excess calories (HCC)- Primary Preop testing Preoperative examination, unspecified BMI 50.0-59.9, adult (HCC) Body Mass Index 50.0-59.9, adult documented in this encounter Care Teams Completions Engineer Relationship Specialty Start Date End Date Catina Rios APRN-MARIS [address] [place] [id number] PCP - General Nurse Practitioner 03/30/22 documented as of this encounter
--- OUTSIDE RECORDS SUMMARY | 2024-11-01 05:20 | XMS_ITS | Encounter Summary ---
Author Organization [facility] Address [address] [place] [address] Care Team Providers Care Subgrade Tester Name Role Phone Maverick Kauffman MD Primary Care Provider [phone] Reason for Visit * Reason Comments Pain Ankle left Pain Knee right Encounter Details Date Type Department Care Team (Late st Contact Info) Description 02/21/2009 12:11 PM CDT - 02/21/2009 4:40 PM CDT Emergency ER at [facility] [address] [place] [address] Dwayne Hodge, PAStephanieC [address] [facility] [address] [place] [address] Marcial Ramirez, [address] [facility] [place] [address] Contusion of Knee, right (Primary Dx); Fall; Ankle Sprain, left; Abrasion R knee Discharge Disposition: Home or Self Care Social [...] Sign Reading Time Taken Comments Blood Pressure 116/58 02/21/2009 2:02 PM CDT Pulse 84 02/21/2009 2:02 PM CDT Temperature 36.8 ??C (98.3 ??F) 02/21/2009 2:02 PM CD T Respiratory Rate 18 02/21/2009 2:02 PM CDT Oxygen Saturation 98% 02/21/2009 2:02 PM CDT Inhaled Oxygen Concentration - - Weight 115.1 kg (253 lb 12.8 oz) 02/21/2009 2:02 PM CDT Height 165.1 cm (5' 5 ) 02/21/2009 2:02 PM CDT Body Mass Index 42.23 02/21/2009 2:02 PM CDT documented in this encounter Discharge Instructions * Discharge Instructions* Dwayne Hodge PA - 02/21/2009 4:19 PM CDT Abrasions Abrasions are skin scrapes. Their treatment depends on how large and deep the abrasion is. Abrasions do not extend through all layers of the skin. A cut or lesion through all skin layers is called a laceration. HOME CARE INSTRUCTIONS ?? If you were given a dressing, change it at least once a day or as instructed by your caregiver. If the bandage sticks, soak it off with a solution of water or hydrogen peroxide. Twice a day, wash the area with soap and water to remove all the cream/ointment. You may do this rishi sink, under a tub faucet, or in a shower. Rinse off the soap and pat dry with a clean towel. Lookfor signs of infection (see below). Reapply cream/ointment according to your caregiver's instruction. This will help prevent infection and keep the bandage from sticking. Telfa or gauze over the wound and under the dressing or wrap will also help keep the bandage from sticking. If the bandage becomes wet, dirty, or develops a foul smell, change it as soon as possible. Acetaminophen (Tylenol??) or ibuprofen (Advil?? or Motrin??) may be taken as directed for relief from pain and discomfort. Take only if your caregiver has not given medications that would interfere with this or advises you otherwise. SEEK IMMEDIATE MEDICAL ATTENTION IF: ?? Increasing pain in the wound. Signs of infection develop: redness, swelling, surrounding area is tender to touch, or pus coming from the wound. An oral temperature above 102?? F (38.9?? C) develops. Any foul smell coming from the wound or dressing. Most skin wounds heal within ten days. Facial wounds heal faster. However, an infection may occur despite proper treatment. You should have the wound checked for signs of infection within 24 to 48 hours or sooner if problems arise. If you were not given a wound-check appointment, look closely at the wound yourself on the second day for early signs of infection listed above. Document Released: 07/27/2006 Document Re-Released: 11/28/2007 ExitCare?? Patient Information ??2008 [employer].Ankle Sprain An ankle sprain is an injury to the ligaments that hold the ankle joint together. CAUSE The injury is usually caused by a fall or by twisting the ankle. It is important to tell your caregiver how the injury occurred, and whether or not you were able to walk immediately after the injury. SYMPTOMS Pain is the primary symptom. It may be present at rest, or only with trying to stand or walk. The ankle will likely be swollen, and bruising may develop immediately or after a day or two. It may be difficult or impossible to stand or walk, depending on the severity of the sprain. DIAGNOSIS Your caregiver can determine if a sprain has occurred based on details of the accident, and on examination of your ankle. Examination will include pressing and squeezing areas of the foot and ankle, and trying to move the ankle in certain ways. X-rays may be used to be sure a bone was not broken, or that the ligament did not pull off of a bone (avulsion). There are standard guidelines that can reliably determine if an x-ray is needed. RISKS AND COMPLICATIONS A person who has sprained their ankle will be more prone to a repeat sprain. Chronic instability ofthe ankle (intermodal customer service pain with standing or walking, or difficulty walking) may result from an anklesprain. TREATMENT Rest, ice, elevation, and compression are the basic modes of treatment (see home care instructions,below). Certain types of braces can help stabilize the ankle and allow early return to walking. Your caregiver can make a recommendation for this. Medication may be recommended for pain. You may be referred to an orthopedist or a physical therapist for certain types of severe sprains. HOME CARE INSTRUCTIONS ?? Apply ice to the sore area for 15 to 20 minutes four times per day while awake for the first 2 days or as directed. This can be stopped when the swelling goes away. Put the ice in a plastic bag and place a towel between the bag of ice and your skin. After 2 days, you may apply heat to the injury to help relieve pain. You may use a warm heating padfor 15 to 20 minutes four times per day while awake for 2 days or as needed. Do not sleep with a heating pad. If you are diabetic, do not use a heating pad unless instructed to do so. Keep your leg elevated when possible to lessen swelling. For Activity: If your caregiver recommends crutches, use them as instructed or with non- weight bearing for 1 week. Then, you may walk on your ankle as the pain allows, or as instructed. Start gradually with weight bearing on the affected ankle Continue to use crutches or cane until you can walk without causing pain. If a plaster splint was applied, wear the splint until you are seen for a follow-up examination. Rest it on nothing harder than a pillow the first 24 hours. Do not put weight on it. Do not get it wet. You may take it off to take a shower or bath. If an air splint was applied, you may blow more air into it or take some out to make it more comfortable. You may take it off at night and to take a shower or bath. Wiggle your toes in the splint several times per day if you are able. You may have been given an elastic bandage to use with the plaster splint or alone. The splint is too tight if you have numbness, tingling, or if your foot becomes cold and blue. Adjust the bandage to make it comfortable. Take medications as directed by your caregiver. Use acetaminophen (Tylenol??) or ibuprofen (Advil??or Motrin??) as needed for pain. SEEK MEDICAL CARE IF: ?? You have an increase in bruising, swelling, or pain. You notice coldness of your toes. Pain relief is not achieved with medications. SEEK IMMEDIATE MEDICAL ATTENTION IF your toes are numb or blue or you have severe pain. Document Released: 10/17/2006 Document Re-Released: 02/01/2008 [employer] [facility]?? Patient Information ??2008 [employer]. Contusions You have a deep bruise (contusion). Contusions are areas of tenderness and swelling in the soft tissues. They are the result of damage and bleeding in the injured area. Minor trauma will give you a painless bruise, but more severe contusions may stay painful and swollen for a few weeks. HOME CARE INSTRUCTIONS ?? Rest the injured area until the pain and swelling are better. ?? Apply ice packs every few hours for 2-3 days, then use moist heat. ?? Elevate the injury to reduce swelling. ?? Compression bandages also help reduce swelling and motion. A hematoma may form in large contusions. This is a collection of blood in the deep tissues. Hematomas are usually reabsorbed by the body naturally. Sometimes they need to be drained. SEEK IMMEDIATE MEDICAL CARE IF YOU DEVELOP: ?? Signs of infection (increased redness, swelling, or pain) ?? Numbness or coldness. Document Released: 11/24/2005 Document Re-Released: 08/03/2007 ExitCare?? Patient Information ??2008 [employer]. * Discharge Instructions* Document, Scanned - 02/21/2009 12:00 AM CDT documented in this encounter ED Notes * Dwayne Hodge PA - 02/21/2009 2:26 PM CDT 02/21/2009 2:26 PM HPI Comments: CC: R knee and L ankle injury/fall Pt slipped on rock at home and inverted L ankle and landed on R knee, c/o constant moderate pain worse with movement. Is able to wt bear but c/o pain to both ankle and knee. No head or other injuries. Unsure last tetaus. Hasn't taken anything for pain. Review of Systems Neurological: Negative for tingling. All other systems reviewed and are negative. Physical Exam Nursing note and vitals reviewed. Constitutional: She is oriented and well-developed, well-nourished, and in no distress. Vital signsare normal. Non-toxic WF HENT: Head: Normocephalic and atraumatic. Eyes: Conjunctivae and extraocular motions are normal. Pupils are equal, round, and reactive to light. Neck: Normal range of motion. Neck supple. Cardiovascular: Normal rate, regular rhythm and normal heart sounds. No murmur heard. Pulmonary/Chest: Effort normal and breath sounds normal. Abdominal: Soft. No tenderness. Musculoskeletal: Left ankle Mild swelling/tender to lateral ankle mostly soft tissue, no bruising and to base of 5th MT ROM limited d/t pain Dp 2+ Cap refill <2sec Distal motor/sensory intact Achilles tendon is non-ttp and is intact Knee/rest of leg is non-ttp No open wounds Right knee: Numerous abrasions to patella area, no active bleeding, no effusion or swelling, no bruising--is tender here Patella midline, no apprehension No MCL/LCL laxity Negative Lena's Negative anterior/posterior drawers Fully extends knee against resistance full flexion Dp 2+ No thoracic or lumbar spine tenderness. Full rom back Distal motor and sensory intact No calf swelling or tenderness Neurological: She is alert and oriented. No cranial nerve deficit. Gait normal. GCS score is 15. Skin: Skin is warm, dry and intact. Psychiatric: Mood, memory, affect and judgment normal. EKG Interpretation Lab Interpretation History Past Medical History Diagnosis Date ??? Asthma does not use inhaler No past surgical history on file. History Social History ??? Marital Status: Spouse Name: N/A Number of Children: N/A ??? Years of Education: N/A Occupational History ??? Not on file. Social History Main Topics ??? Tobacco Use: Never ??? Alcohol Use: No ??? Drug Use: No ??? Sexually Active: Not on file Other Topics Concern ??? Not on file Social History Narrative ??? No narrative on file Medications No current outpatient prescriptions on file. Progress Notes Procedures ESTEPHANIA wrap applied to L ankle by PA Medical Decision Making I have reviewed the: Nursing Notes and Vitals. I have interpreted the following results: X-Ray (R knee/L ankle/L foot: no fx, NAD). ED Plan/Course: 1619. Tx for soft tissue injuries with otc meds, ice, elevate. RTED if worse. Pt is stable at this time Pt/family voiced understanding of instructions Diagnosis Encounter Diagnoses Name Primary? Fall ??? Ankle Sprain, left ??? Contusion of Knee, right Yes ??? Abrasion R knee documented in this encounter Miscellaneous Notes * Miscellaneous Scans - Document, Scanned - 02/21/2009 12:00 AM CDT documented in this encounter Plan of Treatment Not on file documented as of this encounter Procedures Procedure Name Priority Date/Time Associated Diagnosis Comments XR FOOT LEFT 3VW OR MORE STAT 02/21/2009 3:32 PM CDT Fall XR ANKLE LEFT 3VW OR MORE STAT 02/21/2009 3:32 PM CDT Fall XR KNEE RIGHT 2VW OR LESS STAT 02/21/2009 3:30 PM CDT Fall HCG URINE QUALITATIVE - POINT OF CARE STAT 02/21/2009 3:00 PM CDT documented in this encounter Results * XR FOOT 3+ VW LEFT (02/21/2009 3:32 PM CDT) Anatomical Region Laterality Modality Ankle / Foot Radiographic Miriam ging 02/21/2009 5:02 PM CDT Impressions 02/21/2009 5:03 PM CDT Negative examination. Narrative 02/21/2009 5:03 PM CDT History: Left foot pain, fall. Left foot 3 views. Findings: The bones are anatomically aligned. There is no fracture or dislocation. The joints are normal. Procedure Note Syd Burton MD - 02/21/2009 History: Left foot pain, fall. Left foot 3 views. Findings: The bones are anatomically aligned. There is no fracture or dislocation. The joints are normal. IMPRESSION Negative examination. Dwayne Hodge PA-C DIAGNOSTIC IMAGING O RDERABLES * XR ANKLE 3+ VW LEFT (02/21/2009 3:32 PM CDT) Anatomical Region Laterality Modality Lower Extremity Radiographic Miriam ging 02/21/2009 4:04 PM CDT Impressions 02/21/2009 4:06 PM CDT No evidence for acute fracture or dislocation. Narrative 02/21/2009 4:06 PM CDT Left ankle HISTORY: Status post fall Three views of the left ankle were obtained which demonstrate no evidence for acute fracture or dislocation. The talar dome and ankle mortise are intact. Procedure Note Saranya Luu MD - 02/21/2009 Left ankle HISTORY: Status post fall Three views of the left ankle were obtained which demonstrate no evidence for acute fracture or dislocation. The talar dome and ankle mortise are intact. IMPRESSION No evidence for acute fracture or dislocation. Dwayne Hodge PA-C DIAGNOSTIC IMAGING O RDERABLES * XR KNEE 1 OR 2 VW RIGHT (02/21/2009 3:30 PM CDT) Anatomical Region Laterality Modality Lower Extremity Radiographic Miriam ging 02/21/2009 4:05 PM CDT Impressions 02/21/2009 4:07 PM CDT IMPRESSION: No osseous abnormality. Narrative 02/21/2009 4:07 PM CDT Right knee HISTORY: Status post fall AP and lateral projections of the right knee demonstrate no osseous abnormalities. No joint effusion is seen. Procedure Note Saranya Luu MD - 02/21/2009 Right knee HISTORY: Status post fall AP and lateral projections of the right knee demonstrate no osseous abnormalities. No joint effusion is seen. IMPRESSION IMPRESSION: No osseous abnormality. Dwayne Hodge PA-C DIAGNOSTIC IMAGING O RDERABLES * HCG URINE QUALITATIVE - POINT OF CARE (02/21/2009 3:00 PM CDT) HCG Qual Urine negative Negative [facility] POCT TEST[facility] QC Verified yes Yes [facility] POC T TESTING Urine specimen (specimen) URINE / Unknown 02/21/2009 3:00 PM CDT Dwayne Hodge PA-C LAB - POINT OF CARE ORDERABLES [facility] [address] [place] [address] documented in this encounter Visit Diagnoses Diagnosis Contusion of Knee, right- Primary Contusion of knee Fall Unspecified fall Ankle Sprain, left Sprain of ankle, unspecified site Abrasion R knee Abrasion or friction burn of other, multiple, and unspecified sites, without mention of infection documented in this encounter Care Teams Subgrade Tester Relationship Specialty Start Date End Date Maverick Kauffman MD [address] [place], [place] [id number] PCP - General 03/15/08 05/02/09 documented as of this encounter
--- OUTSIDE RECORDS SUMMARY | 2024-11-01 05:20 | XMS_ITS | Encounter Summary ---
Author Organization [facility] Address [address] [place] [address] Care Team Providers Care Catalogue Clerk Name Role Phone Catina Rios APRN-MARIS Primary Care Provi saloni Encounter Details Date Type Department Care Team (Late st Contact Info) Description 04/16/2022 9:00 AM CDT Office Visit [facility] [address] [place] [id number] Morbid obesity (HCC) (Primary Dx) Social History Tobacco Use Types Packs/Day Years Used Date Smoking Tobacco: Never Smokeless Tobacco: Never Alcohol Use Standard Drinks/Week Comments No 0 (1 standard drink = 0.6 oz pur e alcohol) Sex and Gender Information Value Date Recorded Sex Assigned at Not on file Gender Identity Not on file Sexual Orientation Not on file documented as of this encounter Progress Notes * Lexus Vila SHOE TURNER - 04/15/2022 12:29 PM CDT Name: Marika Caban Date of : 88 Surgeon: Alverto Engel Date: 04/16/22 Reason for visit: Pre-Surgery Psychological Evaluation Surgical decision and reason for surgery: The pt is seeking the VSG. The pt has made the decision to have weight loss surgery because she has been wanting to have this surgery since 2011. She noted she almost had it once but ended up moving to [place] and was unable to have it. She noted she has always struggled with her weight and has been able to lose some but unable to keep it off. She is motivated to lose weight in order to improve health and activity as well as energy level. She wants to have more energy to do things with her kids and to be able to do everyday things such as tying her shoes, fitting in a pryor, etc. The pt denied any current comorbid conditions. Current Weight: 315 lbs Goal Weight: 190 lbs Beyond weight related conditions, patients health hx is otherwise unremarkable. No previous hx of non-compliance with medical care. Family/Home/Support Environment: The pt is supported in her decision to have weight loss surgery by her family. She noted her is also trying to lose weight and is also doing many of the things she is doing such as using an eulalio to track calories. The pt has 3 children ages 13, 11, and 2. She has been following a lot of support groups online. The pt also knows a lot of people who have had weight loss surgery. The pt lives with her and her three kids. She noted her brother is currently living with them as her mom last yearand he was only 17 at the time. 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 Pt noted she loves her job. Patient has no hx of work-adjustment difficulties on any of her jobs. Mental Health Issues: Patient denied a psychiatric history and denied past or present psychotropic medication. Patient denied auditory or visual hallucinations; and denied losing blocks of time where she can not remember who or where she is. Patient has never been hospitalized for psychiatric reasons, and there is no history of prior suicide/homicide ideation or attempt. The patient was informed that the surgery can produce mild symptoms of anxiety and depression. The patient was asked to utilize support resources if necessary or if symptoms persist or increase in severity. Substance Use Issues: Current alcohol use: rarely, maybe on a special occasion. Current medical/recreational drugs use: none Current tobacco use: none The pt has no problems related to alcohol, drug or prescription mis-use. The patient was informed of addiction transference and that the absorption rate of alcohol will be much higher after surgery. The patient is aware that alcohol is not to be consumed for at least one year after surgery and thatcarbonated beverages are to be eliminated entirely. Weight and Xorasm-Lswn-Xqlwffj History: Family Hx of Obesity: Yes, but by choice and not genetics Patient Obese since: Childhood. She doesn't feel she was fat but was always bigger than others. She noted she has a [place]ese type body as she is part . Pt noted she started to gain a lot more weight after having her first son at age 18. Her weight was very up and down after that. High school weight: Size 12-14 Was very active with track and cheerleading. Heaviest Weight Since 20: 335 lbs Lowest weight in the past 2-3 years: 230 lbs right before she conceived her last son. She noted shegot up to 290 lbs and by 6 weeks after she was down to 270 lbs Previous Weight Loss Efforts: Weight Watchers, Keto, Atkins, phentermine, OTC pills Most Weight Ever lost:60-70 lbs.Lost a lot of weight while living in [place] in 2011 to 2014 (70 lbs) lowest weight was in the 190's. Wearing a size small and medium top. Exercise and other sources of physical activity: 3-5x/week for about an hour. Pt noted she tries toexercise every day doing 30 mins on the treadmill and 30 minutes with weights. She noted her knees hurt at times so she is working on improving her knee mobility. The patient feels that the biggest contributor to her weight issue is emotional eating and just having phases where she doesn't care about what she is eating. She noted portion control is her biggestissue currently as she always feels hungry when cutting calories. The pt feels that the biggest barrier to losing weight on her own is feeling overly hungry when she diets and then feels overly drained. When asked how the surgery is going to be different from any previous attempts at weight loss, the pt stated that it will be different because it will be the extra help she needs in order to reduce portions and feel comfortable with it. She feels that she is prepping mentally and physically for this surgery and hopes this sets her up for greater success. Per RD note, Caffeine is limited to a cup. Denies carbonated soda and smoking. Occasional alcohol.Recommendations for previous behaviors were noted. Fluids are self reported as low-moderate and could improve. Activity is high, 3-5x/week for about an hour. Diet recall suggests pretty bariatric friendly diet. Pt consumes 3 meals with 1 snack daily, tracks using eulalio as well. Currently eulalio is [id number] calories with smaller breakfast and progressive calories throughout the day. B - Protein shake, OJ, nepalese yogurt, or oatmeal with bananas, eggs and avocado L - varies, S - yogurt or granola D - protein source and vegetable Pt has cut out sugar and caffeine. She is counting calories and working out every day. Pt does not drink carbonated beverages and rarely alcohol. She noted she has had a lot of increased aware ness of her head hunger vs real hunger. She is using protein shakes such as Equate, Isolate powder with [place] milk. If she has a snack it is between lunch and dinner. She noted that dinner is either reallyearly or late as her kids have a lot of activities. Patterns of Distorted Eating: Enemas/Laxatives/Diuretic Misuse: never Purging/induced Vomiting: never Anorexia/Restricting: never Emotional Eating: Denies now but had in the past. She noted her last work environment was toxic. She feels she has worked through this and was even able to cope better when her mother passed last year. Food screenin. Within the past 12 months, you worried that your food would run out before you got the money to buy more: Never 2. Within the past 12 months, the food you bought just didn't last and you didn't have the money toget some more: Never Realistic verse unrealistic expectations for weight loss, the surgery and adjustment after surgery were discussed. Making manageable, realistic changes was encouraged. The concept of backsliding and the reasons how a backslide could occur were discussed with patient.Keeping a food journal, taking pictures, meal planning, weighing regularly and attending support groups were suggested as strategies for preventing or reducing backsliding behaviors. Patient was informed about possible hair thinning, loose skin and recommended post op recommended appointments. Patient is not currently and has been counseled to avoid for a minimum of one (1) year following bariatric surgery. Surgery Perspective/Understanding: Patient appears informed regarding the post-op dietary requirements and appears to have ample understanding of the consequences of not following all post-op requirements exactly as prescribed. She reports realistic surgical goals and expectations; and appears to understand the surgical logistics and risks associated with the bariatric surgery. Mental Status Patient appearance: appropriate Orientation: Time, Place, Person, Situation Behavior: Within normal limits Speech: appropriate Affect: appropriate Mood: euthymic Memory: in tact Mental Awareness: clear Intelligence: average Attitude: cooperative Attention: focused Reasoning: good Judgement: good Impulse Control: good Insight: good Self-perception: realistic Thought Process: Logical Thought Content: Within Normal Limits DSM-5: E66.01 Obesity Summery/Recommendations Patient appears to be a low surgical risk and an appropriate candidate for this surgery based on this interview. Patient noted no current compliance issues or any anticipated issues that would prevent adherence to protocol after surgery. There do not appear to be any contraindications. Psychological Clearance is therefore granted. Lexus Vila LPC, CBC Licensed Professional Counselor Certified Bariatric Counselor Psychological Review ?? Cleared_X_ ?? Not cleared, additional MH visit(s) required ___ ?? Bariatric Case Conference review required ___ ?? Follow up scheduled ____ documented in this encounter Plan of Treatment Not on file documented as of this encounter Visit Diagnoses Diagnosis Morbid obesity (HCC)- Primary Morbid obesity documented in this encounter Care Teams Catalogue Clerk Relationship Specialty Start Date End Date Catina Rios APRN-OIL SCOUT [address] [place] [address] PCP - General Nurse Practitioner 03/30/22 documented as of this encounter
--- OUTSIDE RECORDS SUMMARY | 2024-11-01 05:20 | XMS_ITS | Encounter Summary ---
Author Organization [facility] Address [address] [place] [address] Care Team Providers Care Toy Assembler Name Role Phone Unavailable Primary Care Provider Unavailabl e Encounter Details Date Type Department Care Team (Latest Contact Info) Description 09/12/2007 12:46 PM STATE EDITOR - 09/12/2007 11:59 PM STATE EDITOR Hospital Encounter [facility] DEFAULT [address] [place] [address] Josee Kauffman MD [address] [place] [address] Radiology Diagnostic Discharge Disposition: Home or Self Care Social History Tobacco Use Types Packs/Day Years Used Date Smoking Tobacco: Never Assessed Sex and Gender Information Value Date Recorded Sex Assigned at Not on file Gender Identity Not on file Sexual Orientation Not on file documented as of this encounter Plan of Treatment Scheduled Orders Name Type Priority Associated Diagnoses Orde r Schedule US PELVIS WITH TRANSVAG NON OB Imaging Routine ONCE for 1 Occur rences starting 09/12/2007 until 09/12/2007, 1 completed documented as of this encounter Procedures Procedure Name Priority Date/Time Associated Diagnosis Comments US PELVIS W TRANSVAG NON OB Routine 09/12/2007 1:00 PM STATE EDITOR Abdominal Pain, Unspecified Site documented in this encounter Results * US PELVIS WITH TRANSVAG NON OB (09/12/2007 1:00 PM STATE EDITOR) Anatomical Region Laterality Modality Pelvis Other 09/12/2007 1:00 PM STATE EDITOR Narrative 09/12/2007 1:59 PM STATE EDITOR Ultrasound pelvis including transvaginal evaluation- HISTORY- Right-sided pain for 4 weeks. Transabdominal and transvaginal ultrasound of the pelvis was performed on 09/12/2007. The uterus is within normal limits of size, shape and echogenicity with no focal myometrial mass. The uterus measures 8.7 x 3.8 x 4.9 cm in diameter. The endometrial complex measures 4 mm in thickness. The ovaries are visualized bilaterally with a 1.9 cm simple cyst of the right ovary. The ovaries are otherwise unremarkable. The right ovary (including the cyst) measures 5.3 x 3.3 x 2.3 cm and the left ovary 4.2 x 2.2 x 2.1 cm in diameter. There are no abnormal extra uterine masses or fluid collections identified. IMPRESSION- 1.9 cm simple cyst of the right ovary. No other abnormality identified. ? Reading Radiologist- MARYANNE RANDOLPH MD ? Releasing Radiologist- MARYANNE RANDOLPH MD ? Released Date Time- 09/12/07 1400 ? Surgical Territory Manager- DLM ? ADM- JOSEE KAUFFMAN ?ATT- JOSEE KAUFFMAN REF- JOSEE KAUFFMAN ?CON- PCP- JOSEE KAUFFMAN ?SCP- Josee Kauffman MD ORDERABLES documented in this encounter Visit Diagnoses Diagnosis Abdominal pain, unspecified site documented in this encounter
--- OUTSIDE RECORDS SUMMARY | 2024-11-01 05:20 | XMS_ITS | Encounter Summary ---
Author Organization [facility] Address [address] [facility] [place] [address] Care Team Providers Care Stock Selector Name Role Phone Catina Rios [facility] Primary Care Provi saloni Reason for Visit * Reason Onset Date Comments Surgery Scheduling 05/20/2022 Encounter Details Date Type Department Care Team (Late st Contact Info) Description 05/20/2022 Telephone [facility] [employer] Weight Management Services [id number] [place] [id number] [place] [address] [facility] [address] [place] [address] Surgery Scheduling Social History Tobacco Use Types Packs/Day Years Used Date Smoking Tobacco: Never Smokeless Tobacco: Never Alcohol Use Standard Drinks/Week Comments No 0 (1 standard drink = 0.6 oz pur e alcohol) Sex and Gender Information Value Date Recorded Sex Assigned at Not on file Gender Identity Not on file Sexual Orientation Not on file documented as of this encounter Miscellaneous Notes * Telephone Encounter - Marina Coelho RN - 05/20/2022 8:54 AM CDT Called to discuss surgery dates and verify surgery type with patient. Patient is now scheduled for laparoscopic sleeve by Dr Engel on 06/09/22 at [facility]. Patient to schedule SEC appointment for evaluation and testing, given centralized scheduling phone number: [phone]. Patient is scheduled toattend preoperative education class presented by bariatric team on 05/25/22. Instructed of 2 week liquid diet requirement- to start 05/26/22 . Instructed patient to start bariatric MVI with liquid diet. Instructed patient that they will be weighed on class day and that they are expected to be below or at preop consult weight. Reminded pt to stop any blood thinners to include plavix, asa, coumadin, omega3, fish oil, NSAIDS 5-7 days prior to surgery, except for prescribed daily dose of asa 81mg. Reminded female patients should be avoided for 18 months following surgery, and must stopEstrogen containing control 2 weeks before and 4 weeks after surgery. Instructed pt to write 1- 4 (or 5 if needs 2nd consult) 1. Surgery date 06/09/22 2. Pre op class date 05/25/22 3. SEC date TBD 4. Pre op liquid diet start date 05/26/22 5. 2nd consult if required NA Pt denies questions at this time. documented in this encounter Plan of Treatment Not on file documented as of this encounter Visit Diagnoses Not on filedocumented in this encounter Care Teams Stock Selector Relationship Specialty Start Date End Date Catina Rios APRN-FLEXOGRAPHIC PRESS HELPER [address] [place] [address] PCP - General Nurse Practitioner 03/30/22 documented as of this encounter
--- OUTSIDE RECORDS SUMMARY | 2024-11-01 05:20 | XMS_ITS | Encounter Summary ---
Author Organization [facility] Address [address] [facility] [facility] [place] [address] Care Team Providers Care [place] Boatman Name Role Phone Catina Rios APRN-ICE SCULPTOR Primary Care Provi saloni Encounter Details Date Type Department Care Team (Late st Contact Info) Description 07/13/2022 Orders Only [facility] Weight Management Services [phone] [place] [address], [facility] [address] [place] [address] Chaparrita Nance RN Heartburn Social History Tobacco Use Types Packs/Day Years [...] on file documented as of this encounter Functional Status [...] No 06/09/2022 documented as of this encounter Plan of Treatment Not on file documented as of this encounter Visit Diagnoses Diagnosis Heartburn- Primary documented in this encounter Care Teams [place] Boatman Relationship Specialty Start Date End Date Catina Rios APRN-ICE SCULPTOR [address] [place] [address] PCP - General Nurse Practitioner 03/30/22 documented as of this encounter
--- OUTSIDE RECORDS SUMMARY | 2024-11-01 05:20 | XMS_ITS | Encounter Summary ---
Author Organization [facility] Address [address] [place] [address] Care Team Providers Care Airfreight Operations Agent Name Role Phone Catina Rios [facility] Primary Care Provi saloni Reason for Visit * Reason Onset Date Comments Appointment 12/23/2022 Encounter Details Date Type Department Care Team (Late st Contact Info) Description 12/23/2022 Telephone [facility] Weight Management Services [phone] [place] [address] Jenny Pollard [facility] [id number] [address] Appointment Social History Tobacco Use Types Packs/Day Years [...] and heating? Not hard at all 12/14/2022 [facility] [place] [facility] Occupat ional [facility] - Occupational Stress [...] place to sleep or slept in a jail (including now)? No 12/14/2022 Sex and Gender Information Value Date Recorded Sex Assigned at Not on file Gender Identity Not on file Sexual Orientation Not on file COVID-19 Exposure Response Date Recorded In the last 10 days, have yo u been in contact with someone who was confirmed or suspected to have Coronavirus/COVID-19? No / Unsure 12/09/2022 12:27 PM SONG PLUGGER documented as of this encounter Functional Status [...] No 12/14/2022 documented as of this encounter Plan of Treatment Not on file documented as of this encounter Visit Diagnoses Not on filedocumented in this encounter Care Teams Airfreight Operations Agent Relationship Specialty Start Date End Date Catina Rios APRN-MARIS [address] [place] [address] PCP - General Nurse Practitioner 03/30/22 documented as of this encounter
--- OUTSIDE RECORDS SUMMARY | 2024-11-01 05:20 | XMS_ITS | Encounter Summary ---
Author Organization [facility] Address [address] [place] [address] Care Team Providers Care Shake Backboard Notcher Name Role Phone Nopcp, Patient Primary Care Provider Unavailabl e Reason for Visit * Reason Comments Pain Dental Encounter Details Date Type Department Care Team (Late st Contact Info) Description 05/03/2009 6:06 AM CDT - 05/03/2009 7:00 AM CDT Emergency ER at [address] [address] [place] [address] [place] [address] Unspecified Dental Caries Discharge Disposition: Home or Self Care Social [...] Sign Reading Time Taken Comments Blood Pressure 119/66 05/03/2009 6:57 AM CDT Pulse 61 05/03/2009 6:56 AM CDT Temperature 36.2 ??C (97.2 ??F) 05/03/2009 6:09 AM CD T Respiratory Rate 16 05/03/2009 6:56 AM CDT Oxygen Saturation 98% 05/03/2009 6:56 AM CDT Inhaled Oxygen Concentration - - Weight 99.8 kg (220 lb) 05/03/2009 6:09 AM CDT Height 167.6 cm (5' 6 ) 05/03/2009 6:09 AM CDT Body Mass Index 35.51 05/03/2009 6:09 AM CDT documented in this encounter Discharge Instructions * Discharge Instructions* Ricco Hale DO - 05/03/2009 6:46 AM CDT Dental Caries Dental caries (tooth decay) is the most common of all oral diseases. It is particularly important to deal with it from your child's 1st to 12th year of life. In these years, the baby teeth erupt and are replaced by the permanent teeth. The permanent teeth, excluding the 3rd molars, erupt (come out)into their working position. For early treatment of dental caries, your child should get their first dental checkup between one and one-half and two years of age. This is important before any extensive cavities are established. Dental caries often appears as a white chalky area on the enamel. It later softens, and then the tooth structure breaks down. If not treated right away, it progresses towards the pulp. It will then require more extensive treatment to save the tooth. PREVENTION ?? In children, dentistry is mainly used for the prevention of dental cavities. ?? Sealants can help with prevention of cavities. Sealants are composite resins applied onto surfaces of teeth at risk for decay. They smooth out the fissures and pits, and prevent food entrapment that causes decay. Fluoride tablets may also be prescribed in the children over 3 years of age, if your drinking wateris not fluoridated. The fluoride absorbed by the tooth enamel makes them less susceptible to caries. Thorough daily cleaning with a toothbrush and dental floss is the best way to prevent cavities. Regular visits with a dentist for check-ups and cleanings is also very important. SEEK IMMEDIATE MEDICAL ATTENTION IF: ?? You develop a fever over 102?? F (38?? C). You develop redness and swelling of your face, jaw, or neck. You are unable to open your mouth. You have severe pain uncontrolled by pain medicine. Document Released: 07/09/2003 Document Re-Released: 11/28/2007 ExitCare?? Patient Information ??2009 [employer] [facility]. * Discharge Instructions* Document, Scanned - 05/03/2009 12:00 AM CDT documented in this encounter Medications at Time of Discharge Medication Sig Dispensed Refills Start Date End Date naproxen (NAPROSYN) 500 MG tablet Take 1 [...] 05/03/2009 06/09/2022 documented as of this encounter ED Notes * Nina Choe RN - 05/03/2009 6:58 AM CDT Written and verbl discharge instructions given and reviewed with patient, verbalizes understandment, dcd home with script. * Nina Choe RN - 05/03/2009 6:50 AM CDT Toradol 60mg IM give right gluteal for c/o toothache a 9 on 1-10 scale. * Ricco Hale DO - 05/03/2009 6:41 AM CDT 05/03/2009 6:41 AM HPI Comments: CC dental pain Hxcc Patient to e dept with the above cc and states the onset of pain was 2 days ago but that it isgetting worse especially with eating food. Patient denies fever and is unable to see DDS until after holiday weekend Review of Systems HENT: Left 1st lower molar Physical Exam Nursing note and vitals reviewed. Constitutional: She is oriented. Vital signs are normal. She appears distressed. HENT: Head: Normocephalic and atraumatic. Nose: Nose normal. Mouth/Throat: Oropharynx is clear and moist. No oropharyngeal exudate. tender left lower premolar and 1st molar ist molar has decay at lateral gum line no sign of abscess Eyes: Conjunctivae and extraocular motions are normal. Pupils are equal, round, and reactive to light. Right eye exhibits no discharge. Left eye exhibits no discharge. No scleral icterus. Neck: Normal range of motion. Neck supple. No thyromegaly present. Cardiovascular: Normal rate, regular rhythm and normal heart sounds. Exam reveals no gallop and no friction rub. No murmur heard. Pulmonary/Chest: Effort normal and breath sounds normal. No respiratory distress. She has no wheezes. Abdominal: Bowel sounds are normal. She exhibits no distension. Soft. No tenderness. Musculoskeletal: Normal range of motion. She exhibits no tenderness. Lymphadenopathy: She has no cervical adenopathy. Neurological: She is alert and oriented. GCS score is 15. Skin: Skin is warm, dry and intact. No rash noted. Psychiatric: Mood, memory, affect and judgment normal. [...] Narrative ??? No narrative on file Medications Current outpatient prescriptions Medication Sig Dispense Refill ??? penicillin v potassium (VEETIDS) 500 MG tablet Take 1 Tab by mouth every 6 hours. 28 0 ??? naproxen (NAPROSYN) 500 MG tablet Take 1 Tab by mouth 2 times daily as needed for Pain. 20 0 ??? oxycodone-acetaminophen (PERCOCET) 5-325 MG tablet Take 1 Tab by mouth every 4 hours as needed for Pain. 20 0 Progress Notes pt stable in [place] Procedures Medical Decision Making I have reviewed the: Nursing Notes and Vitals. ED Plan/Course: home rest meds dds [place] Diagnosis dental pain No diagnosis found. * Nina Choe RN - 05/03/2009 6:[address] Hale @ [facility]. * Nina Choe RN - 05/03/2009 6:15 AM CDT Received care of patient from triage, states 3rd bottom left molar sensitive last couple of days, yesterday started to be painful, cant sleep or eat, constant throbbing, denies fever, tried ora-jel did not help, hasnt tried anything else. * Sachi Corrales - 05/03/2009 6:11 AM CDT Patient C/O left lower dental pain that began yesterday. documented in this encounter Miscellaneous Notes * Miscellaneous Scans - Document, Scanned - 05/03/2009 12:00 AM CDT documented in this encounter Plan of Treatment Not on file documented as of this encounter Visit Diagnoses Diagnosis Unspecified dental caries documented in this encounter Administered Medications Inactive Administered Medications - up to 3 most recent administrations Medication Order MAR Action Action Date Dose Rate Site ketorolac (TORADOL) injection 60 mg 60 mg, Intramuscular, ONCE, 1 dose, On 05/03/09 at 0645 $ Given 05/03/2009 6:47 AM CDT 60 mg Right Dorsogluteal documented in this encounter Active and Recently Administered Medications Times are shown in CDT. Scheduled Medication Order 05/01/2009 05/02/2009 05/03/2009 ketorolac (TORADOL) injection 60 mg (COMPLETED) 60 mg, Intramuscular, ONCE, 1 dose, On 05/03/09 at 0645 0647 ($ Given - Prov ider: Nina Choe, CODY) documented in this encounter Care Teams Shake Backboard Notcher Relationship Specialty Start Date End Date Nopcp, Patient PCP - General 05/03/09 01/22/14 documented as of this encounter
--- OUTSIDE RECORDS SUMMARY | 2024-11-01 05:20 | XMS_ITS | Encounter Summary ---
Author Organization [facility] Address [address] [facility] [place] [address] Care Team Providers Care Assistant Editor Name Role Phone Catina Rios APRNCLINICAL ACCOUNT MANAGER Primary Care Provi saloni Encounter Details Date Type Department Care Team (Latest Contact Info) Description 12/09/2022 Travel Social History Tobacco Use Types Packs/Day Years [...] Coronavirus/COVID-19? No / Unsure 12/09/2022 12:27 PM ELEVATOR DISPATCHER documented as of this encounter Functional Status [...] on filedocumented in this encounter Care Teams Assistant Editor Relationship Specialty Start Date End Date Catina Rios APRN-CLINICAL ACCOUNT MANAGER [address] [place] [address] PCP - General Nurse Practitioner 03/30/22 documented as of this encounter
--- OUTSIDE RECORDS SUMMARY | 2024-11-01 05:20 | XMS_ITS | Encounter Summary ---
Author Organization [facility] Address [address] [place] [address] Care Team Providers Care Internal Communications Specialist Name Role Phone Catina Rios APRNSPEECH THERAPIST EARLY INTERVENTION Primary Care Provi saloni Reason for Visit * Reason Onset Date Comments Appointment 05/23/2023 Encounter Details Date Type Department Care Team (Late st Contact Info) Description 05/23/2023 Telephone [facility] [id number] [place] [id number] [place] [address] [phone] Appointment Social History Tobacco Use Types Packs/Day [...] and heating? Not hard at all 12/14/2022 [facility] [place] of Occupat ional Health - Occupational Stress [...] money to buy more. Never true 12/14/19 Within the past 12 months, t he [...] No 12/14/2022 documented as of this encounter Miscellaneous Notes * Telephone Encounter - Nupur Martinez RN - 05/23/2023 9:46 AM CDT Called patient to rescheduled her 06/10/23 annual appointment with CAROLINA Pollard. Patient follows withher PCP near her home and does not wish to have fci follow up with us. Emailed patient list of labs we suggest to be drawn yearly to ask drawn from her PCP. documented in this encounter Plan of Treatment Not on file documented as of this encounter Visit Diagnoses Not on filedocumented in this encounter Care Teams Internal Communications Specialist Relationship Specialty Start Date End Date Catina Rios APRN-SPEECH THERAPIST EARLY INTERVENTION [address] [place] [address] PCP - General Nurse Practitioner 03/30/22 documented as of this encounter
--- OUTSIDE RECORDS SUMMARY | 2024-11-01 05:20 | XMS_ITS | Encounter Summary ---
Author Organization [facility] Address [address] [facility] [place] [address] Care Team Providers Care Production Packager Name Role Phone Catina Rios APRN-FORESTRY TECHNICIAN Primary Care Provi saloni Reason for Visit * Reason Onset Date Comments Follow-up 12/21/2022 Encounter Details Date Type Department Care Team (Late st Contact Info) Description 12/21/2022 Telephone [facility] [address] [place] [address], [facility] [address] [place] [address] Chaparrita Nance, RN Follow-up Social History Tobacco Use Types Packs/Day Years [...] and heating? Not hard at all 12/14/2022 [facility] [place] of Occupat ional Health - Occupational Stress [...] place to sleep or slept in a longterm (including now)? No 12/14/2022 Sex and Gender Information Value Date Recorded Sex Assigned at Not on file Gender Identity Not on file Sexual Orientation Not on file COVID-19 Exposure Response Date Recorded In the last 10 days, have yo u been in contact with someone who was confirmed or suspected to have Coronavirus/COVID-19? No / Unsure 12/09/2022 12:27 PM SHEARING MACHINE OPERATOR documented as of this encounter Functional Status [...] encounter Miscellaneous Notes * Telephone Encounter - Chaparrita Nance RN - 12/21/2022 9:51 AM SHEARING MACHINE OPERATOR Attempted to contact pt to discuss the status of her symptoms after medical exchange call over the weekend of 12/18-12/19/22 and need to make one week ov for follow up after gallbladder removal of 12/15/2022.Pt did not answer-lmom requesting pt call . [employer] in basket message sent to [facility] front end software engineer staff requesting their follow up in making follow up appt with pt. RING MACHINE OPERATOR documented in this encounter Plan of Treatment Not on file documented as of this encounter Visit Diagnoses Not on filedocumented in this encounter Care Teams Production Packager Relationship Specialty Start Date End Date Catina Rios APRN-MARIS [address] [place] [address] PCP - General Nurse Practitioner 03/30/22 documented as of this encounter
--- OUTSIDE RECORDS SUMMARY | 2024-11-01 05:20 | XMS_ITS | Encounter Summary ---
Author Organization [facility] Address [address] [place] [address] Care Team Providers Care Digital Sales Representative Name Role Phone JulianeCatina thompson Lashawn [facility] Primary Care Provi saloni Reason for Visit * Reason Comments Pain Abdominal Sent by FIELD PRODUCER for a gal lbladder attack. Supposed to call Dr. Engel upon arrival * Auth/Cert (Routine) Specialty Diagnoses / Procedures Referred By Poncho t Referred To Contact Diagnoses Morbid (severe) obesity due to excess calories (HCC) Procedures OR LAP SLEEVE GASTRECTOMY Referral ID Status Reason Start Date Expiration Date Visits Re quested Visits Authorized [id number] 05/21/2022 05/21/2023 1 1 Encounter Details Date Type Department Care Team (Latest Contact Info) Description 12/15/2022 9:00 AM POWDER LINE REPAIRER - 12/15/2022 10:55 AM [facility] Surgery [facility] - Perioperative Surgery [address] [place] [address] [place] [id number] [phone] LAPAROSCOPIC CHOLECYSTECTOMY Surgery Details Date/Time Status Location OR Service Patient Class Case Class Case Type Trauma Case? 12/15/2022 9:00 AM Posted [facility] MAIN OR OR 06 Bariatric Inpatient Work Ins >24 Hrs to 5 Days Panel 1 Procedure LRB Anes Op Region Wound Class Comments LAPAROSCOPIC CHOLECYSTECTOMY N/A General Abdomen C lean Contaminated Surgeon Surgeon Role Service Panel Alverto Engel MD Primary Bariatric 1 documented in this encounter Social History Tobacco Use Types Packs/Day Years [...] and heating? Not hard at all 12/14/2022 [facility] - Occupational Stress [...] place to sleep or slept in a skilled nursing (including now)? No 12/14/2022 Sex and Gender Information Value Date Recorded Sex Assigned at Not on file Gender Identity Not on file Sexual Orientation Not on file COVID-19 Exposure Response Date Recorded In the last 10 days, have amy hung been in contact with someone who was confirmed or suspected to have Coronavirus/COVID-19? No / Unsure 12/09/2022 12:27 PM POWDER LINE REPAIRER documented as of this encounter Last Filed Vital Signs Vital Sign Reading Time Taken Comments Blood Pressure 130/87 12/15/2022 7:32 AM POWDER LINE REPAIRER Pulse 90 12/15/2022 7:32 AM POWDER LINE REPAIRER Temperature 36.2 ??C (97.2 ??F) 12/15/2022 7:32 AM CS T Respiratory Rate 18 12/15/2022 7:32 AM POWDER LINE REPAIRER Oxygen Saturation 100% 12/15/2022 7:32 AM POWDER LINE REPAIRER Inhaled Oxygen Concentration - - Weight 108.9 kg (240 lb) 12/13/2022 4:52 PM POWDER LINE REPAIRER Height 165.1 cm (5' 5 ) 12/13/2022 4:52 PM POWDER LINE REPAIRER Body Mass Index 39.94 12/13/2022 4:52 PM POWDER LINE REPAIRER documented in this encounter Functional Status Functional [...] No 12/14/2022 documented as of this encounter Discharge Summaries * Aaliyah Del Valle MD - 12/15/2022 6:00 PM CST Physician Discharge Summary Patient Name: Marika Caban Date of : 1990 Admit date: 12/13/2022 Discharge date: 12/15/2022 Admitting Physician: No admitting provider for patient encounter. Attending Physician: Aaliyah Del Valle MD Discharge Physician: Aaliyah Del Valle MD Discharge Diagnosis: Acute gallstone pancreatitis Gallbladder dyskinesia status post lap cholecystectomy 12/15 Other Diagnoses: obesity, Mild pancytopenia- recommend outpatient follow-up Consults : bariatric surgeon Hospital Course 32 year old female with a PMH of gastric bypass, morbid obesity, biliary dyskinesia with a Gallbladder EF 15%, asthma who presented with acute intractable abdominal pain.lipase was elevated but improved significantly in 24 hours with supportive care. MRCP was negative for obvious choledocholithiasis and the patient underwent lap cholecystectomy on 12/15 B12 level was normal ?? The patient was treated/managed for the above listed diagnoses and discharged to home on the day ofsurgery. Condition at discharge: stable.improved Patient Instructions Current Discharge Medication List START taking these medications Instructions Authorizing Provider magnesium hydroxide 400 MG/5ML suspension Commonly known as: Milk Of Magnesia Take 15 mL by mouth as needed for Constipation Alverto Engel MD ondansetron (disintegrating) 4 MG tablet Commonly known as: Zofran ODT Quantity Dispensed: 30 tablet Take 1 (one) tablet by mouth every 6 hours as needed for Nausea/Vomiting Allow tablet to dissolve on the tongue Alverto Engel MD oxyCODONE 5 MG/5ML oral solution Commonly known as: Roxicodone Quantity Dispensed: 120 mL Take 5 mL by mouth every 6 hours as needed for Pain Alverto Engel MD senna-docusate 8.6-50 MG tablet Commonly known as: Senokot-S Take 1 (one) tablet by mouth 2 times daily as needed for Constipation Alverto Engel MD CONTINUE taking these medications which have NOT CHANGED Instructions Authorizing Provider biotin 2.5 MG tablets Take 1 (one) tablet by mouth once daily multivitamin daily tablet Take 1 (one) tablet by mouth daily with food Discharge Procedure Orders Why you were hospitalized Order Specific Question Answer Comments Your discharge diagnosis is: Gallstone pancreatitis [[id number]] Your discharge diagnosis is: Symptomatic cholelithiasis [[id number]] Diet instructions Soft diet for 24 hours then advance to regular Activity as tolerated -- Walk at least four times a day. -- If you are driving for longer than an hour, stop and walk for ten minutes every hour during the drive. No heavy lifting Do not lift anything over 20 pounds until cleared by Alverto Engel MD. No tub baths Until your incision(s) are completely healed. Incentive spirometer Continue to use your incentive spirometer four times a day for two more weeks. Return to work -- You may return to work after you are cleared by Alverto Engel MD. Follow up with provider In 7-10 days Order Specific Question Answer Comments Follow Up Instructions for Clinical Staff: in 1 week No aspirin or NSAID's Until cleared by Alverto Engel MD. -- Aspirin may be found in other medications, such as Excedrin or Anacin. -- Non-steroidal Anti-inflammatories (NSAID's) are found in many other medications, such as ibuprofen, Motrin, Aleve, or naproxen. -- Please ask if you are unsure about any medications. For relief of pain Take prescribed pain medication for relief of pain or discomfort. For relief of itching Take bendaryl for relief of itching. When to call your provider Call Alverto Engel MD if you have questions or concerns, or for any of the following issues: -- heart rate over 110 -- temperature higher than 101 F -- [...] to the touch, or non-clear, foul-smelling drainage) READMISSION RISK SCORE is 9 at 8:30 PM 12/15/2022. Discharge time : 33 minutes spent interviewing and examining patient, discussing discharge plan, preparing discharge instructions and prescriptions. Discharge summary also completed on the day of discharge. ER LINE REPAIRER documented in this encounter Medications at Time of Discharge Medication Sig Dispensed Refills Start Date End Date biotin 2.5 MG tablets Take 1 (one) tablet by mouth once daily ondansetron, disintegrating, (Zofran ODT) 4 MG tablet Take 1 (one) tablet by mouth every 6 hours as needed for Nausea/Vomiting Allow tablet to dissolve on the tongue 30 tablet 12/15/2022 oxyCODONE (Roxicodone) 5 MG/5ML oral solutionIndications:A bdominal pain, generalized Take 5 mL by mouth every 6 hours as needed for Pain 120 mL 12/15/2022 senna-docusate (Senokot-S) 8.6-50 MG tablet Take 1 (one) tablet by mouth 2 times daily as needed for Constipation 12/15/2022 magnesium hydroxide (Milk Of Magnesia) 400 MG/5ML suspension Take 15 mL by mouth as needed for Constipation 12/15/2022 12/27/2022 multivitamin daily tablet Take 1 (one) tablet by mouth daily with food 12/27/2022 documented as of this encounter Progress Notes * Pablo Bowers PharmD - 12/15/2022 3:34 PM CST [facility] Pharmacy Services Pharmacy Discharge Education I have reviewed the discharge medication orders. Thank you for allowing me to be a part of the patient's discharge process. If there are any questions about the medications or instructions given please call the pharmacist Mon-Fri at [facility] ext.[phone] or [phone] after hours (/.) Pablo Bowers PharmD 12/15/2022 ER LINE REPAIRER * Deborah Briscoe RN - 12/15/2022 3:02 PM CST DC Plan: Anticipated Discharge Date: 12/15/22 Prior to admission level of care: Home Prior to admit provider: None Anticipated level of care at discharge: Home Anticipated level of care provider: None Actual level of care at discharge: Home Transportation at Discharge: Family Transportation Fee: Not Applicable Patient discharged to home with family. No further CM needs identified or requested. Transportation to [facility] Appointments: Family Continued Care and Services - Admitted Since 12/13/2022 Coordination has not been started for this encounter. ER LINE REPAIRER * Aaliyah Del Valle MD - 12/15/2022 12:38 PM CST Admit Date: 12/13/2022 4:54 PM Hospital Day: 2 Reason for visit/follow up: 32 year old female with a PMH of gastric bypass, morbid obesity, biliary dyskinesia with a Gallbladder EF 15%, asthma that presents with acute intractable abdominal pain.lipase elevated New Symptoms Patient has no new symptoms, seen in recovery room. Data Vitals: 12/15/22 1145 12/15/22 1200 12/15/22 1215 12/15/22 1230 BP: 138/77 134/78 124/85 134/79 Pulse: 63 60 56 79 Resp: 18 15 14 17 Temp: SpO2: 100% 100% 99% 100% Weight: Height: Intake/Output Summary (Last 24 hours) at 12/15/2022 1238 Last data filed at 12/15/2022 1112 Gross per 24 hour Intake 2830 ml Output 0 ml Net 2830 ml My review of labs, imaging, notes and other tests is significant for hypokalemia Recent Labs Component Name 12/15/22 02112/14/22 02112/13/22 1727 SODIUM 142 138 140 POTASSIUM 3.3* 3.4* 3.5 CHLORIDE 115* 108* 107 CO2 18* 24 23 BUN 11 15 17 CREATININE 0.58 0.69 0.78 GLUCOSE 71 89 105 CALCIUM 7.2* 8.3* 9.3 Recent Labs Component Name 12/15/22 02112/14/22 02112/13/22 1727 WBC 3.5* 3.5* 7.2 HGB 10.5* 10.3* 12.8 HCT 31.3* 30.7* 37.7 PLTCOUNT 138* 137* 184 MEDICATIONS FOR CURRENT ENCOUNTER: SCHEDULED MEDICATIONS: 0.9% NaCl injection 3 mL, Intracatheter, q8h 0.9% NaCl IV 500 mL with multivitamin (Infuvite) 10 mL, thiamine (Vitamin B-1) 100 mg, folic acid 1mg infusion, Intravenous, QDAY pantoprazole (Protonix) injection 40 mg, Intravenous, QDAY potassium chloride 40 mEq in 270 mL bolus, Intravenous, Once scopolamine patch placement confirmation, Transdermal, BID ?? [COMPLETED] potassium chloride 40 mEq in 270 mL bolus, Intravenous, Once CONTINUOUS MEDICATIONS: 0.9% NaCl infusion, Intravenous, Continuous ?? lactated ringers infusion, Intravenous, Continuous Exam General appearance: alert, cooperative, Heart: regular rhythm, normal S1 and S2, without murmurs, Lungs: breath sounds symmetric; no rales or wheezes Abdomen: soft , tender, with normal bowel sounds Extremities: no cyanosis or edema Assessment and Plan Acute pancreatitis Lipase 1820 -gallbladder ultrasound c/w cholecytitis and stones Seen by bariatric FIELD PRODUCER GI consulted, planning CCK 12/15 Gallbladder EF 15% Replace K MRCP without obvious choledocholithiasis Underwent lap cholecystectomy 12/15 Disposition per surgeon Replace K ? Obesity with a BMI of 39.94 ?? GI ppx: Protonix Pancytopenia B12 in normal range Moderate protein calorie malnutrition evolving on admission Portions of this document have been carried over from prior notes and may contain unintentional discrepancies. Please refer to orders and MAR for the most accurate and up-to-date information. ER LINE REPAIRER * Marisa Bang, RN - 12/15/2022 5:45 AM CST Shift summary--Pt A&Ox4. VSS. IVF. Pt currently denying pain. Tolerating phase 2 fairly, but NPO at MN. Consents are signed and in chart for Lap mala 12/15. Up ad lamonte with BRP. Pt potassium 3.3 message sent to FIELD PRODUCER Ogconnorna @ [phone], awaiting new order to be placed or return call. Call light in reachat this time..Marisa Bang RN 12/14/2022 11:06 PM ER LINE REPAIRER * Marisa Bang RN - 12/14/2022 9:27 PM CST Problem: Pain/Discomfort Goal: Patient exhibits reduced pain/discomfort as evidenced by pain scores Outcome: Progressing ER LINE REPAIRER * Luis E Ritter, [employer] - 12/14/2022 1:42 PM CST [facility] Pharmacy Services Admission Medication Review Marika Caban is a 32 year old female I have reviewed patient's home medication list with the patient. The medication list review was after the physician has seen and acted upon, and is now ready for re-review/order by physician. Medication List Revisions Medications removed: Patient confirmed she no longer takes any of the previously added medications from medication list. Acetaminophen 160mg/5mL solution: Take 31.25 mL PO q8h PRN for fever or pain Omeprazole 20mg capsule PO once daily before breakfast Ondansetron 4mg ODT PO q6h PRN nausea/vomiting Medications add: Multivitamin tablet PO once daily Biotin 2.5 mg tablet PO once daily Thank you for the opportunity to take part of Marika Caban's care. Luis E Ritter, [employer] ER LINE REPAIRER * Deborah Briscoe RN - 12/14/2022 1:16 PM CST Case Management Initial Assessment Case Management screen completed Anticipated Discharge Date: 12/15/22 Transportation at Discharge: Family Anticipated level of care at discharge: Home Anticipated level of care provider: None Prior to admission level of care: Home Prior to admit provider: None Discharge Goals and Plans: Patient Goals: Home Plans: No discharge needs identified at this time. Consult Case Management if discharge planning needs arrise. Upon discharge or transfer to a post acute facility should rehospitalization, home health, rehabilitation, or any other follow up care be required, patient's preference is to stay within the [facility] Network and its affiliates.: No Comments: The plan was for her to have outpatient Lap Cholecystectomy on Tuesday12/20/2022. Patient had sent MyChart yesterday stating that the abdominal pain was getting to be unbearable and she was directed to come to the ED for further evaluation. Independent, CM will follow up. Lives with: Spouse Physical Limitations: None Requires Assistance With: None Insurance: Payer/Plan Subscriber Name Rel Member # Group # ANTHEM - BLUE CROSS O* ESTELITAJARETHHUMAIRA* Self [id number] [address] Readmission: No Readmission Risk: READMISSION RISK SCORE is 9 at 1:16 PM 12/14/2022. Met with patient Family Support (name and phone): Extended Emergency Contact Information Primary Emergency Contact: Raheem Caban Mobile Relation: Spouse Patient or new accounts representative requests care coordination reach out to family or caregiver listed above regarding discharge planning and at time of discharge? No Patient/Family provided with list of resources? No Preferred Provider / High Quality Network List given?: No Reason for provider choice: Unknown Equipment at Home: None List DME pt. requires but does not have.: None Dispute Resolution Specialist Referral: No Will continue to follow. For any questions or needs please contact: Certified Health Education Specialist Name/Phone number: Deborah Briscoe RN ER LINE REPAIRER * Aaliyah Del Valle MD - 12/14/2022 10:51 AM CST Admit Date: 12/13/2022 4:54 PM Hospital Day: 1 Reason for visit/follow up: 32 year old female with a PMH of gastric bypass, morbid obesity, biliary dyskinesia with a Gallbladder EF 15%, asthma that presents with acute intractable abdominal pain.lipase elevated New Symptoms Patient has no new symptoms, doing better overall. Feels hungry Data Vitals: 12/14/22 0030 12/14/22 0145 12/14/22 0559 12/14/22 0802 BP: 130/92 102/70 119/77 Pulse: 67 65 58 Resp: 18 17 18 Temp: 97.7 ??F (36.5 ??C) 97.1 ??F (36.2 ??C) 97.8 ??F (36.6 ??C) SpO2: 99% 99% 100% 98% Weight: Height: Intake/Output Summary (Last 24 hours) at 12/14/2022 1051 Last data filed at 12/14/2022 0802 Gross per 24 hour Intake 0 ml Output -- Net 0 ml My review of labs, imaging, notes and other tests is significant for hyponatremia, pancytopenia Recent Labs Component Name 12/14/2221012/13/22172606/10/22 0518 SODIUM 138 140 139 POTASSIUM 3.4* 3.5 4.1 CHLORIDE 108* 107 112* CO2 24 23 21* BUN 15 17 8 CREATININE 0.69 0.78 0.74 GLUCOSE 89 105 130* CALCIUM 8.3* 9.3 8.8 Recent Labs Component Name 12/14/2221012/13/22172606/10/22 0518 WBC 3.5* 7.2 12.5* HGB 10.3* 12.8 12.9 HCT 30.7* 37.7 39.4 PLTCOUNT 137* 184 203 MEDICATIONS FOR CURRENT ENCOUNTER: ?? SCHEDULED MEDICATIONS: ?? 0.9% NaCl injection 3 mL, Intracatheter, q8h ?? 0.9% NaCl IV 500 mL with multivitamin (Infuvite) 10 mL, thiamine (Vitamin B- 1) 100 mg, folic acid 1 mg infusion, Intravenous, QDAY ?? pantoprazole (Protonix) injection 40 mg, Intravenous, QDAY ?? potassium chloride 40 mEq in 270 mL bolus, Intravenous, Once ?? [COMPLETED] acetaminophen (Tylenol) tablet 1,000 mg, Oral, Now ?? [COMPLETED] lactated ringers IV bolus, Intravenous, Once ?? CONTINUOUS MEDICATIONS: ?? 0.9% NaCl infusion, Intravenous, Continuous Exam General appearance: alert, cooperative, Heart: regular rhythm, normal S1 and S2, without murmurs, Lungs: breath sounds symmetric; no rales or wheezes Abdomen: soft , tender, with normal bowel sounds Extremities: no cyanosis or edema Assessment and Plan Acute pancreatitis Lipase 1819 -gallbladder ultrasound c/w cholecytitis and stones Seen by bariatric FIELD PRODUCER GI consulted, planning CCK 12/15 Gallbladder EF 15% Replace K MRCP has been ordered ? Obesity with a BMI of 39.94 ?? GI ppx: Protonix Pancytopenia ? Dilutional Check B12 Portions of this document have been carried over from prior notes and may contain unintentional discrepancies. Please refer to orders and MAR for the most accurate and up-to-date information. ER LINE REPAIRER * Marisa Bang RN - 12/14/2022 3:09 AM CST Shift summary--Pt A&Ox4. VSS. IVF. PT c/o headache but LFTs are elevated, unable to give tylenol at this time. NPO at this time. Call light in reach...Marisa Bang RN 12/14/2022 3:12 AM ER LINE REPAIRER * Marisa Bang RN - 12/14/2022 1:57 AM CST Problem: Pain/Discomfort Goal: Patient exhibits reduced pain/discomfort as evidenced by pain scores Outcome: Progressing ER LINE REPAIRER documented in this encounter H&P Notes * Alverto Engel MD - 12/15/2022 8:55 AM CST This patient? s prior H&P was reviewed, the patient was examined and no change has occurred in the patient's condition since the prior H&P was completed. Plan for laparoscopic cholecystectomy and possible cholangiograms Alverto Engel MD ER LINE REPAIRER Source Note - Jenny Pollard APRN-ELEVATOR MECHANIC - 12/14/2022 7:30 AM POWDER LINE REPAIRER Bariatric Surgery EVALUATION HISTORY & PHYSICAL Height: 165.1 cm (5' 5 ) Weight: 108.9 kg (240 lb) BMI (Calculated): 39.94 Chief Complaint: Abdominal Pain, abnormal test results HPI: Pt is a 32 year old yo female who presents with abdominal pain. Patient was seen in the officeon 12/09/2022 for her 6 month post op visit and was reporting episodes of abdominal pain over the last 1-2 months. She hd a HIDA scan that showed EF 15%. I am unable to see or find a RUQ US result. Theplan was for her to have outpatient Lap Cholecystectomy on Tuesday12/20/2022. Patient had sent MyChart yesterday stating that the abdominal pain was getting to be unbearable and she was directed to come to the ED for further evaluation. Patient s/p Gastric Sleeve per Dr. Engel. Patient had not had any problems following her Gastric Sleeve until these abdominal pain episodes that started about 1-2 months ago. She reports that the episodes were intermittent at first, but have become more frequent the last 2 weeks. Patient has associated nausea and vomiting at times. She denies fever, CP, SOBor diarrhea. Past Medical History: Diagnosis Date ??? Asthma does not use inhaler Past Surgical History: Procedure Laterality Date ??? BILATERAL TUBAL LIGATION (BTL) REVERSAL ??? Section x3 ??? Gastrectomy N/A 06/09/2022 N/A; LAPAROSCOPIC VERTICAL SLEEVE GASTRECTOMY ??? Gastric Bypass 06/09/2022 gastric sleeve Current Facility-Administered Medications Medication ??? 0.9% NaCl infusion ??? 0.9% NaCl injection 3 mL And ??? 0.9% NaCl injection 1-10 mL ??? melatonin tablet 3 mg ??? morphine injection 4 mg ??? ondansetron (disintegrating) (Zofran ODT) tablet 4 mg Or ??? ondansetron (Zofran) injection 4 mg ??? oxyCODONE (immediate release) (Roxicodone) tablet 5 mg ??? pantoprazole (Protonix) injection 40 mg No current facility-administered medications on file prior to encounter. Current Outpatient Medications on File Prior to Encounter Medication Sig Dispense Refill ??? acetaminophen (Tylenol) 160 MG/5ML solution Take 31.25 mL by mouth every 8 hours as needed for Fever or Pain (Patient not taking: Reported on 12/14/2022) ??? omeprazole (PriLOSEC) 20 MG capsule Take 1 (one) capsule by mouth daily before breakfast (Patient not taking: Reported on 12/09/2022) 30 capsule 5 ??? omeprazole (PriLOSEC) 20 MG capsule Take 1 (one) capsule by mouth once daily (Patient not taking: Reported on 06/16/2022) 30 capsule 0 ??? ondansetron, disintegrating, (Zofran ODT) 4 MG tablet Take 1 (one) tablet by mouth every 6 hours as needed for Nausea/Vomiting Allow tablet to dissolve on the tongue (Patient not taking: Reportedon 06/16/2022) 20 tablet 0 No Known Allergies Social History Smoking status: Never Smokeless tobacco: Never Alcohol use: Yes Drug use: No Sexual activity: Not on file Family History Problem Relation Name Age of Onset ??? Hypertension Mother ??? Other Mother ??? Asthma Mother ??? Migraine Mother ??? Asthma Maternal Grandmother Review of Systems: Constitutional: denies fevers/chills Cardiovascular: Denies chest pain, palpitations Respiratory: Neg sob, neg home oxygen use Gastrointestinal: Abdominal pain, nausea and vomiting Otherwise 10 point ROS performed and negative except as stated above Physical Examination: VS: BP 102/70 Pulse 65 Temp 97.1 ??F (36.2 ??C) (Temporal) Resp 17 Ht 1.651 m (5' 5 ) Wt 108.9 kg (240 lb) SpO2 100% Constitutional: Well nourished, NAD HENT: Head normocephalic, atraumatic, no evidence of abnormalities. No gross nasal drainage. Mouth:oral mucosa pink and moist Neck: Soft supple without masses. Trachea midline. No thyromegaly Eyes: PEERL, EOM-intact, sclera clear. Conjunctivae wnl. No lid abrasions/lacereations Respiratory: Clear to ascultation bilaterally w/o wheezes, rales or rhonchi. No use of accessory muscles. Good respiratory effort Cardiovascular: Regular rate and rhythm w/o murmurs, rubs or gallops. no lower extremity edema. Abdomen: no distention, mild tender to palpation to mid upper abdomen, no e/o abdominal wall hernias present, no organomegaly. no peritoneal signs are present Skin: warm and dry. No obvious exposed lesions. Skin turgor wnl Psychiatric: Mood and affect WNL. Judgement and insight intact Recent Labs Component Name 12/14/2221012/13/22172606/10/22 0518 SODIUM 138 140 139 POTASSIUM 3.4* 3.5 4.1 CHLORIDE 108* 107 112* CO2 24 23 21* BUN 15 17 8 CREATININE 0.69 0.78 0.74 GLUCOSE 89 105 130* CALCIUM 8.3* 9.3 8.8 Recent Labs Component Name 12/14/2221012/13/227 06/10/22 0518 WBC 3.5* 7.2 12.5* HGB 10.3* 12.8 12.9 HCT 30.7* 37.7 39.4 PLTCOUNT 137* 184 203 Review of the patients labs, xrays, additional provider notes including physicians and nursing staff was performed and incorporated into decision making. In addition, the following images were reviewed by myself with the following interpretation: Previous HIDA: EF 15% RUQ US : pending Impression/Plan: -Admission for Abdominal Pain, Gallstone Pancreatitis Abdominal Pain/Gallstone Pancreatitis - Repeat Lipase - RUQ US pending - GI consulted - ? MRCP or even ERCP needed - Plan for OR Lap Mala tomorrow if Lipase better - Continue with pain management - Continue with antiemetics as needed - Dr. Engel to see patient Bariatric Surgery - excellent weight loss at 6 month post op follow up - daily MVI Prophylaxis: GI: Protonix; DVT SCD's Dispo: Keep in house, continue with pain and nausea management, await RUQ US results, await GI consult, call with any concerns ER LINE REPAIRER * Jenny Pollard, [facility] - 12/14/2022 7:30 AM CST Bariatric Surgery EVALUATION HISTORY & PHYSICAL Height: 165.1 cm (5' 5 ) Weight: 108.9 kg (240 lb) BMI (Calculated): 39.94 Chief Complaint: Abdominal Pain, abnormal test results HPI: Pt is a 32 year old yo female who presents with abdominal pain. Patient was seen in the officeon 12/09/2022 for her 6 month post op visit and was reporting episodes of abdominal pain over the last 1-2 months. She hd a HIDA scan that showed EF 15%. I am unable to see or find a RUQ US result. Theplan was for her to have outpatient Lap Cholecystectomy on Tuesday12/20/2022. Patient had sent MyChart yesterday stating that the abdominal pain was getting to be unbearable and she was directed to come to the ED for further evaluation. Patient s/p Gastric Sleeve per Dr. Engel. Patient had not had any problems following her Gastric Sleeve until these abdominal pain episodes that started about 1-2 months ago. She reports that the episodes were intermittent at first, but have become more frequent the last 2 weeks. Patient has associated nausea and vomiting at times. She denies fever, CP, SOBor diarrhea. Past Medical History: Diagnosis Date ??? Asthma does not use inhaler Past Surgical History: Procedure Laterality Date ??? BILATERAL TUBAL LIGATION (BTL) REVERSAL ??? Section x3 ??? Gastrectomy N/A 06/09/2022 N/A; LAPAROSCOPIC VERTICAL SLEEVE GASTRECTOMY ??? Gastric Bypass 06/09/2022 gastric sleeve Current Facility-Administered Medications Medication ??? 0.9% NaCl infusion ??? 0.9% NaCl injection 3 mL And ??? 0.9% NaCl injection 1-10 mL ??? melatonin tablet 3 mg ??? morphine injection 4 mg ??? ondansetron (disintegrating) (Zofran ODT) tablet 4 mg Or ??? ondansetron (Zofran) injection 4 mg ??? oxyCODONE (immediate release) (Roxicodone) tablet 5 mg ??? pantoprazole (Protonix) injection 40 mg No current facility-administered medications on file prior to encounter. Current Outpatient Medications on File Prior to Encounter Medication Sig Dispense Refill ??? acetaminophen (Tylenol) 160 MG/5ML solution Take 31.25 mL by mouth every 8 hours as needed for Fever or Pain (Patient not taking: Reported on 12/14/2022) ??? omeprazole (PriLOSEC) 20 MG capsule Take 1 (one) capsule by mouth daily before breakfast (Patient not taking: Reported on 12/09/2022) 30 capsule 5 ??? omeprazole (PriLOSEC) 20 MG capsule Take 1 (one) capsule by mouth once daily (Patient not taking: Reported on 06/16/2022) 30 capsule 0 ??? ondansetron, disintegrating, (Zofran ODT) 4 MG tablet Take 1 (one) tablet by mouth every 6 hours as needed for Nausea/Vomiting Allow tablet to dissolve on the tongue (Patient not taking: Reportedon 06/16/2022) 20 tablet 0 No Known Allergies Social History Smoking status: Never Smokeless tobacco: Never Alcohol use: Yes Drug use: No Sexual activity: Not on file Family History Problem Relation Name Age of Onset ??? Hypertension Mother ??? Other Mother ??? Asthma Mother ??? Migraine Mother ??? Asthma Maternal Grandmother Review of Systems: Constitutional: denies fevers/chills Cardiovascular: Denies chest pain, palpitations Respiratory: Neg sob, neg home oxygen use Gastrointestinal: Abdominal pain, nausea and vomiting Otherwise 10 point ROS performed and negative except as stated above Physical Examination: VS: BP 102/70 Pulse 65 Temp 97.1 ??F (36.2 ??C) (Temporal) Resp 17 Ht 1.651 m (5' 5 ) Wt 108.9 kg (240 lb) SpO2 100% Constitutional: Well nourished, NAD HENT: Head normocephalic, atraumatic, no evidence of abnormalities. No gross nasal drainage. Mouth:oral mucosa pink and moist Neck: Soft supple without masses. Trachea midline. No thyromegaly Eyes: PEERL, EOM-intact, sclera clear. Conjunctivae wnl. No lid abrasions/lacereations Respiratory: Clear to ascultation bilaterally w/o wheezes, rales or rhonchi. No use of accessory muscles. Good respiratory effort Cardiovascular: Regular rate and rhythm w/o murmurs, rubs or gallops. no lower extremity edema. Abdomen: no distention, mild tender to palpation to mid upper abdomen, no e/o abdominal wall hernias present, no organomegaly. no peritoneal signs are present Skin: warm and dry. No obvious exposed lesions. Skin turgor wnl Psychiatric: Mood and affect WNL. Judgement and insight intact Recent Labs Component Name 12/14/2221012/13/22 1727 06/10/22 0518 SODIUM 138 140 139 POTASSIUM 3.4* 3.5 4.1 CHLORIDE 108* 107 112* CO2 24 23 21* BUN 15 17 8 CREATININE 0.69 0.78 0.74 GLUCOSE 89 105 130* CALCIUM 8.3* 9.3 8.8 Recent Labs Component Name 12/14/2221012/13/22 1727 06/10/22 0518 WBC 3.5* 7.2 12.5* HGB 10.3* 12.8 12.9 HCT 30.7* 37.7 39.4 PLTCOUNT 137* 184 203 Review of the patients labs, xrays, additional provider notes including physicians and nursing staff was performed and incorporated into decision making. In addition, the following images were reviewed by myself with the following interpretation: Previous HIDA: EF 15% RUQ US : pending Impression/Plan: -Admission for Abdominal Pain, Gallstone Pancreatitis Abdominal Pain/Gallstone Pancreatitis - Repeat Lipase - RUQ US pending - GI consulted - ? MRCP or even ERCP needed - Plan for OR Lap Mala tomorrow if Lipase better - Continue with pain management - Continue with antiemetics as needed - Dr. Engel to see patient Bariatric Surgery - excellent weight loss at 6 month post op follow up - daily MVI Prophylaxis: GI: Protonix; DVT SCD's Dispo: Keep in house, continue with pain and nausea management, await RUQ US results, await GI consult, call with any concerns ER LINE REPAIRER Associated attestation - Alverto Engel MD - 12/14/2022 2:55 PM POWDER LINE REPAIRER Pt seen and examined Agree with FIELD PRODUCER note Lipase improved today Pain improved today US with stones and wall thickening, concern for dilated CBD MRCP without stone in CBD Plan: NPO at midnight Plan for laparoscopic cholecystectomy and possible cholangiograms 12/15/22 Prior to this procedure I have discussed with the patient the nature of their illness, the proposedtreatment, the risks, benefits and alternatives to this treatment, including no treatment and the consequences of no treatment. I have informed the patient I will be performing the procedure with theassistance of the hospital staff and that I may seek consult or assistance from one of my colleagues during the course of the procedure. I advised the patient that it is not possible to guarantee results. I answered any questions and the patient elected to proceed. Alverto Engel MD * Hilaria Dowell MD - 12/13/2022 7:56 PM CST HISTORY AND PHYSICAL - [facility] Medicine Chief complaint: Chief Complaint Patient presents with ??? Pain Abdominal Sent by FIELD PRODUCER for a gallbladder attack. Supposed to call Dr. Engel upon arrival HISTORY OF PRESENT ILLNESS: Marika Caban is a 32 year old female with a PMH of gastric bypass, morbid obesity, biliary dyskinesia with a Gallbladder EF 15%, asthma that presents with acute intractable abdominal pain. She has been having abdominal pain on and off for months. She had a HIDA scan in 11/12/2022 that showed a gallbladder EF 15% She was then referred to a surgeon but has not been seen by that surgeon yet. Presents today to ED because she started developing severe abdominal pain that started yesterday ataround 2:00 p.m.. Denies any alcohol intake. Pain is in the epigastric area and radiates to the back. She states it also radiates to the shoulder, legs and joints. Had an episode of nausea and vomiting last night. No GI bleed. The pain is sharp burning. Pain has been constant, progressive. No particular aggravating or alleviating factor. Did not try anything to alleviate her pain at home. Symptoms have improved/subsided at the time of my evaluation ER workup/course: Alk phos 158 ALT 660 AST 345 Bilirubin 1.9 Lipase 1820 WBC 7.2 HGB 12.8 PLT 184 TX in ED: Bariatric surgery consultation, GI consultation, acetaminophen 1000 mg, LR IV fluid bolus Patient is being admitted for acute pancreatitis, elevated LFTs. GI consulted for possible ERCP. Bariatric surgery Dr. Engel also consulted. Orders placed at the time of this encounter in the ED Orders Placed This Encounter ??? US ABDOMEN LIMITED (RUQ) ??? CBC W AUTO DIFFERENTIAL ??? COMPREHENSIVE METABOLIC PANEL ??? MAGNESIUM BLOOD ??? LIPASE BLOOD ??? PT-INR ??? IP CONSULT TO GASTROENTEROLOGY ??? IP CONSULT TO BARIATRIC SURGERY ??? EKG 12-LEAD ??? acetaminophen (Tylenol) tablet 1,000 mg ??? lactated ringers IV bolus PAST MEDICAL HISTORY: Past Medical History: Diagnosis Date ??? Asthma does not use inhaler PAST AND ACTIVE PROBLEM LIST /MEDICAL HISTORY IN [facility] Patient Active Problem List: Asthma Fall Morbid obesity (CMS/HCC) Acute pancreatitis, unspecified complication status, unspecified pancreatitis type Transaminitis PAST SURGICAL HISTORY Past Surgical History: Procedure Laterality Date ??? BILATERAL TUBAL LIGATION (BTL) REVERSAL ??? Section x3 ??? Gastrectomy N/A 06/09/2022 N/A; LAPAROSCOPIC VERTICAL SLEEVE GASTRECTOMY ??? Gastric Bypass 06/09/2022 gastric sleeve HOME MEDICATIONS Prior to Admission medications Medication Sig Start Date End Date Taking? Authorizing Provider acetaminophen (Tylenol) 160 MG/5ML solution Take 31.25 mL by mouth every 8 hours as needed for Fever or Pain 06/09/22 Jenny Pollard, [employer]ELOPER[employer]CH[employer]IC omeprazole (PriLOSEC) 20 MG capsule Take 1 (one) capsule by mouth daily before breakfast Patient not taking: Reported on 12/09/2022 07/13/22 Alverto Engel MD omeprazole (PriLOSEC) 20 MG capsule Take 1 (one) capsule by mouth once daily Patient not taking: Reported on 06/16/2022 06/09/22 Jenny Pollard APRN-CNP ondansetron, disintegrating, (Zofran ODT) 4 MG tablet Take 1 (one) tablet by mouth every 6 hours asneeded for Nausea/Vomiting Allow tablet to dissolve on the tongue Patient not taking: Reported on 06/16/2022 06/09/22 Jenny Pollard APRN-CNP ALLERGIES: No Known Allergies SOCIAL HISTORY: Social History Socioeconomic History ??? Marital status: Tobacco Use ??? Smoking status: Never ??? Smokeless tobacco: Never Vaping Use ??? Vaping Use: Never used Substance and Sexual Activity ??? Alcohol use: Yes ??? Drug use: No FAMILY HISTORY: Family History Problem Relation Name Age of Onset ??? Hypertension Mother ??? Other Mother ??? Asthma Mother ??? Migraine Mother ??? Asthma Maternal Grandmother REVIEW OF SYSTEMS: Refer to HPI. Denies any chest pain, shortness of breath, GI bleed, urinary symptoms, syncope. The rest of the comprehensive 14 point review of systems otherwise negative. PHYSICAL EXAM: BP 119/87 Pulse 75 Temp 97.3 ??F (36.3 ??C) (Tympanic) Resp 12 Ht 1.651 m (5' 5 ) Wt 108.9 kg (240 lb) SpO2 98% Constitutional: Appears comfortable. Does not look acutely ill/toxic. NAD, resting comfortably. Does not look chronically ill. Obese with a BMI of 39.94 Head: Atraumatic, no temporal wasting Eyes: PERRL bilaterally. No anisocoria. No injection/acute conjunctivitis. Ears: grossly normal hearing Nose: No epistaxis Mouth: Dry oral mucosa. No thrush. No erythema/pharyngitis. Cardiovascular: RRR , Respiratory: CTA , No wheezes, No rales. No rhonchi. Does not look acutely SOB. Respirations unlabored, No retractions. No tachypnea. Able to speak in full sentences. Gastrointestinal: Abdomen obese but soft, +epigastric tenderness to palpation. Musculoskeletal: PRADHAN x4, no edema Skin: No acute rashes. No cellulitis. Vascular: No acrocyanosis. Neurologic: Awake, Alert, no delirium, no tremors. Psychiatric: cooperative, no agitation. no acute hallucinations. LABS Recent Labs Component Name 12/13/22 1727 WBC 7.2 RBC 4.59 HGB 12.8 HCT 37.7 MCV 82.1 MCH 27.9 MCHC 34.0 RDWCV 13.4 PLTCOUNT 184 Recent Labs Component Name 12/13/22 1727 06/10/22 0518 06/09/22 0733 SODIUM 140 139 - POTASSIUM 3.5 4.1 3.8 CHLORIDE 107 112* - CO2 23 21* - BUN 17 8 - CREATININE 0.78 0.74 - GLUCOSE 105 130* - CALCIUM 9.3 8.8 - ALBUMIN 4.3 - - ALKPHOS 158* - - ALT 660* - - AST 345* - - TBIL 1.9* - - TPROT 7.3 - - EGFR >90 >90 - No results for input(s): TROPONIN in the last 24674 hours. No results for input(s): BNP in the last 57997 hours. No results for input(s): TROPONIN in the last 77019 hours. No results for input(s): TSH in the last 41160 hours. No results for input(s): COLORUA, CHARACTERUA, SPECGRAVUA, PHUA, PROTEINUA, BLOODUA, LEUKOCYTEUA, NITRITEUA, GLUCOSEUA, KETONEUA, BILIRUBINUA, UROBILINUA, WBCUA, RBCUA, EPITHUA, MUCUSUA, CASTUA, CRYSTALUA, BACTERIAUA, YEASTUA, TRICHUA in the last 01121 hours. RADIOLOGY REPORTS Hepatobiliary Scintigraphy with Gallbladder Ejection Fraction Date of study: 11/12/2022. Indications: 32-year-old female with right upper quadrant abdominal pain. Radiopharmaceutical: 5.3 mCi Tc-99m mebrofenin IV and 8 oz Ensure Plus, p.o. Comparison: None. Technique: Following intravenous administration of Tc-99m mebrofenin, sequential abdominal images were obtained through 60 minutes. ??In order to evaluate the contractile response of the gallbladder in responseto cholecystokinin, 8 oz Ensure Plus was ingested approximately 60 minutes after the administrationof the radiopharmaceutical. ??Sequential imaging was continued for 60 minutes after ingestion of Ensure Plus. Findings: There is prompt, uniform accumulation of tracer by the liver. ??There is normal filling of the intrahepatic ducts, common bile duct and gallbladder, and normal excretion of tracer into the duodenum. The post-fatty meal (Ensure Plus) images reveal reduced contractile response of the gallbladder. ??The calculated gallbladder ejection fraction is 15% (normal greater than 33%). EKG: NSR, HR 80, QTC 433 * I have reviewed all relevant orders, labs/ tests, imaging And some old records * ASSESSMENT AND PLAN Acute pancreatitis Lipase 1820 -denies recent alcohol intake -gallbladder ultrasound -IV fluids -IV pain control -IV antiemetics Gallbladder dyskinesia Ef 15% -bariatric surgery consulted Elevated LFTs -gallbladder ultrasound -GI consulted for possible ERCP -recheck LFTs in a.m. Morbid obesity with a BMI of 39.94 that overall complicates medical care and increases her morbidity and mortality. GI ppx: Protonix DVTpp: SCDs, ambulation Code status: Full code Ambulates independently Risk Factors for Mortality Present at Time of Admission Acute pancreatitis, morbid obesity Hilaria Dowell MD 12/13/22 7:56 PM CC: ADAM Lr [phone] Patient ID: Marika Caban 1990 32 year old female Portions of this note may be dictated using voice recognition software. Variances in spelling and vocabulary are possible and unintentional. Not all errors are caught/corrected. Please notify the author if any discrepancies are noted or if the meaning of any statement is not clear. These grammatical oversights have no impact on the medical care provided to the patient. ER LINE REPAIRER documented in this encounter Consult Notes * Claudio Rodney MD - 12/14/2022 4:51 PM CSTAssociated Order(s): IP CONSULT TO GASTROENTEROLOGY GI Consultation Note Claudio Rodney MD 12/14/2022 Patient's Primary Care Physician: ADAM Lr Name: Marika Caban Age: [age] year old Sex: female Chief Complaint/History of Present Illness Pt with h/o Kirti bypass and almost 100lbs wt loss, presents with epigastric pain n/v. She reports such attacks over months that readily resolved but not this episode. Pt with elevated lipase and LFT and improved with supportive care, now pain free and eating. US with dilated CBD and cholecystitis changes. Surg planned CCK tomorrow. Being asked to consider role for ERCP. MRCP ordered today and reviewed. Past Medical History: Diagnosis Date ??? Asthma does not use inhaler Past Surgical History: Procedure Laterality Date ??? BILATERAL TUBAL LIGATION (BTL) REVERSAL ??? Section x3 ??? Gastrectomy N/A 06/09/2022 N/A; LAPAROSCOPIC VERTICAL SLEEVE GASTRECTOMY ??? Gastric Bypass 06/09/2022 gastric sleeve Family History Problem Relation Name Age of Onset ??? Hypertension Mother ??? Other Mother ??? Asthma Mother ??? Migraine Mother ??? Asthma Maternal Grandmother Family history was reviewed and it was not contributory to this admission. Social History Socioeconomic History ??? Marital status: Spouse name: Not on file ??? Number of children: Not on file ??? Years of education: Not on file ??? Highest education level: Not on file Occupational History ??? Not on file Tobacco Use ??? Smoking status: Never ??? Smokeless tobacco: Never Vaping Use ??? Vaping Use: Never used Substance and Sexual Activity ??? Alcohol use: Yes ??? Drug use: No ??? Sexual activity: Not on file Other Topics Concern ??? Not on file Social History Narrative ??? Not on file Social Determinants of Health Financial Resource Strain: Low Risk ??? Difficulty of Paying Living Expenses: Not hard at all Food Insecurity: No Food Insecurity ??? Worried About Running Out of Food in the Last Year: Never true ??? Ran Out of Food in the Last Year: Never true Transportation Needs: No Transportation Needs ??? Lack of Transportation (Medical): No ??? Lack of Transportation (Non-Medical): No Stress: No Stress Concern Present ??? Feeling of Stress : Not at all Housing Stability: Low Risk ??? Unable to Pay for Housing in the Last Year: No ??? Number of Places Lived in the Last Year: 1 ??? Unstable Housing in the Last Year: No MEDICATIONS FOR CURRENT ENCOUNTER: ?? SCHEDULED MEDICATIONS: ?? 0.9% NaCl injection 3 mL, Intracatheter, q8h ?? 0.9% NaCl IV 500 mL with multivitamin (Infuvite) 10 mL, thiamine (Vitamin B- 1) 100 mg, folic acid 1 mg infusion, Intravenous, QDAY ?? pantoprazole (Protonix) injection 40 mg, Intravenous, QDAY ?? [COMPLETED] acetaminophen (Tylenol) tablet 1,000 mg, Oral, Now ?? [COMPLETED] lactated ringers IV bolus, Intravenous, Once ?? [COMPLETED] potassium chloride 40 mEq in 270 mL bolus, Intravenous, Once ?? CONTINUOUS MEDICATIONS: ?? 0.9% NaCl infusion, Intravenous, Continuous No Known Allergies Review of Systems: All systems were reviewed, all negative except noted above. Data Vitals: 12/14/22 0145 12/14/22 0559 12/14/22 0802 12/14/22 1440 BP: 130/92 102/70 119/77 119/71 Pulse: 67 65 58 62 Resp: 18 17 18 18 Temp: 97.7 ??F (36.5 ??C) 97.1 ??F (36.2 ??C) 97.8 ??F (36.6 ??C) 98 ??F (36.7 ??C) SpO2: 99% 100% 98% 99% Weight: Height: Exam General appearance: alert, oreintatedX3, cooperative, no distress HEENT: normal, no icterus, palor in conjuctiva Neck: supple Skin: Normal Lungs: breath sounds symmetric Abdomen: soft non-distended, non-tender Extremities: no clubbing, cyanosis or edema Neuro: moves all exrtremities adequately Recent Labs Component Name 12/14/22 0211 12/13/22 1727 06/10/22 0518 WBC 3.5* 7.2 12.5* HGB 10.3* 12.8 12.9 HCT 30.7* 37.7 39.4 PLTCOUNT 137* 184 203 Recent Labs Component Name 12/14/22 0211 SODIUM 138 POTASSIUM 3.4* CHLORIDE 108* CO2 24 BUN 15 CREATININE 0.69 GLUCOSE 89 CALCIUM 8.3* ALBUMIN 3.5 ALKPHOS 143 ALT 582* AST 289* TBIL 1.5* TPROT 5.9* EGFR >90 No results for input(s): AMYLASE in the last 35003 hours. Recent Labs Component Name 12/14/22 0211 12/13/22 1727 LIPASE 194* 1,820* Recent Labs Component Name 12/13/22 1727 PT 13.7 Assessment Acute gallstone pancreatitis - mild and now asymptomatic/benign/uncomplicated Cholelithiasis with colecystitis changes on US - CBD dilated - MRCP shows CBD 7mm without debris/stone- May have passed stones - LFT elevated/mixed, trending down Kirti gastric bypass/related wt loss Plan No role for ERCP at this point, cont supportive measures Agree with cholecystectomy tomorrow Monitor LFT Educated pt on possibility of ERCP in future based on recurrent sx or lack of improvement in LFT's Will follow ER LINE REPAIRER documented in this encounter OR Notes * Operative - Alverto Engel MD - 12/15/2022 9:54 AM CST [facility] Operative Report OPERATIVE REPORT PATIENT:Marika Caban MR#: [id number] ADMIT DATE: 12/13/2022 4:54 PM DATE OF SURGERY: 12/15/2022 : 1990 PHYSICIAN: Alverto Engel MD 32 yrs Body mass index is 39.94 kg/m??. PREOPERATIVE DIAGNOSES: acute cholecystitis, symptomatic cholelithiasis epigastric abdominal pain, RUQ abdominal pain, nausea Morbid Obesity, Body mass index is 39.94 kg/m??. Past Medical History: Diagnosis Date ??? Asthma does not use inhaler POSTOPERATIVE DIAGNOSES: SAME PROCEDURES PERFORMED: Laparoscopic Cholecystectomy with intraoperative fluoroscopic cholangiogram ([id number]) SURGEON: Alverto Engel MD HALL MONITOR: Marion CHOU ANESTHESIA: General endotracheal. PROCEDURE: The patient was brought to the operating suite. Patient was placed under general endotracheal anesthesia. Patient was prepped and draped in the sterile fashion. A periumbilical 5mm incision was made with an 11-blade scalpel and an optical 5-mm port was placed under direct vision without difficulty. The peritoneal cavity was insufflated with CO2 gas to 15 mmHg pressure. A 45-degree angled laparoscope was placed into the peritoneal cavity. There was no blood, fluid, or evidence of intra-abdominal injury. A 5-mm port was placed in the subxiphoid position. Another 5mm port was placed in the periumbilicalposition alongside the camera port and one additional 5mm port placed in the right flank. The patient was positioned in steep reverse Trendelenburg. There were chronic omental attachments and adhesions to the fundus of the gallbladder. These were taken down using cautery. The fundus was grasped andretracted cephalad. This provided adequate retraction. The infundibulum was grasped and retracted caudally and towards the right lower quadrant to expose Calot's triangle. The cystic duct and artery were dissected bluntly and individually skeletonized toobtain the critical view. There was dense scarring and adhesions in this area as well. Attention was then turned to performing a cholangiogram. The spy cholangiography mode of the endoscope was activated and a fluoroscopic cholangiogram assessment performed. The cholangiogram noted a patent right and left hepatic and cystic ducts and patent common bile duct and duodenum. The fluoroscopic dye was noted in these structures demarcating the interface. Three clips were placed on both cystic duct and artery structures, two towards the portal triad andone at the interface with the gallbladder. The cystic duct and artery were then sharply transected using scissors. An endoloop was placed around the cystic duct stump. The ultrasonic scalpel was used to dissect the gallbladder from the gallbladder fossa and liver bedtaking care not to injure the gallbladder. The gallbladder was grasped at the neck and placed into an endocatch bag. This was then removed from the abdomen and passed off the table as a specimen. Theliver bed, cystic duct and artery stumps were visualized for leakage of bile or blood. There was none. The fascia of the 5 mm trocar site where the gallbladder was extracted was closed with a 0 Vicryl suture in a transfascial fashion. The trocars were removed and the pneumoperitoneum was expelled. Theincisions were closed with running subcuticular Vicryl sutures. Sterile dressing was placed. All sponge, needle, and instrument counts were correct at the end of the case. The patient tolerated the procedure well and was taken to recovery room in stable condition. The patient's family was notified of the surgical findings and patient's condition. FINDINGS: chronically inflamed gallbladder, no evidence of bile or blood leakage following gallbladder removal fluoroscopic cholangiogram with patent cystic duct and CBD into duodenum patent EBL: <5ml DRAINS: None SPECIMEN: Gallbladder COMPLICATIONS: None. Alverto Engel MD ER LINE REPAIRER documented in this encounter ED Notes * Gabi Newell - 12/14/2022 1:08 AM CST Report given to 2 [facility] nurse. All questions answered. ER LINE REPAIRER * Gabi Newell - 12/13/2022 7:52 PM CST Pt resting comfortably in stretcher. Bed locked and in lowest position. Call light within reach. Will continue to monitor. ER LINE REPAIRER * Gabi Newell - 12/13/2022 6:40 PM CST Pt coming in when complaints of a gallbladder attack. Pt has been seeing a GI doctor, who sent her here today after an appointment. Pt states that the pain has become severe over the last few days. Pain begins in her mid abdomen and radiates to her back and sometimes her left arm. Pt states that positioning can help alleviate the pain. ER LINE REPAIRER * Mervat Reynoso RN - 12/13/2022 6:22 PM CST Bed: 39 Expected date: Expected time: Means of arrival: Comments: RP17 ER LINE REPAIRER * Frank Appiah DO - 12/13/2022 5:18 PM CST EMERGENCY DEPARTMENT RAPID MEDICAL EXAM (RME) NOTE 12/13/2022 CC: Pain Abdominal (Sent by FIELD PRODUCER for a gallbladder attack. Supposed to call Dr. Engel upon arrival ) Provider in Triage HPI: Marika Caban is a 32 year old female who presents through triage with c/o gallbladder attack Epigastric pain since 2pm yesterday Goes to [facility]. Had elective mala scheduled for next Tuesday. Surgeon = Dr Engel. Vomiting last night. Review of Systems: see above Limited Chart History: Past Medical History: Diagnosis Date ??? Asthma does not use inhaler Past Surgical History: Procedure Laterality Date ??? BILATERAL TUBAL LIGATION (BTL) REVERSAL ??? Section x3 ??? Gastrectomy N/A 06/09/2022 N/A; LAPAROSCOPIC VERTICAL SLEEVE GASTRECTOMY ??? Gastric Bypass 06/09/2022 gastric sleeve No current facility-administered medications for this encounter. Current Outpatient Medications Medication Sig Dispense Refill ??? acetaminophen (Tylenol) 160 MG/5ML solution Take 31.25 mL by mouth every 8 hours as needed for Fever or Pain ??? omeprazole (PriLOSEC) 20 MG capsule Take 1 (one) capsule by mouth daily before breakfast (Patient not taking: Reported on 12/09/2022) 30 capsule 5 ??? omeprazole (PriLOSEC) 20 MG capsule Take 1 (one) capsule by mouth once daily (Patient not taking: Reported on 06/16/2022) 30 capsule 0 ??? ondansetron, disintegrating, (Zofran ODT) 4 MG tablet Take 1 (one) tablet by mouth every 6 hours as needed for Nausea/Vomiting Allow tablet to dissolve on the tongue (Patient not taking: Reportedon 06/16/2022) 20 tablet 0 No Known Allergies PCP: Catina Rios, VB NET DEVELOPER-ELEVATOR MECHANIC Vital Signs: BP 119/87 Pulse 75 Temp 97.3 ??F (36.3 ??C) (Tympanic) Resp 12 Ht 1.651 m (5' 5 ) Wt 108.9 kg (240 lb) SpO2 98% Pertinent Physical Exam Findings: Constitutional: vitals , generally well appearing, in no acute distress Head: Head normocephalic, atraumatic Eyes: Conjunctiva clear ENT: No rhinorrhea Neck: Neck supple, full ROM intact Resp: Respirations even and unlabored CV: Acyanotic appearing ABD: Exam limited by patient sitting in chair in triage. Nondistended . No TTP in all 4 quadrants. no r/r/g MSK: No gross deformities noted Skin: [place], warm, dry, no rash visualized. Neuro: A&O x 3, CN not formally tested but appear grossly intact. Psych: Normal affect MDM: I have reviewed all lab and imaging resulted ordered during this visit and available at the time ofthis note. Triage notes and available nursing notes reviewed. Previous medical record reviewed whenavailable. Management options include but not limited to: physical exam, laboratory testing, discussion with other providers. Final diagnoses: Abdominal pain, generalized Acute pancreatitis, unspecified complication status, unspecified pancreatitis type Transaminitis A/P: Abdominal pain, concerning for gallstone pancreatitis Laboratory testing shows elevated LFTs, bilirubin, lipase 1800. Discussed with bariatric surgery Dr. Maren hopson recommends general medical admission, GI consultation for possible ERCP at that point she will evaluate patient for cholecystectomy. Pertient aspects of patient care were endorsed to [facility] Dr Duffy at time of admission order. Other ddx include, and found to be less likely: sepsis, peritonitis, others Laboratory and imaging data independently reviewed by me Radiology reads reviewed. Prior records & Care Everywhere if available were reviewed. Pulse Ox Interpretation by me: Saturation: (%) 98 Oxygen Delivery: Room air Interpretation: No hypoxia at this time. Rhythm strip interpretation by me: Normal sinus rhythm, no arrhythmia noted. Ventricular rate (bpm): 75 ER LINE REPAIRER documented in this encounter Plan of Treatment Not on file documented as of this encounter Procedures Procedure Name Priority Date/Time Associated Diagnosis Comments PATHOLOGY TISSUE EXAM (STL) Routine 12/15/2022 10:15 AM POWDER LINE REPAIRER Diagnosis unknown OR LAP,CHOLECYSTECTOMY 12/15/2022 9:22 AM POWDER LINE REPAIRER HCG URINE QUALITATIVE STAT 12/15/2022 7:17 AM POWDER LINE REPAIRER Preop examination CBC W/O DIFFERENTIAL AM Draw 12/15/2022 2:11 AM POWDER LINE REPAIRER COMPREHENSIVE METABOLIC PANEL AM Draw 12/15/2022 2:11 AM POWDER LINE REPAIRER LIPASE BLOOD AM Draw 12/15/2022 2:11 AM POWDER LINE REPAIRER BILIRUBIN DIRECT Routine 12/15/2022 2:11 AM POWDER LINE REPAIRER VITAMIN B12 AM Draw 12/15/2022 2:11 AM POWDER LINE REPAIRER CARDIAC EKG ORDER 12/15/2022 1:3 2 AM POWDER LINE REPAIRER MRI ABDOMEN WO CONTRAST STAT 12/14/2022 12:27 PM POWDER LINE REPAIRER Abdominal pain, generalized Acute pancreatitis, unspecified complication status, unspecified pancreatitis type (HCC) US ABDOMEN LIMITED STAT 12/14/2022 8: 43 AM POWDER LINE REPAIRER Abdominal pain, generalized CBC W/O DIFFERENTIAL Routine 12/14/2022 2:11 AM POWDER LINE REPAIRER COMPREHENSIVE METABOLIC PANEL Routine 12/14/2022 2:11 AM POWDER LINE REPAIRER PHOSPHORUS BLOOD Routine 12/14/2022 2:11 AM POWDER LINE REPAIRER MAGNESIUM BLOOD Routine 12/14/2022 2:11 AM POWDER LINE REPAIRER LIPASE BLOOD Routine 12/14/2022 2:11 AM POWDER LINE REPAIRER EKG 12-LEAD STAT 12/13/2022 5:36 PM POWDER LINE REPAIRER Abdominal pain, generalized PT-INR STAT 12/13/2022 5:27 PM POWDER LINE REPAIRER CBC W AUTO DIFFERENTIAL STAT 12/13/2022 5:27 PM POWDER LINE REPAIRER COMPREHENSIVE METABOLIC PANEL STAT 12/13/2022 5:27 PM POWDER LINE REPAIRER MAGNESIUM BLOOD STAT 12/13/2022 5:27 PM POWDER LINE REPAIRER LIPASE BLOOD STAT 12/13/2022 5:27 PM POWDER LINE REPAIRER documented in this encounter Results * PATHOLOGY TISSUE EXAM (STL) (12/15/2022 10:15 AM POWDER LINE REPAIRER) Case Report Surgical Pathology Report ? Case: [id number] ? Authorizing Provider: ??Alverto Engel MD ?Collected: ? 12/15/2022 10:15 AM ? Ordering Location: ? [facility] ? Received: ?12/15/2022 11:25 AM ? Pathologist: ? Sia Osman MD ? Specimen: ?Gallbladder, gallbladder ? 12/17/2022 10:25 AM [facility] Final Diagnosis Gallbladder, cholecystectomy: -- Cholelithiasis with chronic cholecystitis -- Cholesterolosis 12/17/2022 10:25 AM [facility] Clinical History Acute cholecystitis, symptomatic cholelithiasis epigastric abdominal pain, RUQ abdominal pain, nausea 12/17/2022 10:25 AM [facility] Gross Description Received in formalin in a sterile container labeled Marika Caban, gallbladder, is an 8.7 x 2.7 x 2.3 cm gallbladder. The serosa is unremarkable. Sections of the gallbladder show dark green velvety mucosa with bright yellow cholesterol streaks. The gallbladder wall measures 0.2 cm in thickness. Within the gallbladder is green-yellow bile and multiple round yellow gallstones ranging from 0.1 cm to 0.3 cm. Learning Disabilities Specialist sections are submitted in cassette A1. CH/eh 12/17/2022 10:25 AM [facility] Microscopic Description Microscopic examination substantiates the above cited diagnosis. 12/17/2022 10:25 AM [facility] Disclaimer All histochemical and/or immunohistochemical results are interpreted with controls that demonstrate appropriate staining reactions before reporting results. Note on use of immunocytochemistry reagents: This test was developed and its performance characteristic determined by [facility], Department of Laboratory Medicine. It has not been cleared or approved by the U.S. Food and Drug Administration (FDA). The FDA has determined that such clearance or approval is not necessary. The test is used for clinical purpose. It should not be regarded as investigational or for research. This laboratory is certified to perform high complexity testing. The performance characteristics of the IHC/KASIE assays have been validated on formalin-fixed paraffin embedded tissues only. The assays have not been validated on decalcified tissues. Results should be interpreted with caution. 12/17/2022 10:25 AM [facility] Embedded Images 12/17/2022 10:25 AM [facility] Pathology/Cytolo gy ENTIRE GALLBLADDER / Unknown 12/15/2022 10:15 AM POWDER LINE REPAIRER 12/15/2022 11:25 AM POWDER LINE REPAIRER Alverto Engel MD LAB - PATHOLOGY/CYTO LOGY ORDERABLES Performing Organization Address City/[facility]/ZIP Co de Phone Number [facility] [address] [place], [place] [phone] * HCG URINE QUALITATIVE (12/15/2022 7:17 AM POWDER LINE REPAIRER) hCG Qualitative Urine Negative Negative 12/15/2022 7:26 AM [facility] Urine URINE / Unknown Collection / Unknown 12/15/2022 7:17 AM POWDER LINE REPAIRER 12/15/2022 7:21 AM POWDER LINE REPAIRER Ramila Liu DO LAB - URINALYSIS ORD ERABLES Performing Organization Address [facility]/ZIP Co de Phone Number [facility] [address] [place], [place] [phone] * BILIRUBIN DIRECT (12/15/2022 2:11 AM POWDER LINE REPAIRER) Pathologist [facility] Bilirubin Direct 0.3 0.10 - 0.50 mg/dL 12/15/2022 3:13 AM [facility] Blood BLOOD SPECIMEN / Unknown Venipuncture / Unknown 12/15/2022 2:11 AM POWDER LINE REPAIRER 12/15/2022 2:19 AM POWDER LINE REPAIRER Alverto Engel MD LAB - CHEMISTRY MARIBEL WEISS Performing Organization Address [facility] Co de Phone Number [facility] [id number] [place] [phone] * LIPASE BLOOD (12/15/2022 2:11 AM POWDER LINE REPAIRER) [facility] Lipase 18 8 - 78 U/L 12/15/2022 3:13 AM [facility] Blood BLOOD SPECIMEN / Unknown Venipuncture / Unknown 12/15/2022 2:11 AM POWDER LINE REPAIRER 12/15/2022 2:19 AM POWDER LINE REPAIRER Jenny Pollard VB NET DEVELOPER-ELEVATOR MECHANIC LAB - JEREMY CALVIN ORDERABLES Performing Organization Address [facility] de Phone Number [facility] [address] [place] [address] * (ABNORMAL) COMPREHENSIVE METABOLIC PANEL (12/15/2022 2:11 AM POWDER LINE REPAIRER) [facility] Glucose 71 70 - 105 mg/dL 12/15/2022 3:13 AM [facility] Sodium 142 136 - 145 mmol/L 12/15/2022 3:13 AM [facility] Potassium 3.3(L) 3.5 - 5.1 mmol/L 12/15/2022 3:13 AM [facility] Chloride 115(H) 98 - 107 mmol/L 12/15/2022 3:13 AM [facility] CO2 18(L) 23 - 31 mmol/L 12/15/2022 3:13 AM [facility] Calcium 7.2(L) 8.4 - 10.4 mg/dL 12/15/2022 3:13 AM [facility] Anion Gap 9 8 - 18 mmol/L 12/15/2022 3:13 AM [facility] BUN 11 7 - 18.7 mg/dL 12/15/2022 3:13 AM [facility] Creatinine 0.58 0.57 - 1.11 mg/dL 12/15/2022 3:13 AM [facility] Alkaline Phosphatase 115 40 - 150 U/L 12/15/2022 3:13 AM [facility] ALT 330(H) 0 - 61 U/L 12/15/2022 3:13 AM [facility] AST 75(H) 5 - 34 U/L 12/15/2022 3:13 AM [facility] Protein Total 5.0(L) 6.4 - 8.3 gm/dL 12/15/2022 3:13 AM [facility] Albumin 2.9(L) 3.5 - 5.2 gm/dL 12/15/2022 3:13 AM [facility] Bilirubin Total 0.6 0.2 - 1.2 mg/dL 12/15/2022 3:13 AM [facility] eGFR by CKD-EPI >90 >=90 mL/min/1.7 3 m2 12/15/2022 3:13 AM [facility] Blood BLOOD SPECIMEN / Unknown Venipuncture / Unknown 12/15/2022 2:11 AM POWDER LINE REPAIRER 12/15/2022 2:19 AM POWDER LINE REPAIRER Jenny Pollard VB NET DEVELOPER-ELEVATOR MECHANIC LAB - JEREMY CALVIN ORDERABLES Performing Organization Address [facility]/ZIP Co de Phone Number [facility] [address] [place], [place] [phone] * VITAMIN B12 (12/15/2022 2:11 AM POWDER LINE REPAIRER) Vitamin B12 372 213 - 816 pg/mL 12/15/2022 3:42 AM POWDER LINE REPAIRER [facility] Blood BLOOD SPECIMEN / Unknown Venipuncture / Unknown 12/15/2022 2:11 AM POWDER LINE REPAIRER 12/15/2022 2:19 AM POWDER LINE REPAIRER Aaliyah Del Valle MD LAB - CHEMISTRY MARIBEL WEISS Performing Organization Address City/[facility] Co de Phone Number [facility] [address] [place] [address] * (ABNORMAL) CBC W/O DIFFERENTIAL (12/15/2022 2:11 AM POWDER LINE REPAIRER) WBC 3.5(L) 4.4 - 10.7 x10E9/L 12/15/2022 2:22 AM POWDER LINE REPAIRER [facility] RBC 3.83 3.80 - 5.20 x10E12/L 12/15/2022 2:22 AM [facility] Hemoglobin 10.5(L) 12.0 - 15.6 gm/dL 12/15/2022 2:22 AM [facility] Hematocrit 31.3(L) 35.9 - 45.5 % 12/15/2022 2:22 AM [facility] MCV 81.7 80.7 - 98.3 fl 12/15/2022 2:22 AM [facility] MCH 27.4 26.7 - 34.0 pg 12/15/2022 2:22 AM [facility] MCHC 33.5 30.8 - 35.9 gm/dL 12/15/2022 2:22 AM [facility] Platelet Count 138(L) 153 - 416 x10E9/L 12/15/2022 2:22 AM [facility] RDW-CV 13.5 12.1 - 14.9 % 12/15/2022 2:22 AM [facility] MPV 12.3 9.4 - 12.9 fl 12/15/2022 2:22 AM [facility] Blood BLOOD SPECIMEN / Unknown Venipuncture / Unknown 12/15/2022 2:11 AM POWDER LINE REPAIRER 12/15/2022 2:19 AM POWDER LINE REPAIRER Jenny Pollard VB NET DEVELOPER-ELEVATOR MECHANIC LAB - HEM ATOLOGY ORDERABLES [facility] [address] [place] [id number] * CARDIAC EKG ORDER (12/15/2022 1:32 AM POWDER LINE REPAIRER) Narrative 12/15/2022 1:32 AM POWDER LINE REPAIRER Ordered by an unspecified provider. Scanned Document CARDIAC SERVICES ORD ERABLES * MRI MRCP (12/14/2022 12:27 PM POWDER LINE REPAIRER) Anatomical Region Laterality Modality Abdomen Magnetic Resonan ce 12/14/2022 12:4 5 PM POWDER LINE REPAIRER Impressions 12/14/2022 12:50 PM POWDER LINE REPAIRER IMPRESSION: Cholelithiasis and gallbladder wall thickening. Correlate clinically for cholecystitis. Slightly dilated extrahepatic bile duct to 7 mm. No appreciable choledocholithiasis. Pancreas and pancreatic duct within normal limits. > Interpreting Provider: Maverick Huang MD on 12/14/2022 12:50 PM Narrative 12/14/2022 12:50 PM POWDER LINE REPAIRER MRI/MRCP Abdomen without Contrast INDICATION: Generalized abdominal pain. TECHNIQUE: Multisequence, multiplanar MRI and MRCP sequences of the abdomen were obtained without contrast. 3D reconstructions were performed on an independent workstation. FINDINGS: Cholelithiasis is present in the gallbladder wall is mildly thickened. The extrahepatic bile duct is borderline dilated measuring 7 mm in diameter. No definitive choledocholithiasis. The pancreas and pancreatic duct are within normal limits. No peripancreatic inflammatory change appreciated. The spleen is within normal limits. Small hiatal hernia. The adrenal glands and kidneys are unremarkable with the exception of a small cortical cyst left kidney. No abdominal lymphadenopathy. No free fluid or fluid collection seen in the abdomen. Imaged bowel loops are unremarkable. The imaged osseous structures are unremarkable. Procedure Note Maverick Huang MD - 12/14/2022 MRI/MRCP Abdomen without Contrast INDICATION: Generalized abdominal pain. TECHNIQUE: Multisequence, multiplanar MRI and MRCP sequences of theabdomen were obtained without contrast. 3D reconstructions were performed on an independent workstation. FINDINGS: Cholelithiasis is present in the gallbladder wall is mildly thickened.The extrahepatic bile duct is borderline dilated measuring 7 mm in diameter.No definitive choledocholithiasis. The pancreas and pancreatic duct arewithin normal limits. No peripancreatic inflammatory change appreciated. The spleen is within normal limits. Small hiatal hernia. The adrenalglands and kidneys are unremarkable with the exception of a small cortical cyst left kidney. No abdominal lymphadenopathy. No free fluid or fluid collection seen inthe abdomen. Imaged bowel loops are unremarkable. The imaged osseous structures are unremarkable. IMPRESSION: Cholelithiasis and gallbladder wall thickening. Correlate clinically for cholecystitis. Slightly dilated extrahepatic bile duct to 7 mm. No appreciable choledocholithiasis. Pancreas and pancreatic duct within normal limits. > Interpreting Provider: Maverick Huang MD on 12/14/2022 12:50 PM Alverto Engel MD MR ORDERABLES * US ABDOMEN LIMITED (RUQ) (12/14/2022 8:43 AM POWDER LINE REPAIRER) Anatomical Region Laterality Modality Abdomen Ultrasound 12/14/2022 9:03 AM POWDER LINE REPAIRER Impressions 12/14/2022 9:10 AM POWDER LINE REPAIRER IMPRESSION: Thickened gallbladder wall with gallstones. This consistent with cholecystitis. Distended CBD. Possibility of a stone down the common bile duct should be considered. This could be assessed with MRCP > Interpreting Provider: Dwayne Pires MD on 12/14/2022 9:10 AM Narrative 12/14/2022 9:10 AM POWDER LINE REPAIRER Ultrasound Abdomen Limited Indication: Elevated liver function tests, lipase 1820 Technique: Grayscale and color images of the abdomen Findings: Right kidney-11.7 x 4.5 x 6.0 cm. CBD diameter-8.4 mm. Gallbladder wall thickness-4.8 mm. Pancreatic head appears somewhat hypoechoic which can be seen with pancreatitis but also can be seen with just artifact from overlying bowel gas. No pancreatic duct distention. No intrahepatic biliary ductal dilatation. The upper IVC has a normal appearance. The liver shows normal portal venous flow. Multiple echoes within the gallbladder. Gallbladder wall appears somewhat thickened hazy suggesting gallbladder wall edema. Both sludge and shadowing stones within the gallbladder. No pericholecystic fluid. Distended CBD. No shadowing stone Procedure Note Dwayne Pires MD - 12/14/2022 Ultrasound Abdomen Limited Indication: Elevated liver function tests, lipase 1820 Technique: Grayscale and color images of the abdomen Findings: Right kidney-11.7 x 4.5 x 6.0 cm. CBD diameter-8.4 mm. Gallbladder wall thickness-4.8 mm. Pancreatic head appears somewhat hypoechoic which can be seen with pancreatitis but also can be seen with just artifact from overlyingbowel gas. No pancreatic duct distention. No intrahepatic biliary ductal dilatation. The upper IVC has a normal appearance. The liver showsnormal portal venous flow. Multiple echoes within the gallbladder. Gallbladder wall appearssomewhat thickened hazy suggesting gallbladder wall edema. Both sludge andshadowing stones within the gallbladder. No pericholecystic fluid. Distended CBD.No shadowing stone IMPRESSION: Thickened gallbladder wall with gallstones. This consistent with cholecystitis. Distended CBD. Possibility of a stone down the common bile duct shouldbe considered. This could be assessed with MRCP > Interpreting Provider: Dwayne Pires MD on 12/14/2022 9:10 AM Frank Appiah DO ORDERABLES * (ABNORMAL) LIPASE BLOOD (12/14/2022 2:11 AM POWDER LINE REPAIRER) Lipase 194(H) 8 - 78 U/L 12/14/2022 8:04 AM POWDER LINE REPAIRER [facility] Blood BLOOD SPECIMEN / Unknown Venipuncture / Unknown 12/14/2022 2:11 AM POWDER LINE REPAIRER 12/14/2022 2:30 AM POWDER LINE REPAIRER Alverto Engel MD LAB - CHEMISTRY ORDMendez WEISS Performing Organization Address [facility] Co de Phone Number [facility] [address] [place] [address] * PHOSPHORUS BLOOD (12/14/2022 2:11 AM POWDER LINE REPAIRER) Phosphorus 4.2 2.3 - 4.7 mg/dL 12/14/2022 2:55 AM POWDER LINE REPAIRER [facility] Blood BLOOD SPECIMEN / Unknown Venipuncture / Unknown 12/14/2022 2:11 AM POWDER LINE REPAIRER 12/14/2022 2:30 AM POWDER LINE REPAIRER Hilaria Dowell MD LAB - CHEMISTRY ORDMendez WEISS Performing Organization Address [facility] Co de Phone Number [facility] [address] [place] [address] * MAGNESIUM BLOOD (12/14/2022 2:11 AM POWDER LINE REPAIRER) Magnesium 1.6 1.6 - 2.6 mg/dL 12/14/2022 2:55 AM POWDER LINE REPAIRER [facility] Blood BLOOD SPECIMEN / Unknown Venipuncture / Unknown 12/14/2022 2:11 AM POWDER LINE REPAIRER 12/14/2022 2:30 AM [facility] Hilaria Dowell MD LAB - CHEMISTRY MARIBEL WEISS [facility] Organization Address City/State/ZIP Co de Phone Number [facility] [address] [place] [address] * (ABNORMAL) COMPREHENSIVE METABOLIC PANEL (12/14/2022 2:11 AM POWDER LINE REPAIRER) Pathologist [facility] Glucose 89 70 - 105 mg/dL 12/14/2022 2:55 AM [facility] Sodium 138 136 - 145 mmol/L 12/14/2022 2:55 AM [facility] Potassium 3.4(L) 3.5 - 5.1 mmol/L 12/14/2022 2:55 AM [facility] Chloride 108(H) 98 - 107 mmol/L 12/14/2022 2:55 AM [facility] CO2 24 23 - 31 mmol/L 12/14/2022 2:55 AM [facility] Calcium 8.3(L) 8.4 - 10.4 mg/dL 12/14/2022 2:55 AM [facility] Anion Gap 6(L) 8 - 18 mmol/L 12/14/2022 2:55 AM [facility] BUN 15 7 - 18.7 mg/dL 12/14/2022 2:55 AM [facility] Creatinine 0.69 0.57 - 1.11 mg/dL 12/14/2022 2:55 AM [facility] Alkaline Phosphatase 143 40 - 150 U/L 12/14/2022 2:55 AM [facility] ALT 582(H) 0 - 61 U/L 12/14/2022 2:55 AM [facility] AST 289(H) 5 - 34 U/L 12/14/2022 2:55 AM [facility] Protein Total 5.9(L) 6.4 - 8.3 gm/dL 12/14/2022 2:55 AM [facility] Albumin 3.5 3.5 - 5.2 gm/dL 12/14/2022 2:55 AM [facility] Bilirubin Total 1.5(H) 0.2 - 1.2 mg/dL 12/14/2022 2:55 AM [facility] eGFR by CKD-EPI >90 >=90 mL/min/1.7 3 m2 12/14/2022 2:55 AM [facility] Blood BLOOD SPECIMEN / Unknown Venipuncture / Unknown 12/14/2022 2:11 AM POWDER LINE REPAIRER 12/14/2022 2:30 AM POWDER LINE REPAIRER Hilaria Dowell MD LAB - CHEMISTRY ORDE ABHISHEK [facility] Organization Address City/State/ZIP Co de Phone Number [facility] [address] [place] [address] * (ABNORMAL) CBC W/O DIFFERENTIAL (12/14/2022 2:11 AM POWDER LINE REPAIRER) WBC 3.5(L) 4.4 - 10.7 x10E9/L 12/14/2022 2:42 AM [facility] RBC 3.72(L) 3.80 - 5.20 x10E12/L 12/14/2022 2:42 AM [facility] Hemoglobin 10.3(L) 12.0 - 15.6 gm/dL 12/14/2022 2:42 AM [facility] Hematocrit 30.7(L) 35.9 - 45.5 % 12/14/2022 2:42 AM [facility] MCV 82.5 80.7 - 98.3 fl 12/14/2022 2:42 AM [facility] MCH 27.7 26.7 - 34.0 pg 12/14/2022 2:42 AM [facility] [facility] MCHC 33.6 30.8 - 35.9 gm/dL 12/14/2022 2:42 AM [facility] Platelet Count 137(L) 153 - 416 x10E9/L 12/14/2022 2:42 AM [facility] RDW-CV 13.5 12.1 - 14.9 % 12/14/2022 2:42 AM [facility] MPV 13.1(H) 9.4 - 12.9 fl 12/14/2022 2:42 AM [facility] Blood BLOOD SPECIMEN / Unknown Venipuncture / Unknown 12/14/2022 2:11 AM POWDER LINE REPAIRER 12/14/2022 2:30 AM POWDER LINE REPAIRER Hilaria Dowell MD LAB - HEMATOLOGY ORD ERABLES [facility] [address] [place] [address] * EKG 12-LEAD (12/13/2022 5:36 PM POWDER LINE REPAIRER) Ventricular Rate 80 BPM [facility] MUSE Atrial Rate 80 BPM [facility] MUSE P-R Interval 160 ms [facility] MUSE QRS Duration ms 90 ms [facility] MUSE Q-T Interval ms 376 ms [facility] MUSE QTC Calculation (Bezet) 433 ms [facility] MUSE Calculated P [place] 24 degrees [facility] MUSE Calculated R [place] 13 degrees [facility] MUSE Calculated T [place] 19 degrees [facility] MUSE Interpretation EKG Normal sinus rhythm Normal ECG Confirmed by CAMELIA SAMANO MD ([id number]) on 12/14/2022 8:36:33 PM DP MUSE 12/13/2022 5:36 PM POWDER LINE REPAIRER 12/14/2022 8:36 PM POWDER LINE REPAIRER Frank Appiah DO ECG ORDERABLES Performing Organization Address [facility] Co de Phone Number [facility] * PT-INR (12/13/2022 5:27 PM POWDER LINE REPAIRER) Pathologist [facility] PT 13.7 12.1 - 14.8 sec 12/13/2022 5:49 PM POWDER LINE REPAIRER [facility] INR 1.1 0.9 - 1.1 12/13/2022 5:49 PM POWDER LINE REPAIRER [facility] Blood BLOOD SPECIMEN / Unknown Venipuncture / Unknown 12/13/2022 5:27 PM POWDER LINE REPAIRER 12/13/2022 5:37 PM POWDER LINE REPAIRER Narrative [facility] - 12/13/2022 5:49 PM POWDER LINE REPAIRER Conventional Warfarin Anticoagulant Therapy: INR Reference Range: ??2.0-3.0 Intensive Warfarin Anticoagulant Therapy: INR Reference Range: ? 2.5-3.5 Frank Appiah DO LAB - COAGULATION OR DERABLES Performing Organization Address [facility] Co de Phone Number [facility] [id number] [place] [address] [phone] * (ABNORMAL) LIPASE BLOOD (12/13/2022 5:27 PM POWDER LINE REPAIRER) Lipase 1,820(H) 8 - 78 U/L 12/13/2022 6:06 PM POWDER LINE REPAIRER [facility] Blood BLOOD SPECIMEN / Unknown Venipuncture / Unknown 12/13/2022 5:27 PM POWDER LINE REPAIRER 12/13/2022 5:37 PM POWDER LINE REPAIRER Frank Appiah DO LAB - CHEMISTRY ORDE RABLES Performing Organization Address [facility] de Phone Number [facility] [address] [place] [phone] * MAGNESIUM BLOOD (12/13/2022 5:27 PM POWDER LINE REPAIRER) Pathologist [facility] Magnesium 2.0 1.6 - 2.6 mg/dL 12/13/2022 6:05 PM POWDER LINE REPAIRER [facility] Blood BLOOD SPECIMEN / Unknown Venipuncture / Unknown 12/13/2022 5:27 PM POWDER LINE REPAIRER 12/13/2022 5:37 PM POWDER LINE REPAIRER Frank Appiah DO LAB - CHEMISTRY ORDE RABEMMANUELLE Performing Organization Address [facility] Co de Phone Number [facility] [address] [place] [phone] * (ABNORMAL) COMPREHENSIVE METABOLIC PANEL (12/13/2022 5:27 PM POWDER LINE REPAIRER) Glucose 105 70 - 105 mg/dL 12/13/2022 6:05 PM POWDER LINE REPAIRER [facility] Sodium 140 136 - 145 mmol/L 12/13/2022 6:05 PM POWDER LINE REPAIRER [facility] Potassium 3.5 3.5 - 5.1 mmol/L 12/13/2022 6:05 PM POWDER LINE REPAIRER [facility] Chloride 107 98 - 107 mmol/L 12/13/2022 6:05 PM POWDER LINE REPAIRER [facility] CO2 23 23 - 31 mmol/L 12/13/2022 6:05 PM [facility] Calcium 9.3 8.4 - 10.4 mg/dL 12/13/2022 6:05 PM [facility] Anion Gap 10 8 - 18 mmol/L 12/13/2022 6:05 PM [facility] BUN 17 7 - 18.7 mg/dL 12/13/2022 6:05 PM [facility] Creatinine 0.78 0.57 - 1.11 mg/dL 12/13/2022 6:05 PM [facility] Alkaline Phosphatase 158(H) 40 - 150 U/L 12/13/2022 6:05 PM [facility] ALT 660(H) 0 - 61 U/L 12/13/2022 6:05 PM [facility] AST 345(H) 5 - 34 U/L 12/13/2022 6:05 PM [facility] Protein Total 7.3 6.4 - 8.3 gm/dL 12/13/2022 6:05 PM [facility] Albumin 4.3 3.5 - 5.2 gm/dL 12/13/2022 6:05 PM [facility] Bilirubin Total 1.9(H) 0.2 - 1.2 mg/dL 12/13/2022 6:05 PM [facility] eGFR by CKD-EPI >90 >=90 mL/min/1.7 3 m2 12/13/2022 6:05 PM [facility] Blood BLOOD SPECIMEN / Unknown Venipuncture / Unknown 12/13/2022 5:27 PM POWDER LINE REPAIRER 12/13/2022 5:37 PM [facility] Frank Appiah DO LAB - CHEMISTRY ORDE ABHISHEK [facility] [address] [place] [address] * (ABNORMAL) CBC W AUTO DIFFERENTIAL (12/13/2022 5:27 PM [facility]) WBC 7.2 4.4 - 10.7 x10E9/L 12/13/2022 5:42 PM [facility] WBC Corrected 12/13/2022 5:42 PM [facility] RBC 4.59 3.80 - 5.20 x10E12/L 12/13/2022 5:42 PM [facility] Hemoglobin 12.8 12.0 - 15.6 gm/dL 12/13/2022 5:42 PM [facility] Hematocrit 37.7 35.9 - 45.5 % 12/13/2022 5:42 PM [facility] MCV 82.1 80.7 - 98.3 fl 12/13/2022 5:42 PM [facility] MCH 27.9 26.7 - 34.0 pg 12/13/2022 5:42 PM [facility] MCHC 34.0 30.8 - 35.9 gm/dL 12/13/2022 5:42 PM [facility] Platelet Count 184 153 - 416 x10E9/L 12/13/2022 5:42 PM [facility] RDW-CV 13.4 12.1 - 14.9 % 12/13/2022 5:42 PM [facility] MPV 13.0(H) 9.4 - 12.9 fl 12/13/2022 5:42 PM [facility] Neutrophils % 78.1(H) 44.0 - 73.0 % 12/13/2022 5:42 PM [facility] Lymphocytes % 15.0(L) 20.0 - 43.0 % 12/13/2022 5:42 PM [facility] Monocytes % 5.3 5.0 - 13.0 % 12/13/2022 5:42 PM [facility] Eosinophils % 0.6 0.0 - 6.0 % 12/13/2022 5:42 PM [facility] Basophils % 0.4 0.0 - 2.0 % 12/13/2022 5:42 PM [facility] Immature Granulocytes 0.6 0 - 1 % 12/13/2022 5:42 PM [facility] Neutrophil Absolute 5.65 2.01 - 7.14 x10E9/L 12/13/2022 5:42 PM [facility] Lymphocytes Absolute 1.08 1.07 - 3.94 x10E9/L 12/13/2022 5:42 PM [facility] Monocytes Absolute 0.38 0.26 - 1.07 x10E9/L 12/13/2022 5:42 PM POWDER LINE REPAIRER [facility] Eosinophils Absolute 0.04 0 - 0.47 x10E9/L 12/13/2022 5:42 PM POWDER LINE REPAIRER [facility] Basophils Absolute 0.03 0 - 0.08 x10E9/L 12/13/2022 5:42 PM POWDER LINE REPAIRER [facility] Immature Granulocytes Absolute 0.04 0.00 - 0.06 x10E9/L 12/13/2022 5:42 PM POWDER LINE REPAIRER [facility] nRBC Auto 0 /100 WBC 12/13/2022 5:42 PM POWDER LINE REPAIRER [facility] Blood BLOOD SPECIMEN / Unknown Venipuncture / Unknown 12/13/2022 5:27 PM POWDER LINE REPAIRER 12/13/2022 5:37 PM POWDER LINE REPAIRER Frank Appiah DO LAB - HEMATOLOGY ORD ERABLES Performing Organization Address City/State/[facility] Co de Phone Number [facility] [address] [place] [address] documented in this encounter Visit Diagnoses Not on filedocumented in this encounter Administered Medications Inactive Administered Medications - up to 3 most recent administrations Medication Order MAR Action Action Date Dose Rate Site 0.9% NaCl infusion at 100 mL/hr, Intravenous, CONTINUOUS, Starting on Tue12/14/22 at 0230, Until Tue12/15/22 at 1900 Restarted 12/14/2022 12:37 PM POWDER LINE REPAIRER 100 mL/hr Rate Change 12/14/2022 12:36 PM POWDER LINE REPAIRER 100 mL/hr $ New Bag/Syringe 12/14/2022 2:00 AM POWDER LINE REPAIRER 125 mL /hr 0.9% NaCl injection 1-10 mL 1-10 mL, Intracatheter, PRN, Other, peripheral line flush, Starting on Tue12/14/22 at 0150, Until Tue12/15/22 at 1900, Flush peripheral IV catheter with 1-10 mL of normal saline before and after medications and prn to clear blood from the line or to verify patency. 0.9% NaCl injection 1-10 mL 1-10 mL, Intracatheter, PRN, Other, peripheral line flush, Starting on Tue12/15/22 at 1115, Until Tue12/15/22 at 1900, Flush peripheral IV catheter with 1-10 mL of normal saline before and after medications and prn to clear blood from the line or to verify patency., PACU 0.9% NaCl injection 3 mL 3 mL, Intracatheter, EVERY 8 HOURS, First dose on Tue12/14/22 at 0600, Until Discontinued, Flush peripheral IV catheter with 3 mL of normal saline every 8 hours. 0.9% nacl irrigation solution CONTINUOUS PRN, Starting on Tue12/15/22 at 0957, Until Tue12/15/22 at 0957, Intra-op $ New Bag/Syringe 12/15/2022 9:57 AM POWDER LINE REPAIRER 3,000 mL Operative Site 0.9% NaCl IV 500 mL with multivitamin (Infuvite) 10 mL, thiamine (Vitamin B-1) 100 mg, folic acid 1 mg infusion at 125 mL/hr, Intravenous, DAILY, First dose on Tue12/14/22 at 0900, Until Discontinued Current Rate 12/14/2022 10:51 PM POWDER LINE REPAIRER 125 mL/hr $ New Bag/Syringe 12/14/2022 2:16 PM POWDER LINE REPAIRER 125 mL /hr 0.9% NaCl IV bolus 500 mL, at 247.93 mL/hr, Administer over 121 Minutes, 4 TIMES DAILY PRN, if BP is less than 90 mmHg Systolic, Starting on Tue12/14/22 at 0812, Until Tue12/15/22 at 1900 acetaminophen (Tylenol) tablet 650 mg 650 mg, Oral, EVERY 4 HOURS PRN, Fever, Mild Pain, Starting on Tue12/14/22 at 0812, Until Tue12/15/22 at 1900, Maximum allowable Acetaminophen amount = 4 Grams (4000 mg) / 24 hours. Patient preference for lesser PRN pain meds may be honored when the patient requests a less strong medication, a lower dose, or a less intrusive route of administration when the lesser drug, dose and route have been ordered for the patient. This patient request must be documented in the MAR. albuterol-ipratropium (Duo-Neb) nebulizer solution 3 mL 3 mL, Inhalation, POST-OP MULTIPLE, Starting on Tue12/15/22 at 1115, Until Tue12/15/22 at 1900, For wheezing. Notify anesthesia immediately., PACU bupivacaine 0.5% - EPINEPHrine 1:200,000 (PF) injection PRN, Starting on Tue12/15/22 at 1018, Until Tue12/15/22 at 1108, Intra-op $ Given 12/15/2022 10:18 AM POWDER LINE REPAIRER 30 mL Operative Site calcium carbonate (Tums) chew tablet 1 tablet 1 tablet, Oral, PRN, Heartburn, Starting on Tue12/14/22 at 0812, Until Tue12/15/22 at 1900 diphenhydrAMINE (Benadryl) injection 25 mg 25 mg, Intravenous, ONCE PRN, Nausea/Vomiting, 1 dose, Starting on Tue12/15/22 at 1115, Until Tue12/15/22 at 1900, Third choice, use if first and second choice was ineffective., PACU fentaNYL (PF) (Sublimaze) injection 25 mcg 25 mcg, Intravenous, EVERY 10 MIN PRN, Mild Pain, 4 doses, Starting on Tue12/15/22 at 1115, Until Tue12/15/22 at 1900, Maximum total of 4 doses. If patient [...] must be documented in the MAR., PACU fentaNYL (PF) (Sublimaze) injection 50 mcg 50 mcg, Intravenous, EVERY 10 MIN PRN, Severe Pain, 4 doses, Starting on Tue12/15/22 at 1115, Until Tue12/15/22 at 1900, Maximum total of 4 doses If patient [...] documented in the MAR., PACU $ Given 12/15/2022 12:06 PM POWDER LINE REPAIRER 50 mcg $ Given 12/15/2022 11:36 AM POWDER LINE REPAIRER 50 mcg labetalol (Normodyne; Trandate) injection 5 mg 5 mg, Intravenous, POST-OP MULTIPLE, Starting on Tue12/15/22 at 1115, Until Tue12/15/22 at 1900, IV given slowly over 1 minute up to 20 mg. Repeat every 10-15 minutes in 5 mg doses. Hold if heart rate is less than 60. Give for hypertension SBP greater than 180, DBP greater than 100., PACU lactated ringers infusion at 125 mL/hr, Intravenous, CONTINUOUS, Starting on Tue12/15/22 at 1200, Until Tue12/15/22 at 1900, PACU lidocaine PF 0.5% (Xylocaine) 0.5 % injection PRN, Starting on Tue12/15/22 at 1019, Until Tue12/15/22 at 1108, Intra-op $ Given 12/15/2022 10:19 AM POWDER LINE REPAIRER 30 mL Operative Site melatonin tablet 3 mg 3 mg, Oral, AT BEDTIME PRN, Insomnia, Starting on Tue12/14/22 at 0151, Until Tue12/15/22 at 1900 morphine injection 2 mg 2 mg, Intravenous, EVERY 15 MIN PRN, Moderate Pain, 5 doses, Starting on Tue12/15/22 at 1116, Until Tue12/15/22 at 1900, Maximum total of 5 doses. If patient reaches max total dose, [...] documented in the MAR., PACU $ Given 12/15/2022 12:31 PM POWDER LINE REPAIRER 2 mg morphine injection 4 mg 4 mg, Intravenous, EVERY 4 HOURS PRN, Severe Pain, Starting on Tue12/14/22 at 0151, Until Tue12/15/22 at 1900, Patient preference for lesser PRN pain meds may be honored when the patient requests a less strong medication, a lower dose, or a less intrusive route of administration when the lesser drug, dose and route have been ordered for the patient. This patient request must be documented in the MAR. naloxone (Narcan) injection 0.04 mg 0.04 mg, Intravenous, POST-OP MULTIPLE, Starting on Tue12/15/22 at 1115, Until Tue12/15/22 at 1900, Notify physician immediately, and mix 0.4 mg Naloxone in 9 mL Normal Saline for slow IV push. Administer dilute Naloxone solution IV very slowly (1 mL over 30 seconds) while observing the patient response and titrating to effect. If no response, call Rapid Response, continue IV Naloxone at the same rate up to a total of 0.8 mg of diluted Naloxone., PACU nitroGLYCERIN (Nitro-Bid) 2 % ointment 1 inch 1 inch, Topical, 3 TIMES DAILY PRN, HTN, Starting on Tue12/14/22 at 0812, Until Tue12/15/22 at 1900, If blood pressure more than 160mmHg systolic or 100mmHg diastolic ondansetron (disintegrating) (Zofran ODT) tablet 4 mg 4 mg, Oral, EVERY 6 HOURS PRN, Nausea/Vomiting, Starting on Tue12/14/22 at 0150, Until Tue12/15/22 at 1900, Dissolved orally on tongue Dissolved orally on tongue ondansetron (Zofran) injection 4 mg 4 mg, Intravenous, EVERY 6 HOURS PRN, Nausea/Vomiting, Starting on Tue12/14/22 at 0150, Until Tue12/15/22 at 1900, Administer IV if patient is NPO, actively vomiting, or unable to swallow. $ Given 12/15/2022 1:17 PM POWDER LINE REPAIRER 4 mg ondansetron (Zofran) injection 4 mg 4 mg, Intravenous, ONCE PRN, Nausea/Vomiting, 1 dose, Starting on Tue12/15/22 at 1115, Until Tue12/15/22 at 1900, First choice, PACU oxyCODONE (immediate release) (Roxicodone) tablet 5 mg 5 mg, Oral, EVERY 4 HOURS PRN, Moderate Pain, Starting on Tue12/14/22 at 0151, Until Tue12/15/22 at 1900, Patient preference for lesser PRN pain meds may be honored when the patient requests a less strong medication, a lower dose, or a less intrusive route of administration when the lesser drug, dose and route have been ordered for the patient. This patient request must be documented in the MAR. $ Given 12/15/2022 5:01 PM POWDER LINE REPAIRER 5 mg $ Given 12/15/2022 1:18 PM POWDER LINE REPAIRER 5 mg pantoprazole (Protonix) injection 40 mg 40 mg, Intravenous, DAILY, First dose on Tue12/14/22 at 0900, Until Discontinued, For every 40 mg of pantoprazole mix with 10 mL Normal Saline (final concentration = 4 mg/mL). Inject SLOWLY over 2 min. $ Given 12/15/2022 1:17 PM POWDER LINE REPAIRER 40 mg $ Given 12/14/2022 9:38 AM POWDER LINE REPAIRER 40 mg scopolamine patch placement confirmation Transdermal, 2 TIMES DAILY, First dose on Tue12/15/22 at 0900, Until Discontinued, Patient has a patch to be confirmed on transition to inpatient and 2 times daily. throat lozenge 1 lozenge 1 lozenge, Oral, EVERY 1 HOUR PRN, Sore Throat, Starting on Tue12/15/22 at 1115, Until Tue12/15/22 at 1900, PACU documented in this encounter Active and Recently Administered Medications Times are shown in POWDER LINE REPAIRER. Scheduled Medication Order 12/13/2022 12/14/2022 12/15/2022 0.9% NaCl injection 3 mL(Linked Group 1) 3 mL, Intracatheter, EVERY 8 HOURS, First dose on Tue12/14/22 at 0600, Until Discontinued, Flush peripheral IV catheter with 3 mL of normal saline every 8 hours. 0454 (Not Administered - Provider: Marisa Bang RN - Reason: IV Currently Infusing)1316 (Not Administered - Provider: Chen Lovell RN - Reason: IV Currently Infusing)2311 (Not Administered - Provider: Marisa Bang RN - Reason: IV Currently Infusing) 0505 (Not Administered - Provider: Marisa Bang RN - Reason: IV Currently Infusing)1414 (Not Administered - Provider: Aliyah Avelar RN - Reason: IV Currently Infusing) 0.9% NaCl IV 500 mL with multivitamin (Infuvite) 10 mL, thiamine (Vitamin B-1) 100 mg, folic acid 1 mg infusion at 125 mL/hr, Intravenous, DAILY, First dose on Tue12/14/22 at 0900, Until Discontinued 1416 ($ New Bag/Syringe - Provider: Jenny Aguirre RN)2251 (Current Rate - Provider: Marisa Bang RN) 0900 (Due) acetaminophen (Tylenol) tablet 1,000 mg (COMPLETED) 1,000 mg, Oral, NOW, 1 dose, On Tue12/13/22 at 1730, Patient preference for lesser PRN pain meds may be honored when the patient requests a less strong medication, a lower dose, or a less intrusive route of administration when the lesser drug, dose and route have been ordered for the patient. This patient request must be documented in the DEC. 1835 ($ Given - Provider: Gabi Newell) albuterol-ipratropium (Duo-Neb) nebulizer solution 3 mL 3 mL, Inhalation, POST-OP MULTIPLE, Starting on Tue12/15/22 at 1115, Until Tue12/15/22 at 1900, For wheezing. Notify anesthesia immediately., PACU famotidine (Pepcid) injection 20 mg (COMPLETED) 20 mg, Intravenous, PRE-OP ONCE, 1 dose, On Tue12/15/22 at 0730, Dilute with 0.9% NaCl, D5W solution, or SWI to a volume of 5 to 10 mL and administer over at least 2 minutes. 0745 ($ Given - Provider: Lauren Gustafson RN) labetalol (Normodyne; Trandate) injection 5 mg 5 mg, Intravenous, POST-OP MULTIPLE, Starting on Tue12/15/22 at 1115, Until Tue12/15/22 at 1900, IV given slowly over 1 minute up to 20 mg. Repeat every 10-15 minutes in 5 mg doses. Hold if heart rate is less than 60. Give for hypertension SBP greater than 180, DBP greater than 100., PACU lactated ringers infusion (COMPLETED) at 20 mL/hr, Intravenous, PRE-OP ONCE, 1 dose, On Tue12/15/22 at 0745 0746 ($ New Bag/Syringe - Provider: Lauren Gustafson RN) lactated ringers IV bolus (COMPLETED) 1,000 mL, at 1,935.48 mL/hr, Administer over 31 Minutes, ONCE, 1 dose, On Tue12/13/22 at 1915 1923 ($ New Bag/Syringe - Provider: Gabi Newell)2048 (Stopped - Provider: Gabi Newell) naloxone (Narcan) injection 0.04 mg 0.04 mg, Intravenous, POST-OP MULTIPLE, Starting on Tue12/15/22 at 1115, Until Tue12/15/22 at 1900, Notify physician immediately, and mix 0.4 mg Naloxone in 9 mL Normal Saline for slow IV push. Administer dilute Naloxone solution IV very slowly (1 mL over 30 seconds) while observing the patient response and titrating to effect. If no response, call Rapid Response, continue IV Naloxone at the same rate up to a total of 0.8 mg of diluted Naloxone., PACU pantoprazole (Protonix) injection 40 mg 40 mg, Intravenous, DAILY, First dose on Tue12/14/22 at 0900, Until Discontinued, For every 40 mg of pantoprazole mix with 10 mL Normal Saline (final concentration = 4 mg/mL). Inject SLOWLY over 2 min. 0938 ($ Given - Provider: Jenny Aguirre, CODY) 1317 ($ Given - Provider: Aliyah Avelar, RN) potassium chloride 40 mEq in 270 mL bolus (COMPLETED) 40 mEq, at 67.5 mL/hr, Administer over 4 Hours, Intravenous, ONCE, 1 dose, On Tue12/14/22 at 0900 1048 ($ New Bag/Syringe - Provider: Jenny Aguirre, CODY)1236 (Restarted - Provider: Chen Lovell, CODY)1454 (Stopped - Provider: Cynthia Bhardwaj, CODY) potassium chloride 40 mEq in 270 mL bolus 40 mEq, at 67.5 mL/hr, Administer over 4 Hours, Intravenous, ONCE, 1 dose, On Tue12/15/22 at 1100 1100 (Due) scopolamine (Transderm-Scop) 1 patch(Linked Group 2) 1 patch, Administer over 72 Hours, PRE-OP ONCE, 1 dose, On Tue12/15/22 at 0730, Apply patch behind the ear. Each patch contains 1.5 mg scopolamine base and is formulated to deliver 1 mg of scopolamine over 72 hours. 0745 ($ Applied - Provider: Lauren Gustafson RN)1800 (Due: Removed - Provider: Generic, Auto Release - Comment: Time automatically adjusted from order being discontinued) scopolamine patch placement confirmation(Linked Group 2) Transdermal, 2 TIMES DAILY, First dose on Tue12/15/22 at 0900, Until Discontinued, Patient has a patch to be confirmed on transition to inpatient and 2 times daily. 1308 (*Reviewed - Provider: Cynthia Bhardwaj, RN) Continuous Medication Order 12/13/2022 12/14/2022 12/15/2022 0.9% NaCl infusion at 100 mL/hr, Intravenous, CONTINUOUS, Starting on Tue12/14/22 at 0230, Until Tue12/15/22 at 1900 0200 ($ New Bag/Syringe - Provider: Marisa Bang, CODY)1236 (Rate Change - Provider: Chen Lovell, RN)1237 (Restarted - Provider: Chen Lovell, RN) lactated ringers infusion at 125 mL/hr, Intravenous, CONTINUOUS, Starting on Tue12/15/22 at 1200, Until Tue12/15/22 at 1900, PACU 1200 (Due) PRN Medication Order 12/13/2022 12/14/2022 12/15/2022 0.9% NaCl injection 1-10 mL(Linked Group 1) 1-10 mL, Intracatheter, PRN, Other, peripheral line flush, Starting on Tue12/14/22 at 0150, Until Tue12/15/22 at 1900, Flush peripheral IV catheter with 1-10 mL of normal saline before and after medications and prn to clear blood from the line or to verify patency. 0.9% NaCl injection 1-10 mL 1-10 mL, Intracatheter, PRN, Other, peripheral line flush, Starting on Tue12/15/22 at 1115, Until Tue12/15/22 at 1900, Flush peripheral IV catheter with 1-10 mL of normal saline before and after medications and prn to clear blood from the line or to verify patency., PACU 0.9% nacl irrigation solution (COMPLETED) CONTINUOUS PRN, Starting on Tue12/15/22 at 0957, Until Tue12/15/22 at 0957, Intra-op 0957 ($ New Bag/Syri nge - Provider: Alverto Engel MD - Comment: used prn throughout surgery) 0.9% NaCl IV bolus 500 mL, at 247.93 mL/hr, Administer over 121 Minutes, 4 TIMES DAILY PRN, if BP is less than 90 mmHg Systolic, Starting on Tue12/14/22 at 0812, Until Tue12/15/22 at 1900 acetaminophen (Tylenol) tablet 650 mg 650 mg, Oral, EVERY 4 HOURS PRN, Fever, Mild Pain, Starting on Tue12/14/22 at 0812, Until Tue12/15/22 at 1900, Maximum allowable Acetaminophen amount = 4 Grams (4000 mg) / 24 hours. Patient preference for lesser PRN pain meds may be honored when the patient requests a less strong medication, a lower dose, or a less intrusive route of administration when the lesser drug, dose and route have been ordered for the patient. This patient request must be documented in the MAR. bupivacaine 0.5% - EPINEPHrine 1:200,000 (PF) injection (CANCELED) PRN, Starting on Tue12/15/22 at 1018, Until Tue12/15/22 at 1108, Intra-op 1018 ($ Given - Prov ider: Alverto Engel MD - Comment: mixed with 30mL lido) calcium carbonate (Tums) chew tablet 1 tablet 1 tablet, Oral, PRN, Heartburn, Starting on Tue12/14/22 at 0812, Until Tue12/15/22 at 1900 diphenhydrAMINE (Benadryl) injection 25 mg 25 mg, Intravenous, ONCE PRN, Nausea/Vomiting, 1 dose, Starting on Tue12/15/22 at 1115, Until Tue12/15/22 at 1900, Third choice, use if first and second choice was ineffective., PACU fentaNYL (PF) (Sublimaze) injection 25 mcg 25 mcg, Intravenous, EVERY 10 MIN PRN, Mild Pain, 4 doses, Starting on Tue12/15/22 at 1115, Until Tue12/15/22 at 1900, Maximum total of 4 doses. If patient [...] must be documented in the MAR., PACU fentaNYL (PF) (Sublimaze) injection 50 mcg 50 mcg, Intravenous, EVERY 10 MIN PRN, Severe Pain, 4 doses, Starting on Tue12/15/22 at 1115, Until Tue12/15/22 at 1900, Maximum total of 4 doses If patient [...] must be documented in the MAR., PACU 1136 ($ Given - Prov ider: Allison Sanchez RN)1206 ($ Given - Provider: Allison Sanchez RN) lidocaine PF 0.5% (Xylocaine) 0.5 % injection (CANCELED) PRN, Starting on Tue12/15/22 at 1019, Until Tue12/15/22 at 1108, Intra-op 1019 ($ Given - Prov ider: Alverto Engel MD - Comment: mixed with 30mL sensorcaine) melatonin tablet 3 mg 3 mg, Oral, AT BEDTIME PRN, Insomnia, Starting on Tue12/14/22 at 0151, Until Tue12/15/22 at 1900 morphine injection 2 mg 2 mg, Intravenous, EVERY 15 MIN PRN, Moderate Pain, 5 doses, Starting on Tue12/15/22 at 1116, Until Tue12/15/22 at 1900, Maximum total of 5 doses. If patient reaches max total dose, [...] must be documented in the MAR., PACU 1231 ($ Given - Prov ider: Allison Sanchez RN) morphine injection 4 mg 4 mg, Intravenous, EVERY 4 HOURS PRN, Severe Pain, Starting on Tue12/14/22 at 0151, Until Tue12/15/22 at 1900, Patient preference for lesser PRN pain meds may be honored when the patient requests a less strong medication, a lower dose, or a less intrusive route of administration when the lesser drug, dose and route have been ordered for the patient. This patient request must be documented in the MAR. nitroGLYCERIN (Nitro-Bid) 2 % ointment 1 inch 1 inch, Topical, 3 TIMES DAILY PRN, HTN, Starting on Tue12/14/22 at 0812, Until Tue12/15/22 at 1900, If blood pressure more than 160mmHg systolic or 100mmHg diastolic ondansetron (disintegrating) (Zofran ODT) tablet 4 mg(Linked Group 3) 4 mg, Oral, EVERY 6 HOURS PRN, Nausea/Vomiting, Starting on Tue12/14/22 at 0150, Until Tue12/15/22 at 1900, Dissolved orally on tongue Dissolved orally on tongue 1317 (See Alternativ e - Provider: Aliyah Avelar RN) ondansetron (Zofran) injection 4 mg(Linked Group 3) 4 mg, Intravenous, EVERY 6 HOURS PRN, Nausea/Vomiting, Starting on Tue12/14/22 at 0150, Until Tue12/15/22 at 1900, Administer IV if patient is NPO, actively vomiting, or unable to swallow. 1317 ($ Given - Prov ider: Aliyah Avelar RN) ondansetron (Zofran) injection 4 mg 4 mg, Intravenous, ONCE PRN, Nausea/Vomiting, 1 dose, Starting on Tue12/15/22 at 1115, Until Tue12/15/22 at 1900, First choice, PACU oxyCODONE (immediate release) (Roxicodone) tablet 5 mg 5 mg, Oral, EVERY 4 HOURS PRN, Moderate Pain, Starting on Tue12/14/22 at 0151, Until Tue12/15/22 at 1900, Patient preference for lesser PRN pain meds may be honored when the patient requests a less strong medication, a lower dose, or a less intrusive route of administration when the lesser drug, dose and route have been ordered for the patient. This patient request must be documented in the MAR. 1318 ($ Given - Prov ider: Aliyah Avelar RN)1701 ($ Given - Provider: Cynthia Bhardwaj RN) prochlorperazine (Compazine) injection 10 mg (COMPLETED) 10 mg, Intravenous, ONCE PRN, Nausea/Vomiting, 1 dose, Starting on Tue12/15/22 at 1115, Until Tue12/15/22 at 1136, Second choice, use if first choice was ineffective., PACU 1136 ($ Given - Prov ider: Allison Sanchez RN - Comment: lower dose due to pt being very sleepy before dose was given.) throat lozenge 1 lozenge 1 lozenge, Oral, EVERY 1 HOUR PRN, Sore Throat, Starting on Tue12/15/22 at 1115, Until Tue12/15/22 at 1900, PACU Linked Groups Order Group 1: SALINE LOCK, INSERT AND MAINTAIN (CANCELED) Routine, CONTINUOUS, Starting on Tue12/14/22 at 0200, Until Specified, New collection And 0.9% NaCl injection 3 mLJump to med 3 mL, Intracatheter, EVERY 8 HOURS, First dose on Tue12/14/22 at 0600, Until Discontinued, Flush peripheral IV catheter with 3 mL of normal saline every 8 hours. And 0.9% NaCl injection 1-10 mLJump to med 1-10 mL, Intracatheter, PRN, Other, peripheral line flush, Starting on Tue12/14/22 at 0150, Until Tue12/15/22 at 1900, Flush peripheral IV catheter with 1-10 mL of normal saline before and after medications and prn to clear blood from the line or to verify patency. Group 2: scopolamine (Transderm-Scop) 1 patchJump to med 1 patch, Administer over 72 Hours, PRE-OP ONCE, 1 dose, On Tue12/15/22 at 0730, Apply patch behind the ear. Each patch contains 1.5 mg scopolamine base and is formulated to deliver 1 mg of scopolamine over 72 hours. And scopolamine patch placement confirmationJump to med Transdermal, 2 TIMES DAILY, First dose on Tue12/15/22 at 0900, Until Discontinued, Patient has a patch to be confirmed on transition to inpatient and 2 times daily. Group 3: ondansetron (disintegrating) (Zofran ODT) tablet 4 mgJump to med 4 mg, Oral, EVERY 6 HOURS PRN, Nausea/Vomiting, Starting on Tue12/14/22 at 0150, Until Tue12/15/22 at 1900, Dissolved orally on tongue Dissolved orally on tongue Or ondansetron (Zofran) injection 4 mgJump to med 4 mg, Intravenous, EVERY 6 HOURS PRN, Nausea/Vomiting, Starting on Tue12/14/22 at 0150, Until Tue12/15/22 at 1900, Administer IV if patient is NPO, actively vomiting, or unable to swallow. documented in this encounter Care Teams Digital Sales Representative Relationship Specialty Start Date End Date Catina Rios APRN-ELEVATOR MECHANIC [address] [place] [address] PCP - General Nurse Practitioner 03/30/22 documented as of this encounter
--- OUTSIDE RECORDS SUMMARY | 2024-11-01 05:20 | XMS_ITS | Encounter Summary ---
Author Organization [facility] Address [address] [address] Care Team Providers Care Forging Roll Operator Name Role Phone Blanca Catinaroland Hardin APRN-MARIS Primary Care Provi saloni Reason for Visit * Auth/Cert (Routine) Specialty Diagnoses / Procedures Referred By Contac t Referred To Contact Diagnoses Morbid (severe) obesity due to excess calories (HCC) Procedures MA LAP SLEEVE GASTRECTOMY Referral ID Status Reason Start Date Expiration Date Visits Re quested Visits Authorized [id number] 05/21/2022 05/21/2023 1 1 Encounter Details Date Type Department Care Team (Late st Contact Info) Description 12/15/2022 9:32 AM SALES AND SERVICE ENGINEER Anesthesia Event [facility] - Perioperative Surgery [address] [place] [id number] Nabeel Barr MD [address] [place] [address] [place] [id number] Elaine Carson APRN-[address] [address] Anesthesia Record Procedure Summary Procedure Name Responsible Anesthesiologist Anesthesia Start Time Anesthesia Stop Time LAPAROSCOPIC CHOLECYSTECTOMY (Abdomen) Nabeel Barr MD 12/15/22 0932 12/15/22 1112 Events Date Time Event Comment 12/15/2022 0729 0932 An Start 0932 An Start Data 0936 PT Reassessment 0937 An Induction 0940 An Intubation 0953 Timeout Anesthesia part icipated in timeout at the time documented in the record by nursing. 0954 Insufflation 1048 An Emergence 1106 Extubation 1106 Electnc Sig This record is electronically signed by the providers listed under staff. 1106 an stop data 1106 ANPTO2 1112 An Stop Meds Name Total midazolam 2 mg/2mL injection 2 mg fentaNYL 100 mcg/2mL injection 200 mcg lidocaine 1% (PF) injection (50 mg/5mL) 50 mg propofol 200 mg/20mL injection 1,348.9 m g rocuronium 50 mg/5mL injection 50 mg ondansetron 4 mg/2mL injection 8 mg dexamethasone 4 mg/mL injection 8 mg indocyanine green (IC GREEN) 25 MG injec tion 2.5 mg ceFAZolin 2 g IVPB 2 g labetalol 20 mg/4mL injection 15 mg sugammadex 200 mg/2mL injection 200 mg naloxone 0.4 mg/mL injection 0.2 mg lactated ringers infusion 750 mL * Agents Name Exp. Sevoflurane Exp. N2O O2 Air Insp. Sevoflurane * Blood No blood administrations on file. Lines, Drains, and Airways Type Details Placement Removal Peripheral IV Date: 12/13/22; Orientation: Anterior, Left, Proximal 12/13/22 0000 by Gabi Newell RN 12/16/22 0001 by Generic, Auto Release ETT Date: 12/15/22; Time : 0940; Placed By: BRANDY Greer; Vent: easy with oral airway mask; Induction: Standard IV; Blade Type: Roman; Blade Size: 3; Laryngoscopy View: Grade 1 (full cords); Intubation Adjuncts: Stylet; Tube: Endotracheal Tube; Placement: Oral; Tube Type: Cuffed-inflated; Tube Size(mm): 7 MM; Depth of Insertion: 21 CM; Measured From: lips; Attempts: 1; Cuff Infated: Air; Cuff Vol(mL): 8 mL; Verified By: Direct visualization, Bilateral breath sounds, Chest Auscultation, CO2 Monitor 12/15/22 0940 by Elaine Carson APRN-CRNA 12/15/22 1106 by Elaine Carson APRN-CRNA Procedural Site (Incision) 12/15/22; 0956; Abdomen; Laparoscopic; incision sites x 4; 12/16/22; 0001 12/15/22 0956 by Xiomara Macias RN 12/16/22 0001 by Generic, Auto Release documented in this encounter Social History Tobacco [...] and heating? Not hard at all 12/14/2022 [facility] - Occupational Stress [...] place to sleep or slept in a assisted (including now)? No 12/14/2022 Sex and Gender Information Value Date Recorded Sex Assigned at Not on file Gender Identity Not on file Sexual Orientation Not on file COVID-19 Exposure Response Date Recorded In the last 10 days, have amy u been in contact with someone who was confirmed or suspected to have Coronavirus/COVID-19? No / Unsure 12/09/2022 12:27 PM SALES AND SERVICE ENGINEER documented as of this encounter Functional Status [...] as of this encounter Progress Notes * Elaine Carson APRN-WATER VALVE MECHANIC - 12/15/2022 11:13 AM CST ANESTHESIA POSTOP EVALUATION NOTE Procedure: LAPAROSCOPIC CHOLECYSTECTOMY (Abdomen) Marika Caban is a 32 year old female Patient Vitals for the past 6 hrs: BP Temp Pulse Resp SpO2 Pain Rating Score #1 Pain Scale/Observation 12/15/22 0732 130/87 97.2 ??F (36.2 ??C) 90 18 100 % 0 N 12/15/22 1108 133/81 96.8 ??F (36 ??C) 93 20 100 % -- B Anesthesia Type: general ETT * No Diagnosis Codes entered * Mental Status: awake, alert, sufficiently recovered from acute administration of anesthesia to participate in the evaluation and neurologic status has returend to expected level of consciousness Neuro Status: No numbess, tingling or visual disturbances Respiratory Function: natural Cardiac Function: stable Postop Pain: acceptable to the patient Postop Hydration: adequate Postop Nausea: none Assessment: no apparent anesthetic complications, patient tolerated procedure well and no evidence of recall Patient Disposition: Release from Anesthesia Care NOTABLE EVENTS: No notable events documented. S AND SERVICE ENGINEER * Nabeel Barr MD - 12/15/2022 7:28 AM CST ANESTHESIA PREOPERATIVE EVALUATION NOTE Procedure: LAPAROSCOPIC CHOLECYSTECTOMY (Abdomen) NPO status: Since Midnight; *Except Oral meds with H2O (12/15/2022 7:25 AM) Vitals: Patient Vitals for the past 6 hrs: BP Temp Pulse Resp SpO2 Pain Rating Score #1 12/15/22 0412 -- -- -- -- -- 0 12/15/22 0338 117/71 97.6 ??F (36.4 ??C) 60 18 99 % -- LMP: Patient's last menstrual period was 12/04/2022 (exact date). OB Status: Having periods ANESTHESIA PRE-EVALUATION NOTE The patient is a current non-smoker. Physical Exam: Orientation X3 Airway/Mallampati Score: II Mouth Opening Distance: 3 fingerwidths Neck ROM: full TM Distance: > 3 FB Teeth: normal Heart: normal - S1 S2 Lungs: clear to ausculation bilaterally Abdomen Exam: obese Review of Systems: History of anesthetic complications: Yes PONV: Yes Diagnostic Tests: Lab(s) reviewed: Yes. ANESTHESIA PLAN ASA Score: 3 NPO Status: No solids since midnight and No liquids within 2 hours Anesthesia Plan: general ETT Planned Induction: intravenous Planned Postop Destination: PACU Anesthetic plan was discussed with: patient Anesthetic Plan discussion was: Consented The patient's procedural Anesthetic Plan was discussed with the anesthesiologist and WATER VALVE MECHANIC. Overall additional findings/comments: I discussed the patients planned procedure, risks, benefits and alternative to general anesthesia. Discussed dental/oropharyngeal injury, pain, and nausea/vomitting. Patient deferred discussion of serious risks. I have informed the patient that the anesthetic wi ll be provided by a nurse social research assistant in the operating room/procedure suite. I answered any questions and the patient elected to proceed. BMI, Height, Weight Tobacco History Estimated body mass index is 39.94 kg/m?? as calculated from the following: Height as of this encounter: 1.651 m (5' 5 ). Weight as of this encounter: 108.9 kg (240 lb). Social History Tobacco Use Smoking Status Never Smokeless Tobacco Never Alcohol History Drug History Social History Substance and Sexual Activity Alcohol Use Yes Social History Substance and Sexual Activity Drug Use No Outpatient Medications: Inpatient Medications: Outpatient Medications Marked as Taking for the 12/13/22 encounter (Hospital Encounter) Medication Sig Last Dose ??? biotin Take 1 (one) tablet by mouth once daily ??? multivitamin daily Take 1 (one) tablet by mouth daily with food Current Facility-Administered Medications Medication Dose Last Admin ??? 0.9% NaCl IV Restarted at 12/14/22 1237 ??? 0.9% NaCl 3 mL And ??? 0.9% NaCl 1-10 mL ??? IV fluid with Multivitamin, magnesium, folic acid and thiamine Rate Verify at 12/14/22 2251 ??? 0.9% NaCl 500 mL ??? acetaminophen 650 mg ??? calcium carbonate 1 tablet ??? melatonin 3 mg ??? morphine 4 mg ??? nitroGLYCERIN 1 inch ??? ondansetron (disintegrating) 4 mg Or ??? ondansetron 4 mg ??? oxyCODONE (immediate release) 5 mg ??? pantoprazole 40 mg 40 mg at 12/14/22 0938 Allergies: No Known Allergies Relevant Problems No relevant active problems Problem List: Patient Active Problem List Diagnosis Date Noted ??? Acute pancreatitis, unspecified complication status, unspecified pancreatitis type 12/13/2022 Priority: Not Prioritized ??? Transaminitis 12/13/2022 Priority: Not Prioritized ??? Morbid obesity ([facility]) 06/09/2022 Priority: Not Prioritized ??? Fall 02/21/2009 ??? Asthma does not use inhaler Medical History: Past Medical History: Diagnosis Date ??? Asthma does not use inhaler Surgical History: Past Surgical History: Procedure Laterality Date ??? BILATERAL TUBAL LIGATION (BTL) REVERSAL ??? Section x3 ??? Gastrectomy N/A 06/09/2022 N/A; LAPAROSCOPIC VERTICAL SLEEVE GASTRECTOMY ??? Gastric Bypass 06/09/2022 gastric sleeve LAYER OUT PLATE GLASS Status: Patient's last menstrual period was 12/04/2022 (exact date). Having periods OB History Para Term AB Living 1 1 0 1 0 1 SAB IAB Ectopic Multiple Live Births 0 0 0 0 1 # Outcome Date GA Lbr Chapito/2nd Weight Sex Delivery Anes PTL Lv 1 09/16/08 35w5d 3387 g (7 lb 7.5 oz) M P SHAYLEE Name: DAYANNA,BABY BOY Apgar1: 9 Apgar5: 9 Covid Vaccine: Lab Results: Recent Labs Component Name 12/15/22 0717 HCGURINE Negative Recent Labs Component Name 12/15/22 021 WBC 3.5* RBC 3.83 HCT 31.3* HGB 10.5* PLTCOUNT 138* MCV 81.7 MCH 27.4 MCHC 33.5 MPV 12.3 Recent Labs Component Name 12/15/22210 SODIUM 142 POTASSIUM 3.3* CALCIUM 7.2* CHLORIDE 115* CO2 18* GLUCOSE 71 BUN 11 CREATININE 0.58 Recent Labs Component Name 12/14/22210 MAGNESIUM 1.6 Recent Labs Component Name 12/14/22210 PHOS 4.2 Recent Labs Component Name 12/13/22 1727 PT 13.7 INR 1.1 No results found for requested labs within last 120 days. Recent Labs Result Component Current Result Albumin 2.9 (L) (12/15/2022) Alkaline Phosphatase 115 (12/15/2022) ALT 330 (H) (12/15/2022) Anion Gap 9 (12/15/2022) AST 75 (H) (12/15/2022) Bilirubin Total 0.6 (12/15/2022) eGFR by CKD-EPI >90 (12/15/2022) S AND SERVICE ENGINEER documented in this encounter Procedure Notes * Elaien Carson APRN-WATER VALVE MECHANIC - 12/15/2022 10:09 AM CSTAssociated Order(s): ETT Placement Endotracheal Tube Placement: Patient Location: OR. Intubation Event Date/Time: 12/15/2022 9:40 AM Procedure: intubation (16006). Procedure Section: Sedation: under general anesthesia. Indications for Airway Management: anesthesia Procedure pretreatments used? No Induction: standard IV Patient Position: sniffing Mask Ventilation: easy with oral airway. Blade Type: Roman Blade Size: 3 Laryngoscopy View: grade 1 (full cords) Intubation Adjuncts: stylet Tube: endotracheal tube Placement: oral Tube type: cuff - inflated Tube Size (MM): 7 Depth of Insertion (CM): 21 Measured From: lips Cuff volume (mL): 8 Cuff Inflated With: air Number of Attempts: 1. Placement Verified By: direct visualization, chest auscultation, bilateral breath sounds and CO2 monitor Tube secured with: adhesive tape. Dentition unchanged? Yes Difficult Airway? No. Procedure Start Time: 12/15/2022 9:40 AM. Staff Section Anesthesia Provider: Elaine Carson APRN-CRNA Provider #1: Shanice Ureña, Performed the procedure. Additional Comments: PRISCILA BULL placed ETT. RYDER HALL supervised. No complications.. S AND SERVICE ENGINEER documented in this encounter Miscellaneous Notes * Anesthesia Transfer of Care - Elaine Carson APRN-CRNA - 12/15/2022 11:11 AM CST ANESTHESIA TRANSFER OF CARE NOTE Today's Date: 12/15/2022 Date of : 1990 Patient: Marika Caban Procedure(s): LAPAROSCOPIC CHOLECYSTECTOMY Surgeon(s): Primary: Alverto Engel MD Preop Diagnosis: * No Diagnosis Codes entered * Pre-op Meds (From admission, onward) Start Stop Status Route Frequency Ordered 12/14/22 0230 0.9% NaCl infusion -- Dispensed IV CONTINUOUS 12/14/22 0151 12/14/22 0150 0.9% NaCl injection 1-10 mL See Hyperspace for full Linked Orders Report. -- Dispensed IK PRN 12/14/22 0151 12/14/22 0600 0.9% NaCl injection 3 mL See Hyperspace for full Linked Orders Report. -- Dispensed IK EVERY 8 HOURS 12/14/22 0151 12/15/22 0957 0.9% nacl irrigation solution 12/15 09 Completed CONTINUOUS PRN 12/15/22 0957 12/14/22 0900 0.9% NaCl IV 500 mL with multivitamin (Infuvite) 10 mL, thiamine (Vitamin B-1) 100 mg, folic acid 1 mg infusion -- Dispensed IV DAILY 12/14/22 0821 12/14/22 0812 0.9% NaCl IV bolus -- Dispensed IV 4 TIMES DAILY PRN 12/14/22 0813 12/14/22 0812 acetaminophen (Tylenol) tablet 650 mg -- Verified PO EVERY 4 HOURS PRN 12/14/22 0813 12/14/22 0812 calcium carbonate (Tums) chew tablet 1 tablet -- Verified PO PRN 12/14/22 0813 12/15/22 0949 ceFAZolin (Ancef) 2,000 mg in 50 ml IVPB -- Sent IV PRN 12/15/22 1006 12/15/22 1001 dexAMETHasone (Decadron) injection -- Sent IV PRN 12/15/22 1001 12/15/22 0730 famotidine (Pepcid) injection 20 mg 12/15 0745 Completed IV PRE-OP ONCE 12/15/22 0729 12/15/22 1000 fentaNYL (PF) (Sublimaze) injection -- Sent IV PRN 12/15/22 1000 12/15/22 0932 indocyanine green (Ic Green) injection -- Sent OP PRN 12/15/22 1001 12/15/22 1004 labetalol (Normodyne; Trandate) injection -- Sent IV PRN 12/15/22 1004 12/15/22 0745 lactated ringers infusion 12/15 0746 Completed IV PRE-OP ONCE 12/15/22 0733 12/15/22 0932 lactated ringers infusion -- Sent IV CONTINUOUS PRN 12/15/22 1001 12/15/22 0932 lidocaine PF (Xylocaine MPF) 1 % injection -- Sent IV PRN 12/15/22 1001 12/14/22 0151 melatonin tablet 3 mg -- Verified PO AT BEDTIME PRN 12/14/22 0151 12/15/22 0932 midazolam (Versed) injection -- Sent IV PRN 12/15/22 1001 12/14/22 0151 morphine injection 4 mg -- Verified IV EVERY 4 HOURS PRN 12/14/22 0151 12/14/22 0812 nitroGLYCERIN (Nitro-Bid) 2 % ointment 1 inch -- Verified TP 3 TIMES DAILY PRN 12/14/22 0813 12/14/22 0150 ondansetron (disintegrating) (Zofran ODT) tablet 4 mg See Hyperspace for full Linked Orders Report. -- Verified PO EVERY 6 HOURS PRN 12/14/22 0151 12/15/22 1033 ondansetron (Zofran) injection -- Sent IV PRN 12/15/22 1033 12/14/22 0150 ondansetron (Zofran) injection 4 mg See Hyperspace for full Linked Orders Report. -- Verified IV EVERY 6 HOURS PRN 12/14/22 0151 12/14/22 0151 oxyCODONE (immediate release) (Roxicodone) tablet 5 mg -- Verified PO EVERY 4 HOURS PRN 12/14/22 0151 12/14/22 0900 pantoprazole (Protonix) injection 40 mg -- Dispensed IV DAILY 12/14/22 0151 12/14/22 0900 potassium chloride 40 mEq in 270 mL bolus 12/14 1454 Completed IV ONCE 12/14/22 0757 12/15/22 1100 potassium chloride 40 mEq in 270 mL bolus 12/15 2259 Dispensed IV ONCE 12/15/22 1027 12/15/22 0932 propofol (Diprivan) injection -- Sent IV PRN 12/15/22 1001 12/15/22 0933 rocuronium (Zemuron) injection -- Sent IV PRN 12/15/22 1001 12/15/22 0730 scopolamine (Transderm-Scop) 1 patch See Hyperspace for full Linked Orders Report. 12/18 0745 Dispensed TD PRE-OP ONCE 12/15/22 0729 12/15/22 0900 scopolamine patch placement confirmation See Hyperspace for full Linked Orders Report. -- Verified TD 2 TIMES DAILY 12/15/22 0729 12/15/22 1039 sugammadex (Bridion) injection -- Sent IV PRN 12/15/22 1048 * No Diagnosis Codes entered * . No Known Allergies Vitals: No data found. Lines, Drains, and Airways Type Details Placement Removal Peripheral IV Date: 12/13/22; Orientation: Anterior, Left, Proximal; Location: Forearm; Gauge: 18 Gauge 12/13/22 0000 by Gabi Newell ETT Date: 12/15/22; Time: 0940; Placed By: Elaine Carson, ACID REGENERATOR-WATER VALVE MECHANIC; Vent: easy with oral airway mask; Induction: Standard IV; Blade Type: Roman; Blade Size: 3; Laryngoscopy View: Grade 1 (full cords); Intubation Adjuncts: Stylet; Tube: Endotracheal Tube; Placement: Oral; Tube Type: Cuffed-inflated; Tube Size(mm): 7 MM; Depth of Insertion: 21 CM; Measured From: lips; Attempts: 1; Cuff Infated: Air; Cuff Vol(mL): 8 mL; Verified By: Direct visualization, Bilateral breath sounds, Chest Auscultation, CO2 Monitor 12/15/22 0940 by Elaine Carson APRN-CRNA 12/15/22 1106 by Elaine Carson APRN-CRNA Intraprocedure I/O Totals None Patient Transfer Location: PACU Transport Airway: spontaneous respirations and supplemental O2 Complications: None Handoff Given? Yes Checklist or Protocol - The hooks handoff elements that must be included in the transfer of care checklist include: 1. Identification of patient. 2. Identification of responsible practitioner (PACU nurse or advanced practitioner). 3. Discussion of pertinent medical history. 4. Discussion of the surgical/procedure course (procedure, reason for surgery, procedure performed). 5. Intraoperative anesthetic management and issue/concerns. 6. Expectations/Plans for the early post-procedure period. 7. Opportunity for questions and acknowledgement of understanding of report from the receiving PACUteam. BRANDY Greer S AND SERVICE ENGINEER documented in this encounter Plan of Treatment Not on file documented as of this encounter Procedures Procedure Name Priority Date/Time Associated Diagnosis Comments ENDOTRACHEAL TUBE NOTE Routine 12/15/2022 9:40 AM SALES AND SERVICE ENGINEER documented in this encounter Results * ETT LINE PERFORMABLE (12/15/2022 9:40 AM SALES AND SERVICE ENGINEER) Narrative Elaine Carson APRN-CRNA - 12/15/2022 9:40 AM SALES AND SERVICE ENGINEER Elaine Carson APRN-CRNA ? 12/15/2022 10:12 AM Endotracheal Tube Placement: ? Patient Location: OR. Intubation Event Date/Time: ??12/15/2022 9:40 AM Procedure: intubation (93729). Procedure Section: ?? Sedation: under general anesthesia. Indications for Airway Management: ??anesthesia Procedure pretreatments used? ??No Induction: standard IV Patient Position: ??sniffing Mask Ventilation: easy with oral airway. Blade Type: Roman Blade Size: 3 Laryngoscopy View: grade 1 (full cords) Intubation Adjuncts: stylet Tube: endotracheal tube Placement: oral Tube type: cuff - inflated Tube Size (MM): 7 Depth of Insertion (CM): 21 Measured From: lips Cuff volume (mL): ??8 Cuff Inflated With: air Number of Attempts: 1. Placement Verified By: direct visualization, chest auscultation, bilateral breath sounds and CO2 monitor Tube secured with: ??adhesive tape. Dentition unchanged? ??Yes Difficult Airway? ??No. Procedure Start Time: 12/15/2022 9:40 AM. Staff Section ? Anesthesia Provider: Elaine Carson APRN-RAFAEL ? Provider #1: Shanice Ureña, Performed the procedure. Additional Comments: PRISCILA BULL placed ETT. RYDER WATER VALVE MECHANIC supervised. No complications.. Nabeel Barr MD GENERAL ANESTHESIA O RDERABLES documented in this encounter Visit Diagnoses Not on filedocumented in this encounter Administered Medications Inactive Administered Medications - up to 3 most recent administrations Medication Order MAR Action Action Date Dose Rate Site ceFAZolin (Ancef) 2,000 mg in 50 ml IVPB Intravenous, PRN, Starting on Tue12/15/22 at 0949, Until Tue12/15/22 at 1112, Anesthesia Intra-op $ Given 12/15/2022 9:49 AM SALES AND SERVICE ENGINEER 2 g dexAMETHasone (Decadron) injection Intravenous, PRN, Starting on Tue12/15/22 at 1001, Until Tue12/15/22 at 1112, Anesthesia Intra-op $ Given 12/15/2022 10:01 AM SALES AND SERVICE ENGINEER 8 mg fentaNYL (PF) (Sublimaze) injection Intravenous, PRN, Starting on Tue12/15/22 at 1000, Until Tue12/15/22 at 1112, Anesthesia Intra-op $ Given 12/15/2022 10:00 AM SALES AND SERVICE ENGINEER 50 mcg $ Given 12/15/2022 9:52 AM SALES AND SERVICE ENGINEER 50 mcg $ Given 12/15/2022 9:36 AM SALES AND SERVICE ENGINEER 100 mcg indocyanine green (Ic Green) injection Ophthalmic, PRN, Starting on Tue12/15/22 at 0932, Until Tue12/15/22 at 1112, Anesthesia Intra-op $ Given 12/15/2022 9:32 AM SALES AND SERVICE ENGINEER 2.5 mg labetalol (Normodyne; Trandate) injection Intravenous, PRN, Starting on Tue12/15/22 at 1004, Until Tue12/15/22 at 1112, Anesthesia Intra-op $ Given 12/15/2022 10:23 AM SALES AND SERVICE ENGINEER 5 mg $ Given 12/15/2022 10:12 AM SALES AND SERVICE ENGINEER 5 mg $ Given 12/15/2022 10:04 AM SALES AND SERVICE ENGINEER 5 mg lactated ringers infusion Intravenous, CONTINUOUS PRN, Starting on Tue12/15/22 at 0932, Until Tue12/15/22 at 1112, Anesthesia Intra-op $ New Bag/Syringe 12/15/2022 9:32 AM SALES AND SERVICE ENGINEER lidocaine PF (Xylocaine MPF) 1 % injection Intravenous, PRN, Starting on Tue12/15/22 at 0932, Until Tue12/15/22 at 1112, Anesthesia Intra-op $ Given 12/15/2022 9:32 AM SALES AND SERVICE ENGINEER 50 mg midazolam (Versed) injection Intravenous, PRN, Starting on Tue12/15/22 at 0932, Until Tue12/15/22 at 1112, Anesthesia Intra-op $ Given 12/15/2022 9:32 AM SALES AND SERVICE ENGINEER 2 mg naloxone (Narcan) injection Intravenous, PRN, Starting on Tue12/15/22 at 1114, Until Tue12/15/22 at 1114, Anesthesia Intra-op $ Given 12/15/2022 11:02 AM SALES AND SERVICE ENGINEER 0.2 mg ondansetron (Zofran) injection Intravenous, PRN, Starting on Tue12/15/22 at 1033, Until Tue12/15/22 at 1112, Anesthesia Intra-op $ Given 12/15/2022 10:33 AM SALES AND SERVICE ENGINEER 8 mg propofol (Diprivan) injection Intravenous, PRN, Starting on Tue12/15/22 at 0932, Until Tue12/15/22 at 1112, Anesthesia Intra-op Rate Change 12/15/2022 10:41 AM SALES AND SERVICE ENGINEER 50 mcg/kg/min 32.67 mL/hr Rate Change 12/15/2022 10:10 AM SALES AND SERVICE ENGINEER 200 mcg/kg/min 130.68 mL/hr Rate Change 12/15/2022 10:00 AM SALES AND SERVICE ENGINEER 175 mcg/kg/min 114.345 mL/hr rocuronium (Zemuron) injection Intravenous, PRN, Starting on Tue12/15/22 at 0933, Until Tue12/15/22 at 1112, Anesthesia Intra-op $ Given 12/15/2022 9:33 AM SALES AND SERVICE ENGINEER 50 mg sugammadex (Bridion) injection Intravenous, PRN, Starting on Tue12/15/22 at 1039, Until Tue12/15/22 at 1112, Anesthesia Intra-op $ Given 12/15/2022 10:48 AM SALES AND SERVICE ENGINEER 200 mg documented in this encounter Care Teams Forging Roll Operator Relationship Specialty Start Date End Date Catina Rios, ACID REGENERATOR-LEAD SALES CONSULTANT [address] [place] [id number] PCP - General Nurse Practitioner 03/30/22 documented as of this encounter
--- OUTSIDE RECORDS SUMMARY | 2024-11-01 05:20 | XMS_ITS | Encounter Summary ---
Author Organization [facility] Address [address] [place] [place] [address] Care Team Providers Care Online Editor Name Role Phone Catina Rios APRN-CLAY MOLDER Primary Care Provi saloni Encounter Details Date Type Department Care Team (Late st Contact Info) Description 06/09/2022 Orders Only [facility] [address] [facility] [address] [place] [address] [facility] [address] [facility] [address] [place] [address] Social History Tobacco Use Types Packs/Day Years [...] AM CDT documented as of this encounter Functional Status [...] on filedocumented in this encounter Care Teams Online Editor Relationship Specialty Start Date End Date Catina Rios APRN-CLAY MOLDER [address] [place] [address] PCP - General Nurse Practitioner 03/30/22 documented as of this encounter
--- OUTSIDE RECORDS SUMMARY | 2024-11-01 05:20 | XMS_ITS | Encounter Summary ---
Author Organization [facility] Address [address] [place] [address] Care Team Providers Care Rice Milling Supervisor Name Role Phone Catina Rios DIVISIONAL MERCHANDISING MANAGER-[facility] Primary Care Provi saloni Reason for Visit * Reason Comments Post-Op Encounter Details Date Type Department Care Team (Late st Contact Info) Description 12/09/2022 12:30 PM DRILLING FIELD PROFESSIONAL Office Visit [facility] Management Services [id number] [place] [id number] Jenny Pollard [facility] [id number] [address] Morbid obesity (HCC) (Primary Dx); Bariatric surgery status; Vitamin deficiency; Vitamin D deficiency; Vitamin B deficiency; Mineral deficiency; Intestinal malabsorption, unspecified type (HCC) Social History Tobacco Use Types Packs/Day [...] Coronavirus/COVID-19? No / Unsure 12/09/2022 12:27 PM DRILLING FIELD PROFESSIONAL documented as of this encounter Last Filed Vital Signs Vital Sign Reading Time Taken Comments Blood Pressure 121/88 12/09/2022 12:29 PM DRILLING FIELD PROFESSIONAL Pulse 77 12/09/2022 12:29 PM DRILLING FIELD PROFESSIONAL Temperature 36.3 ??C (97.4 ??F) 12/09/2022 1 2:29 PM DRILLING FIELD PROFESSIONAL Respiratory Rate - - Oxygen Saturation 97% 12/09/2022 12: 29 PM DRILLING FIELD PROFESSIONAL Inhaled Oxygen Concentration - - Weight 110.6 kg (243 lb 12.8 oz) 2022 12:29 PM DRILLING FIELD PROFESSIONAL Height 165.1 cm (5' 5 ) 12/09/2022 12:2 9 PM DRILLING FIELD PROFESSIONAL Body Mass Index 40.57 12/09/2022 12:29 PM DRILLING FIELD PROFESSIONAL documented in this encounter Functional Status Functional [...] No 06/09/2022 documented as of this encounter Progress Notes * Jenny Pollard, LOUIE-PAID SEARCH MARKETING STRATEGIST - 12/09/2022 10:02 AM CST 6 Month Bariatric Surgery Follow up CC: Morbid Obesity ?? Previous Procedure: Laparoscopic sleeve gastrectomy (Schwoerer) ?? Date of Procedure: 06/09/2022 ?? Initial Weight: 299 Weight Last Visit: 289 Today's weight: 243 Total weight loss: 56 IBW: 149 EBW: 150 % of EBW loss: 37% Marika Caban is here today for a 6 month postoperative follow up visit. She reports that overall she is doing well She is happy with her weight loss and the surgery She is getting in all of the recommended protein She doesn't always get in all of her fluids-this was discussed She is taking the recommended daily bariatric MVI, calcium citrate She denies any reflux. She stopped taking Prilosec after her 1 month post op visit She denies any nausea, vomiting or abdominal pain-unless having a gallbladder attack She is moving her bowels regularly. Takes Miralax as needed She has had several gallbladder attacks. HIDA 15% EF. Seeing a Surgeon in [place] on 12/14/2022. Offered for Dr. Engel to do the surgery, but patient would like to see this other Surgeon Portions: small initially, but feels over the last month her portions have increased Hunger: yes, over the last month Snacking: sometimes Snacks: cheese sticks, turkey sticks, protein granola bars, Chips, pistachio's Carbs: minimal to moderate Food Journal: no Exercise: gym 2 days per week Review of systems as above, the rest of systems were reviewed and are negative. BP 121/88 (BP SITE: LEFT ARM, BP POSITION: SITTING, BP CUFF SIZE: 11) Pulse 77 Temp 97.4 ??F (36.3 ??C) (Temporal) Ht 1.651 m (5' 5 ) Wt 110.6 kg (243 lb 12.8 oz) SpO2 97% BMI (Calculated):40.57 Current Outpatient Medications Medication ??? acetaminophen (Tylenol) 160 MG/5ML solution ??? omeprazole (PriLOSEC) 20 MG capsule ??? omeprazole (PriLOSEC) 20 MG capsule ??? ondansetron, disintegrating, (Zofran ODT) 4 MG tablet No current facility-administered medications for this visit. Past Medical History: Diagnosis Date ??? Asthma does not use inhaler Review of Systems: HEENT: Normal Cardiovascular: Normal Respiratory: Normal Gastrointestinal: Normal Genitourinary: Normal Musculoskeletal: Normal Skin / Breast / Axillae: Normal Endocrine: Normal Allergic / Immuno: Normal Neuro / Psych: Normal Has the patient been readmitted to the hospital since the last follow up ? No Has the patient had any post bariatric surgical operations or interventions performed since the last follow up? No Physical Exam: General: Awake, alert, oriented to person,place and time. In no distress Neck: Supple, no JVD Lungs: Clear to ascultation, no wheezes or crackles Heart: RRR, S1S2 Abdomen: Soft, nontender, no hernias, BS + X all four quad Extremities: No edema x4, no erythema Assessment / Plan: S/P Laparoscopic sleeve gastrectomy (Maren): Morbid Obesity - patient has done well with a 37 % of EBW - patient has been referred to dietitian and counselor of further assistance - patient is to start a food journal - patient is to reduce carb intake and increase protein - Exercise journal: Exercise: to include light weights 3-5 times /wk for 15- 30 min/day Abdominal Pain: Has had several gallbladder attacks with abdominal pain. She had a HIDA scan that showed a 15% EF. She has a follow up with a Surgeon next week in [place]. I discussed that if she would like that Dr. Engel could remove her gallbladder. She will call the office if changes her mind. Diet: Continue with 60 gms of protein, 64 oz fluid daily Eat slowly, taking 30 minutes to finish a meal Drink liquid protein between meals for hunger Follow dietary restrictions Support Groups: Encouraged to attend Vitamins: Recommend a bariatric multivitamin, Ca citrate with D 1514-3432 mg daily , Exercise: No restrictions as far as surgery is concerned. This will assist in continued weight lossand maintaining weight loss Labs: Will be checked today and then at 1 year and then annually. CBC, CMP, vitamin B1, vitamin B12 and vitamin D Above labs were ordered today Follow up: In 6 months with routine labs or PRN. ADAM Robles LING FIELD PROFESSIONAL documented in this encounter Plan of Treatment Scheduled Orders Name Type Priority Associated Diagnoses Orde r Schedule CBC W/O DIFFERENTIAL Lab Routine Morbid obesity (HCC) Bariatric surgery status Vitamin deficiency Vitamin D deficiency Vitamin B deficiency Mineral deficiency Intestinal malabsorption, unspecified type (HCC) Ordered: 12/09/2022 COMPREHENSIVE METABOLIC PANEL Lab Routine Morbid obesity (HCC) Bariatric surgery status Vitamin deficiency Vitamin D deficiency Vitamin B deficiency Mineral deficiency Intestinal malabsorption, unspecified type (HCC) Ordered: 12/09/2022 VITAMIN B1 Lab Routine Morbid obesity (HCC) Bariatric surgery status Vitamin deficiency Vitamin D deficiency Vitamin B deficiency Mineral deficiency Intestinal malabsorption, unspecified type (HCC) Ordered: 12/09/2022 VITAMIN B12 Lab Routine Morbid obesity (HCC) Bariatric surgery status Vitamin deficiency Vitamin D deficiency Vitamin B deficiency Mineral deficiency Intestinal malabsorption, unspecified type (HCC) Ordered: 12/09/2022 VITAMIN D 25-HYDROXY Lab Routine Morbid obesity (HCC) Bariatric surgery status Vitamin deficiency Vitamin D deficiency Vitamin B deficiency Mineral deficiency Intestinal malabsorption, unspecified type (HCC) Ordered: 12/09/2022 documented as of this encounter Visit Diagnoses Diagnosis Morbid obesity (HCC)- Primary Morbid obesity Bariatric surgery status Vitamin deficiency Unspecified vitamin deficiency Vitamin D deficiency Vitamin B deficiency Unspecified vitamin B deficiency Mineral deficiency Mineral deficiency, not elsewhere classified Intestinal malabsorption, unspecified type (HCC) documented in this encounter Care Teams Rice Milling Supervisor Relationship Specialty Start Date End Date Catina Rios APRN-PAID SEARCH MARKETING STRATEGIST [address] [place] [address] PCP - General Nurse Practitioner 03/30/22 documented as of this encounter
--- OUTSIDE RECORDS SUMMARY | 2024-11-01 05:20 | XMS_ITS | Encounter Summary ---
Author Organization [facility] Address [address] [place] [address] Care Team Providers Care Timber Bucker Name Role Phone Catina Rios APRN-BINGO CLERK Primary Care Provi saloni Reason for Visit * Reason Onset Date Comments Follow-up 12/20/2022 Encounter Details Date Type Department Care Team (Late st Contact Info) Description 12/20/2022 Telephone [facility] Weight Management Services [address] [place] [address], [facility] [address] [place] [address] Chaparrita Nance, RN Follow-up Social History Tobacco [...] and heating? Not hard at all 12/14/2022 [facility] [place] [facility] Occup[facility] ional [facility] - Occupational Stress [...] place to sleep or slept in a care home (including now)? No 12/14/2022 Sex and Gender Information Value Date Recorded Sex Assigned at Not on file Gender Identity Not on file Sexual Orientation Not on file COVID-19 Exposure Response Date Recorded In the last 10 days, have yo u been in contact with someone who was confirmed or suspected to have Coronavirus/COVID-19? No / Unsure 12/09/2022 12:27 PM ABLE SEAMAN documented as of this encounter Functional Status [...] Telephone Encounter - Chaparrita Nance RN - 12/20/2022 12:44 PM ABLE SEAMAN Attempted to contact pt at DR Engel's request for follow up to medical exchange call over the past weekend. Pt did not answer phone. Message left on pt's VM and also MY Chart message sent requesting she callthe [facility] nurse line at . SEAMAN documented in this encounter Plan of Treatment Not on file documented as of this encounter Visit Diagnoses Not on filedocumented in this encounter Care Teams Timber Bucker Relationship Specialty Start Date End Date Catina Rios APRN-MARIS [address] [place] [address] PCP - General Nurse Practitioner 03/30/22 documented as of this encounter
--- OUTSIDE RECORDS SUMMARY | 2024-11-01 05:20 | XMS_ITS | Encounter Summary ---
Author Organization [facility] Address [address] [facility] [place] [address] Care Team Providers Care Administrative Program Specialist Name Role Phone Unknown, Provider Primary Care Provider Unavaila ble Reason for Referral * Radiology Services (Routine) - Closed Specialty Diagnoses / Procedures Referred By Contac t Referred To Contact Diagnoses Morbid obesity due to excess calories (HCC) Preop testing BMI 50.0-59.9, adult (HCC) Procedures [place] [address] [place] [address] Referral ID Status Reason Start Date Expiration Date Visits Re quested Visits Authorized [id number] Closed 03/16/2022 03/16/2023 1 1 Reason for Visit * Reason Comments Pre-op Consult Pre op Encounter Details Date Type Department Care Team (Late st Contact Info) Description 03/16/2022 10:00 AM CDT Office Visit [facility] Weight Management Services [id number] [place] [address], [address] [place] [address] [place] [address] [place] [address] Morbid obesity due to excess calories [...] Sign Reading Time Taken Comments Blood Pressure 130/82 03/16/2022 9:57 AM CDT Pulse 88 03/16/2022 9:57 AM CDT Temperature 36.6 ??C (97.8 ??F) 03/16/2022 9:57 AM CD T Respiratory Rate - - Oxygen Saturation - - Inhaled Oxygen Concentration - - Weight 150.3 kg (331 lb 6.4 oz) 03/16/2022 9:57 AM CDT Height 165.1 cm (5' 5 ) 03/16/2022 9:57 AM CDT Body Mass Index 55.15 03/16/2022 9:57 AM CDT documented in this encounter Progress Notes * Alverto Engel MD - 03/16/2022 10:00 AM CDT BARIATRIC EVALUATION HISTORY & PHYSICAL Height: 5' 5 (165.1 cm) Weight: (!) 331 lb 6.4 oz (150.3 kg) BMI (Calculated): 55.15 Chief Complaint: Morbid Obesity HPI: Pt is a 31 year old year old female with a hx of morbid obesity who presents for surgical tx. Pt has attempted multiple weight loss regimens in the past including medical, exercise and dietary without keno terminal operator success. Pt has now attained a BMI (Calculated): 55.15 and has failed multiple non surgical weight loss regimens for >5yrs. BMI: Body mass index is 55.15 kg/m??. [place] body weight: 57 kg (125 lb 10.6 oz) Adjusted ideal body weight: 94.3 kg (207 lb 15.3 oz) Medical: no new medical changes Review of previous provider notes in [facility] Everywhere was performed on the day of service. Past Medical History: Diagnosis Date ??? Asthma does not use inhaler No past surgical history on file. PATIENT MEDICAL HISTORY SCREENING: Morbid Obesity............................................. Yes [...] Base) MCG/ACT inhaler ??? Cholecalciferol 50 MCG (1999 [place]) ??? diclofenac sodium EC (VOLTAREN) 75 [...] person for any ADLs.. Physical Examination: BP 130/82 Pulse 88 Temp 97.8 ??F (36.6 ??C) Ht 5' 5 (1.651 m) Wt 331 lb 6.4 oz (150.3 kg) BMI 55.15 kg/m2 Constitutional: well-developed, well-nourished, and in no distress. [...] CO2, BUN, CREATININE, GLUCOSE, CALCIUM in thelast 72261 hours. No results for input(s): WBC, HGB, HCT, PLTCOUNT in the last 72544 hours. Risk / Benefits: Risks and benefits [...] procedures or operations in the perioperative and chcf periods. Questions were answered. Covid Discussion: Because the nature of the [...] or network. The patient will experience successfuland chcf weight loss when these components along with bariatric surgery are followed. The patient has had the above discussions with multiple program team members including surgeon, safety supervisor, bariatric nurse and mental health physicist acoustics and the patient will continue to have these discussions through the perioperative program. The [facility] Bariatric Surgical Risk/Benefit Calculator has been used and results have been reviewedwith the patient. Impression: Morbid obesity with above listed comorbidities. Multiple failed diet attempts. Plan: Based on discussion with the patient and consideration of the patients medical history and diagnosis of morbid obesity the patient is an appropriate candidate for bariatric surgery. Recommendation isfor: Laparoscopic Sleeve Gastrectomy and Laparoscopic Gastric Bypass - patient to follow up or decide onsurgery type Pre-op Plan: Liquid Protein Diet: Yes for 2 Weeks Insulation Worker Furnace Installer: Yes Additional Testing: Yes GI: hx of morbid obesity with increased risk of silent heartburn and hiatal hernia -EGD: Maren -UGI: ordered CV: none Pulmonary: hx of asthma, rare inhaler use -pcp clearance for surgery Renal: none Endocrine: no diabetes Heme: no [...] arellano, 2 day stay Alverto Engel MD 03/16/2022 documented in this encounter Plan of Treatment Not on file documented as of this encounter Results * FL UGI SERIES (03/30/2022 9:41 AM CDT) Anatomical Region Laterality Modality Abdomen Radio Fluoroscop y 03/30/2022 9:44 AM CDT Impressions 03/30/2022 10:02 AM CDT Normal upper GI. I, Delfino Teran, have personally reviewed the images and I [...] in normal position. IMPRESSION Normal upper GI. I, Delfino Teran, have personally reviewed the images and I agree with this report. *Reading Radiologist: Delfino Teran on 03/30/2022 at 10:02 AM Alverto Engel MD FLUOROSCOPY ORDERABL ES documented in this encounter Visit Diagnoses Diagnosis Morbid obesity due to excess calories (HCC)- Primary Preop testing Preoperative examination, unspecified BMI 50.0-59.9, adult (HCC) Body Mass Index 50.0-59.9, adult Morbid obesity due to excess calories (HCC) Preop testing Preoperative examination, unspecified BMI 50.0-59.9, adult (HCC) Body Mass Index 50.0-59.9, adult documented in this encounter Care Teams Administrative Program Specialist Relationship Specialty Start Date End Date Unknown, Provider PCP - General 09/18/21 03/29/22 documented as of this encounter
--- OUTSIDE RECORDS SUMMARY | 2024-11-01 05:20 | XMS_ITS | Encounter Summary ---
Author Organization [facility] Address [address] [facility] [place] [address] Care Team Providers Care Hedis Review Nurse Name Role Phone Catina Rios APRNCOATINGS INSPECTOR Primary Care Provi saloni Encounter Details Date Type Department Care Team (Latest Contact Info) Description 12/27/2022 Travel Social History Tobacco Use Types Packs/Day [...] and heating? Not hard at all 12/14/2022 [facility] Occup[facility] ional Health - Occupational Stress [...] Coronavirus/COVID-19? No / Unsure 12/27/2022 11:17 AM GRAPHICS PROGRAMMER documented as of this encounter Functional Status [...] on filedocumented in this encounter Care Teams Hedis Review Nurse Relationship Specialty Start Date End Date Catina Rios APRN-MARIS [address] [place] [address] PCP - General Nurse Practitioner 03/30/22 documented as of this encounter
--- OUTSIDE RECORDS SUMMARY | 2024-11-01 05:20 | XMS_ITS | Encounter Summary ---
Author Organization [facility] Address [address] [place] [address] Care Team Providers Care Dehairing Machine Tender Name Role Phone MariselaCatina hassan Lashawn [facility] Primary Care Provi saloni Reason for Visit * Auth/Cert Specialty Diagnoses / Procedures Referred By Contac t Referred To Contact Procedures LAPAROSCOPIC GASTRECTOMY (LONGITUDINAL/SLEEVE) Referral ID Status Reason Start Date Expiration Date Visits Re quested Visits Authorized [id number] 1 1 Encounter Details Date Type Department Care Team (Late st Contact Info) Description 06/09/2022 9:04 AM CDT - 06/09/2022 10:35 AM CDT Surgery Formerly [facility] - Perioperative Surgery [address] [place] [address] [place] [id number] [phone] LAPAROSCOPIC VERTICAL SLEEVE GASTRECTOMY Surgery Details Date/Time Status Location OR Service Patient Class Case Class Case Type Trauma Case? 06/09/2022 9:04 AM Posted [facility] MAIN OR OR 06 Bariatric Oil Well Driller Admit Surgical Elective > 5 days Panel 1 Procedure LRB Anes Op Region Wound Class Comments LAPAROSCOPIC VERTICAL SLEEVE GASTRECTOMY N/A General Abdomen Clean Contaminated Surgeon Surgeon Role Service Panel Alverto [...] money to buy more. Never true 06/10/20 Within the past 12 months, t he [...] Sign Reading Time Taken Comments Blood Pressure 160/93 06/09/2022 7:35 AM CDT Pulse 77 06/09/2022 7:35 AM CDT Temperature 36.1 ??C (96.9 ??F) 06/09/2022 7:35 AM CD T Respiratory Rate 18 06/09/2022 7:35 AM CDT Oxygen Saturation 99% 06/09/2022 7:35 AM CDT Inhaled Oxygen Concentration - - [...] 299 lb 12.8 oz (136 kg) (06/09/22720) [id number] 1990 Admitting Diagnosis Clinically Severe Obesity with [...] work after you are cleared by Dr. Schwoerer Follow up with Primary Care Provider (PCP) Our records show your Primary Care Provider (PCP) is Catina Rios APRN-MARIS. Order Specific Question Answer Comments Follow Up [...] encounter Discharge Instructions * Discharge Instructions* Greta Humphrey RD/BABATUNDE - 06/10/2022 3:19 PM CDT Bariatric Surgery [...] 7:00PM Contact Information: [facility]: [phone] email: [email or web address]: [phone] Weight Management Program: [phone] [facility] Program: [phone] High Protein Supplements Options High Protein Supplement Calories* Carbohydrate* Protein* Acceptable for Lactose Intolerance Atkins Advantage (11 oz) (www.atkins.Voluntis) 160 7 15 No Ensure Max Protein (11 oz) (www.abbottnutrition.com) 150 6 30 Yes Muscle Milk (14 oz) (www.51aiya.com or Gather) 170 11 25 Yes Optisource (8 oz) (www.Dojo) 200 12 24 Yes Bariatric Advantage High Protein Meal Replacement Powder 160 11 27 No Advanced Nutrition Slim Fast (11oz) (www.RentBureau or Gather) 180 7 20 Yes BlueNote Networks Core Power 170 8 26 Yes BlueNote Networks High Protein Shake 150 3 30 Yes Bariatric Advantage Clearly Protein (16.9 oz) ([facility] or Bariatric Advantage Website) 80 0 20 No Fwwquwb40 Water (tptlwbwxyrms51.com) 70 7 15 Yes Premier Protein Shake (11oz) ([employer] or [employer]) 160 5 30 No Unjury Protein Powder (per 1 Scoop) (www.Natrogen TherapeuticsjuDakim.Voluntis) 100 3 21 Yes *Calories, Carbohydrate, and Protein amounts may vary slightly with each different flavor. Supplements must contain at least twice the protein amount as carbohydrate. High Protein Recipes High Protein Fruit Punch Instructions: In a tax evaluator, mix: 6 ounces sugar-free powdered fruit Drink [...] pt had all belongings Received meds from [facility] pharmacy. * Greta Humphrey RD/BABATUNDE - 06/10/2022 [...] 7:01 AM Hospital Day: 1 PCP:Catina Rios APRN-LIVERY CAR DRIVER SUBJECTIVE Patient is seen and examined at [...] using a voice recognition system without human medical photographer. This report has not been adjusted for typographical, grammatical, and syntax mistakes by a trained medical librarian. Jaden Lemus MD [employer] Exam Patient [...] have money to get more.: Never true Food Bank Resources Provided: Not offered to the patient Medication affordability concerns: No Auth Number (if required) NH: DME: Medications: Transportation: Name: Nina Malave RN Phone: [phone] * Adriana Zimmerman, MAXILLOFACIAL PROSTHETICS DENTIST-LIVERY CAR DRIVER - 06/10/2022 5:55 AM CDT Bariatric Surgery [...] WBC, HGB, HCT, PLTCOUNT in the last 43310 hours. UGI: pending Physical Exam A+O x [...] our pharmacy. Patient is agreeable. Adriana Zimmerman APRN-LIVERY CAR DRIVER * Lilian Hollins RN - 06/10/2022 12:27 AM CDT Problem: Pain/Discomfort Goal: Patient exhibits reduced pain/discomfort as evidenced by pain scores Outcome: Progressing Goal: Patient uses pharmacological and non-pharmacological pain management strategies. Outcome: Progressing Goal: Patient verbalizes acceptable level of pain relief and ability to engage in desired activity. Outcome: Progressing * Gabriele Soto, PharmD - 06/09/2022 5:55 PM CDT Bariatric [...] Soto PharmD - 06/09/2022 5:55 PM CDT [facility] Pharmacy Services Admission Medication [...] past including medical, exercise and dietary without 911 telecommunicator success. Pt has now attained a BMI (Calculated): 49.89 and has failed multiple non surgical weight loss regimens for >5yrs. BMI: Body mass index is 49.89 kg/m??. [place] body weight: 57 kg (125 lb 10.6 oz) Adjusted ideal body weight: 88.6 kg (195 lb 5.1 oz) Medical: no new medical changes Review of previous provider notes in [facility]Care Everywhere was performed on the day of [...] CO2, BUN, CREATININE, GLUCOSE, CALCIUM in thelast 04289 hours. No results for input(s): WBC, HGB, HCT, PLTCOUNT in the last 99037 hours. Risk / Benefits: Risks and benefits [...] procedures or operations in the perioperative and 911 telecommunicator periods. Questions were answered. Risks discussed today [...] or network. The patient will experience successfuland 911 telecommunicator weight loss when these components along with bariatric surgery are followed. The patient has had the above discussions with multiple program team members including surgeon, gas distribution supervisor, bariatric nurse and mental health environmental monitoring specialist and the patient will continue to have these discussions through the perioperative program. The [facility] Bariatric Surgical Risk/Benefit Calculator has been used [...] Liquid Protein Diet: Yes for 2 Weeks Bisque Kiln Drawer: Yes Additional Testing: Yes GI: hx of morbid obesity with increased risk of silent heartburn and hiatal hernia -EGD: Maren - denied by insurance -UGI: normal, no [...] Date of Admission : 06/09/2022 PCP: Catina Rios, LOUIE-LIVERY CAR DRIVER HPI: Patient is 29-year-old female with past [...] 152/93 06/09/22 1045 -- 75 18 154/86 08/10/22 1039 98.1 ??F (36.7 ??C) 77 13 [...] AST, TBIL, DBIL, TPROT in the last 52428 hours. No results for input(s): TROPONIN in the last 61534 hours. No results for input(s): WBC, HGB, HCT, PLTCOUNT in the last 18022 hours. LABS AND IMAGING DONE SINCE ADMISSION [...] using a voice recognition system without human medical photographer. This report has not been adjusted for typographical, grammatical, and syntax mistakes by a trained medical librarian. documented in this encounter OR Notes * Operative - Alverto Engel MD - 06/09/2022 9:37 AM CDT [facility] Operative Report OPERATIVE REPORT PATIENT:Marika Caban MR#: [id number] ADMIT DATE: 06/09/2022 7:01 AM DATE OF SURGERY: 06/09/2022 : 1990 PHYSICIAN: Alverto Engel MD 31 yrs Body mass index is 49.89 kg/m??. PREOPERATIVE DIAGNOSES: Morbid Obesity, Body mass index is 49.89 kg/m??. Past Medical History: Diagnosis Date ??? Asthma does not use inhaler POSTOPERATIVE DIAGNOSES: SAME PROCEDURES PERFORMED: 1. Laparoscopic sleeve gastrectomy SURGEON: Alverto Engel MD House Detective: Olga CHOU ANESTHESIA: General endotracheal. PROCEDURE: The [...] OF CARE Routine 06/09/2022 10:43 AM CDT [place] LAP SLEEVE GASTRECTOMY 06/09/2022 9:08 AM CDT GLUCOSE - POINT OF CARE Routine 06/09/2022 7:36 AM CDT HCG URINE QUALITATIVE STAT 06/09/2022 7:33 AM CDT Preop examination POTASSIUM BLOOD STAT 06/09/2022 7:33 AM CDT Preop examination documented in this encounter Results * (ABNORMAL) GLUCOSE - POINT OF CARE (06/10/2022 11:16 AM CDT) Glucose WB/POC 119(H) 70 - 106 mg/dL 06/10/2022 11:21 AM CDT [facility] Specimen Type Arterial 06/10/2022 11:21 AM CDT [facility] Blood BLOOD SPECIMEN / Unknown 06/10/2022 11:16 AM CDT 06/10/2022 11:21 AM CDT Alverto Engel MD LAB - POINT OF CARE ORDERABLES [facility] [address] [place] [address] * FL UGI SERIES WO [...] - 34.0 pg 06/10/2022 6:36 AM CDT [facility] MCHC 32.7 30.8 - 35.9 gm/dL 06/10/2022 6:36 AM CDT [facility] Platelet Count 203 153 - 416 x10E9/L 06/10/2022 6:36 AM CDT [facility] RDW-CV 14.5 12.1 - 14.9 % 06/10/2022 6:36 AM CDT [facility] MPV 13.3(H) 9.4 - 12.9 fl 06/10/2022 6:36 AM CDT [facility] Neutrophils % 90.9(H) 44.0 - 73.0 % 06/10/2022 6:36 AM CDT [facility] Lymphocytes % 5.9(L) 20.0 - 43.0 % 06/10/2022 6:36 AM CDT [facility] Monocytes % 2.5(L) 5.0 - 13.0 % 06/10/2022 6:36 AM CDT [facility] Eosinophils % 0.0 0.0 - 6.0 % 06/10/2022 6:36 AM CDT [facility] Basophils % 0.1 0.0 - 2.0 % 06/10/2022 6:36 AM CDT [facility] Immature Granulocytes 0.6 0 - 1 % 06/10/2022 6:36 AM CDT [facility] Neutrophil Absolute 11.33(H) 2.01 - 7.14 x10E9/L 06/10/2022 6:36 AM CDT [facility] Lymphocytes Absolute 0.73(L) 1.07 - 3.94 x10E9/L 06/10/2022 6:36 AM CDT [facility] Monocytes Absolute 0.31 0.26 - 1.07 x10E9/L 06/10/2022 6:36 AM CDT [facility] Eosinophils Absolute 0.00 0 - 0.47 x10E9/L 06/10/2022 6:36 AM CDT [facility] Basophils Absolute 0.01 0 - 0.08 x10E9/L 06/10/2022 6:36 AM CDT [facility] Immature Granulocytes Absolute 0.07(H) 0.00 - 0.06 x10E9/L 06/10/2022 6:36 AM CDT [facility] nRBC Auto 0 /100 WBC 06/10/2022 6:36 AM T [facility] Blood BLOOD SPECIMEN / Unknown Venipuncture / Unknown 06/10/2022 5:18 AM CDT 06/10/2022 5:36 AM CDT Alverto Engel MD LAB - HEMATOLOGY ORD ERABLES [facility] [address] [place] [address] * (ABNORMAL) BASIC METABOLIC PANEL (CALCIUM TOTAL) (06/10/2022 5:18 AM CDT) Glucose 130(H) 70 - 105 mg/dL 06/10/2022 6:04 AM [facility] Sodium 139 136 - 145 mmol/L 06/10/2022 6:04 AM [facility] Potassium 4.1 3.5 - 5.1 mmol/L 06/10/2022 6:04 AM [facility] Chloride 112(H) 98 - 107 mmol/L 06/10/2022 6:04 AM [facility] CO2 21(L) 23 - 31 mmol/L 06/10/2022 6:04 AM [facility] Calcium 8.8 8.4 - 10.4 mg/dL 06/10/2022 6:04 AM [facility] Anion Gap 6(L) 8 - 18 mmol/L 06/10/2022 6:04 AM [facility] BUN 8 7 - 18.7 mg/dL 06/10/2022 6:04 AM T [facility] Creatinine 0.74 0.57 - 1.11 mg/dL 06/10/2022 6:04 AM [facility] eGFR by CKD-EPI >90 >=90 mL/min/1.7 3 m2 06/10/2022 6:04 AM [facility] Blood BLOOD SPECIMEN / Unknown Venipuncture / Unknown 06/10/2022 5:18 AM CDT 06/10/2022 5:36 AM CDT Alverto Engel MD LAB - CHEMISTRY MARIBEL WEISS Performing Organization Address [facility] de Phone Number [facility] [address] [place] [address] * (ABNORMAL) VITAMIN D 25-HYDROXY (06/10/2022 5:18 AM CDT) Vitamin D, 25 Hydroxy 21.5(L) 30 - 100 ng/mL 06/10/2022 6:28 AM CDT [facility] Blood BLOOD SPECIMEN / Unknown Venipuncture / Unknown 06/10/2022 5:18 AM CDT 06/10/2022 5:36 AM CDT Narrative [facility] - 06/10/2022 6:28 AM CDT Vitamin D Status: ?Deficiency ? <20 ? ng/mL ?Insufficiency ?? 20-30 ??ng/mL ?Sufficiency ? 30-100 ng/mL ?Toxicity ? >100 ?ng/mL Alverto Engel MD LAB - CHEMISTRY MARIBEL WEISS Performing Organization Address [facility] de Phone Number [facility] [id number] [place] [address] * (ABNORMAL) GLUCOSE - POINT OF CARE (06/10/2022 1:23 AM CDT) Pathologist [facility] Glucose WB/POC 156(H) 70 - 106 mg/dL 06/10/2022 1:27 AM CDT [facility] Specimen Type Cap Fingerstick 2021 1:27 AM CDT [facility] Blood BLOOD SPECIMEN / Unknown 06/10/2022 1:23 AM CDT 06/10/2022 1:27 AM CDT Alverto Engel MD LAB - POINT OF CARE ORDERABLES Performing Organization Address City/[facility] Co de Phone Number [facility] [address] [place] [address] * (ABNORMAL) GLUCOSE - POINT OF CARE (06/10/2022 12:57 AM CDT) Glucose WB/POC 164(H) 70 - 106 mg/dL 06/10/2022 1:05 AM CDT [facility] Specimen Type Cap Fingerstick 2021 1:05 AM CDT [facility] Blood BLOOD SPECIMEN / Unknown 06/10/2022 12:57 AM CDT 06/10/2022 1:05 AM CDT Alverto Engel MD LAB - POINT OF CARE ORDERABLES Performing Organization Address [facility] Co de Phone Number [facility] [address] [place] [address] * (ABNORMAL) GLUCOSE - POINT OF CARE (06/09/2022 4:48 PM CDT) Glucose WB/POC 142(H) 70 - 106 mg/dL 06/09/2022 4:56 PM CDT [facility] Specimen Type Arterial 06/09/2022 4:56 PM CDT [facility] Blood BLOOD SPECIMEN / Unknown 06/09/2022 4:48 PM CDT 06/09/2022 4:56 PM CDT Alverto Engel MD LAB - POINT OF CARE ORDERABLES Performing Organization Address [facility] Co de Phone Number [facility] [address] [place] [address] * (ABNORMAL) GLUCOSE - POINT OF CARE (06/09/2022 10:43 AM CDT) Glucose WB/POC 153(H) 70 - 106 mg/dL 06/09/2022 10:44 AM CDT [facility] Specimen Type Cap Fingerstick 2021 10:44 AM CDT [facility] Blood BLOOD SPECIMEN / Unknown 06/09/2022 10:43 AM CDT 06/09/2022 10:44 AM CDT Alverto Engel MD LAB - POINT OF CARE ORDERABLES Performing Organization Address [facility] Co de Phone Number [facility] [id number] [place] [address] * GLUCOSE - POINT OF CARE (06/09/2022 7:36 AM CDT) Pathologist [facility] Glucose WB/POC 91 70 - 106 mg/dL 06/09/2022 7:38 AM CDT [facility] Specimen Type Arterial 06/09/2022 7:38 AM CDT [facility] Blood BLOOD SPECIMEN / Unknown 06/09/2022 7:36 AM CDT 06/09/2022 7:38 AM CDT Alverto Engel MD LAB - POINT OF CARE ORDERABLES Performing Organization Address [facility] Co de Phone Number [facility] [id number] [place] [address] * HCG URINE QUALITATIVE (06/09/2022 7:33 AM CDT) [facility] hCG Qualitative Urine Negative Negative 06/09/2022 7:53 AM CDT [facility] Urine URINE / Unknown Collection / Unknown 06/09/2022 7:33 AM CDT 06/09/2022 7:47 AM CDT Ramila Liu DO LAB - URINALYSIS ORD ERABLES Performing Organization Address [facility] Co de Phone Number [facility] [address] [place] [address] * POTASSIUM BLOOD (06/09/2022 7:33 AM CDT) Pathologist [facility] Potassium 3.8 3.5 - 5.1 mmol/L 06/09/2022 7:56 AM CDT [facility] Blood BLOOD SPECIMEN / Unknown Venipuncture / Unknown 06/09/2022 7:33 AM CDT 06/09/2022 7:47 AM CDT Alverto Engel MD LAB - CHEMISTRY MARIBEL Vivar Organization Address City/State/ZIP Co de Phone Number [facility] [address] [place] [address] documented in this encounter Visit Diagnoses Not [...] 06/09/2022 1:48 PM CDT 150 mL /hr 0.9% NaCl injection PRN, Starting on Tue06/09/22 at 0939, Until Tue06/09/22 at 1039, Intra-op $ Given 06/09/2022 9:39 AM CDT 40 mL Operative Site 0.9% nacl irrigation solution PRN, Starting on Tue06/09/22 at 0939, Until Tue06/09/22 at 1039, Intra-op $ Given 06/09/2022 9:39 AM CDT 3,000 mL Operative Site albuterol HFA (Proventil; Ventolin; Proair) 108 (90 Base) MCG/ACT inhaler 2 puff 2 puff, Inhalation, EVERY 6 HOURS PRN, Shortness of Breath, Wheezing, Starting on Tue06/09/22 at 1339, Until Tue06/10/22 at 2020, Shake well before using. WASTE DISPOSAL INSTRUCTION: Send to Pharmacy for Disposal. bupivacaine liposome (Exparel) 1.3 % injection PRN, Starting on Tue06/09/22 at 0939, Until Tue06/09/22 at 1039, Intra-op $ Given 06/09/2022 9:39 AM CDT 20 mL Operative Site dextrose 5 % 500 mL with M.V.I. [...] PM CDT 125 mL/hr 125 m L/hr heparin injection 5,000 Units 5,000 Units, Subcutaneous, 2 TIMES DAILY, First dose on Tue06/10/22 at 0900, Until Discontinued, Post-op $ Given 06/10/2022 10:42 AM CDT 5,000 Units Abd Left Lower Quadrant hyoscyamine (Levsin SL) sublingual tablet 0.125 mg [...] Given 06/09/2022 3:46 PM CDT 15 mg metoclopramide (Reglan) injection 10 mg 10 mg, [...] $ Given 06/10/2022 2:03 PM CDT 4 m g $ Given 06/10/2022 5:08 AM CDT 4 [...] Given 06/09/2022 10:47 PM CDT 10 mg documented in this encounter Active and Recently [...] See Comments - Comment: PO meds starts tomorrow)2207 (Not Administered - Provider: Lilian Hollins RN [...] ($ Given - Provider: Demi Horn RN) ceFAZolin (Ancef) 3,000 mg in 115 mL IVPB (COMPLETED) 3,000 mg (3 g), at 230 mL/hr, Intravenous, PRE-OP ONCE, 1 dose, On Tue06/09/22 at 0730, Administer 30 minutes prior to surgical incision. Refrigerate, Indication for anti-infective therapy: Surgical prophylaxis, Pre-op 09 ($ Given - Provider: Jacki Valentine APRN-PROTECTIVE SIGNAL SUPERINTENDENT) celecoxib (CeleBREX) capsule 400 mg (COMPLETED) 400 [...] must be documented in the MAR., Pre-op 0738 ($ Given - Provider: Demi Horn RN) [...] Demi Horn, CODY) heparin injection 5,000 Units 5,000 Units, Subcutaneous, [...] Post-op 1546 ($ Given - Provider: Siena Lopez RN)2208 ($ Given - Provider: Lilian Hollins [...] Tue06/09/22 at 1345, Until Kavya 06/10/22 at 202, Do not infuse at same time as other fluids., Post-op 1348 ($ New Bag/Syringe - Provider: Siena Lopez, RN)1959 ($ New Bag/Syringe - Provider: Lilian Hollins, RN) 0507 ($ New Bag/Syringe - Provider: Lilian Hollins RN) lactated ringers infusion (CANCELED) at 20 mL/hr, Intravenous, CONTINUOUS, Starting on Tue06/09/22 at 0730, Until Tue06/09/22 at 1334, Pre-op 0739 ($ New Bag/Syringe - Provider: Demi Horn RN)0915 (Paused - Provider: Jacki Valentine APRN-PROTECTIVE SIGNAL SUPERINTENDENT - Comment: Switch to gravity)0916 (Restarted - Provider: Jacki Valentine APRN-PROTECTIVE SIGNAL SUPERINTENDENT)1016 ($ New Bag/Syringe - Provider: GEOFFREY TannerPROTECTIVE SIGNAL SUPERINTENDENT) PRN Medication Order 06/08/2022 06/09/2022 06/10/2022 0.9% [...] at 1339, Until Kavya 06/10/22 at 2020, Shake well before using. WASTE [...] Post-op 2001 ($ Given - Provider: Lilian Hollins RN) oxyCODONE (Roxicodone) oral solution 5 mg 5 [...] use if first choice was ineffective., PACU 105 ($ Given - Provider: More Villanueva RN) [...] Pre-op documented in this encounter Care Teams Dehairing Machine Tender Relationship Specialty Start Date End Date Catina Rios APRN-MARIS [address] [place] [address] PCP - General Nurse Practitioner 03/30/22 documented as of this encounter
--- OUTSIDE RECORDS SUMMARY | 2024-11-01 05:20 | XMS_ITS | Encounter Summary ---
Author Organization [facility] Address [address] [place] [address] Care Team Providers Care Trauma Nurse Name Role Phone Catina Rios APRNMARIS Primary Care Provi saloni Encounter Details Date Type Department Care Team (Latest Contact Info) Description 05/25/2022 10:16 AM CDT - 05/25/2022 11:59 PM CDT [facility] [address] [place] [address] [place] [address] [place] [address] Discharge Disposition: Home or Self Care Social [...] Sign Reading Time Taken Comments Blood Pressure 128/83 05/25/2022 10:40 AM CDT Pulse 76 05/25/2022 10:40 AM CDT Temperature 36.4 ??C (97.6 ??F) 05/25/2022 10:40 AM C DT Respiratory Rate - - Oxygen Saturation 95% 05/25/2022 10:40 AM CDT Inhaled Oxygen Concentration - - Weight - - Height - - Body Mass Index - - documented in this encounter Discharge Instructions * Patient Instructions* Elvira Palomo RN - 05/25/2022 10:40 AM CDT Date of surgery: 06/09/22 Arrival Time: 7am Time of surgery: 9am You will be notified if your arrival time changes Please report to the [facility] Building. Take the elevators across from outpatient registration to the second floor, exit left and enter the Outpatient Surgery waiting room. Sign in and beseated. Bring a copy of your living will or power of dry cleaner helper form if we do not have a current copy. Day of surgery instructions Do not eat or drink anything after midnight unless directed by your surgeon (no gum, mints, or candy). You may brush your teeth, swish and spit. No tobacco products after midnight and avoid alcohol 24 hours prior to surgery. If you use a CPAP/BiPAP machine, please bring it with you on the day of surgery (for overnight stay). Do not bring or wear jewelry (including body piercings). Leave valuables at home Bring your eyeglasses. Do not wear contacts. Take a shower using the antibacterial soap, following the instructions given. Dress in clean clothing appropriate to wear after your surgery. Arrange for a responsible adult to bring you to the hospital, and to drive you home. Bring you insurance information and proof of identification, such as your race car driver's license, with you to the hospital, and any necessary co-insurance. If you are having any problems on the day of surgery, please call the Ambulatory Surgery desk at [phone]. You will not be required to have a COVID test prior to surgery. However, if you develop any symptoms of COVID 19 such as new or worsening cough, shortness of breath, loss of taste/smell, headache, sore throat, body aches, OR have a significant exposure to COVID 19 please contact your surgeons office immediately. A REMINDER, YOU SHOULD PRACTICE SOCIAL DISTANCING FOR AT LEAST 7 DAYS PRIOR TO SURGERY. COVID Related Hospital Precautions When you arrive to the hospital the day of your surgery you will enter the [facility]. We are currently requiring [place] Masking in the hospital. You will need to wear a mask into thehospital and at all times while admitted. We recommend that you bring a second mask with you. VISITOR GUIDELINES: To promote the safety of our patients, employees and the community, all visitors must wear a face mask. Visiting hours once you are admitted to the hospital after surgery are [id number]. PREOPERATIVE CHRLORHEXIDINE (CHG) ? BATHING INSTRUCTIONS Before surgery, you can play an important role in your own health. Because skin is not sterile,we need to be sure that your skin is as free of germs as possible before surgery. You can reduce the number of germs on your skin by carefully washing before surgery. Following these instructions will help you be sure that your skin is clean before surgery IMPORTANT: You will need to shower with a special soap called Chlorohexidine gluconate (CHG) ?. A common brand name for this soap is Hibiclens, but any brand is acceptable to use. The soap will come in a liquid. This may be purchased at any local pharmacy. If you are allergic to Chlorohexidine use Dial antibacterial soap for your shower/bath. Shower or bathe with CHG? the night before and the morning of surgery. Do not shave the area of your body where surgery will be performed. Wash your hair usual with your normal shampoo. Rinse your hair and body thoroughly after you shampoo remove all shampoo residues. Apply the CHG? to the entire body ONLY FROM THE NECK DOWN. Do not use CHG? near your eyes or ears to avoid permanent injury to those areas. Wash thoroughly, paying special attention to the area where surgery will be performed. Turn the water off to prevent rinsing the soap off too soon. Wash your body gently for five (5) minutes. Do not scrub your skin too hard. Do not wash with your regular soap after CHG? is used. Turn the water back on and rinse your body thoroughly. Pat yourself dry with a clean, soft towel. Do not use lotion, cream, or powder. Make sure clean linens are on your bed the night prior to surgery. Wear clean clothes. Repeat this process the morning of surgery using ONLY CHG soap. * Not to be used by people allergic to Chlorhexidine INCENTIVE SPIROMETER The following provides an overview of how you will use the spirometer after your surgery. Our goal is for you to become familiar with usage prior to your surgery date, as this improves the ability touse properly. Please attempt to use 2-3 times daily in the week leading up to your surgery date. DO NOT bring this spirometer with you the day of surgery, as you will be provided a new one after your surgery. Using your incentive spirometer after surgery will help your lungs clear and will help keep your lungs active throughout the recovery process, as if you were performing your daily activities. How to use the incentive spirometer: 1. Sit on the edge of your bed if possible, or sit up as far as you can in bed. 2. Hold the incentive spirometer in an upright position. 3. Place the mouthpiece in your mouth and seal your lips tightly around it. 4. Breathe in slowly and as deeply as possible. Notice the blue piston rising toward the top of thecolumn. The blue indicator on the right should float between the two blue arrows. 5. Hold your breath as long as possible. Then exhale slowly and allow the piston to fall to fall tothe bottom of the column. 6. Rest for a few seconds and repeat steps one to 5 at least 10 times every hour. 7. Position the blue indicator on the left side of the spirometer to show your best effort. Use theindicator as a goal to work toward during each slow deep breath. 8. After each set of 10 deep breaths. Cough to be sure your lungs are clear. If you have an incision, support your incision when coughing by placing a pillow firmly against it. 9. Once you are able to get out of bed safely, take frequent walks and practice the cough. Medication Instructions for Surgery Current Outpatient Medications Medication Sig Note Dispense Refill albuterol HFA (PROVENTIL; VENTOLIN; PROAIR) 108 (90 Base) MCG/ACT inhaler Inhale 2 puffs by mouth every 6 hours as needed 05/25/2022: Bring to hospital DOS Cholecalciferol 50 MCG (1999 UT) diclofenac sodium EC (VOLTAREN) 75 MG tablet Take 75 mg by mouth 2 times daily naproxen (NAPROSYN) 500 MG tablet Take 1 Tab by mouth 2 times daily as needed for Pain. 20 0 oxycodone-acetaminophen (PERCOCET) 5-325 MG tablet Take 1 Tab by mouth every 4 hours as needed for Pain. 20 0 penicillin v potassium (VEETIDS) 500 MG tablet Take 1 Tab by mouth every 6 hours. 28 0 If you are taking any NSAIDs (Advil, Ibuprofen, Naproxen, Aleve, Motrin, Meloxicam, etc.), please stop 10 days prior to surgery as these are considered blood thinning medications. documented in this encounter Medications at Time of Discharge Medication Sig Dispensed Refills Start Date End Date acetaminophen (Tylenol) 160 MG/5ML solution Take 31.25 mL by mouth every 8 hours as needed for Fever or Pain 06/09/2022 12/14/2022 albuterol HFA (PROVENTIL; VENTOLIN; PROAIR) 108 (90 Base) MCG/ACT inhaler Inhale 2 puffs by mouth every 6 hours as needed 10/07/2021 06/09/2022 Cholecalciferol 50 MCG (2000 UT) 06/09/2022 diclofenac sodium EC (VOLTAREN) 75 MG tablet Take 75 mg by mouth 2 times daily 06/09/2022 magnesium hydroxide (Milk Of Magnesia) 400 MG/5ML suspension Take 15 mL by mouth as needed for Constipation 06/09/2022 12/09/2022 naproxen (NAPROSYN) 500 MG tablet Take 1 Tab by mouth 2 times daily as needed for Pain. 20 0 05/03/2009 06/09/2022 omeprazole (PriLOSEC) 20 MG capsule Take 1 (one) capsule by mouth once daily 30 capsule 06/09/2022 12/14/2022 ondansetron, disintegrating, (Zofran ODT) 4 MG tablet Take 1 (one) tablet by mouth every 6 hours as needed for Nausea/Vomiting Allow tablet to dissolve on the tongue 20 tablet 06/09/2022 12/14/2022 oxycodone-acetaminop hen (PERCOCET) 5-325 MG tablet Take 1 Tab by mouth every 4 hours as needed for Pain. 20 0 05/03/2009 06/09/2022 penicillin v potassium (VEETIDS) 500 MG tablet Take 1 Tab by mouth every 6 hours. 28 0 05/03/2009 06/09/2022 senna-docusate (Senokot-S) 8.6-50 MG tablet Take 1 (one) tablet by mouth 2 times daily as needed for Constipation 06/09/2022 12/09/2022 documented as of this encounter Plan of Treatment Not on file documented as of this encounter Procedures Procedure Name Priority Date/Time Associated Diagnosis Comments EKG 12-LEAD Routine 05/25/2022 10:41 AM CDT Preop examination VITAMIN B1 Routine 05/25/2022 10:29 AM CDT Preop examination VITAMIN B12 Routine 05/25/2022 10:29 AM CDT Preop examination documented in this encounter Results * EKG 12-LEAD (05/25/2022 10:41 AM CDT) Ventricular Rate 71 BPM [facility] Atrial Rate 71 BPM [facility] P-R Interval 188 ms [facility] QRS Duration ms 94 ms [facility] Q-T Interval ms 378 ms [facility] QTC Calculation (Bezet) 410 ms [facility] Calculated P Cook Sta 12 degrees [facility] Calculated R Cook Sta 16 degrees [facility] Calculated T Cook Sta 27 degrees [facility] Interpretation EKG Normal sinus rhythm with sinus arrhythmia No previous ECGs available Confirmed by YODIT STEWARD, RENNY KEYS ([id number]) on 05/25/2022 2:57:19 PM [facility] 05/25/2022 10:4 1 AM CDT 05/25/2022 2:57 PM CDT Ramila Liu DO ECG ORDERABLES [facility] * VITAMIN B12 (05/25/2022 10:29 AM CDT) Vitamin B12 287 213 - 816 pg/mL 05/25/2022 12:04 PM CDT [facility] Blood BLOOD SPECIMEN / Unknown Venipuncture / Unknown 05/25/2022 10:29 AM CDT 05/25/2022 11:15 AM CDT Alverto Engel MD LAB - CHEMISTRY [facility] Performing Organization Address City/[facility]/ZIP Co de Phone Number [facility] [address] [phone] * VITAMIN B1 (05/25/2022 10:29 AM CDT) Vitamin B1 Whole Blood 108.3 66.5 - 200.0 nmol/L 05/28/2022 10:10 AM CDT [facility] ([facility]) Blood BLOOD SPECIMEN / Unknown Venipuncture / Unknown 05/25/2022 10:29 AM CDT 05/25/2022 11:15 AM CDT Narrative [facility] ([facility]) - 05/28/2022 10:10 AM CDT Test(s) 100959-[id number]. B1, Whole Blood was developed and its performance characteristics determined by [facility]. It has not been cleared or approved by the Food and Drug Administration. Performed at: ??01 - [facility] [address] ??[id number] Hedge Fund Trader: Herbie Barakat MD, Phone: ??[phone] Alverto Engel MD LAB - CHEMISTRY [facility] Performing Organization Address [facility] Co de Phone Number [facility] ([facility]) [address] [place] [address] documented in this encounter Visit Diagnoses Diagnosis Preop examination- Primary Preoperative examination, unspecified documented in this encounter Care Teams Trauma Nurse Relationship Specialty Start Date End Date Catina Rios APRN-MARIS [address] [place] [address] PCP - General Nurse Practitioner 03/30/22 documented as of this encounter
--- OUTSIDE RECORDS SUMMARY | 2024-11-01 05:20 | XMS_ITS | Encounter Summary ---
Author Organization [facility] Address [address] [place] [address] Care Team Providers Care Beam Doffer Name Role Phone Blanca Catinaroland Hardin APRN-SEED SPECIALIST Primary Care Provi saloni Reason for Visit * Reason Onset Date Comments Medication Issue 07/13/2022 Encounter Details Date Type Department Care Team (Late st Contact Info) Description 07/13/2022 Telephone [facility] [address] [place] [address], [facility] [address] [place] [address] Chaparrita Nance graduate teacher education Issue Social History Tobacco Use Types Packs/Day Years [...] Telephone Encounter - Chaparrita Nance RN - 07/13/2022 9:38 AM CDT Attempted to contact pt regarding which pharmacy she would like to have refills for omeprazole sent. Pt did not answer-lmom requesting pt call Chaparrita at . documented in this encounter Plan of Treatment Not on file documented as of this encounter Visit Diagnoses Not on filedocumented in this encounter Care Teams Beam Doffer Relationship Specialty Start Date End Date Catina Rios APRN-MARIS [address] [place] [address] PCP - General Nurse Practitioner 03/30/22 documented as of this encounter
--- OUTSIDE RECORDS SUMMARY | 2024-11-01 05:20 | XMS_ITS | Patient Health Summary ---
Author Organization [facility] Address [address] [place] [address] Care Team Providers Care White Mixing Operator Name Role Phone Catina Rios APRN-OVERHEAD WORKER Primary Care Provi saloni Note from [facility],non-owned Affiliates and Associated Physician Practices is amultiple site organization consisting of ambulatory clinics and hospital sitesin [place], [place], [place] and [place]. This disclosure is being madepursuant to the Care Everywhere program and may not contain all information available regarding this patient. Last updated 18.[facility] Allergies No known active allergies Medications * Be aware that medications may not be up to date on this document. Alwaysverify current medications with the patient. * biotin 2.5 MG tablets Take 1 (one) tablet by mouth once daily * senna-docusate (Senokot-S) 8.6-50 MG tablet(Started 12/15/2022) Take 1 (one) tablet by mouth 2 times daily as needed for Constipation * ondansetron, disintegrating, (Zofran ODT) 4 MG tablet(Started 12/15/2022) Take 1 (one) tablet by mouth every 6 hours as needed for Nausea/Vomiting Allow tablet to dissolve on the tongue * oxyCODONE (Roxicodone) 5 MG/5ML oral solution(Started 12/15/2022) Take 5 mL by mouth every 6 hours as needed for Pain Active Problems Problem Noted Date Diagnosed Date Acute pancreatitis, unspecif ied complication status, unspecified pancreatitis type 12/13/2022 Transaminitis 12/13/2022 Morbid obesity 06/09/2022 Fall 02/21/2009 Asthma Immunizations * Covid Moderna primary monovalent 12+ yr 0.5mL(Given 11/20/2020) * INFLUENZA VACCINE, QUADR. (FLUZONE; FLULAVAL; FLUARIX; AFLURIA QUADRIVALENT; 6MO+), 0.5 ML (IIV4)(Given 10/18/2019) * TDAP (7yrs+)(Given 10/15/2019, 02/21/2009) Social History Tobacco Use Types Packs/Day Years [...] and heating? Not hard at all 12/14/2022 [facility] Occupat ional Health - Occupational Stress [...] place to sleep or slept in a residential (including now)? No 12/14/2022 Sex and Gender Information Value Date Recorded Sex Assigned at Not on file Gender Identity Not on file Sexual Orientation Not on file Last Filed Vital Signs Vital Sign Reading Time Taken Comments Blood Pressure 119/85 12/27/2022 11:41 AM CORPORATE DEVELOPMENT ANALYST Pulse 78 12/27/2022 11:41 AM CORPORATE DEVELOPMENT ANALYST Temperature 36.7 ??C (98.1 ??F) 12/15/2022 3:09 PM CS T Respiratory Rate 16 12/15/2022 3:09 PM CORPORATE DEVELOPMENT ANALYST Oxygen Saturation 97% 12/27/2022 11:41 AM CORPORATE DEVELOPMENT ANALYST Inhaled Oxygen Concentration - - Weight 110.2 kg (243 lb) 12/27/2022 11:41 AM CORPORATE DEVELOPMENT ANALYST Height 165.1 cm (5' 5 ) 12/27/2022 11:41 AM CORPORATE DEVELOPMENT ANALYST Body Mass Index 40.44 12/27/2022 11:41 AM CORPORATE DEVELOPMENT ANALYST Procedures * PATHOLOGY TISSUE EXAM (STL)(Performed 12/15/2022) Performed for Diagnosis unknown * ENDOTRACHEAL TUBE NOTE(Performed 12/15/2022) * NJ LAP,CHOLECYSTECTOMY(Performed 12/15/2022) * HCG URINE QUALITATIVE(Performed 12/15/2022) Performed for Preop examination * BILIRUBIN DIRECT(Performed 12/15/2022) * LIPASE BLOOD(Performed 12/15/2022) * COMPREHENSIVE METABOLIC PANEL(Performed 12/15/2022) * VITAMIN B12(Performed 12/15/2022) * CBC W/O DIFFERENTIAL(Performed 12/15/2022) * CARDIAC EKG ORDER(Performed 12/15/2022) * MRI ABDOMEN WO CONTRAST(Performed 12/14/2022) Performed for Abdominal pain, generalized, Acute pancreatitis, unspecified complication status, unspecified pancreatitis type (HCC) * US ABDOMEN LIMITED(Performed 12/14/2022) Performed for Abdominal pain, generalized * LIPASE BLOOD(Performed 12/14/2022) * PHOSPHORUS BLOOD(Performed 12/14/2022) * MAGNESIUM BLOOD(Performed 12/14/2022) * COMPREHENSIVE METABOLIC PANEL(Performed 12/14/2022) * CBC W/O DIFFERENTIAL(Performed 12/14/2022) * EKG 12-LEAD(Performed 12/13/2022) Performed for Abdominal pain, generalized * PT-INR(Performed 12/13/2022) * LIPASE BLOOD(Performed 12/13/2022) * MAGNESIUM BLOOD(Performed 12/13/2022) * COMPREHENSIVE METABOLIC PANEL(Performed 12/13/2022) * CBC W AUTO DIFFERENTIAL(Performed 12/13/2022) * GLUCOSE - POINT OF CARE(Performed 06/10/2022) * FL UGI SERIES(Performed 06/10/2022) Performed for Morbid obesity (HCC) * VITAMIN D 25-HYDROXY(Performed 06/10/2022) * CBC W AUTO DIFFERENTIAL(Performed 06/10/2022) * BASIC METABOLIC PANEL (CALCIUM TOTAL)(Performed 06/10/2022) * GLUCOSE - POINT OF CARE(Performed 06/10/2022) * GLUCOSE - POINT OF CARE(Performed 06/10/2022) * GLUCOSE - POINT OF CARE(Performed 06/09/2022) * GLUCOSE - POINT OF CARE(Performed 06/09/2022) * ENDOTRACHEAL TUBE NOTE(Performed 06/09/2022) * NJ LAP SLEEVE GASTRECTOMY(Performed 06/09/2022) * GLUCOSE - POINT OF CARE(Performed 06/09/2022) * HCG URINE QUALITATIVE(Performed 06/09/2022) Performed for Preop examination * POTASSIUM BLOOD(Performed 06/09/2022) Performed for Preop examination * EKG 12-LEAD(Performed 05/25/2022) Performed for Preop examination * VITAMIN B12(Performed 05/25/2022) Performed for Preop examination * VITAMIN B1(Performed 05/25/2022) Performed for Preop examination * FL UGI SERIES(Performed 03/30/2022) Performed for Morbid obesity due to excess calories (HCC), Preop testing, BMI 50.0-59.9, adult (HCC) * XR FOOT LEFT 3VW OR MORE(Performed 02/21/2009) Performed for Fall * XR ANKLE LEFT 3VW OR MORE(Performed 02/21/2009) Performed for Fall * XR KNEE RIGHT 2VW OR LESS(Performed 02/21/2009) Performed for Fall * HCG URINE QUALITATIVE - POINT OF CARE(Performed 02/21/2009) * MAGNESIUM BLOOD(Performed 07/18/2008) Performed for Complic Labor NEC-Antepart (HCC) * CBC W AUTO DIFFERENTIAL(Performed 07/17/2008) Performed for Complic Labor NEC-Antepart (HCC) * URIC ACID BLOOD(Performed 07/16/2008) Performed for Complic Labor NEC-Antepart (HCC) * COMPREHENSIVE METABOLIC PANEL(Performed 07/16/2008) Performed for Complic Labor NEC-Antepart (HCC) * CBC W AUTO DIFFERENTIAL(Performed 07/16/2008) Performed for Complic Labor NEC-Antepart (HCC) * IMAGING/RADIOLOGY/XRAY RESULTS ORDER(Performed 03/19/2008) * US PELVIS W TRANSVAG NON OB(Performed 09/12/2007) Performed for Abdominal Pain, Unspecified Site Results * PATHOLOGY TISSUE EXAM (STL) (12/15/2022 10:15 AM CORPORATE DEVELOPMENT ANALYST) Case Report Surgical Pathology Report ? Case: [id number] ? Authorizing Provider: ??Alverto Engel MD ?Collected: ? 12/15/2022 10:15 AM ? Ordering Location: ? [facility]S SURG/BARIATRIC ? Received: ?12/15/2022 11:25 AM ? Pathologist: ? Sia Osman MD ? Specimen: ?Gallbladder, gallbladder ? 12/17/2022 10:25 AM [facility] Final Diagnosis Gallbladder, cholecystectomy: -- Cholelithiasis with chronic cholecystitis -- Cholesterolosis 12/17/2022 10:25 AM [facility] Clinical History Acute cholecystitis, symptomatic cholelithiasis epigastric abdominal pain, RUQ abdominal pain, nausea 12/17/2022 10:25 AM [facility] Gross Description Received in formalin in [...] ranging from 0.1 cm to 0.3 cm. Core Stacker sections are submitted in cassette A1. CH/eh 12/17/2022 10:25 AM [facility] Microscopic Description Microscopic examination substantiates the above cited diagnosis. MC 12/17/2022 10:25 AM [facility] Disclaimer All histochemical and/or immunohistochemical results are interpreted with controls that demonstrate appropriate staining reactions before reporting results. Note on use of immunocytochemistry reagents: This test was developed and its performance characteristic determined by [facility], Department of Laboratory Medicine. It has not [...] be interpreted with caution. 12/17/2022 10:25 AM [facility] Embedded Images 12/17/2022 10:25 AM [facility] Pathology/Cytolo gy ENTIRE GALLBLADDER / Unknown 12/15/2022 10:15 AM CORPORATE DEVELOPMENT ANALYST 12/15/2022 11:25 AM CORPORATE DEVELOPMENT ANALYST Alverto Engel MD LAB - PATHOLOGY/CYTO LOGY ORDERABLES [facility] [address] [place] [address] * ETT LINE PERFORMABLE (12/15/2022 9:40 AM CORPORATE DEVELOPMENT ANALYST) Narrative Elaine Carson APRN-CRNA - 12/15/2022 9:40 AM CORPORATE DEVELOPMENT ANALYST Elaine Carson APRN-CRNA ? 12/15/2022 10:12 AM Endotracheal Tube Placement: ? Patient Location: OR. Intubation Event Date/Time: ??12/15/2022 9:40 AM Procedure: intubation ([id number]). Procedure Section: ?? Sedation: under general anesthesia. [...] Staff Section ? Anesthesia Provider: Elaine Carson APRN-CRNA ? Provider #1: Shanice Ureña, Performed the procedure. Additional Comments: KP SRNA placed ETT. JL FURNITURE DECALS INSPECTOR supervised. No complications.. Nabeel Barr MD GENERAL ANESTHESIA O RDERABLES * HCG URINE QUALITATIVE (12/15/2022 7:17 AM CORPORATE DEVELOPMENT ANALYST) Only the most recent of2 resultswithin the time period is included. hCG Qualitative Urine Negative Negative 12/15/2022 7:26 AM CORPORATE DEVELOPMENT ANALYST [facility] Urine URINE / Unknown Collection / Unknown 12/15/2022 7:17 AM CORPORATE DEVELOPMENT ANALYST 12/15/2022 7:21 AM CORPORATE DEVELOPMENT ANALYST Ramila Liu DO LAB - URINALYSIS ORD ERABLES [facility] [address] [place] [address] * (ABNORMAL) CBC W/O DIFFERENTIAL (12/15/2022 2:11 AM CORPORATE DEVELOPMENT ANALYST) Only the most recent of2 resultswithin the time period is included. WBC 3.5(L) 4.4 - 10.7 x10E9/L 12/15/2022 2:22 AM [facility] RBC 3.83 3.80 - 5.20 x10E12/L 12/15/2022 2:22 AM [facility] Hemoglobin 10.5(L) 12.0 - 15.6 gm/dL 12/15/2022 2:22 AM [facility] Hematocrit 31.3(L) 35.9 - 45.5 % 12/15/2022 2:22 AM [facility] MCV 81.7 80.7 - 98.3 fl 12/15/2022 2:22 AM [facility] MCH 27.4 26.7 - 34.0 pg 12/15/2022 2:22 AM [facility] MCHC 33.5 30.8 - 35.9 gm/dL 12/15/2022 2:22 AM [facility] Platelet Count 138(L) 153 - 416 x10E9/L 12/15/2022 2:22 AM [facility] RDW-CV 13.5 12.1 - 14.9 % 12/15/2022 2:22 AM [facility] MPV 12.3 9.4 - 12.9 fl 12/15/2022 2:22 AM [facility] Blood BLOOD SPECIMEN / Unknown Venipuncture / Unknown 12/15/2022 2:11 AM CORPORATE DEVELOPMENT ANALYST 12/15/2022 2:19 AM CORPORATE DEVELOPMENT ANALYST Jenny Pollard BALANCE AND HAIRSPRING ASSEMBLER-OVERHEAD WORKER LAB - HEM ATOLOGY ORDERABLES [facility] [address] [place] [address] * (ABNORMAL) COMPREHENSIVE METABOLIC PANEL (12/15/2022 2:11 AM [facility]) Only the most recent of4 resultswithin the time period is included. Glucose 71 70 - 105 mg/dL 12/15/2022 3:13 AM [facility] Sodium 142 136 - 145 mmol/L 12/15/2022 3:13 AM [facility] Potassium 3.3(L) 3.5 - 5.1 mmol/L 12/15/2022 3:13 AM [facility] Chloride 115(H) 98 - 107 mmol/L 12/15/2022 3:13 AM [facility] CO2 18(L) 23 - 31 mmol/L 12/15/2022 3:13 AM [facility] Calcium 7.2(L) 8.4 - 10.4 mg/dL 12/15/2022 3:13 AM [facility] Anion Gap 9 8 - 18 mmol/L 12/15/2022 3:13 AM [facility] BUN 11 7 - 18.7 mg/dL 12/15/2022 3:13 AM [facility] Creatinine 0.58 0.57 - 1.11 mg/dL 12/15/2022 3:13 AM [facility] Alkaline Phosphatase 115 40 - 150 U/L 12/15/2022 3:13 AM [facility] ALT 330(H) 0 - 61 U/L 12/15/2022 3:13 AM [facility] AST 75(H) 5 - 34 U/L 12/15/2022 3:13 AM [facility] Protein Total 5.0(L) 6.4 - 8.3 gm/dL 12/15/2022 3:13 AM [facility] Albumin 2.9(L) 3.5 - 5.2 gm/dL 12/15/2022 3:13 AM [facility] Bilirubin Total 0.6 0.2 - 1.2 mg/dL 12/15/2022 3:13 AM [facility] eGFR by CKD-EPI >90 >=90 mL/min/1.7 3 m2 12/15/2022 3:13 AM CORPORATE DEVELOPMENT ANALYST [facility] Blood BLOOD SPECIMEN / Unknown Venipuncture / Unknown 12/15/2022 2:11 AM CORPORATE DEVELOPMENT ANALYST 12/15/2022 2:19 AM CORPORATE DEVELOPMENT ANALYST Jenny Pollard BALANCE AND HAIRSPRING ASSEMBLER-OVERHEAD WORKER LAB - JEREMY CALVIN ORDERABLES Performing Organization Address City/[facility] Co de Phone Number [facility] [address] [place] [address] [phone] * LIPASE BLOOD (12/15/2022 2:11 AM CORPORATE DEVELOPMENT ANALYST) Only the most recent of3 resultswithin the time period is included. Lipase 18 8 - 78 U/L 12/15/2022 3:13 AM CORPORATE DEVELOPMENT ANALYST [facility] Blood BLOOD SPECIMEN / Unknown Venipuncture / Unknown 12/15/2022 2:11 AM CORPORATE DEVELOPMENT ANALYST 12/15/2022 2:19 AM CORPORATE DEVELOPMENT ANALYST Jenny Pollard BALANCE AND HAIRSPRING ASSEMBLER-[facility] LAB - JEREMY CALVIN ORDERABLES Performing Organization Address [facility] de Phone Number [facility] [address] [place] [phone] * BILIRUBIN DIRECT (12/15/2022 2:11 AM CORPORATE DEVELOPMENT ANALYST) Bilirubin Direct 0.3 0.10 - 0.50 mg/dL 12/15/2022 3:13 AM CORPORATE DEVELOPMENT ANALYST [facility] Blood BLOOD SPECIMEN / Unknown Venipuncture / Unknown 12/15/2022 2:11 AM CORPORATE DEVELOPMENT ANALYST 12/15/2022 2:19 AM CORPORATE DEVELOPMENT ANALYST Alverto Engel MD LAB - CHEMISTRY MARIBEL WEISS Performing Organization Address [facility] Co de Phone Number [facility] [address] [place] [address] [phone] * VITAMIN B12 (12/15/2022 2:11 AM CORPORATE DEVELOPMENT ANALYST) Only the most recent of2 resultswithin the time period is included. Vitamin B12 372 213 - 816 pg/mL 12/15/2022 3:42 AM CORPORATE DEVELOPMENT ANALYST [facility] Blood BLOOD SPECIMEN / Unknown Venipuncture / Unknown 12/15/2022 2:11 AM CORPORATE DEVELOPMENT ANALYST 12/15/2022 2:19 AM CORPORATE DEVELOPMENT ANALYST Aaliyah Del Valle MD LAB - CHEMISTRY EVENSE ABHISHEK [facility] [address] [place] [address] * CARDIAC EKG ORDER (12/15/2022 1:32 AM CORPORATE DEVELOPMENT ANALYST) Narrative 12/15/2022 1:32 AM CORPORATE DEVELOPMENT ANALYST Ordered by an unspecified provider. Scanned Document CARDIAC SERVICES ORD ERABLES * MRI MRCP (12/14/2022 12:27 PM CORPORATE DEVELOPMENT ANALYST) Anatomical Region Laterality Modality Abdomen Magnetic Resonan ce 12/14/2022 12:4 5 PM CORPORATE DEVELOPMENT ANALYST Impressions 12/14/2022 12:50 PM CORPORATE DEVELOPMENT ANALYST IMPRESSION: Cholelithiasis and gallbladder wall thickening. Correlate clinically for cholecystitis. Slightly dilated extrahepatic bile duct to 7 mm. No appreciable choledocholithiasis. Pancreas and pancreatic duct within normal limits. > Interpreting Provider: Josee Huang MD on 12/14/2022 12:50 PM Narrative 12/14/2022 12:50 PM CORPORATE DEVELOPMENT ANALYST MRI/MRCP Abdomen without Contrast INDICATION: Generalized abdominal [...] imaged osseous structures are unremarkable. Procedure Note Josee Huang MD - 12/14/2022 MRI/MRCP Abdomen without [...] duct within normal limits. > Interpreting Provider: Josee Huang MD on 12/14/2022 12:50 PM Alverto Engel MD MR ORDERABLES * US ABDOMEN LIMITED (RUQ) (12/14/2022 8:43 AM CORPORATE DEVELOPMENT ANALYST) Anatomical Region Laterality Modality Abdomen Ultrasound 12/14/2022 9:03 AM CORPORATE DEVELOPMENT ANALYST Impressions 12/14/2022 9:10 AM CORPORATE DEVELOPMENT ANALYST IMPRESSION: Thickened gallbladder wall with gallstones. This consistent with cholecystitis. Distended CBD. Possibility of a stone down the common bile duct should be considered. This could be assessed with MRCP > Interpreting Provider: Dwayne Pires MD on 12/14/2022 9:10 AM Narrative 12/14/2022 9:10 AM CORPORATE DEVELOPMENT ANALYST Ultrasound Abdomen Limited Indication: Elevated liver function [...] 9:10 AM Frank Appiah DO ORDERABLES * PHOSPHORUS BLOOD (12/14/2022 2:11 AM CORPORATE DEVELOPMENT ANALYST) [facility] Phosphorus 4.2 2.3 - 4.7 mg/dL 12/14/2022 2:55 AM CORPORATE DEVELOPMENT ANALYST [facility] Blood BLOOD SPECIMEN / Unknown Venipuncture / Unknown 12/14/2022 2:11 AM CORPORATE DEVELOPMENT ANALYST 12/14/2022 2:30 AM CORPORATE DEVELOPMENT ANALYST Hilaria Dowell MD LAB - CHEMISTRY MARIBEL WEISS [facility] [address] [place] [address] * MAGNESIUM BLOOD (12/14/2022 2:11 AM CORPORATE DEVELOPMENT ANALYST) Only the most recent of3 resultswithin the time period is included. [facility] Magnesium 1.6 1.6 - 2.6 mg/dL 12/14/2022 2:55 AM CORPORATE DEVELOPMENT ANALYST [facility] Blood BLOOD SPECIMEN / Unknown Venipuncture / Unknown 12/14/2022 2:11 AM CORPORATE DEVELOPMENT ANALYST 12/14/2022 2:30 AM CORPORATE DEVELOPMENT ANALYST Hilaria Dowell MD LAB - CHEMISTRY MARIBEL WEISS Performing Organization Address [facility] Co de Phone Number [facility] [address] [place] [address] * EKG 12-LEAD (12/13/2022 5:36 PM CORPORATE DEVELOPMENT ANALYST) Only the most recent of2 resultswithin the time period is included. Ventricular Rate 80 BPM [facility] Atrial Rate 80 BPM [facility] P-R Interval 160 ms [facility] QRS Duration ms 90 ms [facility] Q-T Interval ms 376 ms [facility] QTC Calculation (Bezet) 433 ms [facility] Calculated P Belf[place] 24 degrees [facility] Calculated R [place] 13 degrees [facility] Calculated T [place] 19 degrees [facility] Interpretation EKG Normal sinus rhythm Normal ECG Confirmed by CAMELIA SAMANO MD ([id number]) on 12/14/2022 8:36:33 PM [facility] 12/13/2022 5:36 PM CORPORATE DEVELOPMENT ANALYST 12/14/2022 8:36 PM CORPORATE DEVELOPMENT ANALYST Frank Appiah DO ECG ORDERABLES Performing Organization Address [facility] Co de Phone Number [facility] * PT-INR (12/13/2022 5:27 PM CORPORATE DEVELOPMENT ANALYST) PT 13.7 12.1 - 14.8 sec 12/13/2022 5:49 PM CORPORATE DEVELOPMENT ANALYST [facility] INR 1.1 0.9 - 1.1 12/13/2022 5:49 PM CORPORATE DEVELOPMENT ANALYST [facility] Blood BLOOD SPECIMEN / Unknown Venipuncture / Unknown 12/13/2022 5:27 PM CORPORATE DEVELOPMENT ANALYST 12/13/2022 5:37 PM CORPORATE DEVELOPMENT ANALYST Narrative [facility] - 12/13/2022 5:49 PM CORPORATE DEVELOPMENT ANALYST Conventional Warfarin Anticoagulant Therapy: INR Reference Range: ??2.0-3.0 Intensive Warfarin Anticoagulant Therapy: INR Reference Range: ? 2.5-3.5 Frank Appiah DO LAB - COAGULATION OR DERABLES [facility] [address] [place] [address] * (ABNORMAL) CBC W AUTO DIFFERENTIAL (12/13/2022 5:27 PM CORPORATE DEVELOPMENT ANALYST) Only the most recent of4 resultswithin the time period is included. WBC 7.2 4.4 - 10.7 x10E9/L 12/13/2022 5:42 PM [facility] WBC Corrected 12/13/2022 5:42 PM [facility] RBC 4.59 3.80 - 5.20 x10E12/L 12/13/2022 5:42 PM [facility] Hemoglobin 12.8 12.0 - 15.6 gm/dL 12/13/2022 5:42 PM [facility] Hematocrit 37.7 35.9 - 45.5 % 12/13/2022 5:42 PM [facility] MCV 82.1 80.7 - 98.3 fl 12/13/2022 5:42 PM [facility] MCH 27.9 26.7 - 34.0 pg 12/13/2022 5:42 PM [facility] MCHC 34.0 30.8 - 35.9 gm/dL 12/13/2022 5:42 PM [facility] Platelet Count 184 153 - 416 x10E9/L 12/13/2022 5:42 PM [facility] RDW-CV 13.4 12.1 - 14.9 % 12/13/2022 5:42 PM [facility] MPV 13.0(H) 9.4 - 12.9 fl 12/13/2022 5:42 PM [facility] Neutrophils % 78.1(H) 44.0 - 73.0 % 12/13/2022 5:42 PM [facility] Lymphocytes % 15.0(L) 20.0 - 43.0 % 12/13/2022 5:42 PM CORPORATE DEVELOPMENT ANALYST [facility] Monocytes % 5.3 5.0 - 13.0 % 12/13/2022 5:42 PM CORPORATE DEVELOPMENT ANALYST [facility] Eosinophils % 0.6 0.0 - 6.0 % 12/13/2022 5:42 PM CORPORATE DEVELOPMENT ANALYST [facility] Basophils % 0.4 0.0 - 2.0 % 12/13/2022 5:42 PM CORPORATE DEVELOPMENT ANALYST [facility] Immature Granulocytes 0.6 0 - 1 % 12/13/2022 5:42 PM CORPORATE DEVELOPMENT ANALYST [facility] Neutrophil Absolute 5.65 2.01 - 7.14 x10E9/L 12/13/2022 5:42 PM CORPORATE DEVELOPMENT ANALYST [facility] Lymphocytes Absolute 1.08 1.07 - 3.94 x10E9/L 12/13/2022 5:42 PM CORPORATE DEVELOPMENT ANALYST [facility] Monocytes Absolute 0.38 0.26 - 1.07 x10E9/L 12/13/2022 5:42 PM [facility] Eosinophils Absolute 0.04 0 - 0.47 x10E9/L 12/13/2022 5:42 PM [facility] Basophils Absolute 0.03 0 - 0.08 x10E9/L 12/13/2022 5:42 PM [facility] Immature Granulocytes Absolute 0.04 0.00 - 0.06 x10E9/L 12/13/2022 5:42 PM [facility] nRBC Auto 0 /100 WBC 12/13/2022 5:42 PM [facility] Blood BLOOD SPECIMEN / Unknown Venipuncture / Unknown 12/13/2022 5:27 PM CORPORATE DEVELOPMENT ANALYST 12/13/2022 5:37 PM [facility] Frank Appiah DO LAB - HEMATOLOGY ORD ERABLES [facility] [address] [place] [address] * (ABNORMAL) GLUCOSE - POINT OF CARE (06/10/2022 11:16 AM CDT) Only the most recent of6 resultswithin the time period is included. [facility] Glucose WB/POC 119(H) 70 - 106 mg/dL 06/10/2022 11:21 AM CDT [facility] Specimen Type Arterial 06/10/2022 11:21 AM CDT [facility] Blood BLOOD SPECIMEN / Unknown 06/10/2022 11:16 AM CDT 06/10/2022 11:21 AM CDT Alverto Engel MD LAB - POINT OF CARE ORDERABLES [facility] [address] [place] [address] * FL UGI SERIES WO KUB (06/10/2022 9:00 AM CDT) Only the most recent of2 resultswithin the time period is included. Anatomical Region Laterality Modality Abdomen Radiographic Miriam [...] surgery. No leak identified. > Interpreting Provider: Josee Leos MD on 06/10/2022 9:18 AM Procedure Note Josee Leos MD - 06/10/2022 Examination: Water-soluble upper [...] surgery. No leak identified. > Interpreting Provider: Josee Leos MD on 06/10/2022 9:18 AM Alverto Engel MD FLUOROSCOPY ORDERABL ES * (ABNORMAL) VITAMIN D 25-HYDROXY (06/10/2022 5:18 AM CDT) Vitamin D, 25 Hydroxy 21.5(L) 30 - 100 ng/mL 06/10/2022 6:28 AM CDT [facility] Blood BLOOD SPECIMEN / Unknown Venipuncture / Unknown 06/10/2022 5:18 AM CDT 06/10/2022 5:36 AM CDT [facility] - 06/10/2022 6:28 AM CDT Vitamin D Status: ?Deficiency ? <20 ? ng/mL ?Insufficiency ?? 20-30 ??ng/mL ?Sufficiency ? 30-100 ng/mL ?Toxicity ? >100 ?ng/mL Alverto Engel MD LAB - CHEMISTRY MARIBEL WEISS [facility] [address] [place] [address] * (ABNORMAL) BASIC METABOLIC PANEL (CALCIUM TOTAL) (06/10/2022 5:18 AM CDT) Glucose 130(H) 70 - 105 mg/dL 06/10/2022 6:04 AM CDT [facility] Sodium 139 136 - 145 mmol/L 06/10/2022 6:04 AM CDT [facility] Potassium 4.1 3.5 - 5.1 mmol/L 06/10/2022 6:04 AM CDT [facility] Chloride 112(H) 98 - 107 mmol/L 06/10/2022 6:04 AM CDT [facility] CO2 21(L) 23 - 31 mmol/L 06/10/2022 6:04 AM CDT [facility] Calcium 8.8 8.4 - 10.4 mg/dL 06/10/2022 6:04 AM CDT [facility] Anion Gap 6(L) 8 - 18 mmol/L 06/10/2022 6:04 AM CDT [facility] BUN 8 7 - 18.7 mg/dL 06/10/2022 6:04 AM CDT [facility] Creatinine 0.74 0.57 - 1.11 mg/dL 06/10/2022 6:04 AM CDT [facility] eGFR by CKD-EPI >90 >=90 mL/min/1.7 3 m2 06/10/2022 6:04 AM CDT [facility] Blood BLOOD SPECIMEN / Unknown Venipuncture / Unknown 06/10/2022 5:18 AM CDT 06/10/2022 5:36 AM CDT Alverto Engel MD LAB - CHEMISTRY [facility] [id number] [place] [address] * ETT LINE PERFORMABLE (06/09/2022 9:44 AM CDT) Narrative Jacki Valentine APRN-CRNA - 06/09/2022 9:44 AM CDT Jacki Valentine APRN-CRNA ? 06/09/2022 ??9:45 AM Endotracheal Tube Placement: ? Patient Location: OR. Intubation Event Date/Time: ??06/09/2022 9:26 AM Procedure: intubation ([id number]). Procedure Section: ?? Sedation: under general anesthesia. Indications for Airway Management: ??anesthesia Induction: standard IV and patient unconcious Patient Position: ??sniffing Mask Ventilation: easy. Blade Type: Bhardwaj Blade Size: 2 Laryngoscopy View: grade 1 (full cords) Intubation Adjuncts: stylet and cricoid pressure Tube: endotracheal tube Placement: oral Tube type: cuff - inflated Tube Size (MM): 7 Depth of Insertion (CM): 20 Measured From: lips Cuff volume (mL): ??7 Cuff Inflated With: air Number of Attempts: 1. Placement Verified By: direct visualization, bilateral breath sounds, chest auscultation and CO2 monitor Tube secured with: ??adhesive tape. Dentition unchanged? ??Yes Difficult Airway? ??No. Procedure Start Time: 06/09/2022 9:26 AM. Staff Section ? Anesthesia Provider: Jacki Valentine APRN-CRNA, Performed the procedure Nabeel Barr MD GENERAL ANESTHESIA O RDERABLES * POTASSIUM BLOOD (06/09/2022 7:33 AM CDT) Potassium 3.8 3.5 - 5.1 mmol/L 06/09/2022 7:56 AM CDT [facility] Blood BLOOD SPECIMEN / Unknown Venipuncture / Unknown 06/09/2022 7:33 AM CDT 06/09/2022 7:47 AM CDT Alverto Engel MD LAB - CHEMISTRY MARIBEL [facility] [address] [id number] * VITAMIN B1 (05/25/2022 10:29 AM CDT) Pathologist [facility] Vitamin B1 Whole Blood 108.3 66.5 - 200.0 nmol/L 05/28/2022 10:10 AM CDT [facility] ([facility]) Blood BLOOD SPECIMEN / Unknown Venipuncture / Unknown 05/25/2022 10:29 AM CDT 05/25/2022 11:15 AM CDT Narrative [facility] ([facility]) - 05/28/2022 10:10 AM CDT Test(s) [id number]. B1, Whole Blood was developed and its performance characteristics determined by [facility]. It has not been cleared or approved by the Food and Drug Administration. Performed at: ??01 - [facility] ??[id number] Pharmaceutical Representative: Herbie Barakat MD, Phone: ??[phone] Alverto Engel MD LAB - CHEMISTRY MARIBEL WE[facility] Performing Organization Address City/[facility]/ZIP Co de Phone Number [facility] ([facility]) [address] [place] [address] * XR FOOT 3+ VW LEFT (02/21/2009 [...] joints are normal. IMPRESSION Negative examination. Dwayne ARRIAGA-C DIAGNOSTIC IMAGING O RDERABLES * XR ANKLE [...] PM CDT) HCG Qual Urine negative Negative [facility] Verified yes Yes [facility] POC T TESTING Urine specimen (specimen) URINE / Unknown 02/21/2009 3:00 PM CDT Dwayne Hodge PA-C LAB - POINT OF CARE ORDERABLES Performing Organization Address City/[facility]/ZIP Co de Phone Number [facility] POCT TESTING [address] [place] [address] * URIC ACID BLOOD (07/16/2008 3:15 AM CDT) Uric Acid 3.4 3.0 - 5.8 mg/dL [facility] BLOOD SPECIMEN / Unknown 07/16/2008 3:15 AM CDT 07/16/2008 3:27 AM CDT Luis Fernando Vega MD LAB - CHEMISTRY MARIBEL WEISS Performing Organization Address City/[facility] Co de Phone Number [facility] [address] [place] [address] * IMAGING/RADIOLOGY/XRAY RESULTS ORDER (03/19/2008 5:03 PM CDT) Anatomical Region Laterality Modality Other Narrative 03/19/2008 5:03 PM CDT Ordered by an unspecified provider. Transcriptions Document, Scanned - 03/18/2008 12:00 AM CDT Scanned Document IMAGING * US PELVIS WITH TRANSVAG NON OB (09/12/2007 1:00 PM CORPORATE DEVELOPMENT ANALYST) Anatomical Region Laterality Modality Pelvis Other 09/12/2007 1:00 PM CORPORATE DEVELOPMENT ANALYST Narrative 09/12/2007 1:59 PM CORPORATE DEVELOPMENT ANALYST Ultrasound pelvis including transvaginal evaluation- HISTORY- Right-sided [...] ? Released Date Time- 09/12/07 1400 ? [facility] ? ADM- JOSEE KAUFFMAN ?ATT- JOSEE KAUFFMAN REF- JOSEE KAUFFMAN ?CON- PCP- JOSEE KAUFFMAN ?SCP- Josee Kauffman MD ORDERABLES Care Teams White Mixing Operator Relationship Specialty Start Date End Date Catina iRos, BALANCE AND HAIRSPRING ASSEMBLER-OVERHEAD WORKER [address] [place] [address] PCP - General Nurse Practitioner 03/30/22
--- OUTSIDE RECORDS SUMMARY | 2024-11-01 05:20 | XMS_ITS | Encounter Summary ---
Author Organization [facility] Address [address] [place] [address] Care Team Providers Care Healthcare Economics Consultant Name Role Phone Catina Rios APRN-[facility] Primary Care Provi saloni Reason for Visit * Reason Comments Diet Encounter Details Date Type Department Care Team (Latest Contact Info) Description 05/14/2022 9:45 AM CDT Clinical Support [facility] Weight Management Services [address] [place] [id number] Morbid obesity (HCC) Social History Tobacco Use [...] - Weight 142 kg (313 lb) 05/14/2022 10:06 AM CDT Height 165.1 cm (5' 5 ) 05/14/2022 10:06 AM CDT Body Mass Index 52.09 05/14/2022 10:06 AM CDT documented in this encounter Progress Notes * Marcial Garza, MAC/LD - 05/14/2022 9:41 AM CDT Weight Management Medical Nutrition Therapy Session 3 Date: 05/14/2022 Patient: Marika Garcia Arsh Date of : 1990 (31 year old) PCP Physician: Catina Rios, DISPATCH COORDINATOR-QUILL MACHINE OPERATOR Referring Physician: Alverto Engel MD Assessment: Pt planning sleeve. 1 lb weight loss from previous visit / 18 lb net weight loss. Pt appears to have made appropriate dietary and behavioral changes recommended to her. Protein, fluids, and activity are all adequate. Diet recall suggests similar intake to previous assessment. Diet principles, diet progression, and MVA/Ca have all been discussed with pt, and pt has no additional questions. Past Medical History: Diagnosis Date ??? Asthma does not use inhaler Pertinent Nutrition Medications: Reviewed Pertinent Nutrition Labs: Reviewed Clinical Data: Height: 5' 5 (165.1 cm) Weight: (!) 313 lb (142 kg) BMI (Calculated): 52.[address] visit: 331 Diagnostic Statement: Obesity related to excess energy intake and decreased physical activity AEB elevated BMI. Interventions: Bariatric Nutrition Guide provided and reviewed, including: portion sizes using food models, post-surgery diet progression, post-surgery protein requirements/protein supplements, Bariatric vitamin/mineral supplementation recommendations, adequate hydration, proper eating habits, potential Bariatric post-op concerns: dumping syndrome, nausea/vomiting, constipation, importance of routine activity, no alcohol/carbonation, and attending support group, tips for dining out and goals for a lifetime ofsuccess and previous food records, goals, and behavior [...] ?? Cleared, no additional RD visits required _X__ ?? Not cleared, additional RD visit(s) required ___ ?? Continue with Medically Managed Diet visits ___ ?? Bariatric Case Conference review required ___ Session Information Session date: 05/14/2022 Session total minutes: [address]/[place] documented in this encounter Plan of Treatment Not on file documented as of this encounter Visit Diagnoses Diagnosis Morbid obesity (HCC)- Primary Morbid obesity documented in this encounter Care Teams Healthcare Economics Consultant Relationship Specialty Start Date End Date Catina Rios APRN-QUILL MACHINE OPERATOR [address] [place] [address] PCP - General Nurse Practitioner 03/30/22 documented as of this encounter
--- OUTSIDE RECORDS SUMMARY | 2024-11-01 05:20 | XMS_ITS | Encounter Summary ---
Author Organization [facility] Address [address] [facility] [place] [address] Care Team Providers Care Chemical Plant Worker Name Role Phone Catina Rios [facility] Primary Care Provi saloni Reason for Visit * Auth/Cert Specialty Diagnoses / Procedures Referred By Contac t Referred To Contact Procedures LAPAROSCOPIC GASTRECTOMY (LONGITUDINAL/SLEEVE) Referral ID Status Reason Start Date Expiration Date Visits Re quested Visits Authorized [id number] 1 1 Encounter Details Date Type Department Care Team (Late st Contact Info) Description 06/09/2022 9:19 AM CDT Anesthesia Event [facility] - Perioperative Surgery [address] [place] [id number] Nabeel Barr MD [facility] [address] [facility] [address] [place] [address] Anesthesia Record Procedure Summary Procedure Name Responsible Anesthesiologist Anesthesia Start Time Anesthesia Stop Time LAPAROSCOPIC VERTICAL SLEEVE GASTRECTOMY (Abdomen) Nabeel Barr MD 06/09/22 0919 06/09/22 1043 Events Date Time Event Comment 06/09/2022 0730 0919 An Start 0921 An Start Data 0923 PT Reassessment 0924 An Induction 0926 An Intubation 0937 Timeout Anesthesia part icipated in timeout at the time documented in the record by nursing. 1035 An Emergence 1035 Extubation 1035 Electnc Sig This record is electronically signed by the providers listed under staff. 1035 an stop data 1035 ANPTO2 1043 An Stop Meds Name Total midazolam 2 mg/2mL injection 2 mg fentaNYL 100 mcg/2mL injection 100 mcg lidocaine 1% (PF) injection (50 mg/5mL) 50 mg propofol 200 mg/20mL injection 200 mg succinylcholine (ANECTINE) 100 mg/5 mL i njection 160 mg rocuronium 50 mg/5mL injection 50 mg ondansetron 4 mg/2mL injection 4 mg phenylephrine 100 mcg/mL solution 100 mc g dexamethasone 4 mg/mL injection 4 mg ceFAZolin (Ancef) 3,000 mg in 115 mL IVP B 3 g ketamine 100 mg/2mL injection 50 mg diphenhydrAMINE 50 mg/mL injection 12.5 mg dexmedeTOMIDine 200 mcg/2mL vial 10 mcg labetalol 20 mg/4mL injection 20 mg sugammadex 200 mg/2mL injection 300 mg lactated ringers infusion 1,000 mL * Agents Name Exp. Sevoflurane Exp. N2O O2 Insp. Sevoflurane * Blood No blood administrations on file. Lines, Drains, and Airways Type Details Placement Removal Peripheral IV Date: 06/09/22; Time : 0737; Orientation: Left; Placed By: CODY Cummins; Tolerance: Well 06/09/22 0737 by Demi Horn RN 06/10/22 1544 by Jose G Banks RN ETT Date: 06/09/22; Time : 09; Placed By: BRANDY Tanner; Vent: easy mask; Induction: Standard IV; Blade Type: Bhardwaj; Blade Size: 2; Laryngoscopy View: Grade 1 (full cords); Intubation Adjuncts: Stylet, Cricoid Pressure; Tube: Endotracheal Tube; Placement: Oral; Tube Type: Cuffed-inflated; Tube Size(mm): 7 MM; Depth of Insertion: 20 CM; Measured From: lips; Attempts: 1; Cuff Infated: Air; Cuff Vol(mL): 7 mL; Verified By: Direct visualization, Bilateral breath sounds, Chest Auscultation, CO2 Monitor 06/09/22 0926 by Jacki Valentine APRN-CRNA 06/09/22 1035 by Jacki Valentine APRN-CRNA Procedural Site (Incision) 06/09/22; 0937; Upper; Abdomen; 06/11/22; 0121 06/09/22 0937 by Mery Polanco RN 06/11/22 0121 by Generic, Auto Release documented in this [...] as of this encounter Progress Notes * Jacki Valentine, LOUIE-METHODS TIME ANALYST - 06/09/2022 10:48 AM CDT ANESTHESIA POSTOP EVALUATION NOTE Procedure: LAPAROSCOPIC VERTICAL SLEEVE GASTRECTOMY POSSIBLE OPEN (N/A Abdomen) Marika Caban is a 31 year old female Patient Vitals for the past 6 hrs: BP Temp Pulse Resp SpO2 Pain Rating Score #1 Pain Scale/Observation 06/09/22 0735 160/93 96.9 ??F (36.1 ??C) 77 18 99 % 0 N Anesthesia Type: general ETT * No Diagnosis Codes entered * Mental Status: awake, oriented, sufficiently recovered from acute administration of anesthesia to participate in the evaluation and arousable Neuro Status: No numbness, tingling or visual disturbances Respiratory Function: natural Cardiac Function: stable Postop Pain: acceptable to the patient Postop Hydration: adequate Postop Nausea: none Assessment: no apparent anesthetic complications and patient tolerated procedure well Patient Disposition: Release from Anesthesia Care COMPLICATIONS: No complications documented. * Nabeel Barr MD - 06/09/2022 7:22 AM CDT ANESTHESIA PREOPERATIVE EVALUATION NOTE Procedure: LAPAROSCOPIC VERTICAL SLEEVE GASTRECTOMY POSSIBLE OPEN (Abdomen) Vitals: No data found. LMP: Patient's last menstrual period was 05/10/2022 (exact date). OB Status: Having periods ANESTHESIA PRE-EVALUATION NOTE The patient is a current non-smoker. Physical Exam: Orientation X3 Airway/Mallampati Score: II Mouth Opening Distance: 3 fingerwidths Neck ROM: full TM Distance: > 3 FB Teeth: normal Heart: normal - S1 S2 Lungs: clear to ausculation bilaterally Abdomen Exam: obese Review of Systems: History of anesthetic complications: No Diagnostic Tests: Lab(s) reviewed: Yes. ANESTHESIA PLAN ASA Score: 3 NPO Status: No solids since midnight and No liquids within 2 hours Anesthesia Plan: general ETT Planned Induction: intravenous Planned Postop Destination: PACU Anesthetic plan was discussed with: patient Anesthetic Plan discussion was: Consented The patient's procedural Anesthetic Plan was discussed with the anesthesiologist and METHODS TIME ANALYST. Overall additional findings/comments: I discussed the patients planned procedure, risks, benefits and alternative to general anesthesia. Discussed dental/oropharyngeal injury, pain, and nausea/vomitting. Patient deferred discussion of serious risks. I have informed the patient that the anesthetic wi ll be provided by a nurse power generation equipment repairer in the operating room/procedure suite. I answered any questions and the patient elected to proceed. BMI, Height, Weight Tobacco History Estimated body mass index is 49.89 kg/m?? as calculated from the following: Height as of this encounter: 1.651 m (5' 5 ). Weight as of this encounter: 136 kg (299 lb 12.8 oz). Social History Tobacco Use Smoking Status Never Smoker Smokeless Tobacco Never Used Alcohol History Drug History Social History Substance and Sexual Activity Alcohol Use No Social History Substance and Sexual Activity Drug Use No Outpatient Medications: Inpatient Medications: No outpatient medications have been marked as taking for the 06/09/22 encounter (Hospital Encounter). No current facility-administered medications for this encounter. Allergies: No Known Allergies Relevant Problems No relevant active problems Problem List: Patient Active Problem List Diagnosis Date Noted ??? Fall 02/21/2009 ??? Asthma does not use inhaler Medical History: Past Medical History: Diagnosis Date ??? Asthma does not use inhaler Surgical History: Past Surgical History: Procedure Laterality Date ??? BILATERAL TUBAL LIGATION (BTL) REVERSAL ??? Section x3 ROBOTICS APPLICATION ENGINEER Status: Patient's last menstrual period was 05/10/2022 (exact date). Having periods OB History Para Term AB Living 1 1 0 1 0 1 SAB IAB Ectopic Multiple Live Births 0 0 0 0 1 # Outcome Date GA Lbr Chapito/2nd Weight Sex Delivery Anes PTL Lv 1 07/16/08 35w5d 3387 g (7 lb 7.5 oz) M P SHAYLEE Name: HUGO ALAN Apgar1: 9 Apgar5: 9 Covid Vaccine: Lab Results: No results found for requested labs within last 120 days. No results found for requested labs within last 120 days. documented in this encounter Procedure Notes * Jacki Valentine, TACK COVERER-METHODS TIME ANALYST - 06/09/2022 9:44 AM CDTAssociated Order(s): ETT Placement Endotracheal Tube Placement: Patient Location: OR. Intubation Event Date/Time: 06/09/2022 9:26 AM Procedure: intubation (42936). Procedure Section: Sedation: under general anesthesia. Indications for Airway Management: anesthesia Induction: standard IV and patient unconcious Patient Position: sniffing Mask Ventilation: easy. Blade Type: Bhardwaj Blade Size: 2 Laryngoscopy View: grade 1 (full cords) Intubation Adjuncts: stylet and cricoid pressure Tube: endotracheal tube Placement: oral Tube type: cuff - inflated Tube Size (MM): 7 Depth of Insertion (CM): 20 Measured From: lips Cuff volume (mL): 7 Cuff Inflated With: air Number of Attempts: 1. Placement Verified By: direct visualization, bilateral breath sounds, chest auscultation and CO2 monitor Tube secured with: adhesive tape. Dentition unchanged? Yes Difficult Airway? No. Procedure Start Time: 06/09/2022 9:26 AM. Staff Section Anesthesia Provider: Jacki Valentine APRN-CRNA, Performed the procedure documented in this encounter Miscellaneous Notes * Addendum Note - Jacki Valentine APRN-CRNA - 06/09/2022 10:50 AM CDT Addendum created 06/09/22 1050 by Jacki Valentine APRN-CRNA Intraprocedure Meds edited * Anesthesia Transfer of Care - Jacki Valentine APRN-CRNA - 06/09/2022 10:43 AM CDT ANESTHESIA TRANSFER OF CARE NOTE Today's Date: 06/09/2022 Date of : 1990 Patient: Marika Radha Caban Procedure(s): LAPAROSCOPIC VERTICAL SLEEVE GASTRECTOMY POSSIBLE OPEN Surgeon(s): Primary: Alverto Engel MD Preop Diagnosis: * No Diagnosis Codes entered * Pre-op Meds (From admission, onward) Start Stop Status Route Frequency Ordered 06/09/22 07 acetaminophen (Tylenol) tablet 1,000 mg 06/09 738 Completed PO ONCE 06/09/2272506/09/22 07 ceFAZolin (Ancef) 3,000 mg in 115 mL IVPB 06/09 921 Completed IV PRE-OP ONCE 06/09/22 0706/09/22 07 celecoxib (CeleBREX) capsule 400 mg 06/09 738 Completed PO PRE-OP ONCE 06/09/22 0706/09/22729 famotidine (Pepcid) injection 20 mg 06/09 738 Completed IV PRE-OP ONCE 06/09/22 0706/09/22729 heparin injection 5,000 Units 06/09 738 Completed SC PRE-OP ONCE 06/09/22 0706/09/22729 lactated ringers infusion 06/09 729 Dispensed IV CONTINUOUS 06/09/2272506/09/22729 lactated ringers infusion 06/09 729 Dispensed IV PRE-OP CONTINUOUS 06/09/22 0726 06/09/22729 lidocaine PF (Xylocaine MPF) 1 % injection 0.5 mL 06/09 1929 Verified INFILTRATION PRE-OP ONCE 06/09/2272506/09/22725 scopolamine (Transderm-Scop) 1 patch And Linked Group Details -- Verified TD EVERY 72 HOURS 06/09/2272506/09/22 09 scopolamine patch placement confirmation And Linked Group Details -- Verified TD 2 TIMES DAILY 06/09/22725 * No Diagnosis Codes entered * . No Known Allergies Vitals: No data found. Lines, Drains, and Airways Type Details Placement Removal Peripheral IV Date: 06/09/22; Time: 736; Orientation: Left; Location: Wrist; Placed By: CODY Cummins; Gauge: 20 Gauge; Locals: None; Tolerance: Well 06/09/22736 by Demi Horn RN ETT Date: 06/09/22; Time: 925; Placed By: BRANDY Tanner; Vent: easy mask; Induction: Standard IV; Blade Type: Bhardwaj; Blade Size: 2; Laryngoscopy View: Grade 1 (full cords); Intubation Adjuncts: Stylet, Cricoid Pressure; Tube: Endotracheal Tube; Placement: Oral; Tube Type: Cuffed-inflated; Tube Size(mm): 7 MM; Depth of Insertion: 20 CM; Measured From: lips; Attempts: 1; Cuff Infated: Air; Cuff Vol(mL): 7 mL; Verified By: Direct visualization, Bilateral breath sounds, Chest Auscultation, CO2 Monitor 06/09/22925 by Jacki Valentine APRN- CRNA 06/09/22 1035 by Jacki Valentine APRN-CRNA Intraprocedure I/O Totals Intake lactated ringers infusion 1000.00 mL Total Intake 1000 mL Patient Transfer Location: PACU Transport Airway: spontaneous [...] of report from the receiving PACUteam. BRANDY Tanner documented in this encounter Plan of Treatment Not on file documented as of this encounter Procedures Procedure Name Priority Date/Time Associated Diagnosis Comments ENDOTRACHEAL TUBE NOTE Routine 06/09/2022 9:44 AM CDT documented in this encounter Results * ETT LINE PERFORMABLE (06/09/2022 9:44 AM CDT) Narrative Jacki Valentine APRN-CRNA - 06/09/2022 9:44 AM CDT Jacki Valentine APRN-CRNA ? 06/09/2022 ??9:45 AM Endotracheal Tube Placement: ? Patient Location: OR. Intubation Event Date/Time: ??06/09/2022 9:26 AM Procedure: intubation ([id number]). Procedure Section: ?? Sedation: under general anesthesia. [...] AM. Staff Section ? Anesthesia Provider: Jacki Valentine, LOUIE-METHODS TIME ANALYST, Performed the procedure Nabeel Barr MD GENERAL ANESTHESIA O JORGE documented in this encounter Visit Diagnoses Not on filedocumented in this encounter Administered Medications Inactive Administered Medications - up to 3 most recent administrations Medication Order MAR Action Action Date Dose Rate Site ceFAZolin (Ancef) 3,000 mg in 115 mL IVPB 3,000 mg (3 g), at 230 mL/hr, Intravenous, PRE-OP ONCE, 1 dose, On Tue06/09/22 at 0730, Administer 30 minutes prior to surgical incision. Refrigerate, Indication for anti-infective therapy: Surgical prophylaxis, Pre-op $ Given 06/09/2022 9:21 AM CDT 3 g dexAMETHasone (Decadron) injection Intravenous, PRN, Starting on Tue06/09/22 at 0920, Until Tue06/09/22 at 1047, Anesthesia Intra-op $ Given 06/09/2022 9:20 AM CDT 4 mg dexmedeTOMIDine (Precedex) injection Intravenous, PRN, Starting on Tue06/09/22 at 0923, Until Tue06/09/22 at 1047, Anesthesia Intra-op $ Given 06/09/2022 10:29 AM CDT 5 mcg $ Given 06/09/2022 9:23 AM CDT 5 mcg diphenhydrAMINE (Benadryl) injection Intravenous, PRN, Starting on Tue06/09/22 at 0929, Until Tue06/09/22 at 1047, Anesthesia Intra-op $ Given 06/09/2022 9:29 AM CDT 12.5 mg fentaNYL (PF) (Sublimaze) injection Intravenous, PRN, Starting on Tue06/09/22 at 0922, Until Tue06/09/22 at 1047, Anesthesia Intra-op $ Given 06/09/2022 9:32 AM CDT 50 mcg $ Given 06/09/2022 9:22 AM CDT 50 mcg ketamine (Ketalar) injection Intravenous, PRN, Starting on Tue06/09/22 at 0937, Until Tue06/09/22 at 1047, Anesthesia Intra-op $ Given 06/09/2022 10:29 AM CDT 25 mg $ Given 06/09/2022 9:37 AM CDT 25 mg labetalol (Normodyne; Trandate) injection Intravenous, PRN, Starting on Tue06/09/22 at 0951, Until Tue06/09/22 at 1047, Anesthesia Intra-op $ Given 06/09/2022 10:10 AM CDT 10 mg $ Given 06/09/2022 9:57 AM CDT 5 mg $ Given 06/09/2022 9:51 AM CDT 5 mg lactated ringers infusion at 20 mL/hr, Intravenous, CONTINUOUS, Starting on Tue06/09/22 at 0730, Until Tue06/09/22 at 1334, Pre-op $ New Bag/Syringe 06/09/2022 10:16 AM CDT Restarted 06/09/2022 9:16 AM CDT $ New Bag/Syringe 06/09/2022 7:39 AM CDT 20 mL/ hr lidocaine PF (Xylocaine MPF) 1 % injection Intravenous, PRN, Starting on Tue06/09/22 at 0924, Until Tue06/09/22 at 1047, Anesthesia Intra-op $ Given 06/09/2022 9:24 AM CDT 50 mg midazolam (Versed) injection Intravenous, PRN, Starting on Tue06/09/22 at 0919, Until Tue06/09/22 at 1047, Anesthesia Intra-op $ Given 06/09/2022 9:19 AM CDT 2 mg ondansetron (Zofran) injection Intravenous, PRN, Starting on Tue06/09/22 at 0920, Until Tue06/09/22 at 1047, Anesthesia Intra-op $ Given 06/09/2022 9:20 AM CDT 4 mg phenylephrine 100 mcg/mL injection Intravenous, PRN, Starting on Tue06/09/22 at 0943, Until Tue06/09/22 at 1047, Anesthesia Intra-op $ Given 06/09/2022 9:43 AM CDT 100 mcg propofol (Diprivan) injection Intravenous, PRN, Starting on Tue06/09/22 at 0924, Until Tue06/09/22 at 1047, Anesthesia Intra-op $ Given 06/09/2022 9:24 AM CDT 200 mg rocuronium (Zemuron) injection Intravenous, PRN, Starting on Tue06/09/22 at 0924, Until Tue06/09/22 at 1047, Anesthesia Intra-op $ Given 06/09/2022 9:29 AM CDT 40 mg $ Given 06/09/2022 9:24 AM CDT 10 mg succinylcholine (Anectine) injection Intravenous, PRN, Starting on Tue06/09/22 at 0925, Until Tue06/09/22 at 1047, Anesthesia Intra-op $ Given 06/09/2022 9:25 AM CDT 160 mg sugammadex (Bridion) injection Intravenous, PRN, Starting on Tue06/09/22 at 1033, Until Tue06/09/22 at 1047, Anesthesia Intra-op $ Given 06/09/2022 10:33 AM CDT 300 mg documented in this encounter Care Teams Chemical Plant Worker Relationship Specialty Start Date End Date Catina Rios, TACK COVERER-HOT PLATE PLYWOOD PRESS OFFBEARER [address] [place] [address] PCP - General Nurse Practitioner 03/30/22 documented as of this encounter
--- OUTSIDE RECORDS SUMMARY | 2024-11-01 05:20 | XMS_ITS | Encounter Summary ---
Author Organization [facility] Address [address] [place] [address] Care Team Providers Care Bias Cutter Name Role Phone Catina Rios APRN-PETROLEUM ENGINEERING TEACHER Primary Care Provi saloni Reason for Visit * Reason Comments Diet Encounter Details Date Type Department Care Team (Late st Contact Info) Description 07/14/2022 9:30 AM CDT Video Visit [facility] Weight Management Services [address] [place] [address] Morbid obesity (HCC) Social History Tobacco Use [...] - Inhaled Oxygen Concentration - - Weight 126.6 kg (279 lb) 07/14/2022 11:06 AM CDT Height 165.1 cm (5' 5 ) 07/14/2022 11:06 AM CDT Body Mass Index 46.43 07/14/2022 11:06 AM CDT documented in this encounter Functional [...] as of this encounter Progress Notes * Kalie Dale, MAC/BABATUNDE - 07/14/2022 11:07 AM CDT Today's visit was conducted virtually due to COVID-19 countermeasures. The patient has given verbalconsent to have today's visit conducted by this same means with treatment provided remotely. The patient verbally consents to the billing and collection practices of the provider's medical group. Patient location: Home This encounter was performed using: audio and video Total time spent on visit on date of encounter is: 60 minutes 1 Month Post-Operative Bariatric Surgery Class Date: 07/14/2022 Patient: Marika Caban Date of : 1990 (31 year old) PCP Physician: Catina Rios APRN-PETROLEUM ENGINEERING TEACHER Referring Physician: Alverto Engel MD Date of Surgery: 06/09/2022 Past Medical History: Diagnosis Date ??? Asthma does not use inhaler Height: 5' 5 (165.1 cm) Weight: 279 lb (126.6 kg) BMI (Calculated): 46.43 Pt feels like they are doing well overall: Y Pt moving bowels normally: Y Pt getting in 64 oz of fluid daily: Y Pt consuming 60 gm protein daily: Y Pt taking Prilosec: Y Incisions healed: Y Has pt had any N/V, reflux, or abdominal pain: N Has the patient been readmitted to the hospital since the last follow-up: N Has the patient had any post-bariatric surgical operations or interventions performed since the last follow-up: N *Information obtained from pt questionnaire, and reviewed by RN. Diet: Pt instructed to begin Bariatric Phase 3 diet, if not currently following Vitamins: Continue bariatric MVI, calcium citrate, and Prilosec Exercise: No restrictions General Medical: Pt encouraged to follow-up with PCP for medication adjustments PRN Labs: Will be checked 6 months, 1 year, and then annually Next visit: in 5 months with routine labs, or PRN Post-operative guidelines per Weight Loss Jackson were reviewed with MAC, including: post-surgery diet progression, post-surgery protein and fluid requirements, appropriate protein supplements, Bariatric vitamin/mineral supplement recommendations, Bariatric post-op concerns: dumping syndrome, nause a/vomiting, constipation, importance of routine activity, no alcohol/carbonation, and attending support group and tips for dining out and goals for a lifetime of success. RN addressed pt medical concerns as needed, including: Nausea, Vomiting, Diarrhea / Constipation, Abdominal Pain, Gas, Reflux, Dehydration, and Incisions - Non-healing or Drainage Pt verbalized understanding of concepts discussed Kalie Dale RD/BABATUNDE documented in this encounter Plan of Treatment Not on file documented as of this encounter Visit Diagnoses Diagnosis Morbid obesity (HCC)- Primary Morbid obesity documented in this encounter Care Teams Bias Cutter Relationship Specialty Start Date End Date Catina Rios APRN-CNP [address] [facility] [address] [place] [address] PCP - General Nurse Practitioner 03/30/22 documented as of this encounter
--- OUTSIDE RECORDS SUMMARY | 2024-11-01 05:20 | XMS_ITS | Encounter Summary ---
Author Organization [facility] Address [address] [facility] [place] [address] Care Team Providers Care Biomedical Engineering Supervisor Name Role Phone Catina Rios APRN-FURNACE COMBUSTION TESTER Primary Care Provi saloni Reason for Visit * Reason Onset Date Comments Diet 05/31/2022 Encounter Details Date Type Department Care Team (Late st Contact Info) Description 05/31/2022 Telephone [email or web address] Weight Management Services [address] [place] [address]/BABATUNDE Diet Social History Tobacco Use Types Packs/Day Years [...] AM CDT documented as of this encounter Miscellaneous Notes * Telephone Encounter - Kalie Dale RD/BABATUNDE - 05/31/2022 1:03 PM CDT Called patient to check on status of the 2 week pre-operative high protein liquid diet prior to scheduled surgery. Reviewed the pre-operative high protein liquid diet, bariatric multivitamin and calcium citrate recommendations, and daily fluid requirement of 64 ounces. Patient verbalized understanding. documented in this encounter Plan of Treatment Not on file documented as of this encounter Visit Diagnoses Not on filedocumented in this encounter Care Teams Biomedical Engineering Supervisor Relationship Specialty Start Date End Date Catina Rios APRN-MARIS [address] [place] [address] PCP - General Nurse Practitioner 03/30/22 documented as of this encounter
--- OUTSIDE RECORDS SUMMARY | 2024-11-01 05:20 | XMS_ITS | Encounter Summary ---
Author Organization [facility] Address [address] [place] [address] Care Team Providers Care Carton Stenciler Name Role Phone Catina Rios APRN-JUNIOR LOAN PROCESSOR Primary Care Provi saloni Reason for Visit * Reason Onset Date Comments Diet 06/28/2022 Encounter Details Date Type Department Care Team (Late st Contact Info) Description 06/28/2022 Telephone [facility] Weight Management Services [address] [place] [address], [address]/CARIRNGTONN Diet Social History Tobacco Use Types Packs/Day [...] Miscellaneous Notes * Telephone Encounter - Nupur Alvarez RD/BABATUNDE - 06/28/2022 12:43 PM CDT Called patient post operatively to check on status. Left message providing RD contact information and date / time of follow-up visit. documented in this encounter Plan of Treatment Not on file documented as of this encounter Visit Diagnoses Not on filedocumented in this encounter Care Teams Carton Stenciler Relationship Specialty Start Date End Date Catina Rios APRN-JUNIOR LOAN PROCESSOR [address] [place] [address] PCP - General Nurse Practitioner 03/30/22 documented as of this encounter
--- OUTSIDE RECORDS SUMMARY | 2024-11-01 05:20 | XMS_ITS | Encounter Summary ---
Author Organization [facility] Address [address] [place] [address] Care Team Providers Care University Relations Vice President Name Role Phone Unavailable Primary Care Provider Unavailabl e Encounter Details Date Type Department Care Team (Latest Contact Info) Description 09/17/2021 Travel Social History Tobacco Use Types Packs/Day Years Used Date Smoking Tobacco: Never Assessed Sex and Gender Information Value Date Recorded Sex Assigned at Not on file Gender Identity Not on file Sexual Orientation Not on file COVID-19 Exposure Response Date Recorded In the last month, have you been in contact with someone who was confirmed or suspected to have Coronavirus / COVID-19? No / Unsure 09/17/2021 11:50 AM HYDRO PLANT TECHNICIAN documented as of this encounter Plan of Treatment Not on file documented as of this encounter Visit Diagnoses Not on filedocumented in this encounter
--- OUTSIDE RECORDS SUMMARY | 2024-11-01 05:20 | XMS_ITS | Encounter Summary ---
Author Organization [facility] Address [address] [place] [address] Care Team Providers Care Barrel Lapper Name Role Phone Catina Rios Primary Care Provi saloni Encounter Details Date Type Department Care Team (Latest Contact Info) Description 05/25/2022 12:00 PM CDT Clinical Support [facility] Weight Management Services [address] [place] [address], [facility] [address] [place] [address] Morbid obesity (HCC) Social History Tobacco Use [...] AM CDT documented as of this encounter Progress Notes * Nupur Martinez RN - 05/25/2022 1:05 PM CDT Patient has completed the educational class with the CODY Burris, Health Educator and/or another qualified S staff. Reviewed items include: 1. Surgical risk factors 2. Pre-operative high protein liquid diet and rationale reviewed 3. Reviewed topic of weight gain at pre op class visit and day of surgery: This may result in completing more dietary education, increasing the number of weeks for the high protein liquid diet, another consult with the surgeon, and /or surgery cancellation 4. Pre-operative bathing instructions with antibacterial wash as directed by SEC 5. Required items to bring with patient day of surgery 6. Pre-operative admission 7. Operating room process 8. Recovery room process 9. Post-operative care on the nursing floor 10. Discharge instruction for home care: ambulation, IS, activity level 11. Phase 1 - 6 diet discussed 12. Vitamin supplements 13. Follow up appointments scheduled- 1 week, 1 month, 6 month, and 1 year 14. Support group, Facebook and resources discussed 15. When to call the office, signs and symptoms of complications provided, and the numbers to call 16. Weight Management's Surgical Pre-operative Questionnaire reviewed discussed and collected 17. Weight Management's contract reviewed, signed, and collected 18. Information on Medic Alert bracelet discussed 19. Discussed causes of nausea, vomiting, and dumping 20. ENERGY protocol discussed and questions answered Surgery date and pre op diet reviewed individually with patient. Instructed to get [facility] Evaluation [facility] appointment as soon as possible, if not already completed- notified patient of failure to get labs could postpone surgery. Pt denies questions at this time. Pt is given contact information for [facility] to call for any questions or concerns. Supplement samples offered documented in this encounter Plan of Treatment Not on file documented as of this encounter Visit Diagnoses Diagnosis Morbid obesity (HCC)- Primary Morbid obesity documented in this encounter Care Teams Barrel Lapper Relationship Specialty Start Date End Date Catina Rios APRN-MARIS [address] [place] [address] PCP - General Nurse Practitioner 03/30/22 documented as of this encounter
--- OUTSIDE RECORDS SUMMARY | 2024-11-01 05:20 | XMS_ITS | Encounter Summary ---
Author Organization [facility] Address [address] [place] [address] Care Team Providers Care Metal Drilling Machine Operator Name Role Phone Catina Rios APRNRANGE OPERATOR Primary Care Provi saloni Reason for Visit * Reason Onset Date Comments Update 05/21/2022 Encounter Details Date Type Department Care Team (Late st Contact Info) Description 05/21/2022 Telephone [facility] [id number] [place] [address] [place] [address] [phone] Update Social History Tobacco Use Types Packs/Day Years [...] encounter Miscellaneous Notes * Telephone Encounter - Gerson Bruce Troy - 05/21/2022 12:38 PM CDT Spoke to Jose Alfredo Simms at [facility] regarding authorization# [id number] for [id number] Laparoscopic Vertical Sleeve Gastrectomy possible open. Per Jose Alfredo Simms she was able to update the DOS to 8-10-22 . Call reference # [id number]. documented in this encounter Plan of Treatment Not on file documented as of this encounter Visit Diagnoses Not on filedocumented in this encounter Care Teams Metal Drilling Machine Operator Relationship Specialty Start Date End Date Catina Rios APRN-RANGE OPERATOR [address] [place] [address] PCP - General Nurse Practitioner 03/30/22 documented as of this encounter
--- OUTSIDE RECORDS SUMMARY | 2024-11-01 05:20 | XMS_ITS | Encounter Summary ---
Author Organization [facility] Address [address] [address] Care Team Providers Care Investments Manager Name Role Phone Catina Rios [facility] Primary Care Provi saloni Reason for Visit * Reason Comments Post-Op 1 week slv Encounter Details Date Type Department Care Team (Late st Contact Info) Description 06/16/2022 9:40 AM CDT Office Visit [facility] Management Services [id number] [place] [address] Jenny Pollard [facility] [address] [phone] Morbid obesity (HCC) (Primary Dx); Bariatric surgery status Social History Tobacco Use Types Packs/Day Years [...] Sign Reading Time Taken Comments Blood Pressure 124/84 06/16/2022 9:51 AM CDT Pulse 80 06/16/2022 9:51 AM CDT Temperature 36.5 ??C (97.7 ??F) 06/16/2022 9:51 AM CD T Respiratory Rate - - Oxygen Saturation 98% 06/16/2022 9:51 AM CDT Inhaled Oxygen Concentration - - Weight 131.5 kg (289 lb 12.8 oz) 06/16/2022 9:51 AM CDT Height 165.1 cm (5' 5 ) 06/16/2022 9:51 AM CDT Body Mass Index 48.23 06/16/2022 9:51 AM CDT documented in this encounter Functional [...] this encounter Progress Notes * Jenny Pollard, HYDRAULIC LIFT DRIVER-COLLAR BASTER - 06/16/2022 7:03 AM CDT Bariatric Surgery Clinic Note Marika Caban CC: Morbid Obesity Previous Procedure: Laparoscopic sleeve gastrectomy ([place]) Date of Procedure: 06/09/2022 Initial Weight: 299 Todays Weight: 289 Weight Lost: 10 IBW: 149 EBW: 150 % of EBW loss 7% Subjective: Patient is here today for their 1 week post surgery follow up She reports overall she is doing well She is getting in all of the protein She is getting in all of the fluids She has not started on the recommended daily vitamins as instructed She has been up and ambulating. She denies any fevers, CP or SOB She denies any nausea, vomiting or reflux. She has not started on the PPI as instructed Abdominal pain is minimal-not taking pain medications She is moving her bowels without difficulty. She did take Miralax a few times. She also used a suppository once Incisions: C/D/I Data Vitals: 06/16/22 0951 BP: 124/84 Pulse: 80 Temp: 97.7 ??F (36.5 ??C) SpO2: 98% Weight: 289 lb 12.8 oz (131.5 kg) Height: 5' 5 (1.651 m) BMI (Calculated): 48.23 Current Outpatient Medications Medication ??? acetaminophen (Tylenol) 160 MG/5ML solution ??? magnesium hydroxide (Milk Of Magnesia) 400 MG/5ML suspension ??? omeprazole (PriLOSEC) 20 MG capsule ??? ondansetron, disintegrating, (Zofran ODT) 4 MG tablet ??? oxyCODONE (Roxicodone) 5 MG/5ML oral solution ??? senna-docusate (Senokot-S) 8.6-50 MG tablet No current facility-administered medications for this visit. Recent Labs Component Name 06/10/22 0518 06/09/22 0733 SODIUM 139 - POTASSIUM 4.1 3.8 CHLORIDE 112* - CO2 21* - BUN 8 - CREATININE 0.74 - GLUCOSE 130* - CALCIUM 8.8 - Recent Labs Component Name 06/10/22 0518 WBC 12.5* HGB 12.9 HCT 39.4 PLTCOUNT 203 Physical Exam A+O x 3, NAD CTA B/L RRR ABD soft, ND, NT, incisions C/D/I, no e/o hernias Neg BLE edema Assessment/Plan: Pt s/p Laparoscopic sleeve gastrectomy (Schwloganr) - we reviewed postoperative complications following bariatric surgery and when to call the office. Patient is to advance to phase 2 of the diet - phase 2 diet was reviewed. We discussed ways to achieve protein and fluids goals - patient is to continue on phase 2 diet for 3 weeks until seen back in the office - we discussed signs and symptoms of [...] to RTC in 3 weeks ADAM Robles documented in this encounter Plan of Treatment Not on file documented as of this encounter Visit Diagnoses Diagnosis Morbid obesity (HCC)- Primary Morbid obesity Bariatric surgery status documented in this encounter Care Teams Investments Manager Relationship Specialty Start Date End Date Catina Rios APRN-CNP [address] [place] [address] PCP - General Nurse Practitioner 03/30/22 documented as of this encounter
--- OUTSIDE RECORDS SUMMARY | 2024-11-01 05:20 | XMS_ITS | Encounter Summary ---
Author Organization [facility] Address [address] [place] [address] Care Team Providers Care Gluer And Wedger Name Role Phone Catina [facility]ios [facility] Primary Care Provi saloni Reason for Visit * Reason Comments Pain Abdominal Sent by ATHLETIC TEAM PHYSICIAN for a gal lbladder attack. Supposed to call Dr. Engel upon arrival * Auth/Cert (Routine) Specialty Diagnoses / Procedures Referred By Poncho t Referred To Contact Diagnoses Morbid (severe) obesity due to excess calories (HCC) Procedures W[place] LAP SLEEVE GASTRECTOMY Referral ID Status Reason Start Date Expiration Date Visits Re quested Visits Authorized [id number] 05/21/2022 05/21/2023 1 1 Encounter Details Date Type Department Care Team (Late st Contact Info) Description 12/13/2022 4:54 PM COMPANY CONTROLLER - 12/15/2022 6:00 PM COMPANY CONTROLLER Hospital Encounter [facility] SURG[facility]BARIATRIC [address] [place] [address] [place] [address] [place] [address] Viry Duffy MD [address] [place] [address] [place] [address] [place] [address] Emergency Medicine Discharge Disposition: Home or Self Care Social [...] and heating? Not hard at all 12/14/2022 [facility] [place] [facility] - Occupational Stress [...] place to sleep or slept in a fci (including now)? No 12/14/2022 Sex and Gender Information Value Date Recorded Sex Assigned at Not on file Gender Identity Not on file Sexual Orientation Not on file COVID-19 Exposure Response Date Recorded In the last 10 days, have amy hung been in contact with someone who was confirmed or suspected to have Coronavirus/COVID-19? No / Unsure 12/09/2022 12:27 PM COMPANY CONTROLLER documented as of this encounter Last Filed Vital Signs Vital Sign Reading Time Taken Comments Blood Pressure 135/86 12/15/2022 3:09 PM COMPANY CONTROLLER Pulse 65 12/15/2022 3:09 PM COMPANY CONTROLLER Temperature 36.7 ??C (98.1 ??F) 12/15/2022 3:09 PM CS T Respiratory Rate 16 12/15/2022 3:09 PM COMPANY CONTROLLER Oxygen Saturation 96% 12/15/2022 3:09 PM COMPANY CONTROLLER Inhaled Oxygen Concentration - - Weight 108.9 kg (240 lb) 12/13/2022 4:52 PM COMPANY CONTROLLER Height 165.1 cm (5' 5 ) 12/13/2022 4:52 PM COMPANY CONTROLLER Body Mass Index 39.94 12/13/2022 4:52 PM COMPANY CONTROLLER documented in this encounter Functional Status Functional [...] CST Physician Discharge Summary Patient Name: Marika Hunt Date of : 1990 Admit date: 12/13/2022 [...] Comments Your discharge diagnosis is: Gallstone pancreatitis [[id number]] Your discharge diagnosis is: Symptomatic cholelithiasis [[id number]] Diet instructions Soft diet for 24 hours [...] also completed on the day of discharge. ANY CONTROLLER documented in this encounter Medications at Time [...] Bowers PharmD - 12/15/2022 3:34 PM CST [facility] Pharmacy Services Pharmacy Discharge Education I have reviewed the discharge medication orders. Thank you for allowing me to be a part of the patient's discharge process. If there are any questions about the medications or instructions given please call the pharmacist Mon-Fri at [facility] ext.[phone] or [phone] after hours (23/05.) Pablo Bowers PharmD 12/15/2022 ANY CONTROLLER * Deborah Briscoe RN - 12/15/2022 3:02 [...] CM needs identified or requested. Transportation to Appointments: Family Continued Care and Services - Admitted Since 12/13/2022 Coordination has not been started for this encounter. ANY CONTROLLER * Aaliyah Del Valle MD - 12/15/2022 [...] for hypokalemia Recent Labs Component Name 12/15/22 0211 12/14/22 02112/13/22 1727 SODIUM 142 138 140 POTASSIUM 3.3* 3.4* 3.5 CHLORIDE 115* 108* 107 CO2 18* 24 23 BUN 11 15 17 CREATININE 0.58 0.69 0.78 GLUCOSE 71 89 105 CALCIUM 7.2* 8.3* 9.3 Recent Labs Component Name 12/15/22 0211 12/14/22 02112/13/22 1727 WBC 3.5* 3.5* 7.2 HGB [...] edema Assessment and Plan Acute pancreatitis Lipase 0 -gallbladder ultrasound c/w cholecytitis and stones Seen by bariatric ATHLETIC TEAM PHYSICIAN GI consulted, planning CCK 12/15 Gallbladder EF [...] for the most accurate and up-to-date information. ANY CONTROLLER * Marisa Bang, RN - 12/15/2022 5:45 AM CST Shift summary--Pt A&Ox4. VSS. IVF. Pt currently denying pain. Tolerating phase 2 fairly, but NPO at MN. Consents are signed and in chart for Lap mala 12/15. Up ad lamonte with BRP. Pt potassium 3.3 message sent to ATHLETIC TEAM PHYSICIAN Sigridiftikhar @ [phone], awaiting new order to be placed or return call. Call light in reachat this time..Marisa Bang RN 12/14/2022 11:06 PM ANY CONTROLLER * Marisa Bang RN - 12/14/2022 9:27 PM CST Problem: Pain/Discomfort Goal: Patient exhibits reduced pain/discomfort as evidenced by pain scores Outcome: Progressing ANY CONTROLLER * Luis E Ritter, Senior Training And Development Rep - 12/14/2022 1:42 PM CST [facility] Pharmacy Services Admission Medication Review Marika Hunt is a 32 year old female I [...] the opportunity to take part of Marika Radha Arsh's care. Luis E Ritter, Senior Training And Development Rep ANY CONTROLLER * Deborah Briscoe RN - 12/14/2022 1:16 [...] patient's preference is to stay within the [facility] Network and its affiliates.: No Comments: [...] Subscriber Name Rel Member # Group # RACHELILAN - [employer]UE [employer] O* HUMAIRA HUNT* Self [id number] [id number] Readmission: No Readmission Risk: READMISSION RISK SCORE is 9 at 1:16 PM 12/14/2022. Met with patient Family Support (name and phone): Extended Emergency Contact Information Primary Emergency Contact: Raheem Hunt Mobile Relation: Spouse Patient or outside dealer sales representative requests care coordination reach out to family or caregiver listed above regarding discharge planning and at time of discharge? No Patient/Family provided with list of resources? No Preferred Provider / High Quality Network List given?: No Reason for provider choice: Unknown Equipment at Home: None List DME pt. requires but does not have.: None Industrial Yard Brake Coupler Referral: No Will continue to follow. For any questions or needs please contact: Director Card Name/Phone number: Deborah Briscoe RN ANY CONTROLLER * Aaliyah Del Valle MD - 12/14/2022 [...] c/w cholecytitis and stones Seen by bariatric ATHLETIC TEAM PHYSICIAN GI consulted, planning CCK 12/15 Gallbladder EF 15% Replace K MRCP has been ordered ? Obesity with a BMI of 39.94 ?? GI ppx: Protonix Pancytopenia ? Dilutional Check B12 Portions of this document have been carried over from prior notes and may contain unintentional discrepancies. Please refer to orders and MAR for the most accurate and up-to-date information. ANY CONTROLLER * Marisa Bang RN - 12/14/2022 3:09 AM CST Shift summary--Pt A&Ox4. VSS. IVF. PT c/o headache but LFTs are elevated, unable to give tylenol at this time. NPO at this time. Call light in reach...Marisa Bang RN 12/14/2022 3:12 AM ANY CONTROLLER * Marisa Bang RN - 12/14/2022 1:57 AM CST Problem: Pain/Discomfort Goal: Patient exhibits reduced pain/discomfort as evidenced by pain scores Outcome: Progressing ANY CONTROLLER documented in this encounter H&P Notes * Alverto Engel MD - 12/15/2022 8:55 AM CST This patient? s prior H&P was reviewed, the patient was examined and no change has occurred in the patient's condition since the prior H&P was completed. Plan for laparoscopic cholecystectomy and possible cholangiograms Alverto Engel MD ANY CONTROLLER Source Note - Latrice Jenny LOUIE Berry-SECURITY ALARM TECHNICIAN - 12/14/2022 7:30 AM COMPANY CONTROLLER Bariatric Surgery EVALUATION HISTORY & PHYSICAL Height: [...] await GI consult, call with any concerns ANY CONTROLLER * Jenny Pollard, LOUIE-SECURITY ALARM TECHNICIAN - 12/14/2022 7:30 AM CST Bariatric Surgery [...] await GI consult, call with any concerns ANY CONTROLLER Associated attestation - Alverto Engel MD - 12/14/2022 2:55 PM COMPANY CONTROLLER Pt seen and examined Agree with ATHLETIC TEAM PHYSICIAN note Lipase improved today Pain improved today [...] 7:56 PM CST HISTORY AND PHYSICAL - [facility] Medicine Chief complaint: Chief Complaint Patient presents with ??? Pain Abdominal Sent by ATHLETIC TEAM PHYSICIAN for a gallbladder attack. Supposed to call Dr. Engel upon arrival HISTORY OF PRESENT ILLNESS: Marika Hunt is a 32 year old female with [...] AND ACTIVE PROBLEM LIST /MEDICAL HISTORY IN [facility] Patient Active Problem List: Asthma Fall Morbid [...] for Fever or Pain 06/09/22 Jenny Pollard, RETAIL EXPERIENCE SPECIALIST-SECURITY ALARM TECHNICIAN omeprazole (PriLOSEC) 20 MG capsule Take 1 [...] results for input(s): TROPONIN in the last 31309 hours. No results for input(s): BNP in the last 97353 hours. No results for input(s): TROPONIN in the last 32457 hours. No results for input(s): TSH in the last 20213 hours. No results for input(s): COLORUA, CHARACTERUA, SPECGRAVUA, PHUA, PROTEINUA, BLOODUA, LEUKOCYTEUA, NITRITEUA, GLUCOSEUA, KETONEUA, BILIRUBINUA, UROBILINUA, WBCUA, RBCUA, EPITHUA, MUCUSUA, CASTUA, CRYSTALUA, BACTERIAUA, YEASTUA, TRICHUA in the last 16633 hours. RADIOLOGY REPORTS Hepatobiliary Scintigraphy with Gallbladder [...] MD 12/13/22 7:56 PM CC: ADAM Lr [phone] Patient ID: Marika Wyattbranden 1990 32 year old female Portions of this note may be dictated using voice recognition software. Variances in spelling and vocabulary are possible and unintentional. Not all errors are caught/corrected. Please notify the author if any discrepancies are noted or if the meaning of any statement is not clear. These grammatical oversights have no impact on the medical care provided to the patient. ANY CONTROLLER documented in this encounter Consult Notes * Claudio Rodney MD - 12/14/2022 4:51 PM CSTAssociated Order(s): IP CONSULT TO GASTROENTEROLOGY GI Consultation Note Claudio Rodney MD 12/14/2022 Patient's Primary Care Physician: ADAM Lr Name: Marika Garcia Arsh Age: [age] year old Sex: female Chief [...] all exrtremities adequately Recent Labs Component Name 12/14/2221012/13/22 1727 06/10/22 0518 WBC 3.5* 7.2 12.5* HGB 10.3* 12.8 12.9 HCT 30.7* 37.7 39.4 PLTCOUNT 137* 184 203 Recent Labs Component Name 12/14/22210 SODIUM 138 POTASSIUM 3.4* CHLORIDE 108* CO2 24 BUN 15 CREATININE 0.69 GLUCOSE 89 CALCIUM 8.3* ALBUMIN 3.5 ALKPHOS 143 ALT 582* AST 289* TBIL 1.5* TPROT 5.9* EGFR >90 No results for input(s): AMYLASE in the last 00781 hours. Recent Labs Component Name 12/14/2221012/13/22 1727 LIPASE 194* 1,820* Recent Labs Component [...] lack of improvement in LFT's Will follow ANY CONTROLLER documented in this encounter OR Notes * Operative - Alverto Engel MD - 12/15/2022 9:54 AM CST [facility] Operative Report OPERATIVE REPORT PATIENT:Marika Hunt MR#: [id number] ADMIT DATE: 12/13/2022 4:54 PM DATE OF [...] PERFORMED: Laparoscopic Cholecystectomy with intraoperative fluoroscopic cholangiogram (71541) SURGEON: Alverto Engel MD AUTOMOBILE TECHNICIAN: Marion CHOU ANESTHESIA: General endotracheal. PROCEDURE: The [...] SPECIMEN: Gallbladder COMPLICATIONS: None. Alverto Engel MD ANY CONTROLLER documented in this encounter ED Notes * Gabi Newell - 12/14/2022 1:08 AM CST Report given to 2 [facility] nurse. All questions answered. ANY CONTROLLER * Gabi Newell - 12/13/2022 7:52 PM CST Pt resting comfortably in stretcher. Bed locked and in lowest position. Call light within reach. Will continue to monitor. ANY CONTROLLER * Gabi Newell - 12/13/2022 6:40 PM [...] that positioning can help alleviate the pain. ANY CONTROLLER * Mervat Reynoso RN - 12/13/2022 6:22 PM CST Bed: 39 Expected date: Expected time: Means of arrival: Comments: [id number] ANY CONTROLLER * Frank Appiah DO - 12/13/2022 5:18 PM CST EMERGENCY DEPARTMENT RAPID MEDICAL EXAM (RME) NOTE 12/13/2022 CC: Pain Abdominal (Sent by ATHLETIC TEAM PHYSICIAN for a gallbladder attack. Supposed to call Dr. Engel upon arrival ) Provider in Triage HPI: Marika Hunt is a 32 year old female who presents through triage with c/o gallbladder attack Epigastric pain since 2pm yesterday Goes to [facility]. Had elective mala scheduled for next Tuesday. [...] 0 No Known Allergies PCP: Catina Rios, RETAIL EXPERIENCE SPECIALIST-SECURITY ALARM TECHNICIAN Vital Signs: BP 119/87 Pulse 75 Temp [...] r/r/g MSK: No gross deformities noted Skin: [place], warm, dry, no rash visualized. Neuro: A&O [...] no arrhythmia noted. Ventricular rate (bpm): 75 ANY CONTROLLER documented in this encounter Plan of Treatment Not on file documented as of this encounter Procedures Procedure Name Priority Date/Time Associated Diagnosis Comments PATHOLOGY TISSUE EXAM (STL) Routine 12/15/2022 10:15 AM COMPANY CONTROLLER Diagnosis unknown WV LAP,CHOLECYSTECTOMY 12/15/2022 9:22 AM COMPANY CONTROLLER HCG URINE QUALITATIVE STAT 12/15/2022 7:17 AM COMPANY CONTROLLER Preop examination CBC W/O DIFFERENTIAL AM Draw 12/15/2022 2:11 AM COMPANY CONTROLLER COMPREHENSIVE METABOLIC PANEL AM Draw 12/15/2022 2:11 AM COMPANY CONTROLLER LIPASE BLOOD AM Draw 12/15/2022 2:11 AM COMPANY CONTROLLER BILIRUBIN DIRECT Routine 12/15/2022 2:11 AM COMPANY CONTROLLER VITAMIN B12 AM Draw 12/15/2022 2:11 AM COMPANY CONTROLLER CARDIAC EKG ORDER 12/15/2022 1:3 2 AM COMPANY CONTROLLER MRI ABDOMEN WO CONTRAST STAT 12/14/2022 12:27 PM COMPANY CONTROLLER Abdominal pain, generalized Acute pancreatitis, unspecified complication status, unspecified pancreatitis type (HCC) US ABDOMEN LIMITED STAT 12/14/2022 8: 43 AM COMPANY CONTROLLER Abdominal pain, generalized CBC W/O DIFFERENTIAL Routine 12/14/2022 2:11 AM COMPANY CONTROLLER COMPREHENSIVE METABOLIC PANEL Routine 12/14/2022 2:11 AM COMPANY CONTROLLER PHOSPHORUS BLOOD Routine 12/14/2022 2:11 AM COMPANY CONTROLLER MAGNESIUM BLOOD Routine 12/14/2022 2:11 AM COMPANY CONTROLLER LIPASE BLOOD Routine 12/14/2022 2:11 AM COMPANY CONTROLLER EKG 12-LEAD STAT 12/13/2022 5:36 PM COMPANY CONTROLLER Abdominal pain, generalized PT-INR STAT 12/13/2022 5:27 PM COMPANY CONTROLLER CBC W AUTO DIFFERENTIAL STAT 12/13/2022 5:27 PM COMPANY CONTROLLER COMPREHENSIVE METABOLIC PANEL STAT 12/13/2022 5:27 PM COMPANY CONTROLLER MAGNESIUM BLOOD STAT 12/13/2022 5:27 PM COMPANY CONTROLLER LIPASE BLOOD STAT 12/13/2022 5:27 PM COMPANY CONTROLLER documented in this encounter Results * PATHOLOGY TISSUE EXAM (STL) (12/15/2022 10:15 AM COMPANY CONTROLLER) Case Report Surgical Pathology Report ? Case: [id number] ? Authorizing Provider: ??Alverto Engel MD ?Collected: ? 12/15/2022 10:15 AM ? Ordering Location: ? [facility] ? Received: ?12/15/2022 11:25 AM ? Pathologist: ? Sia Osman MD ? Specimen: ?Gallbladder, gallbladder ? 12/17/2022 10:25 AM [facility] Final Diagnosis Gallbladder, cholecystectomy: -- Cholelithiasis with chronic cholecystitis -- Cholesterolosis 12/17/2022 10:25 AM [facility] Clinical History Acute cholecystitis, symptomatic cholelithiasis epigastric abdominal pain, RUQ abdominal pain, nausea 12/17/2022 10:25 AM COMPANY CONTROLLER [facility] Gross Description Received in formalin in a sterile container labeled Marika Hunt, gallbladder, is an 8.7 x 2.7 x 2.3 cm gallbladder. The serosa is unremarkable. Sections of the gallbladder show dark green velvety mucosa with bright yellow cholesterol streaks. The gallbladder wall measures 0.2 cm in thickness. Within the gallbladder is green-yellow bile and multiple round yellow gallstones ranging from 0.1 cm to 0.3 cm. Staff Sonographer sections are submitted in cassette A1. / 12/17/2022 10:25 AM [facility] Microscopic Description Microscopic examination substantiates the above cited diagnosis. MC 12/17/2022 10:25 AM [facility] Disclaimer All histochemical and/or immunohistochemical results are interpreted with controls that demonstrate appropriate staining reactions before reporting results. Note on use of immunocytochemistry reagents: This test was developed and its performance characteristic determined by [facility], Department of Laboratory Medicine. It [...] be interpreted with caution. 12/17/2022 10:25 AM [facility] Embedded Images 12/17/2022 10:25 AM [facility] Pathology/Cytolo gy ENTIRE GALLBLADDER / Unknown 12/15/2022 10:15 AM COMPANY CONTROLLER 12/15/2022 11:25 AM COMPANY CONTROLLER Alverto Engel MD LAB - PATHOLOGY/CYTO LOGY ORDERABLES Performing Organization Address City/[facility]/ZIP Co de Phone Number [facility] [address] [place] [address] [phone] * HCG URINE QUALITATIVE (12/15/2022 7:17 AM COMPANY CONTROLLER) hCG Qualitative Urine Negative Negative 12/15/2022 7:26 AM COMPANY CONTROLLER [facility] Urine URINE / Unknown Collection / Unknown 12/15/2022 7:17 AM COMPANY CONTROLLER 12/15/2022 7:21 AM COMPANY CONTROLLER Ramila Liu DO LAB - URINALYSIS ORD ERABLES Performing Organization Address [facility]/ZIP Co de Phone Number [facility] [id number] [place] [address] [phone] * BILIRUBIN DIRECT (12/15/2022 2:11 AM COMPANY CONTROLLER) Bilirubin Direct 0.3 0.10 - 0.50 mg/dL 12/15/2022 3:13 AM [facility] Blood BLOOD SPECIMEN / Unknown Venipuncture / Unknown 12/15/2022 2:11 AM COMPANY CONTROLLER 12/15/2022 2:19 AM COMPANY CONTROLLER Alverto Engel MD LAB - CHEMISTRY ORDMendez WEISS Performing Organization Address [facility] Co de Phone Number [facility] [address] [place] [address] * LIPASE BLOOD (12/15/2022 2:11 AM COMPANY CONTROLLER) Pathologist [facility] Lipase 18 8 - 78 U/L 12/15/2022 3:13 AM [facility] Blood BLOOD SPECIMEN / Unknown Venipuncture / Unknown 12/15/2022 2:11 AM COMPANY CONTROLLER 12/15/2022 2:19 AM COMPANY CONTROLLER Jenny Pollard RETAIL EXPERIENCE SPECIALIST-SECURITY ALARM TECHNICIAN LAB - JEREMY CALVIN ORDERABLES Performing Organization Address [facility] Co de Phone Number [facility] [address] [place] [address] * (ABNORMAL) COMPREHENSIVE METABOLIC PANEL (12/15/2022 2:11 AM COMPANY CONTROLLER) Pathologist [facility] Glucose 71 70 - 105 mg/dL 12/15/2022 3:13 AM [facility] Sodium 142 136 - 145 mmol/L 12/15/2022 3:13 AM [facility] Potassium 3.3(L) 3.5 - 5.1 mmol/L 12/15/2022 3:13 AM [facility] Chloride 115(H) 98 - 107 mmol/L 12/15/2022 3:13 AM [facility] CO2 18(L) 23 - 31 mmol/L 12/15/2022 3:13 AM [facility] Calcium 7.2(L) 8.4 - 10.4 mg/dL 12/15/2022 3:13 AM [facility] Anion Gap 9 8 - 18 mmol/L 12/15/2022 3:13 AM [facility] BUN 11 7 - 18.7 mg/dL 12/15/2022 3:13 AM [facility] Creatinine 0.58 0.57 - 1.11 mg/dL 12/15/2022 3:13 AM [facility] Alkaline Phosphatase 115 40 - 150 U/L 12/15/2022 3:13 AM [facility] ALT 330(H) 0 - 61 U/L 12/15/2022 3:13 AM [facility] AST 75(H) 5 - 34 U/L 12/15/2022 3:13 AM [facility] Protein Total 5.0(L) 6.4 - 8.3 gm/dL 12/15/2022 3:13 AM [facility] Albumin 2.9(L) 3.5 - 5.2 gm/dL 12/15/2022 3:13 AM [facility] Bilirubin Total 0.6 0.2 - 1.2 mg/dL 12/15/2022 3:13 AM [facility] eGFR by CKD-EPI >90 >=90 mL/min/1.7 3 m2 12/15/2022 3:13 AM [facility] Blood BLOOD SPECIMEN / Unknown Venipuncture / Unknown 12/15/2022 2:11 AM COMPANY CONTROLLER 12/15/2022 2:19 AM COMPANY CONTROLLER Jenny Pollard RETAIL EXPERIENCE SPECIALIST-SECURITY ALARM TECHNICIAN LAB - JEREMY CALVIN ORDERABLES Performing Organization Address [facility] Co de Phone Number [facility] [address] [place] [address] * VITAMIN B12 (12/15/2022 2:11 AM COMPANY CONTROLLER) Vitamin B12 372 213 - 816 pg/mL 12/15/2022 3:42 AM COMPANY CONTROLLER [facility] Blood BLOOD SPECIMEN / Unknown Venipuncture / Unknown 12/15/2022 2:11 AM COMPANY CONTROLLER 12/15/2022 2:19 AM COMPANY CONTROLLER Aaliyah Del Valle MD LAB - CHEMISTRY ORDMendez WEISS Performing Organization Address City/[facility] Co de Phone Number [facility] [address] [place] [address] * (ABNORMAL) CBC W/O DIFFERENTIAL (12/15/2022 2:11 AM COMPANY CONTROLLER) WBC 3.5(L) 4.4 - 10.7 x10E9/L 12/15/2022 2:22 AM COMPANY CONTROLLER [facility] RBC 3.83 3.80 - 5.20 x10E12/L 12/15/2022 2:22 AM [facility] Hemoglobin 10.5(L) 12.0 - 15.6 gm/dL 12/15/2022 2:22 AM [facility] Hematocrit 31.3(L) 35.9 - 45.5 % 12/15/2022 2:22 AM [facility] MCV 81.7 80.7 - 98.3 fl 12/15/2022 2:22 AM [facility] MCH 27.4 26.7 - 34.0 pg 12/15/2022 2:22 AM [facility] MCHC 33.5 30.8 - 35.9 gm/dL 12/15/2022 2:22 AM [facility] Platelet Count 138(L) 153 - 416 x10E9/L 12/15/2022 2:22 AM [facility] RDW-CV 13.5 12.1 - 14.9 % 12/15/2022 2:22 AM [facility] MPV 12.3 9.4 - 12.9 fl 12/15/2022 2:22 AM [facility] Blood BLOOD SPECIMEN / Unknown Venipuncture / Unknown 12/15/2022 2:11 AM COMPANY CONTROLLER 12/15/2022 2:19 AM COMPANY CONTROLLER Jenny Pollard RETAIL EXPERIENCE SPECIALIST-SECURITY ALARM TECHNICIAN LAB - HEM ATOLOGY ORDERABLES [facility] [address] [place] [address] * CARDIAC EKG ORDER (12/15/2022 1:32 AM COMPANY CONTROLLER) Narrative 12/15/2022 1:32 AM COMPANY CONTROLLER Ordered by an unspecified provider. Scanned Document CARDIAC SERVICES ORD ERABLES * MRI MRCP (12/14/2022 12:27 PM COMPANY CONTROLLER) Anatomical Region Laterality Modality Abdomen Magnetic Resonan ce 12/14/2022 12:4 5 PM COMPANY CONTROLLER Impressions 12/14/2022 12:50 PM COMPANY CONTROLLER IMPRESSION: Cholelithiasis and gallbladder wall thickening. Correlate clinically for cholecystitis. Slightly dilated extrahepatic bile duct to 7 mm. No appreciable choledocholithiasis. Pancreas and pancreatic duct within normal limits. > Interpreting Provider: Maverick Huang MD on 12/14/2022 12:50 PM Narrative 12/14/2022 12:50 PM COMPANY CONTROLLER MRI/MRCP Abdomen without Contrast INDICATION: Generalized abdominal [...] US ABDOMEN LIMITED (RUQ) (12/14/2022 8:43 AM COMPANY CONTROLLER) Anatomical Region Laterality Modality Abdomen Ultrasound 12/14/2022 9:03 AM COMPANY CONTROLLER Impressions 12/14/2022 9:10 AM COMPANY CONTROLLER IMPRESSION: Thickened gallbladder wall with gallstones. This consistent with cholecystitis. Distended CBD. Possibility of a stone down the common bile duct should be considered. This could be assessed with MRCP > Interpreting Provider: Dwayne Pires MD on 12/14/2022 9:10 AM Narrative 12/14/2022 9:10 AM COMPANY CONTROLLER Ultrasound Abdomen Limited Indication: Elevated liver function [...] on 12/14/2022 9:10 AM Frank Appiah DO US ORDERABLES * (ABNORMAL) LIPASE BLOOD (12/14/2022 2:11 AM COMPANY CONTROLLER) Lipase 194(H) 8 - 78 U/L 12/14/2022 8:04 AM COMPANY CONTROLLER [facility] Blood BLOOD SPECIMEN / Unknown Venipuncture / Unknown 12/14/2022 2:11 AM COMPANY CONTROLLER 12/14/2022 2:30 AM COMPANY CONTROLLER Alverto Engel MD LAB - CHEMISTRY ORDMendez WEISS Performing Organization Address [facility] Co de Phone Number [facility] [address] [place] [address] * PHOSPHORUS BLOOD (12/14/2022 2:11 AM COMPANY CONTROLLER) Phosphorus 4.2 2.3 - 4.7 mg/dL 12/14/2022 2:55 AM COMPANY CONTROLLER [facility] Blood BLOOD SPECIMEN / Unknown Venipuncture / Unknown 12/14/2022 2:11 AM COMPANY CONTROLLER 12/14/2022 2:30 AM COMPANY CONTROLLER Hilaria Dowell MD LAB - CHEMISTRY ORDMendez WEISS Performing Organization Address City/[facility] Co de Phone Number [facility] [address] [place] [address] * MAGNESIUM BLOOD (12/14/2022 2:11 AM COMPANY CONTROLLER) Magnesium 1.6 1.6 - 2.6 mg/dL 12/14/2022 2:55 AM COMPANY CONTROLLER [facility] Blood BLOOD SPECIMEN / Unknown Venipuncture / Unknown 12/14/2022 2:11 AM COMPANY CONTROLLER 12/14/2022 2:30 AM [facility] Hilaria Dowell MD LAB - CHEMISTRY MARIBEL WEISS [facility] Organization Address City/State/ZIP Co de Phone Number [facility] [address] [place] [address] * (ABNORMAL) COMPREHENSIVE METABOLIC PANEL (12/14/2022 2:11 AM [facility]) Pathologist [facility] Glucose 89 70 - 105 mg/dL 12/14/2022 2:55 AM [facility] Sodium 138 136 - 145 mmol/L 12/14/2022 2:55 AM [facility] Potassium 3.4(L) 3.5 - 5.1 mmol/L 12/14/2022 2:55 AM [facility] Chloride 108(H) 98 - 107 mmol/L 12/14/2022 2:55 AM [facility] CO2 24 23 - 31 mmol/L 12/14/2022 2:55 AM [facility] Calcium 8.3(L) 8.4 - 10.4 mg/dL 12/14/2022 2:55 AM [facility] Anion Gap 6(L) 8 - 18 mmol/L 12/14/2022 2:55 AM [facility] BUN 15 7 - 18.7 mg/dL 12/14/2022 2:55 AM [facility] Creatinine 0.69 0.57 - 1.11 mg/dL 12/14/2022 2:55 AM [facility] Alkaline Phosphatase 143 40 - 150 U/L 12/14/2022 2:55 AM [facility] ALT 582(H) 0 - 61 U/L 12/14/2022 2:55 AM [facility] AST 289(H) 5 - 34 U/L 12/14/2022 2:55 AM [facility] Protein Total 5.9(L) 6.4 - 8.3 gm/dL 12/14/2022 2:55 AM [facility] Albumin 3.5 3.5 - 5.2 gm/dL 12/14/2022 2:55 AM [facility] Bilirubin Total 1.5(H) 0.2 - 1.2 mg/dL 12/14/2022 2:55 AM [facility] eGFR by CKD-EPI >90 >=90 mL/min/1.7 3 m2 12/14/2022 2:55 AM [facility] Blood BLOOD SPECIMEN / Unknown Venipuncture / Unknown 12/14/2022 2:11 AM COMPANY CONTROLLER 12/14/2022 2:30 AM COMPANY CONTROLLER Hilaria Dowell MD LAB - CHEMISTRY MARIBEL WEISS [facility] Organization Address City/State/ZIP Co de Phone Number [facility] [address] [place] [address] * (ABNORMAL) CBC W/O DIFFERENTIAL (12/14/2022 2:11 AM COMPANY CONTROLLER) WBC 3.5(L) 4.4 - 10.7 x10E9/L 12/14/2022 2:42 AM [facility] RBC 3.72(L) 3.80 - 5.20 x10E12/L 12/14/2022 2:42 AM [facility] Hemoglobin 10.3(L) 12.0 - 15.6 gm/dL 12/14/2022 2:42 AM [facility] Hematocrit 30.7(L) 35.9 - 45.5 % 12/14/2022 2:42 AM [facility] MCV 82.5 80.7 - 98.3 fl 12/14/2022 2:42 AM [facility] MCH 27.7 26.7 - 34.0 pg 12/14/2022 2:42 AM [facility] MCHC 33.6 30.8 - 35.9 gm/dL 12/14/2022 2:42 AM [facility] Platelet Count 137(L) 153 - 416 x10E9/L 12/14/2022 2:42 AM [facility] RDW-CV 13.5 12.1 - 14.9 % 12/14/2022 2:42 AM [facility] MPV 13.1(H) 9.4 - 12.9 fl 12/14/2022 2:42 AM [facility] Blood BLOOD SPECIMEN / Unknown Venipuncture / Unknown 12/14/2022 2:11 AM COMPANY CONTROLLER 12/14/2022 2:30 AM COMPANY CONTROLLER Hilaria Dowell MD LAB - HEMATOLOGY ORD ERABLES Performing Organization Address [facility] Co de Phone Number [facility] [address] [place] [address] * EKG 12-LEAD (12/13/2022 5:36 PM COMPANY CONTROLLER) Ventricular Rate 80 BPM [facility] MUSE Atrial Rate 80 BPM [facility] P-R Interval 160 ms [facility] QRS Duration ms 90 ms [facility] Q-T Interval ms 376 ms [facility] QTC Calculation (Bezet) 433 ms [facility] MUSE Calculated P Sidney 24 degrees [facility] MUSE Calculated R [place] 13 degrees [facility] MUSE Calculated T [place] 19 degrees [facility] MUSE Interpretation EKG Normal sinus rhythm Normal ECG Confirmed by CAMELIA SAMANO MD ([id number]) on 12/14/2022 8:36:33 PM DP MUSE 12/13/2022 5:36 PM COMPANY CONTROLLER 12/14/2022 8:36 PM COMPANY CONTROLLER Frank Appiah DO ECG ORDERABLES Performing Organization Address [facility] Co de Phone Number [facility] * PT-INR (12/13/2022 5:27 PM COMPANY CONTROLLER) PT 13.7 12.1 - 14.8 sec 12/13/2022 5:49 PM COMPANY CONTROLLER [facility] INR 1.1 0.9 - 1.1 12/13/2022 5:49 PM COMPANY CONTROLLER [facility] Blood BLOOD SPECIMEN / Unknown Venipuncture / Unknown 12/13/2022 5:27 PM COMPANY CONTROLLER 12/13/2022 5:37 PM COMPANY CONTROLLER Narrative [facility] - 12/13/2022 5:49 PM COMPANY CONTROLLER Conventional Warfarin Anticoagulant Therapy: INR Reference Range: ??2.0-3.0 Intensive Warfarin Anticoagulant Therapy: INR Reference Range: ? 2.5-3.5 Frank Appiah DO LAB - COAGULATION OR DERABLES Performing Organization Address [facility] Co de Phone Number [facility] [address] [place] [address] * (ABNORMAL) LIPASE BLOOD (12/13/2022 5:27 PM COMPANY CONTROLLER) Pathologist [facility] Lipase 1,820(H) 8 - 78 U/L 12/13/2022 6:06 PM COMPANY CONTROLLER [facility] Blood BLOOD SPECIMEN / Unknown Venipuncture / Unknown 12/13/2022 5:27 PM COMPANY CONTROLLER 12/13/2022 5:37 PM COMPANY CONTROLLER Frank Appiah DO LAB - CHEMISTRY ORDE RABEMMANUELLE Performing Organization Address [facility] de Phone Number [facility] [address] [place] [phone] * MAGNESIUM BLOOD (12/13/2022 5:27 PM COMPANY CONTROLLER) [facility] Magnesium 2.0 1.6 - 2.6 mg/dL 12/13/2022 6:05 PM COMPANY CONTROLLER [facility] Blood BLOOD SPECIMEN / Unknown Venipuncture / Unknown 12/13/2022 5:27 PM COMPANY CONTROLLER 12/13/2022 5:37 PM COMPANY CONTROLLER [facility] - CHEMISTRY ORDE ABHISHEK Performing Organization Address [facility] de Phone Number [facility] [address] [place] [phone] * (ABNORMAL) COMPREHENSIVE METABOLIC PANEL (12/13/2022 5:27 PM COMPANY CONTROLLER) Pathologist [facility] Glucose 105 70 - 105 mg/dL 12/13/2022 6:05 PM COMPANY CONTROLLER [facility] Sodium 140 136 - 145 mmol/L 12/13/2022 6:05 PM COMPANY CONTROLLER [facility] Potassium 3.5 3.5 - 5.1 mmol/L 12/13/2022 6:05 PM [facility] Chloride 107 98 - 107 mmol/L 12/13/2022 6:05 PM COMPANY CONTROLLER [facility] CO2 23 23 - 31 mmol/L 12/13/2022 6:05 PM COMPANY CONTROLLER [facility] Calcium 9.3 8.4 - 10.4 mg/dL 12/13/2022 6:05 PM [facility] Anion Gap 10 8 - 18 mmol/L 12/13/2022 6:05 PM [facility] BUN 17 7 - 18.7 mg/dL 12/13/2022 6:05 PM [facility] Creatinine 0.78 0.57 - 1.11 mg/dL 12/13/2022 6:05 PM [facility] Alkaline Phosphatase 158(H) 40 - 150 U/L 12/13/2022 6:05 PM [facility] ALT 660(H) 0 - 61 U/L 12/13/2022 6:05 PM [facility] AST 345(H) 5 - 34 U/L 12/13/2022 6:05 PM [facility] Protein Total 7.3 6.4 - 8.3 gm/dL 12/13/2022 6:05 PM [facility] Albumin 4.3 3.5 - 5.2 gm/dL 12/13/2022 6:05 PM [facility] Bilirubin Total 1.9(H) 0.2 - 1.2 mg/dL 12/13/2022 6:05 PM [facility] eGFR by CKD-EPI >90 >=90 mL/min/1.7 3 m2 12/13/2022 6:05 PM [facility] Blood BLOOD SPECIMEN / Unknown Venipuncture / Unknown 12/13/2022 5:27 PM COMPANY CONTROLLER 12/13/2022 5:37 PM [facility] Frank Appiah DO LAB - CHEMISTRY MARIBEL WEISS [facility] [address] [place] [address] * (ABNORMAL) CBC W AUTO DIFFERENTIAL (12/13/2022 5:27 PM [facility]) WBC 7.2 4.4 - 10.7 x10E9/L 12/13/2022 5:42 PM [facility] WBC Corrected 12/13/2022 5:42 PM [facility] RBC 4.59 3.80 - 5.20 x10E12/L 12/13/2022 5:42 PM [facility] Hemoglobin 12.8 12.0 - 15.6 gm/dL 12/13/2022 5:42 PM [facility] Hematocrit 37.7 35.9 - 45.5 % 12/13/2022 5:42 PM [facility] MCV 82.1 80.7 - 98.3 fl 12/13/2022 5:42 PM COMPANY CONTROLLER [facility] MCH 27.9 26.7 - 34.0 pg 12/13/2022 5:42 PM [facility] MCHC 34.0 30.8 - 35.9 gm/dL 12/13/2022 5:42 PM [facility] Platelet Count 184 153 - 416 x10E9/L 12/13/2022 5:42 PM [facility] RDW-CV 13.4 12.1 - 14.9 % 12/13/2022 5:42 PM [facility] MPV 13.0(H) 9.4 - 12.9 fl 12/13/2022 5:42 PM [facility] Neutrophils % 78.1(H) 44.0 - 73.0 % 12/13/2022 5:42 PM [facility] Lymphocytes % 15.0(L) 20.0 - 43.0 % 12/13/2022 5:42 PM [facility] Monocytes % 5.3 5.0 - 13.0 % 12/13/2022 5:42 PM [facility] Eosinophils % 0.6 0.0 - 6.0 % 12/13/2022 5:42 PM [facility] Basophils % 0.4 0.0 - 2.0 % 12/13/2022 5:42 PM [facility] Immature Granulocytes 0.6 0 - 1 % 12/13/2022 5:42 PM [facility] Neutrophil Absolute 5.65 2.01 - 7.14 x10E9/L 12/13/2022 5:42 PM [facility] Lymphocytes Absolute 1.08 1.07 - 3.94 x10E9/L 12/13/2022 5:42 PM [facility] Monocytes Absolute 0.38 0.26 - 1.07 x10E9/L 12/13/2022 5:42 PM [facility] Eosinophils Absolute 0.04 0 - 0.47 x10E9/L 12/13/2022 5:42 PM COMPANY CONTROLLER [facility] Basophils Absolute 0.03 0 - 0.08 x10E9/L 12/13/2022 5:42 PM COMPANY CONTROLLER [facility] Immature Granulocytes Absolute 0.04 0.00 - 0.06 x10E9/L 12/13/2022 5:42 PM COMPANY CONTROLLER [facility] nRBC Auto 0 /100 WBC 12/13/2022 5:42 PM COMPANY CONTROLLER [facility] Blood BLOOD SPECIMEN / Unknown Venipuncture / Unknown 12/13/2022 5:27 PM COMPANY CONTROLLER 12/13/2022 5:37 PM COMPANY CONTROLLER Frank Appiah DO LAB - HEMATOLOGY ORD ERABLES Performing Organization Address City/State/[facility] Co de Phone Number [facility] [address] [place] [address] documented in this encounter Visit Diagnoses Diagnosis Morbid obesity (HCC)- Primary Morbid obesity Abdominal pain, generalized Acute pancreatitis, unspecified complication status, unspecified pancreatitis type (HCC) Transaminitis Nonspecific elevation of levels of transaminase or lactic acid dehydrogenase (LDH) Preop examination Preoperative examination, unspecified Diagnosis unknown Other unknown and unspecified cause of morbidity or mortality Acute pancreatitis, unspecified complication status, unspecified pancreatitis type (HCC) Transaminitis Nonspecific elevation of levels of transaminase or lactic acid dehydrogenase (LDH) documented in this encounter Administered Medications Inactive Administered Medications - up to 3 most recent administrations Medication Order MAR Action Action Date Dose Rate Site 0.9% NaCl infusion at 100 mL/hr, Intravenous, CONTINUOUS, Starting on Tue12/14/22 at 0230, Until Tue12/15/22 at 1900 Restarted 12/14/2022 12:37 PM COMPANY CONTROLLER 100 mL/hr Rate Change 12/14/2022 12:36 PM COMPANY CONTROLLER 100 mL/hr $ New Bag/Syringe 12/14/2022 2:00 AM COMPANY CONTROLLER 125 mL /hr 0.9% NaCl injection 1-10 [...] of normal saline every 8 hours. 0.9% NaCl IV 500 mL with multivitamin (Infuvite) 10 mL, thiamine (Vitamin B-1) 100 mg, folic acid 1 mg infusion at 125 mL/hr, Intravenous, DAILY, First dose on Tue12/14/22 at 0900, Until Discontinued Current Rate 12/14/2022 10:51 PM COMPANY CONTROLLER 125 mL/hr $ New Bag/Syringe 12/14/2022 2:16 PM COMPANY CONTROLLER 125 mL /hr 0.9% NaCl IV bolus 500 mL, at 247.93 mL/hr, Administer over 121 Minutes, 4 TIMES DAILY PRN, if BP is less than 90 mmHg Systolic, Starting on Tue12/14/22 at 0812, Until Tue12/15/22 at 1900 acetaminophen (Tylenol) tablet 1,000 mg 1,000 mg, Oral, NOW, 1 dose, On Tue12/13/22 at 1730, Patient preference for lesser PRN pain meds may be honored when the patient requests a less strong medication, a lower dose, or a less intrusive route of administration when the lesser drug, dose and route have been ordered for the patient. This patient request must be documented in the MAR. $ Given 12/13/2022 6:36 PM COMPANY CONTROLLER 1,000 mg acetaminophen (Tylenol) tablet 650 mg 650 mg, [...] 1900, For wheezing. Notify anesthesia immediately., PACU calcium carbonate (Tums) chew tablet 1 tablet 1 tablet, Oral, PRN, Heartburn, Starting on Tue12/14/22 at 0812, Until Tue12/15/22 at 1900 diphenhydrAMINE (Benadryl) injection 25 mg 25 mg, Intravenous, ONCE PRN, Nausea/Vomiting, 1 dose, Starting on Tue12/15/22 at 1115, Until Tue12/15/22 at 1900, Third choice, use if first and second choice was ineffective., PACU famotidine (Pepcid) injection 20 mg 20 mg, Intravenous, PRE-OP ONCE, 1 dose, On Tue12/15/22 at 0730, Dilute with 0.9% NaCl, D5W solution, or SWI to a volume of 5 to 10 mL and administer over at least 2 minutes. $ Given 12/15/2022 7:45 AM COMPANY CONTROLLER 20 mg fentaNYL (PF) (Sublimaze) injection 25 [...] MAR., PACU $ Given 12/15/2022 12:06 PM COMPANY CONTROLLER 50 mcg $ Given 12/15/2022 11:36 AM COMPANY CONTROLLER 50 mcg labetalol (Normodyne; Trandate) injection 5 [...] than 100., PACU lactated ringers infusion at 20 mL/hr, Intravenous, PRE-OP ONCE, 1 dose, On Tue12/15/22 at 0745 $ New Bag/Syringe 12/15/2022 7:46 AM COMPANY CONTROLLER 20 mL/hr lactated ringers infusion at 125 mL/hr, Intravenous, CONTINUOUS, Starting on Tue12/15/22 at 1200, Until Tue12/15/22 at 1900, PACU lactated ringers IV bolus 1,000 mL, at 1,935.48 mL/hr, Administer over 31 Minutes, ONCE, 1 dose, On Tue12/13/22 at 1915 $ New Bag/Syringe 12/13/2022 7:23 PM COMPANY CONTROLLER 1,000 mL 1935.48 mL/hr melatonin tablet 3 mg 3 mg, Oral, [...] MAR., PACU $ Given 12/15/2022 12:31 PM COMPANY CONTROLLER 2 mg morphine injection 4 mg 4 [...] to swallow. $ Given 12/15/2022 1:17 PM COMPANY CONTROLLER 4 mg ondansetron (Zofran) injection 4 mg [...] the MAR. $ Given 12/15/2022 5:01 PM COMPANY CONTROLLER 5 mg $ Given 12/15/2022 1:18 PM COMPANY CONTROLLER 5 mg pantoprazole (Protonix) injection 40 mg 40 mg, Intravenous, DAILY, First dose on Tue12/14/22 at 0900, Until Discontinued, For every 40 mg of pantoprazole mix with 10 mL Normal Saline (final concentration = 4 mg/mL). Inject SLOWLY over 2 min. $ Given 12/15/2022 1:17 PM COMPANY CONTROLLER 40 mg $ Given 12/14/2022 9:38 AM COMPANY CONTROLLER 40 mg potassium chloride 40 mEq in 270 mL bolus 40 mEq, at 67.5 mL/hr, Administer over 4 Hours, Intravenous, ONCE, 1 dose, On Tue12/14/22 at 0900 Restarted 12/14/2022 12:36 PM COMPANY CONTROLLER 6 7.5 mL/hr $ New Bag/Syringe 12/14/2022 10:48 AM COMPANY CONTROLLER 40 mEq 67.5 mL/hr prochlorperazine (Compazine) injection 10 mg 10 mg, Intravenous, ONCE PRN, Nausea/Vomiting, 1 dose, Starting on Tue12/15/22 at 1115, Until Tue12/15/22 at 1136, Second choice, use if first choice was ineffective., PACU $ Given 12/15/2022 11:36 AM COMPANY CONTROLLER 5 mg scopolamine (Transderm-Scop) 1 patch 1 patch, Administer over 72 Hours, PRE-OP ONCE, 1 dose, On Tue12/15/22 at 0730, Apply patch behind the ear. Each patch contains 1.5 mg scopolamine base and is formulated to deliver 1 mg of scopolamine over 72 hours. $ Applied 12/15/2022 7:45 AM COMPANY CONTROLLER 1 patch Behind Left Ear scopolamine patch placement confirmation Transdermal, 2 TIMES [...] Recently Administered Medications Times are shown in COMPANY CONTROLLER. Scheduled Medication Order 12/13/2022 12/14/2022 12/15/2022 0.9% [...] 1416 ($ New Bag/Syringe - Provider: Jenny Aguirre, CODY)2251 (Current Rate - Provider: Marisa Bang RN) [...] request must be documented in the DEC. 183 ($ Given - Provider: Gabi Newell) albuterol-ipratropium [...] CODY) 1317 ($ Given - Provider: Aliyah Avelar RN) potassium chloride 40 mEq in 270 mL bolus (COMPLETED) 40 mEq, at 67.5 mL/hr, Administer over 4 Hours, Intravenous, ONCE, 1 dose, On Tue12/14/22 at 0900 1048 ($ New Bag/Syringe - Provider: Jenny Aguirre, CODY)1236 (Restarted - Provider: Chen Lovell, RN)1454 (Stopped - Provider: Cynthia Bhardwaj, CODY) potassium [...] daily. 1308 (*Reviewed - Provider: Cynthia Bhardwaj, CODY) Continuous Medication Order 12/13/2022 12/14/2022 12/15/2022 0.9% NaCl infusion at 100 mL/hr, Intravenous, CONTINUOUS, Starting on Tue12/14/22 at 0230, Until Tue12/15/22 at 1900 0200 ($ New Bag/Syringe - Provider: Marisa Bang RN)1236 (Rate Change - Provider: Chen Lovell, RN)1237 (Restarted - Provider: Chen Lovell RN) lactated ringers infusion at 125 mL/hr, [...] orally on tongue Dissolved orally on tongue 131 (See Alternativ e - Provider: Aliyah Avelar [...] swallow. documented in this encounter Care Teams Gluer And Wedger Relationship Specialty Start Date End Date Catina Rios APRN-SECURITY ALARM TECHNICIAN [address] [place] [address] PCP - General Nurse Practitioner 03/30/22 documented as of this encounter
--- OUTSIDE RECORDS SUMMARY | 2024-11-01 05:20 | XMS_ITS | Encounter Summary ---
Author Organization [facility] Address [address] [facility] [place] [address] Care Team Providers Care Hatchery Manager Name Role Phone Catina Rios APRN-RISK CONTROL PRODUCT LIABILITY DIRECTOR Primary Care Provi saloni Encounter Details Date Type Department Care Team (Late st Contact Info) Description 12/23/2022 Orders Only [facility] [address] [facility] [address] [place] [address] Jenny [facility]ard [facility] [address] [facility] [address] [place] [address] Social History Tobacco Use Types [...] and heating? Not hard at all 12/14/2022 [facility] [place] [facility] - Occupational Stress [...] place to sleep or slept in a prison (including now)? No 12/14/2022 Sex and Gender Information Value Date Recorded Sex Assigned at Not on file Gender Identity Not on file Sexual Orientation Not on file COVID-19 Exposure Response Date Recorded In the last 10 days, have yo u been in contact with someone who was confirmed or suspected to have Coronavirus/COVID-19? No / Unsure 12/27/2022 11:17 AM SHUTTLE VENEERING SUPERVISOR documented as of this encounter Functional Status [...] on filedocumented in this encounter Care Teams Hatchery Manager Relationship Specialty Start Date End Date Catina Rios APRN-MARIS [address] [place] [address] PCP - General Nurse Practitioner 03/30/22 documented as of this encounter
--- OUTSIDE RECORDS SUMMARY | 2024-11-01 05:20 | XMS_ITS | Encounter Summary ---
Author Organization [facility] Address [address] [facility] [place] [address] Care Team Providers Care Metal Buffer Name Role Phone Catina Rios [facility] Primary Care Provi saloni Reason for Visit * Reason Onset Date Comments Pre Authorization 04/02/2022 Egd denial Appointment 04/02/2022 Encounter Details Date Type Department Care Team (Late st Contact Info) Description 04/02/2022 Telephone [facility] [phone] [place] [address] [place] [address] [address] Pre Authorization (Egd denial ); Appointment Social History Tobacco Use Types Packs/Day [...] encounter Miscellaneous Notes * Telephone Encounter - Sharyn Swartz MA - 04/02/2022 12:42 PM CDT Spoke with patient regarding Egd scheduled on 04/08/22 with . I advised patient this was canceled due to insurance denial. Patient was advised insurance states medical criteria was not met.Per insurance pre-op Egd for bariatric surgery is not medically necessary if patient is asymptomatic or is having symptoms that have not been treated with 8 weeks of therapy, medications or change indiet as prescribed by a doctor. I advised patient could not do a peer to peer due to UGI results were normal. Patient advised would like her to follow with her in office. Patient has scheduled appointment on 05/14/22. documented in this encounter Plan of Treatment Not on file documented as of this encounter Visit Diagnoses Not on filedocumented in this encounter Care Teams Metal Buffer Relationship Specialty Start Date End Date Catina Rios APRN-MARIS [address] [place] [address] PCP - General Nurse Practitioner 03/30/22 documented as of this encounter
--- OUTSIDE RECORDS SUMMARY | 2024-11-01 05:20 | XMS_ITS | Encounter Summary ---
Author Organization [facility] Address [address] [place] [address] Care Team Providers Care Instructional Specialist Name Role Phone Maverick Kauffman MD Primary Care Provider Encounter Details Date Type Department Care Team (Latest Contact Info) Description 03/28/2008 12:01 AM CDT - 03/28/2008 11:59 PM CDT Hospital Encounter [facility] [address] [place] [address] Carlos Siegel, Cancel Discharge Disposition: Home or Self Care Social [...] on filedocumented in this encounter Care Teams Instructional Specialist Relationship Specialty Start Date End Date Maverick Kauffman MD [address] [place] [address] PCP - General 03/15/08 05/02/09 documented as of this encounter
--- OUTSIDE RECORDS SUMMARY | 2024-11-01 05:20 | XMS_ITS | Encounter Summary ---
Author Organization [facility] Address [address] [place] [address] Care Team Providers Care Javascript Engineer Name Role Phone Maverick Kauffman MD Primary Care Provider [phone] Encounter Details Date Type Department Care Team (Latest Contact Info) Description 03/18/2008 12:01 AM CDT - 03/18/2008 11:59 PM CDT Hospital Encounter Maternal & Care at [facility] [address] [place] [address] Carlos Siegel DO Maternal Medicine Discharge Disposition: Home or Self Care Social History Tobacco Use Types Packs/Day Years Used Date Smoking Tobacco: Never Assessed Sex and Gender Information Value Date Recorded Sex Assigned at Not on file Gender Identity Not on file Sexual Orientation Not on file documented as of this encounter Procedure Notes * Document, Scanned - 03/18/2008 12:00 AM CDTAssociated Order(s): IMAGING/RADIOLOGY/XRAY RESULTS ORDER documented in this encounter Miscellaneous Notes * Miscellaneous Scans - Document, Scanned - 03/18/2008 12:00 AM CDT * Miscellaneous Scans - Document, Scanned - 03/18/2008 12:00 AM CDT documented in this encounter Plan of Treatment Not on file documented as of this encounter Procedures Procedure Name Priority Date/Time Associated Diagnosis Comments IMAGING/RADIOLOGY/X RAY RESULTS ORDER 03/19/2008 5:03 PM CDT documented in this encounter Results * IMAGING/RADIOLOGY/XRAY RESULTS ORDER (03/19/2008 5:03 PM CDT) Anatomical Region Laterality Modality Other Narrative 03/19/2008 5:03 PM CDT Ordered by an unspecified provider. Transcriptions Document, Scanned - 03/18/2008 12:00 AM CDT Scanned Document IMAGING documented in this encounter Visit Diagnoses Not on filedocumented in this encounter Care Teams Javascript Engineer Relationship Specialty Start Date End Date Maverick Kauffman MD [address] [place], [place] [id number] PCP - General 03/15/08 05/02/09 documented as of this encounter
--- OUTSIDE RECORDS SUMMARY | 2024-11-01 05:20 | XMS_ITS | Encounter Summary ---
Author Organization [facility] Address [address] [facility] [place] [address] Care Team Providers Care Final Block Press Operator Name Role Phone Catina Rios APRN-DATA COMMUNICATIONS ANALYST Primary Care Provi saloni Encounter Details Date Type Department Care Team (Latest Contact Info) Description 05/21/2022 Travel Social History Tobacco Use Types Packs/Day [...] AM CDT documented as of this encounter Plan of Treatment Not on file documented as of this encounter Visit Diagnoses Not on filedocumented in this encounter Care Teams Final Block Press Operator Relationship Specialty Start Date End Date Catina Rios APRN-MARIS [address] [place] [address] PCP - General Nurse Practitioner 03/30/22 documented as of this encounter
--- OUTSIDE RECORDS SUMMARY | 2024-11-01 05:21 | XMS_ITS | Encounter Summary ---
Author Organization [facility] Address [address] [place] [address]. [place] [address] [place] [address] Care Team Providers Care Gas Shovel Operator Name Role Phone Catina Rios NP Primary Care Provider [phone] Encounter Details Date Type Department Care Team (Latest Contact Info) Description 10/06/2021 Travel Social History Tobacco Use Types Packs/Day Years Used Date Smoking Tobacco: Never Smokeless Tobacco: Never Alcohol Use Standard Drinks/Week Comments Not Currently 0 (1 standard drink = 0.6 oz pur e alcohol) PHQ-2 Answer Date Recorded PHQ-2 Score - If the patient scores above 3, please move on to questions 3-9 0 10/07/2021 Comments Unknown Sex and Gender Information Value Date Recorded Sex Assigned at Not on file Legal Sex Female 8:34 PM CDT Gender Identity Not on file Sexual Orientation Not on file COVID-19 Exposure Response Date Recorded In the last month, have you been in contact with someone who was confirmed or suspected to have Coronavirus / COVID-19? No / Unsure 10/06/2021 7:22 PM ADJUNCT BUSINESS INSTRUCTOR documented as of this encounter Plan of Treatment Not on file documented as of this encounter Visit Diagnoses Not on filedocumented in this encounter Care Teams Gas Shovel Operator Relationship Specialty Start Date End Date Catina Rios NP [address] [place] [address] PCP - General NURSE PRACTITIONER 10/06/21 documented as of this encounter
--- OUTSIDE RECORDS SUMMARY | 2024-11-01 05:21 | XMS_ITS | Encounter Summary ---
Author Organization [facility] Address [address] [place] [address]. [place] [address] [place] [address] Care Team Providers Care Computed Tomography Technician Name Role Phone Catina Rios NP Primary Care Provider [phone] Encounter Details Date Type Department Care Team (Latest Contact Info) Description 10/26/2022 Travel Social History Tobacco Use Types Packs/Day Years Used Date Smoking Tobacco: Never Passive Smoke Exposure: Past Smokeless Tobacco: Never Comments:The provider can pr ovide you with more information about quitting. Alcohol Use Standard Drinks/Week Comments Not Currently 0 (1 standard drink = 0.6 oz pur e alcohol) PHQ-2 Answer Date Recorded Patient Health Questionnaire-2 Score 0 10/26/2022 Comments No Sex and Gender Information Value Date Recorded Sex Assigned at Not on file Legal Sex Female 8:34 PM CDT Gender Identity Not on file Sexual Orientation Not on file COVID-19 Exposure Response Date Recorded In the last 10 days, have yo u been in contact with someone who was confirmed or suspected to have Coronavirus/COVID-19? No / Unsure 10/26/2022 8:15 AM SERVICE DESK LEAD documented as of this encounter Plan of Treatment Not on file documented as of this encounter Visit Diagnoses Not on filedocumented in this encounter Additional Health Concerns Assessment Noted Time PHQ-9 Depression Total Score: 0 10/07/20 21 2:33 PM SERVICE DESK LEAD documented as of this encounter Care Teams Computed Tomography Technician Relationship Specialty Start Date End Date Catina Rios NP [address] [place] [address] PCP - General NURSE PRACTITIONER 10/06/21 documented as of this encounter
--- OUTSIDE RECORDS SUMMARY | 2024-11-01 05:21 | XMS_ITS | Encounter Summary ---
Author Organization [facility] Address [address] [place] [address]. [place], [place] [address] [place] [address] Care Team Providers Care Manager Garden Name Role Phone Catina Rios NP Primary Care Provider [phone] Reason for Visit * Reason Onset Date Comments Refill Request 05/31/2023 Encounter Details Date Type Department Care Team ([facility] st Contact Info) Description 05/31/2023 Telephone [facility] Medical Group Family Medicine - [place] [address] [facility] [address] [place] [id number] Catina Rios, IRON PLASTIC BULLET MAKER [address] [place] [address] Refill Request Social History Tobacco Use Types Packs/Day Years [...] as of this encounter Progress Notes * Margo Alvarez MA - 05/31/2023 9:32 AM CDT Refill sent * Esther Gustafson - 05/31/2023 8:23 AM CDT Refill request for valacyclovir tablets Lisa Benson documented in this encounter Plan of Treatment Not on file documented as of this encounter Visit Diagnoses Diagnosis History of cold sores Personal history of other infectious and parasitic disease documented in this encounter Additional Health Concerns Assessment Noted Time PHQ-9 Depression Total Score: 0 10/07/20 21 2:33 PM EDGE BANDER OPERATOR documented as of this encounter Care Teams Manager Garden Relationship Specialty Start Date End Date Catina Rios NP [address] [place] [address] PCP - General NURSE PRACTITIONER 10/06/21 documented as of this encounter
--- OUTSIDE RECORDS SUMMARY | 2024-11-01 05:21 | XMS_ITS | Encounter Summary ---
Author Organization [facility] Address [address] [place] [address]. [id number] [place] [address] Care Team Providers Care Coremaker Apprentice Name Role Phone Catina Rios NP Primary Care Provider [phone] Encounter Details Date Type Department Care Team (Latest Contact Info) Description 06/09/2023 Travel Social History Tobacco Use Types Packs/Day Years Used Date Smoking Tobacco: Never Passive Smoke Exposure: Past Smokeless Tobacco: Never Comments:The provider can pr ovide you with more information about quitting. Alcohol Use Standard Drinks/Week Comments Not Currently 0 (1 standard drink = 0.6 oz pur e alcohol) PHQ-2 Answer Date Recorded Patient Health Questionnaire-2 Score 0 06/09/2023 Comments No Sex and Gender Information Value [...] Noted Time PHQ-9 Depression Total Score: 0 06/09/20 23 8:23 AM CDT documented as of this encounter Care Teams Coremaker Apprentice Relationship Specialty Start Date End Date Catina Rios NP [address] [place] [address] PCP - General NURSE PRACTITIONER 10/06/21 documented as of this encounter
--- OUTSIDE RECORDS SUMMARY | 2024-11-01 05:21 | XMS_ITS | Encounter Summary ---
Author Organization [facility] Address [address] [place] [address]. [place] [address] [place] [address] Care Team Providers Care Travel Nurse Name Role Phone Catina Rios NP Primary Care Provider [phone] [phone] Encounter Details Date Type Department Care Team (Latest Contact Info) Description 10/04/2024 2:02 PM SKIN FORMER - 10/04/2024 11:59 PM [facility] Hospital Encounter [facility] [address] [place] [address] [place] [address] [place] [address] Discharge Disposition: Home or Self Care (Routine Discharge) Social History Tobacco Use Types Packs/Day Years Used Date Smoking Tobacco: Never Passive Smoke Exposure: Past Smokeless Tobacco: Never Comments:The provider can pr ovide you with more information about quitting. Alcohol Use Standard Drinks/Week Comments Not Currently 0 (1 standard drink = 0.6 oz pur e alcohol) PHQ-2 Answer Date Recorded Patient Health Questionnaire-2 Score 0 07/31/2024 Estimated Date of Delivery Comme nts Yes 11/01/2024 Sex and Gender Information Value Date Recorded Sex Assigned at Not on file Legal Sex Female 8:34 PM CDT Gender Identity Not on file Sexual Orientation Not on file documented as of this encounter Medications at Time of Discharge albuterol sulfate HFA 108 (90 Base) MCG/ACT inhalerIndication s:Upper respiratory tract infection, unspecified type Inhale 2 puffs into the lungs every 6 (six) hours as needed for Wheezing. 18 g 07/31/2024 vitamin ( PLUS) 27-1 MG tablet Take 1 tablet by mouth daily. vitamin D3, cholecalciferol, 1.25 mg capsuleIndication s:Vitamin D deficiency Take 1 capsule (50,000 Units total) by mouth once a week. 8 capsule 06/12/2023 azithromycin (ZITHROMAX Z-SHILPI) 250 MG tabletIndications :Bronchitis Take 2 tablets by mouth on day one then 1 daily for four days. 6 tablet 10/04/2024 10/09/2024 documented as of this encounter Plan of Treatment Not on file documented as of this encounter Procedures Procedure Name Priority Date/Time Associated Diagnosis Comments CULTURE STREP A Routine 10/04/2024 11:21 AM SKIN FORMER Sore throat documented in this encounter Results * CULTURE STREP A (10/04/2024 11:21 AM SKIN FORMER) SPEC DESCRIPTION THROAT 10/04/2024 2:02 PM SKIN FORMER [facility] SPECIAL REQUESTS NO SPECIAL REQUEST 10/04/2024 2:02 PM SKIN FORMER [facility] CULTURE RESULT NO STREPTOCOCCUS PYOGENES (GROUP A) ISOLATED 10/06/2024 6:48 AM SKIN FORMER [facility] THROAT SWAB / Unknown 10/04/2024 11:21 AM SKIN FORMER 10/04/2024 2:05 PM SKIN FORMER Yaquelin ARRIAGA MICROBIOLOGY - GENERAL ORDER GARRY Final Result [facility] [address] [place] [address], [place] [phone] [facility] [address] [place] [address], [place] [phone] documented in this encounter Visit Diagnoses Diagnosis Sore throat Acute pharyngitis documented in this encounter Additional Health Concerns Assessment Noted Time PHQ-9 Depression Total Score: 0 06/09/20 23 8:23 AM CDT documented as of this encounter Care Teams Travel Nurse Relationship Specialty Start Date End Date Catina Rios NP [address] [place] [address] PCP - General NURSE PRACTITIONER 10/06/21 documented as of this encounter
--- OUTSIDE RECORDS SUMMARY | 2024-11-01 05:21 | XMS_ITS | Encounter Summary ---
Author Organization [facility] Address [address] [place] [address]. [place] [address] [place] [address] Care Team Providers Care Power Equipment Technology Instructor Name Role Phone Catina Rios NP Primary Care Provider [phone] Encounter Details Date Type Department Care Team (Latest Contact Info) Description 11/10/2022 Travel Social History Tobacco Use Types Packs/Day [...] suspected to have Coronavirus/COVID-19? No / Unsure 11/10/2022 8:59 AM TOWEL SORTER documented as of this encounter Plan of Treatment Not on file documented as of this encounter Visit Diagnoses Not on filedocumented in this encounter Additional Health Concerns Assessment Noted Time PHQ-9 Depression Total Score: 0 10/07/20 21 2:33 PM TOWEL SORTER documented as of this encounter Care Teams Power Equipment Technology Instructor Relationship Specialty Start Date End Date Catina Rios NP [address] [place] [address] PCP - General NURSE PRACTITIONER 10/06/21 documented as of this encounter
--- OUTSIDE RECORDS SUMMARY | 2024-11-01 05:21 | XMS_ITS | Encounter Summary ---
Author Organization [facility] Address [address] [place] [address]. [place] [address] [place] [address] Care Team Providers Care Credit And Collection Manager Name Role Phone Catina Rios NP Primary Care Provider [phone] [phone] Reason for Visit * Reason Comments Surgical Clearance surgery clearance fo r bariatric surgery Encounter Details Date Type Department Care Team (Late st Contact Info) Description 03/09/2022 10:00 AM CDT Office Visit [facility] Medical Group Family Medicine [facility] [address] [facility] [address] [place] [address] Catina Rios, RACE RELATIONS ADVISER [address] [place], [place] [address] Surgical Clearance (surgery clearance for bariatric surgery ) Social History Tobacco Use Types Packs/Day Years Used Date Smoking Tobacco: Never Smokeless Tobacco: Never Comments:The provider can pr ovide you with more information about quitting. Alcohol Use Standard Drinks/Week Comments Not Currently 0 (1 standard drink = 0.6 oz pur e alcohol) PHQ-2 Answer Date Recorded PHQ-2 Score - If the patient scores above 3, please move on to questions 3-9 0 10/07/2021 Comments No Sex and Gender Information Value Date Recorded Sex Assigned at Not on file Legal Sex Female 8:34 PM CDT Gender Identity Not on file Sexual Orientation Not on file COVID-19 Exposure Response Date Recorded In the last 10 days, have yo u been in contact with someone who was confirmed or suspected to have Coronavirus/COVID-19? No / Unsure 03/09/2022 10:01 AM CDT documented as of this encounter Last Filed Vital Signs Vital Sign Reading Time Taken Comments Blood Pressure 110/70 03/09/2022 10:04 AM CDT Pulse 90 03/09/2022 10:04 AM CDT Temperature 37.5 ??C (99.5 ??F) 03/09/2022 10:04 AM C DT Respiratory Rate - - Oxygen Saturation 99% 03/09/2022 10:04 AM CDT Inhaled Oxygen Concentration - - Weight 151.5 kg (334 lb) 03/09/2022 10:04 AM CDT Height 165.1 cm (5' 5 ) 03/09/2022 10:04 AM CDT Body Mass Index 55.58 03/09/2022 10:04 AM CDT documented in this encounter Progress Notes * Catina Rios NP - 03/09/2022 10:00 AM CDT Reason for Visit: Surgical Clearance (surgery clearance for bariatric surgery ) History of Present Illness: Marika is a 31- year old female who presents to office for surgical clearance to have bariatric surgery completed. Pt has reached out to bariatric surgery with [facility] unknown name of provider and is needing surgical clearance. Pt did have her screening lab completed last week at [facility] but not all labs available for review yet. Pt reported at a previous visit difficulty with weight loss. During the Covid pandemic she has gained weight. She feels her diet is overall okay. Denies any binge eating but she does overeat. She hasbeen exercising three days a week at a local gym doing weigh lifting and cardio and has lost already lost some weight on her own. Known PMH of asthma, frequent UTI's, hx of irregular periods. Hx of three cesarian deliveries, hx of tubal ligation and then reversal. BMI is currently 55.58 so pt does meet criteria for bariatric surgery. Medications: Current Outpatient Medications: ??? albuterol sulfate HFA 108 (90 Base) MCG/ACT inhaler, Inhale 2 puffs into the lungs every 6 (six) hours as needed for Wheezing., Disp: 18 g, Rfl: 0 No Known Allergies Past Medical History: Diagnosis Date ??? Asthma As a child ??? Pneumonia ??? Seizures (CMS/HCC) 2004 Happens with intense pain or fall hard ??? UTI (urinary tract infection) OB History Para Term AB Living 3 3 0 0 0 0 SAB TAB Ectopic Molar Multiple Live Births 0 0 0 0 0 0 Past Surgical History: Procedure Laterality Date ??? SECTION 07/16/2008 04/06/2011 10/15/2019 ??? TUBAL LIGATION 04/06/2011 But had a reversal 2017 Social History Tobacco Use ??? Smoking status: Never Smoker ??? Smokeless tobacco: Never Used ??? Tobacco comment: The provider can provide you with more information about quitting. Vaping Use ??? Vaping Use: Never used Substance Use Topics ??? Alcohol use: Not Currently Alcohol/week: 0.0 standard drinks ??? Drug use: Never Family History Problem Relation Name Age of Onset ??? Asthma Mother Nuzhat ??? Hypertension Mother Nuzhat ??? Kidney Disease Mother Nuzhat Kidney failure ROS: Review of Systems Constitutional: Negative for chills, diaphoresis, fever, malaise/fatigue and weight loss. HENT: Negative for congestion, ear discharge, ear pain, hearing loss, nosebleeds, sinus pain, sore throat and tinnitus. Eyes: Negative for blurred vision, double vision, photophobia, pain, discharge and redness. Respiratory: Negative for cough, hemoptysis, sputum production, shortness of breath, wheezing and stridor. Cardiovascular: Negative for chest pain, palpitations, orthopnea, claudication, leg swelling and PND. Gastrointestinal: Negative for abdominal pain, blood in stool, constipation, diarrhea, heartburn, melena, nausea and vomiting. Genitourinary: Negative for dysuria, flank pain, frequency, hematuria and urgency. Musculoskeletal: Negative for back pain, falls, joint pain, myalgias and neck pain. Skin: Negative for itching and rash. Neurological: Negative for dizziness, tingling, tremors, sensory change, speech change, focal weakness, seizures, loss of consciousness, weakness and headaches. Endo/Heme/Allergies: Negative for environmental allergies and polydipsia. Does not bruise/bleed easily. Psychiatric/Behavioral: Negative for depression, hallucinations, memory loss, substance abuse and suicidal ideas. The patient is not nervous/anxious and does not have insomnia. Physical Exam Constitutional: General: She is not in acute distress. Appearance: She is well-developed. She is obese. She is not ill-appearing, toxic-appearing or diaphoretic. HENT: Head: Normocephalic and atraumatic. Right Ear: Hearing, tympanic membrane, ear canal and external ear normal. Left Ear: Hearing, tympanic membrane, ear canal and external ear normal. Nose: Nose normal. Mouth/Throat: Pharynx: Uvula midline. No oropharyngeal exudate or posterior oropharyngeal erythema. Eyes: General: Lids are normal. Lids are everted, no foreign bodies appreciated. No scleral icterus. Extraocular Movements: Extraocular movements intact. Conjunctiva/sclera: Conjunctivae normal. Pupils: Pupils are equal, round, and reactive to light. Neck: Thyroid: No thyromegaly. Vascular: No carotid bruit. Trachea: No tracheal deviation. Cardiovascular: Rate and Rhythm: Normal rate and regular rhythm. Pulses: Normal pulses. Heart sounds: Normal heart sounds. No murmur heard. No friction rub. No gallop. Pulmonary: Effort: Pulmonary effort is normal. No respiratory distress. Breath sounds: Normal breath sounds. No stridor. No wheezing, rhonchi or rales. Chest: Chest wall: No tenderness. Abdominal: General: Bowel sounds are normal. There is no distension. Palpations: Abdomen is soft. There is no mass. Tenderness: There is no abdominal tenderness. There is no guarding or rebound. Musculoskeletal: General: No tenderness or deformity. Cervical back: Normal range of motion and neck supple. No edema. Lymphadenopathy: Cervical: No cervical adenopathy. Skin: General: Skin is warm and dry. Coloration: Skin is not jaundiced or pale. Findings: No bruising, erythema, lesion or rash. Neurological: General: No focal deficit present. Mental Status: She is alert and oriented to person, place, and time. Deep Tendon Reflexes: Reflexes are normal and symmetric. Psychiatric: Mood and Affect: Mood normal. Behavior: Behavior normal. Thought Content: Thought content normal. Judgment: Judgment normal. Filed Vitals: 03/09/22 1004 BP: 110/70 Pulse: 90 Temp: 99.5 ??F (37.5 ??C) TempSrc: Temporal SpO2: 99% Weight: (!) 151.5 kg (334 lb) Height: 5' 5 (1.651 m) Screening forms: PHQ-9: PHQ-9: Over the last two weeks, how often have you been bothered by any of the following problems? 10/07/2021 LITTLE INTEREST OR PLEASURE IN DOING THINGS 0-Not at All FEELING DOWN, DEPRESSSED,OR HOPELESS 0-Not at All PHQ2 DEPRESSION TOTAL SCORE 0 DEPRESSION SCREENING TOTAL SCORE 0 Assessment/Recommendations/Plan 1. Class 3 severe obesity with body mass index (BMI) of 50.0 to 59.9 in adult, unspecified obesity type, unspecified whether serious comorbidity present (CMS/HCC) 2. Preoperative clearance Based on lab work obtained thus far and physical examination findings. Pt is cleared from a primarycare standpoint to undergo bariatric surgery which will improve her overall health to hopefully prevent manager intermediate health complications that can occur with obesity. Will notify pt once rest of lab work from [facility] is back. Pt did have an impaired fasting glucose of15 noted from her lab work back thus far. Resume diet/exericse/continue working on weight loss at this time. Informed pt to be sure to have support form family/friends/post op support through group counselingwill help pt with manager intermediate success to keep weight off and follow a healthy lifestyle. Encourage following a low fat, low carb diet, encorperate whole foods such as fresh fruits and vegetables and whole grains into your diet, encourage 5 small meals per day. Avoid sugar-sweetened beverages, added sugars, processed meats, refined grains and oils or other processed foods. Encourage to get at least 150 minutes of moderate aerobic activity or 75 minutes of vigorous aerobic activity a week, or a combination of moderate and vigorous activity.Discussed routine labs, blood pressure, weight at today's visit. Follow up: 1 month for weight check Health Maintenance Topic Date Due ??? Hepatitis C Never done ??? Pneumococcal Vaccine: Pediatrics (0 to 5 Years) and At-Risk Patients (6 to 64 Years) (1 - PCV) 04/28/2022 (Originally 1995) ??? Cervical Cancer Screening with HPV 10/08/2022 (Originally 1989) ??? COVID-19 Vaccine (2 - Moderna 3-dose series) 10/08/2022 (Originally 12/18/2020) ??? Annual Physical 10/07/2022 ??? DTaP, Tdap and Td Vaccines (3 - Td or Tdap) 10/15/2029 ??? Meningococcal Vaccine Aged Out CATINA RIOS NP 03/09/2022 3:11 PM Cosigned by Emanuel Escalera MD at 03/09/2022 3:36 PM CDT documented in this encounter Plan of Treatment Not on file documented as of this encounter Visit Diagnoses Diagnosis Class 3 severe obesity with body mass index (BMI) of 50.0 to 59.9 in adult, unspecified obesity type, unspecified whether serious comorbidity present ([facility]/HCC HHS/HCC) Preoperative clearance Preoperative examination, unspecified documented in this encounter Additional Health Concerns Assessment Noted Time PHQ-9 Depression Total Score: 0 10/07/20 21 2:33 PM FUR IRONER documented as of this encounter Care Teams Credit And Collection Manager Relationship Specialty Start Date End Date Catina Rios NP [address] [place] [address] PCP - General NURSE PRACTITIONER 10/06/21 documented as of this encounter
--- OUTSIDE RECORDS SUMMARY | 2024-11-01 05:21 | XMS_ITS | Encounter Summary ---
Author Organization [facility] Address [address] [place] [address]. [place] [address] [place] [address] Care Team Providers Care Behavioral Health Case Manager Name Role Phone Catina Rios NP Primary Care Provider [phone] Encounter Details Date Type Department Care Team (Late st Contact Info) Description 03/16/2022 Workers On Callt Message Enc [facility] Medical Group Family Medicine - [place] [address] [facility] [address] [place] [phone] Catina Rios, [place] [address] [place], [place] [phone] RE: lab results Social History Tobacco Use Types Packs/Day Years [...] filedocumented in this encounter Additional Health Concerns Infection Onset Date Last Indicated Resolved Time COVID-19 Rule Out 07/31/2024 07/31/2024 07/31/2024 1:31 PM CDT COVID-19 Rule Out 10/04/2024 10/04/2024 10/04/2024 11:29 AM COMPENSATION AND BENEFITS MANAGER Assessment Noted Time PHQ-9 Depression Total Score: 0 10/07/20 2:33 PM COMPENSATION AND BENEFITS MANAGER documented as of this encounter Care Teams Behavioral Health Case Manager Relationship Specialty Start Date End Date Catina Rios NP [address] [place] [address] PCP - General NURSE PRACTITIONER 10/06/21 documented as of this encounter
--- OUTSIDE RECORDS SUMMARY | 2024-11-01 05:21 | XMS_ITS | Encounter Summary ---
Author Organization [facility] Address [address] [place] [address]. [place] [address] [place] [address] Care Team Providers Care Developing Machine Operator Name Role Phone Catina Rios NP Primary Care Provider [phone] Encounter Details Date Type Department Care Team (Latest Contact Info) Description 03/09/2022 Travel Social History Tobacco Use Types Packs/Day [...] Total Score: 0 10/07/20 21 2:33 PM AIRLINE RESERVATION AGENT documented as of this encounter Care Teams Developing Machine Operator Relationship Specialty Start Date End Date Catina Rios NP [address] [place] [address] PCP - General NURSE PRACTITIONER 10/06/21 documented as of this encounter
--- OUTSIDE RECORDS SUMMARY | 2024-11-01 05:21 | XMS_ITS | Encounter Summary ---
Author Organization [facility] Address [address] [place] [address]. [place] [address] [place] [address] Care Team Providers Care Bankruptcy Manager Name Role Phone Catina Rios NP Primary Care Provider [phone] Encounter Details Date Type Department Care Team (Latest Contact Info) Description 11/12/2022 Travel Social History Tobacco Use Types Packs/Day [...] suspected to have Coronavirus/COVID-19? No / Unsure 11/12/2022 12:00 PM ANALOG DESIGN ENGINEER documented as of this encounter Plan of Treatment Not on file documented as of this encounter Visit Diagnoses Not on filedocumented in this encounter Additional Health Concerns Assessment Noted Time PHQ-9 Depression Total Score: 0 10/07/20 21 2:33 PM ANALOG DESIGN ENGINEER documented as of this encounter Care Teams Bankruptcy Manager Relationship Specialty Start Date End Date Catina Rios NP [address] [place] [address] PCP - General NURSE PRACTITIONER 10/06/21 documented as of this encounter
--- OUTSIDE RECORDS SUMMARY | 2024-11-01 05:21 | XMS_ITS | Encounter Summary ---
Author Organization [facility] Address [address] [place] [address]. [place] [address] [place] [address] Care Team Providers Care Montessori Preschool Teacher Name Role Phone Catina Rios NP Primary Care Provider [phone] Reason for Visit * Reason Comments Cough she still has a coug h with mucus production. she is feeling better but its still there. Encounter Details Date Type Department Care Team (Late Contact Info) Description 01/20/2022 10:20 AM CDT Telemedicine [facility] Medical Group Family Medicine - [place] [address] [facility] [address] [place] [phone] Catina Rios, FUSING MACHINE OPERATOR [address] [place] [phone] Cough (she still has a cough with mucus production. she is feeling better but its still there.) Social History Tobacco Use Types Packs/Day Years [...] suspected to have Coronavirus/COVID-19? No / Unsure 01/13/2022 1:24 PM CDT documented as of this encounter Progress Notes * Catina Rios, CAROLINA - 01/20/2022 10:20 AM CDT Reason for Visit: Cough (she still has a cough with mucus production. she is feeling better but its still there.) History of Present Illness: Marika is a 31-year-old female who presents for a video visit for follow-up on her upper respiratory complaints. Patient initially had complaints of sinus congestion, cough for 3 weeks. Seen in office on 01/13. Chest x-ray was negative for pneumonia. Patient did complete course of antibiotic therapy,was using her albuterol inhaler, taking Tessalon Perles, and mrnu-xna-wruhvie Mucinex 600 mg every 12 hours and does report improvement but still reports feeling that she has mucus in her chest andis having difficulty coughing up. She denies fever, chills, chest pain, palpitations, shortness of breath, wheezing or chest tightness at this time. Telemedicine Consent Discussed the following with the patient: The patient has chosen to receive care through the use oftelemedicine. Telemedicine enables health care providers at different locations to provided safe, effective, and convenient care through the use of technology. As with any health care service, there are risks associated with the use of telemedicine, including equipment failure, poor image resolution , and senior information security analyst issues. Patient also understands that a physical exam may not be able rubia performed and the patient may need to come to the clinic to complete the assessment. Patient/Guardian consented to the use of telemedicine. Patient/Guardian verbally understands the risks and benefits of telemedicine as explained. All questions regarding telemedicine answered. Telemedicine Virtual Visit I introduced and identified myself, received verbal consent from the patient to proceed with this video visit and made the patient aware that the same confidentiality and senior information security analyst practices apply. The patient joined the video visit from Home. I completed the virtual visit from Office. The following clinical staff helped with this visit MA: Hector Ortiz . Total Time Spent in Minutes: 10 Medications: Current Outpatient Medications: ??? dicyclomine 10 MG capsule, Take 1 capsule (10 mg total) by mouth 4 (four) times daily before meals and nightly., Disp: 90 capsule, Rfl: 0 ??? albuterol sulfate HFA 108 (90 Base) MCG/ACT inhaler, Inhale 2 puffs into the lungs every 6 (six) hours as needed for Wheezing., Disp: 18 g, Rfl: 0 ??? azithromycin (ZITHROMAX Z-SHILPI) 250 MG tablet, Take 2 tablets by mouth on day one then 1 daily for four days., Disp: 6 tablet, Rfl: 0 No Known Allergies Past Medical [...] Kidney Disease Mother Nuzhat Kidney failure ROS: ROS Pertinent positives and negatives noted in HPI Physical Exam Constitutional: General: She is not in acute distress. Appearance: She is not ill-appearing. Eyes: Pupils: Pupils are equal, round, and reactive to light. Pulmonary: Effort: Pulmonary effort is normal. Comments: No cough noted during video visit. No respiratory distress noted. Skin: Findings: No rash. Neurological: Mental Status: She is alert and oriented to person, place, and time. Assessment/Recommendations/Plan Encounter Diagnose(s) ICD-10-CM ICD-9-CM SNOMED CT(R) 1. Chest congestion R09.89 786.9 PULMONARY CONGESTION pseudoephedrine- guaiFENesin ER (MUCINEX D) 60-600 MG TABLET SR 12 HR 12 hr tablet Patient symptoms have improved however she is still having mucus production in her chest. Will prescribe Mucinex D- higher strength mucinex and to take every 12 hours in addition to increasing her fluid intake. Patient instructed to use her albuterol inhaler every 4-6 hours at this time. Follow up: If symptoms worsen or new problems arise CATINA RIOS NP 01/20/2022 10:30 AM Cosigned by Emanuel Escalera MD at 01/20/2022 10:54 AM CDT documented in this encounter Plan of Treatment Not on file documented as of this encounter Visit Diagnoses Diagnosis Chest congestion- Primary Other symptoms involving respiratory system and chest documented in this encounter Additional Health Concerns Assessment Noted Time PHQ-9 Depression Total Score: 0 10/07/20 21 2:33 PM SMALL BOAT ENGINEER documented as of this encounter Care Teams Montessori Preschool Teacher Relationship Specialty Start Date End Date Catina Rios NP [address] [place] [address] PCP - General NURSE PRACTITIONER 10/06/21 documented as of this encounter
--- OUTSIDE RECORDS SUMMARY | 2024-11-01 05:21 | XMS_ITS | Encounter Summary ---
Author Organization [facility] Address [facility] [facility] [place] [address] [place] [address] Care Team Providers Care Ob/Gyn Name Role Phone Catina Rios NP Primary Care Provider [phone] Reason for Referral * Imaging (Routine) - Closed Specialty Diagnoses / Procedures Referred By Poncho thompson Referred To Contact RADIOLOGY Diagnoses Right upper quadrant pain Procedures NM HEPATOBILIARY SCAN W/GB EJECTION FRACTION Catina Rios NP [address] [place] [address] Phone: tel: fax: Referral ID Status Reason Start Date Expiration Date Visits Re quested Visits Authorized [id number] Closed 10/26/2022 10/26/2023 1 3 DEFENSE ARTILLERY SENIOR SERGEANT Reason for Visit * Reason Comments Abdominal Pain Patient presents wit h epig/astric pain and vomiting. On and off since weight loss surgery. /She had the Sleeve done 06/09/22 Encounter Details Date Type Department Care Team (Late st Contact Info) Description 10/26/2022 8:20 AM AIR DEFENSE ARTILLERY SENIOR SERGEANT Office Visit [facility] Medical [facility] Family Medicine - [place] [address] [facility] [address] [place] [phone] Catina Rios NP [address] [place] [address] Abdominal Pain (Patient presents with epig/astric pain and vomiting. On and off since weight loss surgery. /She had the Sleeve done 06/09/22) Social History Tobacco Use Types Packs/Day Years Used Date Smoking Tobacco: Never Passive Smoke Exposure: Past Smokeless Tobacco: Never Tobacco Cessation:Counseling Given: No Comments:The provider can provide you with more information about quitting. Alcohol [...] Coronavirus/COVID-19? No / Unsure 10/26/2022 8:15 AM AIR DEFENSE ARTILLERY SENIOR SERGEANT documented as of this encounter Last Filed Vital Signs Vital Sign Reading Time Taken Comments Blood Pressure 110/72 10/26/2022 8:22 AM AIR DEFENSE ARTILLERY SENIOR SERGEANT Pulse 75 10/26/2022 8:22 AM AIR DEFENSE ARTILLERY SENIOR SERGEANT Temperature 36.1 ??C (97 ??F) 10/26/2022 8:22 AM AIR DEFENSE ARTILLERY SENIOR SERGEANT Respiratory Rate 22 10/26/2022 8:22 AM AIR DEFENSE ARTILLERY SENIOR SERGEANT Oxygen Saturation 100% 10/26/2022 8:22 AM AIR DEFENSE ARTILLERY SENIOR SERGEANT Inhaled Oxygen Concentration - - Weight 114.3 kg (252 lb) 10/26/2022 8:22 AM AIR DEFENSE ARTILLERY SENIOR SERGEANT Height 165.1 cm (5' 5 ) 10/26/2022 8:22 AM AIR DEFENSE ARTILLERY SENIOR SERGEANT Body Mass Index 41.93 10/26/2022 8:22 AM AIR DEFENSE ARTILLERY SENIOR SERGEANT documented in this encounter Progress Notes * Catina Rios NP - 10/26/2022 8:20 AM CST Reason for Visit: Abdominal Pain (Patient presents with epig/astric pain and vomiting. On and off since weight loss surgery. /She had the Sleeve done 06/09/22) History of Present Illness: Marika is a 32-year-old female who presents office with complaints of right upper quadrant and epigastric discomfort after having gastric sleeve procedure in May of this year. She has lost over 60 pounds since her surgery. She reports since May she has had what she thinks are 10 gallbladderattacks since. She reports only once that she had vomiting that occurred. She is not have any pain or discomfort today. She states she has not correlated any particular foods that trigger her pain. She states it will occur even when she is not eating. Patient also has history of cold sores and states was on an oral antiviral as well as an antiviral cream to apply that she would like a refill for. She reports recent stressors that have triggered her cold sores. Patient also states that in the future she is hoping to have abdominal skin removal surgery. She states she has had 3 C-sections and since then she has had excess skin around her abdomen in addition to weight loss with gastric sleeve procedure she is carrying excess skin around her abdomen which attimes she will develop redness underneath her skin folds. Medications: Current Outpatient Medications: ??? acyclovir (ZOVIRAX) 5 % cream, Apply to cold sores 5 times daily for four days., Disp: 5 g, Rfl: 0 ??? valACYclovir (VALTREX) 1 g tablet, Take two tablets twice a day for one day at symptom onset., Disp: 14 tablet, Rfl: 0 No Known Allergies Past Medical History: Diagnosis Date ??? Asthma As a child ??? Pneumonia ??? Seizures (CMS/HCC) 2004 Happens with intense pain or fall hard ??? UTI (urinary tract infection) OB History Para Term AB Living 3 3 0 0 0 0 SAB IAB Ectopic Molar Multiple Live Births 0 0 0 0 0 0 Past Surgical History: Procedure Laterality Date ??? SECTION 07/16/2008 04/06/2011 10/15/2019 ??? SMALL INTESTINE SURGERY June 09, 2022 Sleeve ??? TUBAL LIGATION 04/06/2011 But had a reversal 2017 Social History Tobacco Use ??? Smoking status: Never Passive exposure: Past ??? Smokeless tobacco: Never ??? Tobacco comments: The provider can provide you with more information about quitting. Vaping Use ??? Vaping Use: Never used Substance Use Topics ??? Alcohol use: Not Currently ??? Drug use: Never Family History Problem Relation Name Age of Onset ??? Asthma Mother Nuzhat ??? Hypertension Mother Nuzhat ??? Kidney Disease Mother Nuzhat Kidney failure ROS: Review of Systems Constitutional: Positive for weight loss (intentional ). Negative for chills, diaphoresis, fever and malaise/fatigue. HENT: Negative for congestion, ear discharge, ear pain, hearing loss, nosebleeds, sinus pain, sore throat and tinnitus. Eyes: Negative for blurred vision, double vision, photophobia, pain, discharge and redness. Respiratory: Negative for cough, hemoptysis, sputum production, shortness of breath, wheezing and stridor. Cardiovascular: Negative for chest pain, palpitations, orthopnea, claudication, leg swelling and PND. Gastrointestinal: Positive for abdominal pain (intermittent RUQ and epigastric discomfort ). Negative for blood in stool, constipation, diarrhea, heartburn, melena, nausea and vomiting. Genitourinary: Negative for dysuria, flank pain, frequency, hematuria and urgency. Musculoskeletal: Negative for back pain, falls, joint pain, myalgias and neck pain. Skin: Negative for itching and rash. Cold sores Excess skin on abdomen Neurological: Negative for dizziness, tingling, tremors, sensory change, speech change, focal weakness, seizures, loss of consciousness, weakness and headaches. Endo/Heme/Allergies: Negative for environmental allergies and polydipsia. Does not bruise/bleed easily. Psychiatric/Behavioral: Negative for depression, hallucinations, memory loss, substance abuse and suicidal ideas. The patient is not nervous/anxious and does not have insomnia. Physical Exam HENT: Mouth/Throat: Lips: Lesions (herpes labialis noted to lower lip on right side ) present. Mouth: Mucous membranes are moist. No oral lesions. Pharynx: Oropharynx is clear. Cardiovascular: Rate and Rhythm: Normal rate and regular rhythm. Pulses: Normal pulses. Heart sounds: Normal heart sounds. Pulmonary: Effort: Pulmonary effort is normal. Abdominal: General: Abdomen is flat. Bowel sounds are normal. Palpations: Abdomen is soft. Tenderness: There is abdominal tenderness in the right upper quadrant. There is no right CVA tenderness, left CVA tenderness, guarding or rebound. Comments: Mild tenderness noted, no guarding or facial grimace noted Skin: Comments: Excess skin noted to abdomen. No current excoriation or redness noted today. Neurological: Mental Status: She is alert. Filed Vitals: 10/26/22 0822 BP: 110/72 Pulse: 75 Resp: 22 Temp: 97 ??F (36.1 ??C) TempSrc: Temporal SpO2: 100% Weight: 114.3 kg (252 lb) Height: 5' 5 (1.651 m) Assessment/Recommendations/Plan 1. Right upper quadrant pain Will obtain HIDA scan d/t gallstones likely d/t gastric sleeve surgery. No significant pain/discomfort today. Has had 10 attacks she states since May. Will likely need gallbladder removed. Encourage low fat, high fiber diet, small portions at this time. Informed pt if develops severe epigastric/RUQ pain that does not go away to seek ER care. - NM HEPATOBILIARY SCAN W/GB EJECTION FRACTION; Future 2. History of cold sores Script sent. - acyclovir (ZOVIRAX) 5 % cream; Apply to cold sores 5 times daily for four days. Dispense: 5 g; Refill: 0 - valACYclovir (VALTREX) 1 g tablet; Take two tablets twice a day for one day at symptom onset. Dispense: 14 tablet; Refill: 0 3. H/O gastric sleeve Doing well overall since gastric sleeve besides her abd discomfort. She is feeling better overall, she has excess skin around her abdomen hat is likely going to continue to worsen w/ rapid weight loss. She is considering skin removal in future as she has had skin breakdown, excoriation under her skin folds that has occurred due to this. Follow up: as needed CATINA RIOS NP 10/26/2022 9:06 AM Cosigned by Tres Read MD at 10/26/2022 9:34 AM AIR DEFENSE ARTILLERY SENIOR SERGEANT DEFENSE ARTILLERY SENIOR SERGEANT DEFENSE ARTILLERY SENIOR SERGEANT documented in this encounter Plan of Treatment Not on file documented as of this encounter Results * NM HEPATOBILIARY SCAN W/GB EJECTION FRACTION (11/12/2022 2:31 PM AIR DEFENSE ARTILLERY SENIOR SERGEANT) Anatomical Region Laterality Modality Abdomen Nuclear Medicine 11/12/2022 3:06 PM AIR DEFENSE ARTILLERY SENIOR SERGEANT Impressions 11/12/2022 3:08 PM AIR DEFENSE ARTILLERY SENIOR SERGEANT IMPRESSION: 1. ??Normal hepatic uptake and excretion of the radiopharmaceutical. 2. ??Reduced contractile response of the gallbladder to fatty meal challenge. Differential considerations include biliary dyskinesia, cystic duct syndrome, chronic cholecystitis, and an occasional finding in normal individuals. Referred By: CATINA RIOS Interpreted By: Chevy Argueta MD, 11/12/2022 3:06 PM Narrative 11/12/2022 3:08 PM AIR DEFENSE ARTILLERY SENIOR SERGEANT Hepatobiliary Scintigraphy with Gallbladder Ejection Fraction Date of study: 11/12/2022. Indications: 32-year-old female with right upper quadrant abdominal pain. Radiopharmaceutical: 5.3 mCi Tc-99m mebrofenin IV and 8 oz Ensure Plus, p.o. Comparison: None. Technique: Following intravenous administration of Tc-99m mebrofenin, sequential abdominal images were obtained through 60 minutes. ??In order to evaluate the contractile response of the gallbladder in response to cholecystokinin, 8 oz Ensure Plus was ingested approximately 60 minutes after the administration of the radiopharmaceutical. ??Sequential imaging was continued for [...] fraction is 15% (normal greater than 33%). Procedure Note Chevy Arugeta MD - 11/12/2022 Hepatobiliary Scintigraphy with Gallbladder Ejection Fraction Date of study: 11/12/2022. Indications: 32-year-old female with right upper quadrant abdominal pain. Radiopharmaceutical: 5.3 mCi Tc-99m mebrofenin IV and 8 oz Ensure Plus, p.o. Comparison: None. Technique: Following intravenous administration of Tc-99m mebrofenin, sequentialabdominal images were obtained through 60 minutes. In order to evaluatethe contractile response of the gallbladder in response tocholecystokinin, 8 oz Ensure Plus was ingested approximately 60 minutesafter the administration of the radiopharmaceutical. Sequential imagingwas continued for 60 minutes after ingestion of Ensure Plus. Findings: There is prompt, uniform accumulation of tracer by the liver. There isnormal filling of the intrahepatic ducts, common bile duct andgallbladder, and normal excretion of tracer into the duodenum. The post-fatty meal (Ensure Plus) images reveal reduced contractileresponse of the gallbladder. The calculated gallbladder ejection fractionis 15% (normal greater than 33%). IMPRESSION: 1. Normal hepatic uptake and excretion of the radiopharmaceutical. 2. Reduced contractile response of the gallbladder to fatty mealchallenge. Differential considerations include biliary dyskinesia, cysticduct syndrome, chronic cholecystitis, and an occasional finding in normalindividuals. Referred By: CATINA RIOS Interpreted By: Chevy Argueta MD, 11/12/2022 3:06 PM us Catina Rios PLOW SHAKER NUC MED Final Res ult documented in this encounter Visit Diagnoses Diagnosis Right upper quadrant pain Abdominal pain, right upper quadrant History of cold sores Personal history of other infectious and parasitic disease H/O gastric sleeve documented in this encounter Additional Health Concerns Assessment Noted Time PHQ-9 Depression Total Score: 0 10/07/20 2:33 PM AIR DEFENSE ARTILLERY SENIOR SERGEANT documented as of this encounter Care Teams Ob/Gyn Relationship Specialty Start Date End Date Catina Rios NP [address] [place] [address] PCP - General NURSE PRACTITIONER 10/06/21 documented as of this encounter
--- OUTSIDE RECORDS SUMMARY | 2024-11-01 05:21 | XMS_ITS | Clinical Summary ---
Author Organization [facility] Address [address] [place] [address]. [place], [place] [address] [place] [address] Care Team Providers Care Assurance Manager Name Role Phone Catina Rios NP Primary Care Provider +1 [phone] Allergies No known active allergies Medications vitamin D3, cholecalciferol , 1.25 mg capsuleIndicati ons:Vitamin D deficiency Take 1 capsule (50,000 Units total) by mouth once a week. 8 capsule 3 Active Additional Information Patient not taking.Reported on 10/04/2024 vitamin ( PLUS) 27-1 MG tablet Take 1 tablet by mouth daily. Active albuterol sulfate HFA 108 (90 Base) MCG/ACT inhalerIndicati ons:Upper respiratory tract infection, unspecified type Inhale 2 puffs into the lungs every 6 (six) hours as needed for Wheezing. 18 g 4 Active azithromycin (ZITHROMAX Z-SHILPI) 250 MG tabletIndicatio ns:Bronchitis Take 2 tablets by mouth on day one then 1 daily for four days. 6 tablet 4 10/09/20 24 Active Problems Problem Noted Date Diagnosed Date H/O gastric sleeve 10/26/2022 History of cold sores 10/26/2022 Right upper quadrant pain 10/26/2022 Diarrhea, unspecified type 10/08/2021 Menorrhagia with irregular cycle 10/08/2021 Abnormal uterine bleeding 10/08/2021 Frequent UTI 10/08/2021 Hx of recurrent pneumonia 10/08/2021 Class 3 severe obesity with body mass index (BMI) of 50.0 to 59.9 in adult, unspecified obesity type, unspecified whether serious comorbidity present ([facility]) 10/08/2021 Estimated Date of Delivery Comme nts Yes 11/01/2024 Encounters Date Type Department Care Team Description 10/04/2024 2:02 PM AIRBORNE OPERATIONS MANAGER - 10/04/2024 11:59 PM AIRBORNE OPERATIONS MANAGER Hospital Encounter [facility] [address] [place] [address] Yaquelin Moctezuma PA Discharge Disposition: Home or Self Care (Routine Discharge) 10/04/2024 11:00 AM AIRBORNE OPERATIONS MANAGER Office Visit [facility] Family & Internal Medicine [facility] [address] [place] [address] Yaquelin Moctezuma PA Congestion (Chest congestion, cough, sore throat X 2 days) 10/04/2024 Travel 10/02/2024 Moxsiehart Message Enc [facility] Family [facility] [address] [place] [address] Catina Rios NP Sick from Last 3 Months Immunizations Name Administration Dates Next Due Influenza (Generic) 10/18/2019 MODERNA COVID-19 (12+) MRNA, LNP-S, PF, 100 MCG/ 0.5 ML DOSE 11/20/2020 Tdap (Adacel) 10/15/2019 Tdap (Generic) 02/21/2009 Family History Medical History Relation Comments Asthma Mother Hypertension Mother Kidney Disease Mother Kidney failure Relation Status Comments Mother Social History Tobacco Use Types Packs/Day Years Used Date Smoking Tobacco: Never Passive Smoke Exposure: Past Smokeless Tobacco: Never Tobacco Cessation:Counseling Given: Not Answered Comments:The provider can provide you with more [...] Sign Reading Time Taken Comments Blood Pressure 118/82 10/04/2024 11:06 AM AIRBORNE OPERATIONS MANAGER Pulse 99 10/04/2024 11:06 AM AIRBORNE OPERATIONS MANAGER Temperature 37.6 ??C (99.7 ??F) 10/04/2024 11:[address] Respiratory Rate 20 10/04/2024 11:06 AM AIRBORNE OPERATIONS MANAGER Oxygen Saturation 99% 10/04/2024 11:06 AM AIRBORNE OPERATIONS MANAGER Inhaled Oxygen Concentration - - Weight 121.6 kg (268 lb) 10/04/2024 11:06 AM AIRBORNE OPERATIONS MANAGER Height 165.1 cm (5' 5 ) 10/04/2024 11:06 AM AIRBORNE OPERATIONS MANAGER Body Mass Index 44.6 10/04/2024 11:06 AM AIRBORNE OPERATIONS MANAGER Plan of Treatment Health Maintenance Due Date Last Done Comments Cervical Cancer Screening Pa p Smear (Age 30 to 64) Every 3 Years 1989 Hepatitis B Vaccines (1 of 3 - 19+ 3-dose series) 2008 Cervical Cancer Screening Pa p with HPV Testing (Age 30 to 64) Every 5 Years 2019 Cervical Cancer Screening wi th HPV 2019 Annual Physical 06/09/2024 06/09/2023, 10/07/2021 COVID-19 Vaccine (2 - 2023-2 5 season) 2024 11/20/2020 Influenza Adult (#1) 2024 10/18/2019 DTaP, Tdap and Td Vaccines ( 3 - Td or Tdap) 10/15/2029 10/15/2019, 02/21/2009 Hepatitis C Completed 03/06/2022 HPV Vaccines Aged Out No longer eligi ble based on patient's age to complete this topic Meningococcal Vaccine Aged Out No leela elise eligible based on patient's age to complete this topic Pneumococcal Vaccine: Pediatrics (0 to 5 Years) and At-Risk Patients (6 to 64 Years) Aged Out No longer eligible b ased on patient's age to complete this topic RSV Immunization or 60+ Years (No Doses Required) Completed RSV Immunizations Under 20 Months Aged Out No longer eligible b ased on patient's age to complete this topic Procedures Procedure Name Priority Date/Time Associated Diagnosis Comments CULTURE STREP A Routine 10/04/2024 11:21 AM AIRBORNE OPERATIONS MANAGER Sore throat STREP A RAPID Routine 10/04/2024 Sore throat CORONAVIRUS (COVID-19) INFLUENZA A & B ANTIGEN IA PANEL Routine 10/04/2024 Suspected COVID-19 virus infection HEPATITIS C ANTIBODY W/RFX TO HCV RNA Routine 03/06/2022 8:04 AM CDT Need for hepatitis C screening test from Last 3 Months or Most Recently Relevant to Health Maintenance Results * CULTURE STREP A (10/04/2024 11:21 AM AIRBORNE OPERATIONS MANAGER) SPEC DESCRIPTION THROAT 10/04/2024 2:02 PM AIRBORNE OPERATIONS MANAGER [facility] SPECIAL REQUESTS NO SPECIAL REQUEST 10/04/2024 2:02 PM AIRBORNE OPERATIONS MANAGER [facility] CULTURE RESULT NO STREPTOCOCCUS PYOGENES (GROUP A) ISOLATED 10/06/2024 6:48 AM AIRBORNE OPERATIONS MANAGER [facility] THROAT SWAB / Unknown 10/04/2024 11:21 AM AIRBORNE OPERATIONS MANAGER 10/04/2024 2:05 PM AIRBORNE OPERATIONS MANAGER us Yaquelin ARRIAGA MICROBIOLOGY - GENERAL ORDER GARRY Final Result [facility] [address] [place] [address], [place] [phone] [facility] [address] [place] [address], [place] [phone] * CORONAVIRUS (COVID-19) INFLUENZA A & B ANTIGEN IA PANEL (10/04/2024) CORONAVIRUS ANTIGEN IA NEGATIVE NEGATIVE [id number] A NEGATIVE NEGATIVE [id number], [place] INFLUENZA B NEGATIVE NEGATIVE [id number], [place] Internal Control: VALID VALID [id number], [place] NASAL STRUCTURE / Unknown 10/04/2024 Yaquelin ARRIAGA MICROBIOLOGY - GENERAL ORDER GARRY Final Result -[id number] [address], [place] [address] [place] [address], * STREP A RAPID (10/04/2024) RAPID STREP TEST NEGATIVE NEGATIVE -[id number] HERRERA [place] Internal Control: VALID VALID -[id number] HERRERA [place] STRUCTURE OF ANTERIOR PORTION OF NECK / Unknown 10/04/2024 aYquelin ARRIAGA MICROBIOLOGY - GENERAL ORDER GARRY Final Result Performing Organization Address [facility] Co de Phone Number -[phone] [address], [place] [address] [place] [address], * HEPATITIS C ANTIBODY ([facility] ONLY) (03/06/2022 8:04 AM CDT) HEPATITIS C AB NON-REACTI VE NON-REACT JUAN LUIS [facility] SIGNAL TO CUTOFF 0.60 <[address] [facility] Comment: HCV antibody was non-reactive. There is no laboratory evidence of HCV infection. In most cases, no further action is required. However, if recent HCV exposure is suspected, a test for HCV RNA (test code 27028) is suggested. For additional information please refer to http://education.trinket.AlgEvolve/faq/RUE24c9 (This link is being provided for informational/ educational purposes only.) 03/06/2022 8:04 AM CDT 03/06/2022 8:06 AM CDT Narrative [facility] - 03/12/2022 5:09 PM CDT INSURANCE ON PHONE FASTING:YES COLLECTION KIT GIVEN TO PATIENT. PATIENT ADVISED FASTING: YES us Catina Lashawn Weinacht CUSTOMER ADVISOR SPECIALIST LABORATORY Final Res ult [facility] [id number] [place] [id number] from Last 3 Months or Most Recently Relevant to Health Maintenance Insurance [facility] Care Teams Assurance Manager Relationship Specialty Start Date End Date Catina Rios NP [address] [place] [address] PCP - General NURSE PRACTITIONER 10/06/21
--- OUTSIDE RECORDS SUMMARY | 2024-11-01 05:21 | XMS_ITS | Encounter Summary ---
Author Organization [facility] Address [address] [place] [address]. [place], [place] [address] [place] [address] Care Team Providers Care Registrar Museum Name Role Phone Catina Rios NP Primary Care Provider [phone] [phone] Reason for Visit * Reason Comments Follow Up Weight check, is benjy nning on weight loss surgery in near future Encounter Details Date Type Department Care Team ([facility] Contact Info) Description 04/08/2022 11:20 AM CDT Office Visit [facility] Family Medicine [facility] [address] [facility] [address] [place] [address] Catina Rios, NURSE AIDE EVALUATOR [address] [place] [phone] Follow Up (Weight check, is planning on weight loss surgery in near future ) Social History Tobacco Use Types Packs/Day [...] suspected to have Coronavirus/COVID-19? No / Unsure 04/08/2022 11:14 AM CDT documented as of this encounter Last Filed Vital Signs Vital Sign Reading Time Taken Comments Blood Pressure 120/80 04/08/2022 11:30 AM CDT Pulse 71 04/08/2022 11:30 AM CDT Temperature 36.8 ??C (98.3 ??F) 04/08/2022 11:30 AM C DT Respiratory Rate 14 04/08/2022 11:30 AM CDT Oxygen Saturation 99% 04/08/2022 11:30 AM CDT Inhaled Oxygen Concentration - - Weight 144.7 kg (319 lb) 04/08/2022 11:30 AM CDT Height 165.1 cm (5' 5 ) 04/08/2022 11:30 AM CDT Body Mass Index 53.08 04/08/2022 11:30 AM CDT documented in this encounter Progress Notes * Catina Rios, [place] - 04/08/2022 11:20 AM CDT Reason for Visit: Follow Up (Weight check, is planning on weight loss surgery in near future ) History of Present Illness: Marika is a 31-year-old female presents office for 1 month follow-up on recheck. Since I have seen patient last she did meet with a bariatric surgeon Dr. Engel with [facility] and pt is still considering if she would like to have done Laparoscopic Sleeve Gastrectomy or Laparoscopic Gastric Bypass. He has to follow up with a bicycle repair technician for three visits. Has had one visit so far and has to see a psychiatrist for one visit. Since I have seen pt last she has lost 15 pounds with tracking her food, making healthier food choices, and has been exercising almost daily. Her is also making healthier food choices along side her. She is feeling great and is excited to move forward with surgery in near future. Tentatively will be in April or May. From previous fasting lab work obtained glucose was 115. Will check an A1C today in office. Medications: Current Outpatient Medications: ??? albuterol sulfate HFA 108 (90 Base) MCG/ACT inhaler, Inhale 2 puffs into the lungs every 6 (six) hours as needed for Wheezing., Disp: 18 g, Rfl: 0 No Known Allergies Past Medical History: Diagnosis Date ??? Asthma As a child ??? Pneumonia ??? Seizures ([facility]) 2004 Happens with intense pain or fall hard ??? UTI (urinary tract infection) OB History Para Term AB Living 3 3 0 0 0 0 SAB IAB Ectopic Molar Multiple Live Births 0 0 0 0 0 0 Past Surgical History: Procedure Laterality Date ??? SECTION 07/16/2008 04/06/2011 10/15/2019 ??? TUBAL LIGATION 04/06/2011 But had a reversal 2016 Social History Tobacco Use ??? Smoking status: [...] of Systems Constitutional: Positive for weight loss (intentional). Physical Exam Constitutional: Appearance: Normal appearance. She is obese. She is not ill-appearing, toxic- appearing or diaphoretic. Cardiovascular: Rate and Rhythm: Regular rhythm. Pulses: Normal pulses. Heart sounds: Normal heart sounds. No murmur heard. Pulmonary: Effort: Pulmonary effort is normal. No respiratory distress. Breath sounds: Normal breath sounds. No stridor. No wheezing or rhonchi. Neurological: Mental Status: She is alert. Psychiatric: Mood and Affect: Mood normal. Behavior: Behavior normal. Thought Content: Thought content normal. Judgment: Judgment normal. Filed Vitals: 04/08/22 1130 BP: 120/80 Pulse: 71 Resp: 14 Temp: 98.3 ??F (36.8 ??C) SpO2: 99% Weight: (!) 144.7 kg (319 lb) Height: 5' 5 (1.651 m) Results for orders placed or performed in visit on 04/08/22 A1C (BACK OFFICE) Result Value Ref Range HGB A1C 5.7 % Assessment/Recommendations/Plan Encounter Diagnose(s) ICD-10-CM ICD-9-CM SNOMED CT(R) 1. Class 3 severe obesity with body mass index (BMI) of 50.0 to 59.9 in adult, unspecified obesity type, unspecified whether serious comorbidity present ([facility]) E66.01 278.01 SEVERE OBESITY Z68.43 V85.43 2. Impaired fasting glucose R73.01 790.21 IMPAIRED FASTING GLYCEMIA A1C (BACK OFFICE) 3. Prediabetes R73.03 790.29 PREDIABETES I congratulated pt on her healthy eating habits, exercising regularly, and tracking her food. She has lost 14 pounds so far on her own. A1C 5.7 which puts pt in a prediabetic range. Educated pt on prediabetes and going forward with surgery as well and healthy lifestyle changes will help prevent diabetes in the future. Encourage following a low fat, low carb [...] a combination of moderate and vigorous activity.Discussed blood pressure, weight at today's visit. Follow up: 1 month for weight check CATINA RIOS NP 04/08/2022 11:58 AM Cosigned by Emanuel Escalera MD at 04/08/2022 7:05 PM CDT documented in this encounter Plan of Treatment Not on file documented as of this encounter Procedures Procedure Name Priority Date/Time Associated Diagnosis Comments HEMOGLOBIN, GLYCOSYLATED Routine 04/08/2022 Impaired fasting glucose documented in this encounter Results * A1C (BACK OFFICE) (04/08/2022) HGB A1C 5.7 % [address], [place] 04/08/2022 us Catina Rios NP LABORATORY Final Res ult [address] [place] [address] [facility] [address] [place] [address], documented in this encounter Visit Diagnoses Diagnosis Class 3 severe obesity with body mass index (BMI) of 50.0 to 59.9 in adult, unspecified obesity type, unspecified whether serious comorbidity present ([facility]) Impaired fasting glucose Prediabetes Other abnormal glucose documented in this encounter Additional Health Concerns Assessment Noted Time PHQ-9 Depression Total Score: 0 10/07/20 21 2:33 PM MINING PROFESSIONALS documented as of this encounter Care Teams Registrar Museum Relationship Specialty Start Date End Date Catina Rios NP [address] [place] [address] PCP - General NURSE PRACTITIONER 10/06/21 documented as of this encounter
--- OUTSIDE RECORDS SUMMARY | 2024-11-01 05:21 | XMS_ITS | Encounter Summary ---
Author Organization [facility] Address [address] [place] [address]. [place], [place] [address] [place] [address] Care Team Providers Care Engineering And Scientific Programmer Name Role Phone Catina Rios NP Primary Care Provider [phone] [phone] Reason for Visit * Reason Onset Date Comments Results 01/13/2022 chest x-ray resu lts Encounter Details Date Type Department Care Team ([facility] st Contact Info) Description 01/13/2022 Telephone [facility] Family Medicine - [place] [address] [facility] [address] [place] [phone] Catina Rios NP [address] [place] [address] Results (chest x-ray results ) Social History Tobacco Use Types Packs/Day [...] of this encounter Progress Notes * Catina Rios NP - 01/13/2022 3:55 PM CDT Left message to inform pt that her chest x-ray was negative for pneumonia, no other acute findings found. documented in this encounter Plan of Treatment Not on file documented as of this encounter Visit Diagnoses Not on filedocumented in this encounter Additional Health Concerns Assessment Noted Time PHQ-9 Depression Total Score: 0 10/07/20 2:33 PM THIRD COOK documented as of this encounter Care Teams Engineering And Scientific Programmer Relationship Specialty Start Date End Date Catina Rios NP [address] [place] [address] PCP - General NURSE PRACTITIONER 10/06/21 documented as of this encounter
--- OUTSIDE RECORDS SUMMARY | 2024-11-01 05:21 | XMS_ITS | Encounter Summary ---
Author Organization [facility] Address [address] [place] [address]. [place], [place] [address] [place] [address] Care Team Providers Care Greige Mender Name Role Phone Catina Rios NP Primary Care Provider [phone] [phone] Reason for Visit * Reason Onset Date Comments Lab Results 03/16/2022 Left VM. Will se nt [employer]) message. Encounter Details Date Type Department Care Team ([facility] Contact Info) Description 03/16/2022 Telephone [facility] Family Medicine - [place] [address] [facility] [address] [place] [address] Catina Rios NP [address] [place] [phone] Lab Results (Left VM. Will sent [employer] message. ) Social History Tobacco Use Types Packs/Day [...] Progress Notes * Catina Rios NP - 03/16/2022 8:25 AM CDT Called pt to inform of lab results. Left voicemail that I would send pt a [employer] message with results but pt can still call back with any questions or concerns. documented in this encounter Plan of Treatment Not on file documented as of this encounter Visit Diagnoses Not on filedocumented in this encounter Additional Health Concerns Assessment Noted Time PHQ-9 Depression Total Score: 0 10/07/20 2:33 PM BREAD WRAPPER documented as of this encounter Care Teams Greige Mender Relationship Specialty Start Date End Date Catina Rios NP [address] [place] [address] PCP - General NURSE PRACTITIONER 10/06/21 documented as of this encounter
--- OUTSIDE RECORDS SUMMARY | 2024-11-01 05:21 | XMS_ITS | Encounter Summary ---
Author Organization [facility] Address [address] [place] [address]. [place], [place] [address] [place] [address] Care Team Providers Care Chief Steward/Stewardess Name Role Phone Catina Rios NP Primary Care Provider [phone] [phone] Reason for Visit * Reason Onset Date Comments Lab Order 03/05/2022 Encounter Details Date Type Department Care Team (Late st Contact Info) Description 03/05/2022 Telephone [facility] Family Medicine - [place] [address] [id number] Catina Rios, TERRITORY SALES PROFESSIONAL [address] [place] [id number] Lab Order Social History Tobacco Use Types Packs/Day Years [...] as of this encounter Progress Notes * Hector Ortiz MA - 03/05/2022 11:07 AM CDT These orders have been changed * Esther Gustafson - 03/05/2022 10:54 AM CDT [facility] to go to [facility] for her labs. If they are not back on Tuesday I will call her to reschedule. documented in this encounter Plan of Treatment Not on file documented as of this encounter Visit Diagnoses Not on filedocumented in this encounter Additional Health Concerns Assessment Noted Time PHQ-9 Depression Total Score: 0 10/07/20 2:33 PM DRAIN TECHNICIAN documented as of this encounter Care Teams Chief Steward/Stewardess Relationship Specialty Start Date End Date Catina Rios NP [address] [place] [address] PCP - General NURSE PRACTITIONER 10/06/21 documented as of this encounter
--- OUTSIDE RECORDS SUMMARY | 2024-11-01 05:21 | XMS_ITS | Encounter Summary ---
Author Organization [facility] Address [address] [place] [address]. [place] [address] [place] [address] Care Team Providers Care Coil Tier Name Role Phone Catina Rios NP Primary Care Provider [phone] [phone] Reason for Visit * Imaging (Routine) - Closed Specialty Diagnoses / Procedures Referred By Poncho t Referred To Contact RADIOLOGY Diagnoses Right upper quadrant pain Procedures NM HEPATOBILIARY SCAN W/GB EJECTION FRACTION Catina Rios NP [address] [address] Phone: tel: fax: Referral ID Status Reason Start Date Expiration Date Visits Re quested Visits Authorized [id number] Closed 10/26/2022 10/26/2023 1 3 Encounter Details Date Type Department Care Team (Latest Contact Info) Description 11/12/2022 9:30 AM ADVERTISING COPYWRITER - 11/12/2022 11:59 PM [facility] Hospital Encounter [facility] Nuclear Medicine [address] [place] [address] Catina Rios NP [address] [facility] [address] [place] [address] Discharge Disposition: Home or Self Care (Routine [...] Coronavirus/COVID-19? No / Unsure 11/12/2022 12:00 PM ADVERTISING COPYWRITER documented as of this encounter Medications at Time of Discharge acyclovir (ZOVIRAX) 5 % creamIndications: History of cold sores Apply to cold sores 5 times daily for four days. 5 g 10/26/2022 06/09/2023 valACYclovir (VALTREX) 1 g tabletIndications :History of cold sores Take two tablets twice a day for one day at symptom onset. 14 tablet 10/26/2022 05/31/2023 documented as of this encounter Plan of Treatment Not on file documented as of this encounter Procedures Procedure Name Priority Date/Time Associated Diagnosis Comments NM HEPATOBILIARY SCAN W/GB EJECTION FRACTION Routine 11/12/2022 2:31 PM ADVERTISING COPYWRITER Right upper quadrant pain documented in this encounter Visit Diagnoses Not on filedocumented in this encounter Administered Medications Inactive Administered Medications - up to 3 most recent administrations Medication Order MAR Action Action Date Dose Rate Site Generic Radiopharmaceutical 5.3 millicurie 5.3 millicurie, Intravenous, Once as needed, 5.3mCi Tc99m MEBROFENIN 25g straight stick, 1 dose, Starting on Tue11/12/22 at 1218, Until Tue11/12/22 at 1218 Given 11/12/2022 12:18 PM ADVERTISING COPYWRITER 5.3 millicuries documented in this encounter Additional Health Concerns Assessment Noted Time PHQ-9 Depression Total Score: 0 10/07/20 21 2:33 PM ADVERTISING COPYWRITER documented as of this encounter Care Teams Coil Tier Relationship Specialty Start Date End Date Catina Rios NP [address] [place] [address] PCP - General NURSE PRACTITIONER 10/06/21 documented as of this encounter
--- OUTSIDE RECORDS SUMMARY | 2024-11-01 05:21 | XMS_ITS | Encounter Summary ---
Author Organization [facility] Address [address] [place] [address]. [place] [address] [place] [address] Care Team Providers Care Clinical Research Spec Name Role Phone Catina Rios NP Primary Care Provider [phone] Reason for Visit * Reason Comments Annual Patient presents for an adult routine exam Encounter Details Date Type Department Care Team (Late Contact Info) Description 06/09/2023 8:20 AM CDT Office Visit [facility] [address] [facility] [address] [place] [phone] Catina iRos, [place] [address] [place] [address] [id number] Annual (Patient presents for an adult routine exam) Social History Tobacco Use Types Packs/Day Years [...] Sign Reading Time Taken Comments Blood Pressure 126/78 06/09/2023 8:15 AM CDT Pulse 66 06/09/2023 8:15 AM CDT Temperature 37.2 ??C (98.9 ??F) 06/09/2023 8:15 AM CD T Respiratory Rate 18 06/09/2023 8:15 AM CDT Oxygen Saturation 99% 06/09/2023 8:15 AM CDT Inhaled Oxygen Concentration - - Weight 105.9 kg (233 lb 6.4 oz) 06/09/2023 8:15 AM CDT Height 165.1 cm (5' 5 ) 06/09/2023 8:15 AM CDT Body Mass Index 38.84 06/09/2023 8:15 AM CDT documented in this encounter Progress Notes * Catina Rios NP - 06/09/2023 8:20 AM CDTAddended by: CATINA RIOS on: 06/09/2023 09:00 AM Modules accepted: Orders * Catina Rios NP - 06/09/2023 8:20 AM CDTAddended by: CATINA RIOS on: 06/12/2023 06:59 PM Modules accepted: Orders * Catina Rios NP - 06/09/2023 8:20 AM CDT Images from the original note were not included. Annual Health Maintenance Exam Encounter Date: 06/09/2023 Reason for Visit: Annual Health Maintenance Exam Annual (Patient presents for an adult routine exam) History of Present Illness: Marika Caban is a 32-year-old female here for her annual exam. Repots doing well. Had bariatric surgery one year ago and has lost 100 pounds. Pt reports feeling great. Did have gallbladder removed post bariatric surgery. Reported Health: good Immunizations up to date: Yes Healthy Diet: Yes Regular Exercise: Yes Weight Concern: Yes, continuing to work on weight loss Cancer Screening Up To Date: Yes Dr. Vaughn Bryant Tobacco use: No Alcohol use: Yes Dental exam: Yes Eye exam: Yes ROS: Review of Systems Constitutional: Negative for [...] not nervous/anxious and does not have insomnia. Medications: Outpatient Medications Marked as Taking for the 06/09/23 encounter (Office Visit) with Catina Rios NP Medication Sig Dispense Refill valACYclovir (VALTREX) 1 g tablet Take two tablets twice a day for one day at symptom onset. 14 tablet 0 Allergies: Review of patient's allergies indicates: No Known Allergies Medical History: Past Medical History: Diagnosis Date Asthma ([facility]) As a child Pneumonia Seizures (HHS/HCC) ([facility]) 2004 Happens with intense pain or fall hard UTI (urinary tract infection) Surgical History: Past Surgical History: Procedure Laterality Date BARIATRIC SURGERY CPG 06/09/2022 laproscopic verticle sleeve gastrectomy SECTION 07/16/2008 04/06/2011 10/15/2019 REMOVAL GALLBLADDER SMALL INTESTINE SURGERY June 09, 2022 Sleeve TUBAL LIGATION 04/06/2011 But had a reversal 2016 Social History: Social History Tobacco Use Smoking status: Never Passive exposure: Past Smokeless tobacco: Never Tobacco comments: The provider can provide you with more information about quitting. Vaping Use Vaping Use: Never used Substance Use Topics Alcohol use: Not Currently Drug use: Never Family History: Family History Problem Relation Name Age of Onset Asthma Mother Nuzhat Hypertension Mother Nuzhat Kidney Disease Mother Nuzhat Kidney failure PE: Vitals: 06/09/23 0815 Patient Position: Sitting BP Location: Left arm Cuff size: Adult Regular BP: 126/78 Pulse: 66 Body mass index is 38.84 kg/m??. Physical Exam Constitutional: General: She is not in acute distress. Appearance: Normal appearance. She is well-developed. She is obese. She is not ill-appearing, toxic-appearing or diaphoretic. HENT: Head: Normocephalic and atraumatic. Right Ear: Hearing, tympanic membrane, ear canal and external ear normal. Left Ear: Hearing, tympanic membrane, ear canal and external ear normal. Nose: Nose normal. Mouth/Throat: Mouth: Mucous membranes are moist. Pharynx: Uvula midline. No oropharyngeal exudate or posterior oropharyngeal erythema. Eyes: General: Lids are normal. Lids are everted, no foreign bodies appreciated. No scleral icterus. Extraocular Movements: Extraocular movements intact. Pupils: Pupils are equal, round, and reactive to light. Neck: Thyroid: No thyromegaly. Vascular: No carotid bruit. Trachea: No tracheal deviation. Cardiovascular: Rate and Rhythm: Normal rate and regular rhythm. Pulses: Normal pulses. Heart sounds: Normal heart sounds. No murmur heard. Pulmonary: Effort: Pulmonary effort is normal. No respiratory distress. Breath sounds: Normal breath sounds. No wheezing or rales. Chest: Chest wall: No tenderness. Abdominal: General: Bowel sounds are normal. There is no distension. Palpations: Abdomen is soft. There is no mass. Tenderness: There is no abdominal tenderness. There is no guarding or rebound. Hernia: No hernia is present. Musculoskeletal: General: No tenderness or deformity. Cervical back: Normal range of motion and neck supple. No edema. Right lower leg: No edema. Left lower leg: No edema. Lymphadenopathy: Cervical: No cervical adenopathy. Skin: General: Skin is warm and dry. Capillary Refill: Capillary refill takes less than 2 seconds. Coloration: Skin is not pale. Findings: No erythema or rash. Neurological: General: No focal deficit present. Mental Status: She is alert and oriented to person, place, and time. Deep Tendon Reflexes: Reflexes are normal and symmetric. Psychiatric: Mood and Affect: Mood normal. Behavior: Behavior normal. Thought Content: Thought content normal. Judgment: Judgment normal. Screening forms: PHQ-9: PHQ-9: 10/26/2022 8:21 AM 06/09/2023 8:23 AM PHQ2/PHQ 9 DEPRESSION SCREEN QUESTIONAIRE Little interest or pleasure in doing things Not at all Not at all Feeling down, depressed, or hopeless Not at all Not at all Patient Health Questionnaire-2 Score 0 0 Trouble falling or staying asleep, or sleeping too much Not at all Feeling tired or having little energy Not at all Poor appetite or overeating Not at all Feeling bad about yourself - or that you are a failure or have let yourself or your family down Notat all Trouble concentrating on things, such as reading the newspaper or watching television Not at all Moving or speaking so slowly that other people could have noticed? Or the opposite - being so fidgety or restless that you have been moving around a lot more than usual. Not at all Thoughts that you would be better off or hurting yourself in some way Not at all Patient Health Questionnaire-9 Score 0 How difficult have these problems made it for you to do your work, take care of things at home, or get along with other people? Not difficult at all Not difficult at all CONNOR-7 (Generalized Anxiety Disorder) Screening 06/09/2023 8:23 AM CONNOR-7 Feeling nervous, anxious, or on edge 0 Not being able to stop or control worrying 1 Worrying too much about different things 1 Trouble relaxing 0 Being so restless that it is hard to sit still 1 Becoming easily annoyed or irritable 1 Feeling afraid as if something awful might happen 1 CONNOR-7 Total Score 5 How difficult have these problems made it for you to do your work, take care of things at home, or get along with other people? Not difficult at all Diagnoses, Recommendations, and Plan 1. Annual physical exam 2. H/O bariatric surgery CBC W/DIFF AUTOMATED COMPREHENSIVE METABOLIC PANEL VITAMIN B-12 VITAMIN B1 WHOLE BLOOD MAGNESIUM VITAMIN D 25 OH ([facility] ONLY) 3. Obesity (BMI 30-39.9) 4. Screening for endocrine, metabolic and immunity disorder CBC W/DIFF AUTOMATED COMPREHENSIVE METABOLIC PANEL VITAMIN B-12 VITAMIN B1 WHOLE BLOOD MAGNESIUM VITAMIN D 25 OH ([facility] ONLY) 5. Screening for thyroid disorder TSH W/REFLEX 6. Screening for hyperlipidemia LIPID PANEL Pt continuing to work on weight loss as she is down 100 pounds total pre/post bariatric surgery. 1. Medications/DME - Continue current medications. 2. Lab/Diagnostics - See orders. 3. Education - Current treatment discussed and patient education given as appropriate. 4. Referrals - None needed. 5. RTC - 6 month(s) Encourage following a low fat, low carb [...] of moderate and vigorous activity.Discussed routine labs, preventative screenings, vaccinations, blood pressure, weight at today's visit. Encourage getting dental exam every 6 months and a yearly eye exam or as instructed to do so. Encourage getting at least 8 hours of restful sleep per night. CATINA RIOS NP 06/09/2023 documented in this encounter Plan of Treatment Not on file documented as of this encounter Procedures Procedure Name Priority Date/Time Associated Diagnosis Comments TSH W/REFLEX Routine 06/09/2023 9:13 AM CDT Screening for thyroid disorder VITAMIN B-12 Routine 06/09/2023 9:13 AM CDT H/O bariatric surgery Screening for endocrine, metabolic and immunity disorder COMPREHENSIVE METABOLIC PANEL Routine 06/09/2023 9:13 AM CDT H/O bariatric surgery Screening for endocrine, metabolic and immunity disorder LIPID PANEL Routine 06/09/2023 9:13 AM CDT Screening for hyperlipidemia CBC W/DIFF AUTOMATED Routine 06/09/2023 9:13 AM CDT H/O bariatric surgery Screening for endocrine, metabolic and immunity disorder VITAMIN D, 25 OH Routine 06/09/2023 9:13 AM CDT H/O bariatric surgery Screening for endocrine, metabolic and immunity disorder MAGNESIUM Routine 06/09/2023 9:13 AM CDT H/O bariatric surgery Screening for endocrine, metabolic and immunity disorder VITAMIN B1 WHOLE BLOOD Routine 06/09/2023 9:07 AM CDT H/O bariatric surgery documented in this encounter Results * (ABNORMAL) VITAMIN D 25 OH ([facility] ONLY) (06/09/2023 9:13 AM CDT) Pathologist [facility] VITAMIN D 25 HYDROXY TOTAL S/P/B 16.0(L) 30 - 100 NG/ML 06/09/2023 4:54 PM CDT [facility] Comment: ? DEFICIENT ??<20 ?INSUFFICIENT 20-30 ?SUFFICIENT 30-100 06/09/2023 9:13 AM CDT Catina Rios [employer] [facility] Final Res ult Performing Organization Address City/[facility]/ZIP Co de Phone Number [address] [address], * MAGNESIUM (06/09/2023 9:13 AM CDT) Pathologist [facility] MAGNESIUM 2.1 1.8 - 2.4 MG/DL 06/09/2023 4:54 PM CDT [facility] 06/09/2023 9:13 AM CDT Catina Rios [employer]IOR [employer] [facility] [facility] Final Res ult Performing Organization Address City/[facility]/ZIP Co de Phone Number [facility] [address] [place] [address], [place] [phone] * VITAMIN B-12 (06/09/2023 9:13 AM CDT) VITAMIN B12 S/P/B 313 193 - 986 PG/ML 06/09/2023 4:54 PM CDT [facility] 06/09/2023 9:13 AM CDT Catina Rios S[employer]IOR [employer] [facility] Final Res ult Performing Organization Address City/[facility]/ZIP Co de Phone Number [facility] [address] [place] [phone], [place] [phone] * TSH W/REFLEX (06/09/2023 9:13 AM CDT) TSH 0.520 0.358 - 3.740 uIU/ML 06/09/2023 4:54 PM CDT [facility] 06/09/2023 9:13 AM CDT Catina Rios [employer] [facility] Final Res ult Performing Organization Address City/[facility]/ZIP Co de Phone Number [address] [address], [place] [phone] * LIPID PANEL (06/09/2023 9:13 AM CDT) CHOLESTEROL 148 <200 MG/DL 06/09/2023 4:54 PM CDT [facility] TRIGLYCERIDES 51 <150 MG/DL 06/09/2023 4:54 PM CDT [facility] HDL 60 >40 MG/DL 06/09/2023 4:54 PM CDT [facility] LDL-C 78 <100 MG/DL 06/09/2023 4:54 PM CDT [facility] VLDL CALCULATION 10 5 - 28 MG/DL 06/09/2023 4:54 PM CDT [facility] CHOL/HDL RATIO 2.5 0.0 - 4.0 06/09/2023 4:54 PM CDT -[facility] LDL/HDL 1.3 0.41 - 2.13 06/09/2023 4:54 PM CDT -[facility] NON HDL CHOLESTEROL 88 <140 MG/DL 06/09/2023 4:54 PM CDT -[facility] 06/09/2023 9:13 AM CDT us Catina Rios [employer]IOR [employer] [facility] Final Res ult [facility] [place] [address] [place] [address], [place] [phone] * (ABNORMAL) COMPREHENSIVE METABOLIC PANEL (06/09/2023 9:13 AM CDT) SODIUM S/P/B 141 136 - 145 MMOL/L 06/09/2023 4:54 PM CDT -[facility] POTASSIUM S/P/B 4.7 3.5 - 5.1 MMOL/L 06/09/2023 4:54 PM CDT -[facility] CHLORIDE S/P/B 107 98 - 107 MMOL/L 06/09/2023 4:54 PM CDT -[facility] CO2 26.0 21 - 32 MMOL/L 06/09/2023 4:54 PM CDT -[facility] GLUCOSE 87 70 - 99 MG/DL 06/09/2023 4:54 PM CDT -[facility] BUN 17 7 - 18 MG/DL 06/09/2023 4:54 PM CDT [facility] CREATININE S/P/B 0.80 0.55 - 1.02 MG/DL 06/09/2023 4:54 PM CDT -[facility] CALCIUM S/P/B 8.7 8.4 - 10.5 MG/DL 06/09/2023 4:54 PM T [facility] BILIRUBIN TOTAL S/P/B 0.5 0.2 - 1.0 MG/DL 06/09/2023 4:54 PM [facility] ALKALINE PHOSPHATASE S/P/B 80 37 - 98 U/L 06/09/2023 4:54 PM T [facility] AST 14(L) 15 - 37 U/L 06/09/2023 4:54 PM CDT [facility] [place] ALT 26 14 - 59 U/L 06/09/2023 4:54 PM [facility] TOTAL PROTEIN S/P/B 6.9 6.4 - 8.2 G/DL 06/09/2023 4:54 PM [facility] [place] ALBUMIN S/P/B 3.7 3.4 - 5.0 G/DL 06/09/2023 4:54 PM [facility] ANION GAP 8.0 5 - 15 MMOL/L 06/09/2023 4:54 PM [facility] Comment:REFERENCE RANGE NOT ESTABLISHED OSMOLALITY (CALC) 293 MOSM/KG 023 4:54 PM T [facility] Comment:REFERENCE RANGE NOT ESTABLISHED GFR ESTIMATE >90 >90 ML/MIN/1. 73 M2 06/09/2023 4:54 PM T [facility] GFR NOTES GFR REFERENCE S: 06/09/2023 4:54 PM T [facility] Comment: THE ESTIMATED GFR IS CALCULATED USING THE 2020 CKD-EPI EQUATION. THE FOLLOWING CATEGORIES FOR GRADING RENAL FUNCTION ARE RECOMMENDED BY THE INTERNATIONAL SOCIETY OF NEPHROLOGY (KDIGO 2012 CLINICAL PRACTICE GUIDELINE). G1,NORMAL OR HIGH: >89 ml/min/1.73 m2 G2,MILDLY DECREASED: 60-89 ml/min/1.73 m2 G3A,MILDLY TO MODERATELY DECREASED: 45-59 ml/min/1.73 m2 G3B,MODERATELY TO SEVERELY DECREASED: 30-44 ml/min/1.73 m2 G4,SEVERELY DECREASED: 15-29 ml/min/1.73 m2 G5,KIDNEY FAILURE: <15 ml/min/1.73 m2 06/09/2023 9:13 AM CDT us Catina Rios S[employer]IOR [employer] [facility] Final Res ult [facility] [address] [place] [address], * (ABNORMAL) CBC W/DIFF AUTOMATED (06/09/2023 9:13 AM CDT) WBC 4.49 4.00 - 10.80 x10'3/uL 06/09/2023 3:16 PM CDT [facility] RBC 4.50 4.10 - 5.40 x10'6/uL 06/09/2023 3:16 PM CDT [facility] HGB 11.1(L) 12.0 - 16.0 G/DL 06/09/2023 3:16 PM CDT [facility] HCT 35.9(L) 36.0 - 47.0 % 06/09/2023 3:16 PM CDT [facility] MCV 79.8 78.0 - 100.0 FL 06/09/2023 3:16 PM CDT [facility] MCH 24.7(L) 27.0 - 31.0 PG 06/09/2023 3:16 PM CDT [facility] MCHC 30.9(L) 33.0 - 36.0 G/DL 06/09/2023 3:16 PM CDT [facility] RDW 13.2 11.5 - 14.5 % 06/09/2023 3:16 PM CDT [facility] PLT 190 150 - 350 x10'3/uL 06/09/2023 3:16 PM CDT [facility] MPV 13.8(H) 7.4 - 10.4 FL 06/09/2023 3:16 PM CDT [facility] DIFFERENTIAL TYPE AUTOMATED DIFFERENTIAL 06/09/2023 3:16 PM CDT [facility] NEUTROPHILS % 60.2 % 06/09/2023 3:16 PM CDT [facility] LYMPHOCYTES % 31.8 % 06/09/2023 3:16 PM CDT [facility] MONOCYTES % 6.2 % 06/09/2023 3:16 PM CDT [facility] EOSINOPHILS % 0.9 % 06/09/2023 3:16 PM CDT [facility] BASOPHILS % 0.9 % 06/09/2023 3:16 PM CDT [facility] IMMATURE GRANS % 0.0 % 06/09/2023 3:16 PM CDT [facility] ABS. NEUTROPHILS 2.70 1.60 - 8.30 x10'3/uL 06/09/2023 3:16 PM CDT [facility] ABS. LYMPHOCYTES 1.43 0.80 - 4.70 x10'3/uL 06/09/2023 3:16 PM CDT [facility] ABS. MONOCYTES 0.28 0.00 - 1.50 x10'3/uL 06/09/2023 3:16 PM CDT [facility] ABS. EOSINOPHILS 0.04 0.00 - 0.40 x10'3/uL 06/09/2023 3:16 PM CDT [facility] ABS. BASOPHILS 0.04 0.00 - 0.20 x10'3/uL 06/09/2023 3:16 PM CDT [facility] ABS. IMMATURE GRANULOCYTES 0.00 0.00 - 0.03 x10'3/uL 06/09/2023 3:16 PM CDT [facility] 06/09/2023 9:13 AM CDT Catina Rios NP LABORATORY Final Res ult -[facility] [address] [place] [address], * VITAMIN B1 WHOLE BLOOD (06/09/2023 9:07 AM CDT) [facility] VITAMIN B1 S/P/B 99 78 - 185 nmol/L [facility] Comment: Vitamin supplementation within 24 hours prior to blood draw may affect the accuracy of results. This test was developed and its analytical performance characteristics have been determined by [facility]. It has not been cleared or approved by the FDA. This assay has been validated pursuant to the CLIA regulations and is used for clinical purposes. 06/09/2023 9:07 AM CDT 06/09/2023 11:10 PM CDT Narrative Resulting Agency Comment Performing Organization Information: ?Site ID: [id number] ?Name: Michelle Salazar ?Address: [address] [place] [address] ?Director: Tanner Garay M.D. Catina Rios NP LABORATORY Final Res ult Performing Organization Address City/[facility]/ZIP Co de Phone Number [facility] MICHELLE MITTALStephanieWHITAKER ZABRINA [address] [place] [address], documented in this encounter Visit Diagnoses Diagnosis Vitamin D deficiency- Primary Unspecified vitamin D deficiency Annual physical exam Routine general medical examination at a health care facility H/O bariatric surgery Bariatric surgery status Obesity (BMI 30-39.9) Obesity, unspecified Screening for endocrine, metabolic and immunity disorder Screening for thyroid disorder Screening for hyperlipidemia Screening for lipoid disorders documented in this encounter Additional Health Concerns Assessment Noted Time PHQ-9 Depression Total Score: 0 06/09/20 23 8:23 AM CDT documented as of this encounter Care Teams Clinical Research Spec Relationship Specialty Start Date End Date Catina Rios NP [address] [place] [address] PCP - General NURSE PRACTITIONER 10/06/21 documented as of this encounter
--- OUTSIDE RECORDS SUMMARY | 2024-11-01 05:21 | XMS_ITS | Encounter Summary ---
Author Organization [facility] Address [facility] [place] [address] [place] [address] Care Team Providers Care Artificial Glass Eye Maker Name Role Phone Catina Rios NP Primary Care Provider [phone] Reason for Referral * Imaging (Emergency) - Closed Specialty Diagnoses / Procedures Referred By Poncho t Referred To Contact RADIOLOGY Diagnoses Cough Procedures XR CHEST PA+LAT Catina Rios NP [address] [place] [address] Phone: tel: fax: Referral ID Status Reason Start Date Expiration Date Visits Re quested Visits Authorized [id number] Closed 01/13/2022 02/13/2023 1 1 Reason for Visit * Reason Comments Cough coughing up green phlem for about 3 weeks and she is having labored breathing today. Encounter Details Date Type Department Care Team ([facility] Contact Info) Description 01/13/2022 1:40 PM CDT Office Visit [facility] - [place] [address] [facility] [address] [place], [place] [id number] Catina Rios NP [address] [place], [place] [id number] Cough (coughing up green phlem for about 3 weeks and she is having labored breathing today.) Social History Tobacco Use Types Packs/Day Years [...] PM CDT documented as of this encounter Last Filed Vital Signs Vital Sign Reading Time Taken Comments Blood Pressure 132/84 01/13/2022 1:28 PM CDT Pulse 83 01/13/2022 1:28 PM CDT Temperature 36.8 ??C (98.3 ??F) 01/13/2022 1:28 PM CD T Respiratory Rate 18 01/13/2022 1:28 PM CDT Oxygen Saturation 98% 01/13/2022 1:28 PM CDT Inhaled Oxygen Concentration - - Weight 150.1 kg (331 lb) 01/13/2022 1:28 PM CDT Height 165.1 cm (5' 5 ) 01/13/2022 1:28 PM CDT Body Mass Index 55.08 01/13/2022 1:28 PM CDT documented in this encounter Progress Notes * Catina Rios NP - 01/13/2022 1:40 PM CDT Reason for Visit: Cough (coughing up green phlem for about 3 weeks and she is having labored breathing today.) History of Present Illness: Marika is a 31-year-old female who presents to office due to complaints of having a frequent productive cough of green/yellow sputum for the past 3 weeks that is now keeping her up at night. Initially symptoms started when she was spring cleaning her home she thought the dust in her home was causing her to cough however since that day her cough has not went away. She states has been taking mhwk-zql-pmoojjw cough medication without relief and did take some Mucinex last evening. Today her symptoms are worsening and starting to impair her breathing so she is here for evaluation. Patient does have history of asthma as a child. She does have an albuterol inhaler but has not been using regularly. She also reports history of pneumonia. Patient is a non-smoker. Patient denies fever, chills, fatigue, chest pain, or palpitations. Does report shortness of breathon exertion, some wheezing noted today and chest tightness. Medications: Current Outpatient Medications: ??? azithromycin (ZITHROMAX Z-SHILPI) 250 MG tablet, Take 2 tablets by mouth on day one then 1 daily for four days., Disp: 6 tablet, Rfl: 0 ??? benzonatate (TESSALON PERLES) 100 MG capsule, Take 1 capsule (100 mg total) by mouth 3 (three) times daily as needed for Cough., Disp: 20 capsule, Rfl: 0 ??? predniSONE 20 MG tablet, Take 40mg for three days Take 20mg for three days Then stop., Disp: 10tablet, Rfl: 0 ??? albuterol sulfate HFA 108 (90 Base) MCG/ACT inhaler, Inhale 2 puffs into the lungs every 6 (six) hours as needed for Wheezing., Disp: 18 g, Rfl: 0 ??? dicyclomine 10 MG capsule, Take 1 capsule (10 mg total) by mouth 4 (four) times daily before meals and nightly., Disp: 90 capsule, Rfl: 0 No Known Allergies Past Medical [...] Review of Systems Constitutional: Negative for chills, fever, malaise/fatigue and weight loss. HENT: Negative for congestion, ear pain, sinus pain and sore throat. Respiratory: Positive for cough, sputum production, shortness of breath and wheezing. Negative for hemoptysis. Cardiovascular: Negative for chest pain and palpitations. Psychiatric/Behavioral: Suicidal ideas: Physical Exam Constitutional: General: She is not in acute distress. Cardiovascular: Pulses: Normal pulses. Heart sounds: Normal heart sounds. Pulmonary: Effort: Pulmonary effort is normal. No accessory muscle usage, prolonged expiration or respiratory distress. Breath sounds: Decreased breath sounds present. No wheezing, rhonchi or rales. Skin: Findings: No rash. Neurological: General: No focal deficit present. Mental Status: She is alert and oriented to person, place, and time. Psychiatric: Mood and Affect: Mood normal. Behavior: Behavior normal. Filed Vitals: 01/13/22 1328 BP: 132/84 Pulse: 83 Resp: 18 Temp: 98.3 ??F (36.8 ??C) TempSrc: Temporal SpO2: 98% Weight: (!) 150.1 kg (331 lb) Height: 5' 5 (1.651 m) Screening forms: PHQ-9: PHQ-9: Over the last two weeks, how often have you been bothered by any of the following problems? 10/07/2021 LITTLE INTEREST OR PLEASURE IN DOING THINGS 0-Not at All FEELING DOWN, DEPRESSSED,OR HOPELESS 0-Not at All PHQ2 DEPRESSION TOTAL SCORE 0 DEPRESSION SCREENING TOTAL SCORE 0 Assessment/Recommendations/Plan Encounter Diagnose(s) ICD-10-CM ICD-9-CM SNOMED CT(R) 1. Upper respiratory infection with cough and congestion J06.9 465.9 UPPER RESPIRATORY INFECTION azithromycin (ZITHROMAX Z-SHILPI) 250 MG tablet predniSONE 20 MG tablet 2. Cough R05.9 786.2 COUGH XR CHEST PA+LAT XR CHEST PA+LAT benzonatate (TESSALON PERLES) 100 MG capsule 3. Shortness of breath R06.02 786.05 DYSPNEA predniSONE 20 MG tablet Pt has had UR symptoms for three weeks now with productive cough so will begin antibiotic therapy. Vitals stable. Pt to take Mucinex to thin out secretions. Will prescribe oral prednisone to help with breathing. Tessalon Perles to help with cough. Will obtain x-ray to assess for pneumonia/vs asthma exacerbation/bronchitis. Follow up: If symptoms worsen or new problems arise. Will notify pt once results are back. If any resp distress occurs to seek ER care. CATINA RIOS NP 01/13/2022 2:09 PM Cosigned by Emanuel Escalera MD at 01/13/2022 2:53 PM CDT documented in this encounter Plan of Treatment Scheduled Orders Name Type Priority Associated Diagnoses Orde r Schedule XR CHEST PA+LAT Imaging STAT Cough Expected: 01/13/2022, Expires: 01/13/2023 documented as of this encounter Visit Diagnoses Diagnosis Upper respiratory infection with cough and congestion Acute upper respiratory infections of unspecified site Cough Shortness of breath documented in this encounter Additional Health Concerns Assessment Noted Time PHQ-9 Depression Total Score: 0 10/07/20 21 2:33 PM COMMISSION SPECIALIST documented as of this encounter Care Teams Artificial Glass Eye Maker Relationship Specialty Start Date End Date Catina Rios NP [address] [place] [address] PCP - General NURSE PRACTITIONER 10/06/21 documented as of this encounter
--- OUTSIDE RECORDS SUMMARY | 2024-11-01 05:21 | XMS_ITS | Encounter Summary ---
Author Organization [facility] Address [address] [place] [address]. [place], [place] [address] [place] [address] Care Team Providers Care Slot Service Specialist Name Role Phone Catina Rios NP Primary Care Provider [phone] Reason for Visit * Reason Comments Image (SCAN) Encounter Details Date Type Department Care Team (Latest Contact Info) Description 01/13/2022 Scan [facility] Scanned, Documents Image (SCAN) Social History Tobacco Use Types Packs/Day Years [...] PM CDT documented as of this encounter Plan of Treatment Not on file documented as of this encounter Procedures Procedure Name Priority Date/Time Associated Diagnosis Comments IMAGE GENERIC 01/13/2022 documented in this encounter Results * IMAGE GENERIC (01/13/2022) Anatomical Region Laterality Modality Other 01/13/2022 Narrative 01/13/2022 Ordered by an unspecified provider. us Documents Scanned SCANNING Final Result documented in this encounter Visit Diagnoses Not on filedocumented in this encounter Additional Health Concerns Assessment Noted Time PHQ-9 Depression Total Score: 0 10/07/20 2:33 PM SPONGE BUFFER documented as of this encounter Care Teams Slot Service Specialist Relationship Specialty Start Date End Date Catina Rios NP [address] [place] [address] PCP - General NURSE PRACTITIONER 10/06/21 documented as of this encounter
--- OUTSIDE RECORDS SUMMARY | 2024-11-01 05:21 | XMS_ITS | Encounter Summary ---
Author Organization [facility] Address [address] [place] [address]. [place], [place] [address] [place] [address] Care Team Providers Care Pit Tanner Name Role Phone Jose Francisco Tobar MD Primary Care Provider [phone] Encounter Details Date Type Department Care Team (Latest Contact Info) Description 02/20/2021 Travel Social History Tobacco Use Types Packs/Day Years Used Date Smoking Tobacco: Never Smokeless Tobacco: Never Alcohol Use Standard Drinks/Week Comments Not Currently 0 (1 standard drink = 0.6 oz pur e alcohol) Comments Unknown Sex and Gender Information Value Date Recorded Sex Assigned at Not on file Legal Sex Female 8:34 PM CDT Gender Identity Not on file Sexual Orientation Not on file COVID-19 Exposure Response Date Recorded In the last month, have you been in contact with someone who was confirmed or suspected to have Coronavirus / COVID-19? No / Unsure 02/20/2021 4:39 PM CDT documented as of this encounter Plan of Treatment Not on file documented as of this encounter Visit Diagnoses Not on filedocumented in this encounter Care Teams Pit Tanner Relationship Specialty Start Date End Date Jose Francisco Tobar MD PCP - General FAMILY PRACTICE 02/20/21 10/05/21 documented as of this encounter
--- OUTSIDE RECORDS SUMMARY | 2024-11-01 05:21 | XMS_ITS | Encounter Summary ---
Author Organization [facility] Address [address] [place] [address]. [place] [address] [place] [address] Care Team Providers Care Associate Software Developer Name Role Phone Catina Rios NP Primary Care Provider [phone] Reason for Visit * Reason Comments Cough Patient is 26 weeks with c/o Cough, SOB, chest congestion, and left ear pain x Tuesday Encounter Details Date Type Department Care Team (Late st Contact Info) Description 07/31/2024 12:20 PM CDT Office Visit [facility] [address] [facility] [address] [place] [id number] Catina Rios, VAT SKIMMER [address] [place] [id number] Cough (Patient is 26 weeks with c/o Cough, SOB, chest congestion, and left ear pain x Tuesday) Social History Tobacco Use Types Packs/Day Years [...] Sign Reading Time Taken Comments Blood Pressure 128/78 07/31/2024 12:24 PM CDT Pulse 88 07/31/2024 12:24 PM CDT Temperature 36.2 ??C (97.1 ??F) 07/31/2024 12:24 PM C DT Respiratory Rate 20 07/31/2024 12:24 PM CDT Oxygen Saturation 98% 07/31/2024 12:24 PM CDT Inhaled Oxygen Concentration - - Weight 119.7 kg (264 lb) 07/31/2024 12:24 PM CDT Height 165.1 cm (5' 5 ) 07/31/2024 12:24 PM CDT Body Mass Index 43.93 07/31/2024 12:24 PM CDT documented in this encounter Progress Notes * Catina Rios NP - 07/31/2024 12:20 PM CDT Reason for Visit: Cough (Patient is 26 weeks with c/o Cough, SOB, chest congestion, and left ear pain x Tuesday) History of Present Illness: Marika is a 33-year-old female who presents to office accompanied by her and son with UR complaints for the past 3 days. Patient is currently 26 weeks without any known issues or complications. Reports cough worse at night with some shortness of breath and chest congestion. She reports intermittent left ear discomfort. She not taken anything vhtk-xst-iwczbsy yet for symptoms. She has hx of asthma as a child that has been well controlled and she has hx of developing pneumonia. Denies any fever chills, chest pain, nausea, vomiting, diarrhea, or rash. Is still eating and drinking well. Medications: Current Outpatient Medications: vitamin ( PLUS) 27-1 MG tablet, Take 1 tablet by mouth daily., Disp: , Rfl: valACYclovir (VALTREX) 1 g tablet, Take two tablets twice a day for one day at symptom onset. (Patient not taking: Reported on 07/31/2024), Disp: 14 tablet, Rfl: 0 vitamin D3, cholecalciferol, 1.25 mg capsule, Take 1 capsule (50,000 Units total) by mouth once a week. (Patient not taking: Reported on 07/31/2024), Disp: 8 capsule, Rfl: 0 No Known Allergies Past Medical History: Diagnosis Date Asthma ([facility]) As a child Pneumonia Seizures ([facility]) 2004 Happens with intense pain or fall hard UTI (urinary tract infection) OB History Para Term AB Living 4 3 0 0 0 0 SAB IAB Ectopic Molar Multiple Live Births 0 0 0 0 0 0 Past Surgical History: Procedure Laterality Date BARIATRIC SURGERY CPG 06/09/2022 laproscopic verticle sleeve gastrectomy SECTION 07/16/2008 04/06/2011 10/15/2019 REMOVAL GALLBLADDER SMALL INTESTINE SURGERY June 09, 2022 Sleeve TUBAL LIGATION 04/06/2011 But had a reversal 2016 Social History Tobacco Use Smoking status: Never Passive exposure: Past Smokeless tobacco: Never Tobacco comments: The provider can provide you with more information about quitting. Vaping Use Vaping status: Never Used Substance Use Topics Alcohol use: Not Currently Drug use: Never Family History Problem Relation Name Age of Onset Asthma Mother Nuzhat Hypertension Mother Nuzhat Kidney Disease Mother Nuzhat Kidney failure ROS: [...] does not have insomnia. Physical Exam HENT: Right Ear: Hearing, tympanic membrane, ear canal and external ear normal. Left Ear: Hearing, tympanic membrane, ear canal and external ear normal. Nose: Congestion and rhinorrhea present. Mouth/Throat: Lips: [place]. Mouth: Mucous membranes are moist. Eyes: Pupils: Pupils are equal, round, and reactive to light. Cardiovascular: Rate and Rhythm: Normal rate and regular rhythm. Pulses: Normal pulses. Heart sounds: Normal heart sounds. Pulmonary: Effort: Pulmonary effort is normal. Breath sounds: Normal breath sounds. Skin: General: Skin is warm and dry. Findings: No rash. Neurological: General: No focal deficit present. Mental Status: She is oriented to person, place, and time. Psychiatric: Mood and Affect: Mood normal. Thought Content: Thought content normal. Judgment: Judgment normal. Filed Vitals: 07/31/24 1224 BP: 128/78 Pulse: 88 Resp: 20 Temp: 97.1 ??F (36.2 ??C) TempSrc: Temporal SpO2: 98% Weight: 119.7 kg (264 lb) Height: 1.651 m (5' 5 ) Results for orders placed or performed in visit on 07/31/24 CORONAVIRUS (COVID-19) INFLUENZA A & B ANTIGEN IA PANEL Specimen: NASAL Result Value Ref Range CORONAVIRUS ANTIGEN IA NEGATIVE NEGATIVE INFLUENZA A NEGATIVE NEGATIVE INFLUENZA B NEGATIVE NEGATIVE Internal Control: VALID VALID Assessment/Recommendations/Plan Encounter Diagnose(s) ICD-10-CM SNOMED CT(R) 1. Upper respiratory tract infection, unspecified type J06.9 UPPER RESPIRATORY INFECTION amoxicillin (AMOXIL) 875 MG tablet albuterol sulfate HFA 108 (90 Base) MCG/ACT inhaler 2. Acute cough R05.1 ACUTE COUGH CORONAVIRUS (COVID-19) INFLUENZA A & B ANTIGEN IA PANEL -Pt negative for covid and influenza -Pt appears well and in no acute distress. -D/t being and with her hx will begin amoxicillin for her UR symptoms -Will provide albuterol to use PRN as directed for shortness of breath and wheezing if occurs. -Provided pt list of medications safe for patient to take if needed during -If fever of 100.4 or greater occurs, resp distress occurs to seek ER care. -Encourage to stay well hydrated Follow up: If symptoms worsen or new problems arise. Encourage flu shot in near future once well. CATINA RIOS NP 07/31/2024 12:35 PM documented in this encounter Plan of Treatment Not on file documented as of this encounter Procedures Procedure Name Priority Date/Time Associated Diagnosis Comments CORONAVIRUS (COVID-19) INFLUENZA A & B ANTIGEN IA PANEL Routine 07/31/2024 Acute cough documented in this encounter Results * CORONAVIRUS (COVID-19) INFLUENZA A & B ANTIGEN IA PANEL (07/31/2024) CORONAVIRUS ANTIGEN IA NEGATIVE NEGATIVE [address] [place] INFLUENZA A NEGATIVE NEGATIVE [address] [place] INFLUENZA B NEGATIVE NEGATIVE [address], [place] Internal Control: VALID VALID [address] [place] NASAL STRUCTURE / Unknown 07/31/2024 Catina Rios VAT SKIMMER MICROBIOLOGY - GENERAL OR DERABLES Final Result Performing Organization Address City/State/[facility] Co de Phone Number [address] [place] [address] [facility] [place] [address], documented in this encounter Visit Diagnoses Diagnosis Upper respiratory tract infection, unspecified type Acute cough documented in this encounter Additional Health Concerns Infection Onset Date Last Indicated Resolved Time COVID-19 Rule Out 07/31/2024 07/31/2024 07/31/2024 1:31 PM CDT Assessment Noted Time PHQ-9 Depression Total Score: 0 06/09/20 23 8:23 AM CDT documented as of this encounter Care Teams Associate Software Developer Relationship Specialty Start Date End Date Catina Rios NP [address] [place] [address] PCP - General NURSE PRACTITIONER 10/06/21 documented as of this encounter
--- OUTSIDE RECORDS SUMMARY | 2024-11-01 05:21 | XMS_ITS | Encounter Summary ---
Author Organization [facility] Address [address] [place] [address]. [place] [address] [place] [address] Care Team Providers Care Pharmacy Affairs Assistant Name Role Phone Catina Rios NP Primary Care Provider [phone] Encounter Details Date Type Department Care Team (Late st Contact Info) Description 11/03/2021 Patient Self-Triage [facility] [address] [place] [address] April [facility] Provider Social History Tobacco Use Types Packs/Day Years [...] have Coronavirus / COVID-19? No / Unsure 10/15/2021 9:42 PM STEREOPLOTTER OPERATOR documented as of this encounter Plan of Treatment Not on file documented as of this encounter Visit Diagnoses Not on filedocumented in this encounter Additional Health Concerns Assessment Noted Time PHQ-9 Depression Total Score: 0 10/07/20 21 2:33 PM STEREOPLOTTER OPERATOR documented as of this encounter Care Teams Pharmacy Affairs Assistant Relationship Specialty Start Date End Date Catina Rios NP [address] [place] [address] PCP - General NURSE PRACTITIONER 10/06/21 documented as of this encounter
--- OUTSIDE RECORDS SUMMARY | 2024-11-01 05:21 | XMS_ITS | Encounter Summary ---
Author Organization [facility] Address [address] [place] [address]. [place], [place] [address] [place] [address] Care Team Providers Care Diagnostic Tech Name Role Phone Catina Rios NP Primary Care Provider [phone] Reason for Visit * Reason Comments Lab (SCAN) Encounter Details Date Type Department Care Team (Latest Contact Info) Description 03/06/2022 Scan [facility] SRV[facility] Scanned, Documents Lab (SCAN) Social History Tobacco Use Types Packs/Day [...] Procedure Name Priority Date/Time Associated Diagnosis Comments OUTSIDE LAB (SCAN ORDER) 03/06/2022 OUTSIDE LAB (SCAN ORDER) 03/06/2022 OUTSIDE LAB (SCAN ORDER) 03/06/2022 documented in this encounter Results * OUTSIDE LAB (SCAN) (03/06/2022) 03/06/2022 Narrative 03/06/2022 Ordered by an unspecified provider. us Documents Scanned SCANNING Final Result * OUTSIDE LAB (SCAN) (03/06/2022) 03/06/2022 Narrative 03/06/2022 Ordered by an unspecified provider. us Documents Scanned SCANNING Final Result * OUTSIDE LAB (SCAN) (03/06/2022) 03/06/2022 Narrative 03/06/2022 Ordered by an unspecified provider. us Documents Scanned SCANNING Final Result documented in this encounter Visit Diagnoses Not on filedocumented in this encounter Additional Health Concerns Assessment Noted Time PHQ-9 Depression Total Score: 0 10/07/20 21 2:33 PM INSPECTING SUPERVISOR documented as of this encounter Care Teams Diagnostic Tech Relationship Specialty Start Date End Date Catina Rios NP [address] [place] [address] PCP - General NURSE PRACTITIONER 10/06/21 documented as of this encounter
--- OUTSIDE RECORDS SUMMARY | 2024-11-01 05:21 | XMS_ITS | Encounter Summary ---
Author Organization [facility] Address [facility] [place] [address] [place] [address] Care Team Providers Care Carbon Cleaner Name Role Phone Catina Rios NP Primary Care Provider [phone] Reason for Referral * Imaging (Routine) - Closed Specialty Diagnoses / Procedures Referred By Poncho thompson Referred To Contact RADIOLOGY Diagnoses Abnormal uterine bleeding Menorrhagia with irregular cycle Procedures US PELVIC NON OB COMP TA+TV Catina Rios NP [address] [place] [address] Phone: tel: fax: [facility] [address] [place] [address] Phone: tel: fax: Referral ID Status Reason Start Date Expiration Date Visits Re quested Visits Authorized [id number] Closed 10/07/2021 11/07/2022 100 100 LE STITCHER Reason for Visit * Reason Comments Physical est care, she has so me random issues going on. UTI, menstrual, weight loss. Encounter Details Date Type Department Care Team (Late Contact Info) Description 10/07/2021 2:40 PM MIDDLE STITCHER Office Visit [facility] - [place] [address] [facility] [address] [place], [place] [id number] Catina Rios NP [address] [place] [address] Physical ([facility] care, she has some random issues going on. UTI, menstrual, weight loss.) Social History Tobacco Use Types Packs/Day Years Used Date Smoking Tobacco: Never Smokeless Tobacco: Never Tobacco Cessation:Counseling Given: Yes Comments:The provider can provide you with more [...] Sign Reading Time Taken Comments Blood Pressure 130/80 10/07/2021 2:29 PM MIDDLE STITCHER Pulse 90 10/07/2021 2:29 PM MIDDLE STITCHER Temperature 36.7 ??C (98 ??F) 10/07/2021 2:29 PM MIDDLE STITCHER Respiratory Rate 18 10/07/2021 2:29 PM MIDDLE STITCHER Oxygen Saturation 99% 10/07/2021 2:29 PM MIDDLE STITCHER Inhaled Oxygen Concentration - - Weight 151.5 kg (334 lb) 10/07/2021 2:29 PM MIDDLE STITCHER Height 165.1 cm (5' 5 ) 10/07/2021 2:29 PM MIDDLE STITCHER Body Mass Index 55.58 10/07/2021 2:29 PM MIDDLE STITCHER documented in this encounter Patient Instructions * Patient Instructions* Catina Rios NP - 10/07/2021 2:40 PM MIDDLE STITCHER [facility] Family and Internal Medicine [address] [place] [address], [address] Marika, it was great meeting you today! Thank you [facility]. Please have your labs done fasting for 8-10 hours before getting done. Small sips of water are ok before your labs. At this time recommend increasing the fiber in your diet to around 25 grams a day. Encourage following a low fat, low carb [...] or a combination of moderate and vigorous activity. Follow up in two weeks LE STITCHER documented in this encounter Progress Notes * Hector Ortiz MA - 10/07/2021 2:40 PM CSTAddended by: HECTOR ORTIZ on: 03/05/2022 11:00 AM Modules accepted: Orders * Catina Rios NP - 10/07/2021 2:40 PM CST Reason for Visit: Physical (est care, she has some random issues going on. UTI, menstrual, weight loss.) History of Present Illness: Marika is a 31-year-old female who presents to [facility] to establish care, annual physical examination, and to discuss 5 problems No history of asthma as a child. Requiring daily medication. Rarely needs his rescue inhaler. Does report history of pneumonia multiple times. Patient is a non-smoker. Has been exposed to secondhand smoke from family members. Not sure why she develops pneumonia a lot. Patient reports history of frequent UTIs. States never had symptoms. Has been hospitalized once [facility]. She is unsure why she gets frequent UTIs. She reports over the past year she correlates after she received her Covid vaccination she has beenhaving irregular periods. She states they used to be fairly regular, occur every 28-30 days and only last 4-5 days however they have now become heavy throughout her period, sometimes getting she had to stop. to 10 days, will occur every 18-20 days, with some spotting in between and will past clots. Denies any history of known uterine fibroids or cysts. No known history of PCOS. Did due pregancy test/HCG test and no recent recent . Patient does have a broiler chef or cook Dr. Vaughn Bryant. She states however she has only seen him for her pregnancies. She was not sure who to discuss these issues with. She denies any pelvic pain. Patient has 3 children. Hx of three cesarian deliveries, hx of tubal ligation and then reversal. Not interested in starting control now to help regulate her cycle because she wants to try for in the near future given her reports child. Didhave some struggles getting with her third child. She also reports concerns for IBS. She states she mainly has loose stools then formed. Does not correlate any particular foods that make her symptoms worse. Reports will have pain but after a bowel movement will improve. Patient denies any blood in her stool, greasy, oily, or mucus in stool. She also reports concerns with difficulty with weight loss. During the Covid pandemic she has gained weight. She feels her diet is overall okay. Denies any binge eating but she does overeat. She has not been exercising due to lack of time. Has been on phentermine in the past and tolerated well and helped with weight loss. Patient is and has 3 children. 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 Medications: Current Outpatient Medications: ??? albuterol sulfate [...] As a child ??? Pneumonia ??? Seizures ([facility] 2004 Happens with intense pain or fall [...] leg swelling and PND. Gastrointestinal: Positive for diarrhea. Negative for abdominal pain, blood in stool, constipation,heartburn, melena, nausea and vomiting. Genitourinary: Negative for dysuria, flank pain, frequency, hematuria and urgency. See HPI. Musculoskeletal: Negative for back pain, falls, joint pain, myalgias and neck pain. Skin: Negative for itching and rash. Neurological: Negative for dizziness, tingling, tremors, sensory change, speech change, focal weakness, seizures (as a child ), loss of consciousness, weakness and headaches. Endo/Heme/Allergies: Negative for environmental allergies and polydipsia. Does not bruise/bleed easily. Psychiatric/Behavioral: Negative for depression, hallucinations, memory loss, substance abuse and suicidal ideas. The patient is not nervous/anxious and does not have insomnia. Physical Exam Constitutional: General: She is not in acute distress. Appearance: She is well-developed. HENT: Head: Normocephalic and atraumatic. Right Ear: Hearing, tympanic membrane, ear canal and external ear normal. Left Ear: Hearing, tympanic membrane, ear canal and external ear normal. Nose: Nose normal. Mouth/Throat: Pharynx: Uvula midline. No oropharyngeal exudate or posterior oropharyngeal erythema. Eyes: General: Lids are normal. Lids are everted, no foreign bodies appreciated. No scleral icterus. Pupils: Pupils are equal, round, and reactive to light. Neck: Thyroid: No thyromegaly. Vascular: No carotid bruit. Trachea: No tracheal deviation. Cardiovascular: Rate and Rhythm: Normal rate and regular rhythm. Heart sounds: Normal heart sounds. No murmur [...] warm and dry. Coloration: Skin is not pale. Findings: No erythema or rash. Neurological: Mental Status: She is alert and oriented to person, place, and time. Deep Tendon Reflexes: Reflexes are normal and symmetric. Psychiatric: Behavior: Behavior normal. Thought Content: Thought content normal. Judgment: Judgment normal. Filed Vitals: 10/07/21 1429 BP: 130/80 Pulse: 90 Resp: 18 Temp: 98 ??F (36.7 ??C) TempSrc: Temporal SpO2: 99% Weight: (!) [...] Encounter Diagnose(s) ICD-10-CM ICD-9-CM SNOMED CT(R) 1. Diarrhea, unspecified type R19.7 787.91 DIARRHEA CELIAC DISEASE ANTIBODY PANEL CALPROTECTIN FECAL STOOL CULTURE ([facility] ONLY) SED RATE, ERYTHROCYTE (ESR) COMPREHENSIVE METABOLIC PANEL dicyclomine 10 MG capsule ELASTASE, PANCREATIC (EL-1), FECAL, QUAL/SEMI-QUANT (SMD) 2. Menorrhagia with irregular cycle N92.1 626.2 MENOMETRORRHAGIA LH, LUTEINIZING HORMONE FSH, FOLLICLE STIM HORMONE DHEA-SULFATE TESTOSTERONE, FREE & TOTAL ESTROGEN, TOTAL US PELVIC NON OB COMP TA+TV US PELVIC NON OB COMP TA+TV PROGESTERONE 3. Abnormal uterine bleeding N93.9 626.9 ABNORMAL UTERINE BLEEDING CBC W/DIFF AUTOMATED TSH W/REFLEX LH, LUTEINIZING HORMONE FSH, FOLLICLE STIM HORMONE DHEA-SULFATE TESTOSTERONE, FREE & TOTAL ESTROGEN, TOTAL US PELVIC NON OB COMP TA+TV US PELVIC NON OB COMP TA+TV IRON SAT PANEL (IRON,IBC,%SAT) FERRITIN PROGESTERONE 4. Screening for lipoid disorders Z13.220 V77.91 PATIENT ENCOUNTER STATUS LIPID PANEL 5. Screening for thyroid disorder Z13.29 V77.0 PATIENT ENCOUNTER STATUS TSH W/REFLEX 6. Need for hepatitis C screening test Z11.59 V73.89 VIRAL SCREENING STATUS HEPATITIS C ANTIBODY 7. Mild intermittent asthma, unspecified whether complicated J45.20 493.90 MILD INTERMITTENT ASTHMAalbuterol sulfate HFA 108 (90 Base) MCG/ACT inhaler 8. Frequent UTI N39.0 599.0 RECURRENT URINARY TRACT INFECTION URINALYSIS WI REFLEX TO CULTURE 9. Hx of recurrent pneumonia Z87.01 V12.61 HISTORY OF RECURRENT PNEUMONIA 10. Class 3 severe obesity with body mass index (BMI) of 50.0 to 59.9 in adult, unspecified obesitytype, unspecified whether serious comorbidity present (CMS/HCC) E66.01 278.01 SEVERE OBESITY Z68.43 V85.43 11. Physical exam, annual Z00.00 V70.0 PATIENT ENCOUNTER STATUS Patient had multiple issues of concern today. Patient will begin with blood work, stool testing, UAand pelvic ultrasound based on all of her above concerns. Patient will follow back up in office in 2 weeks to discuss further. In regards to her diarrhea at this time recommend increasing her fiber in her diet. Currently 5 g/day. May take Metamucil or some other fiber supplements. Will prescribe Bentyl to take at this time due to chronic diarrheal symptoms. Discussed how to take and side effects. Encourage following a low fat, low carb [...] vaccinations, blood pressure, weight at today's visit. I spent 40 minutes today discussing patients problems/concerns reviewing the patient's medical record, obtaining history, performing an exam, ordering medications, tests, and/or procedures, documenting in the medical record, referring and/or communicating with other health care providers, counseling and educating the patient/family/caregiver, reviewing and communicating test results and coordination of care. I spent 10 min on preventative health/wellness. Follow up: 2 weeks Health Reminders Influenza- encourage Tdap- Up to date COVID- up to date WWE/Pap- completed by Dr. Vaughn Bryant last, will need records Routine labs- orders placed CATINA RIOS NP 10/08/2021 8:19 AM Cosigned by Emanuel Escalera MD at 10/08/2021 8:40 AM MIDDLE STITCHER LE STITCHER LE STITCHER documented in this encounter Plan of Treatment Scheduled Orders Name Type Priority Associated Diagnoses Orde r Schedule US PELVIC NON OB COMP TA+TV Ultrasound Routine Abnormal uterine bleeding Menorrhagia with irregular cycle Expected: 10/07/2021, Expires: 10/07/2022 CALPROTECTIN FECAL Microbiology Routine Diarrhea, unspecified type Expected: 03/05/2022, Expires: 03/05/2023 ELASTASE, PANCREATIC (EL-1), FECAL, QUAL/SEMI-QUANT (SMD) Microbiology Routine Diarrhea, unspecified type Expected: 03/05/2022, Expires: 03/05/2023 STOOL CULTURE ([facility] ONLY) Microbiology Routine Diarrhea, unspecified type Expected: 03/05/2022, Expires: 03/05/2023 URINALYSIS WI REFLEX TO CULTURE Lab Routine Frequent UTI Expected: 03/05/2022, Expires: 03/05/2023 documented as of this encounter Procedures Procedure Name Priority Date/Time Associated Diagnosis Comments HEPATITIS C ANTIBODY W/RFX TO HCV RNA Routine 03/06/2022 8:04 AM CDT Need for hepatitis C screening test TSH W/REFLEX Routine 03/06/2022 8:04 AM CDT Abnormal uterine bleeding Screening for thyroid disorder IRON SAT PANEL (IRON,IBC,%SAT) Routine 03/06/2022 8:04 AM CDT Abnormal uterine bleeding TESTOSTERONE, FREE & TOTAL Routine 03/06/2022 8:04 AM CDT Abnormal uterine bleeding Menorrhagia with irregular cycle SED RATE, ERYTHROCYTE (ESR) Routine 03/06/2022 8:04 AM CDT Diarrhea, unspecified type COMPREHENSIVE METABOLIC PANEL Routine 03/06/2022 8:04 AM CDT Diarrhea, unspecified type LH, LUTEINIZING HORMONE Routine 03/06/2022 8:04 AM CDT Abnormal uterine bleeding Menorrhagia with irregular cycle FSH, FOLLICLE STIM HORMONE Routine 03/06/2022 8:04 AM CDT Abnormal uterine bleeding Menorrhagia with irregular cycle ESTROGEN, TOTAL Routine 03/06/2022 8:04 AM CDT Abnormal uterine bleeding Menorrhagia with irregular cycle CELIAC DISEASE ANTIBODY PANEL Routine 03/06/2022 8:04 AM CDT Diarrhea, unspecified type CBC W/DIFF AUTOMATED Routine 03/06/2022 8:04 AM CDT Abnormal uterine bleeding PROGESTERONE Routine 03/06/2022 8:04 AM CDT Abnormal uterine bleeding Menorrhagia with irregular cycle FERRITIN Routine 03/06/2022 8:04 AM CDT Abnormal uterine bleeding documented in this encounter Results * HEPATITIS C ANTIBODY ([facility] ONLY) [...] a test for HCV RNA (test code 86735) is suggested. For additional information please refer to http://education.boo-box/faq/YVW12j0 (This link is being provided for informational/ educational purposes only.) 03/06/2022 8:04 AM CDT 03/06/2022 8:06 AM CDT Narrative [facility] - 03/12/2022 5:09 PM CDT INSURANCE ON PHONE FASTING:YES COLLECTION KIT GIVEN TO PATIENT. PATIENT ADVISED FASTING: YES Catina Rios SET UP AND LAY OUT INSPECTOR LABORATORY Final Res ult Performing Organization Address City/State/[place] Co de Phone Number [facility] [address] [place] [address] * TSH W/REFLEX (03/06/2022 8:04 AM CDT) TSH 0.85 mIU/L [facility] Comment: ?Reference Range ?> or = 20 Years ??0.40-4.50 ? Ranges ?First trimester ?0.26-2.66 ?Second trimester ?? 0.55-2.73 ?Third trimester ?0.43-2.91 03/06/2022 8:04 AM CDT 03/06/2022 8:06 AM CDT Narrative [facility] - 03/12/2022 5:09 PM CDT INSURANCE ON PHONE FASTING:YES COLLECTION KIT GIVEN TO PATIENT. PATIENT ADVISED FASTING: YES Catina Rios SET UP AND LAY OUT INSPECTOR LABORATORY Final Res ult [facility] [address] [place] [address] * TESTOSTERONE, FREE & TOTAL (03/06/2022 8:04 AM CDT) TESTOSTERONE TOTAL 43 2 - 45 ng/dL [facility] Comment: For additional information, please refer to https://education.Operating Analytics.Rijuven/faq/KCE989 (This link is being provided for informational/educational purposes only.) (Note) This test was developed and its analytical performance characteristics have been determined by [employer]. It has not been cleared or approved by the FDA. This assay has been validated pursuant to the CLIA regulations and is used for clinical purposes. TESTOSTERONE FREE 6 0.1 - 6.4 pg/mL [facility] Comment: (Note) This test was developed and its analytical performance characteristics have been determined by [employer]. It has not been cleared or approved by the FDA. This assay has been validated pursuant to the CLIA regulations and is used for clinical purposes. [facility] [address] [place] [address],[address] [place] [id number] Nabeel Castro MD 03/06/2022 8:04 AM CDT 03/06/2022 8:06 AM CDT Narrative [facility] - 03/12/2022 5:09 PM CDT INSURANCE ON PHONE FASTING:YES COLLECTION KIT GIVEN TO PATIENT. PATIENT ADVISED FASTING: YES Catina Rios SET UP AND LAY OUT INSPECTOR LABORATORY Final Res ult [facility] [address] [place] [address], [address] [place] [address] * SED RATE, ERYTHROCYTE (ESR) (03/06/2022 8:04 AM CDT) Pathologist [facility] SED RATE 2 < OR = 20 mm/h [facility] 03/06/2022 8:04 AM CDT 03/06/2022 8:06 AM CDT Narrative [facility] - 03/12/2022 5:09 PM CDT INSURANCE ON PHONE FASTING:YES COLLECTION KIT GIVEN TO PATIENT. PATIENT ADVISED FASTING: YES Catina Rios SET UP AND LAY OUT INSPECTOR LABORATORY Final Res ult Performing Organization Address [facility] de Phone Number [facility] [address] [place] [address] * PROGESTERONE (03/06/2022 8:04 AM CDT) [facility] PROGESTERONE <0.5 ng/mL [facility] Comment: ?Reference Ranges ? Female ?Follicular Phase ? < 1.0 ?Luteal Phase ?2.6-21.5 ?Post menopausal ?< 0.5 ?1st Trimester ? 4.1-34.0 ?2nd Trimester ?24.0-76.0 ?3rd Trimester ?? 52.0-302.0 03/06/2022 8:04 AM CDT 03/06/2022 8:06 AM CDT Narrative [facility] - 03/12/2022 5:09 PM CDT INSURANCE ON PHONE FASTING:YES COLLECTION KIT GIVEN TO PATIENT. PATIENT ADVISED FASTING: YES Catina Rios NP LABORATORY Final Res ult Performing Organization Address [facility] de Phone Number [facility] [address] [place] [address] * LH, LUTEINIZING HORMONE (03/06/2022 8:04 AM CDT) Luteinizing Hormone 7.3 mIU/mL [facility] Comment: ?Reference Range Follicular Phase ??1.9-12.5 Mid-Cycle Peak ?8.7-76.3 Luteal Phase ?0.5-16.9 Postmenopausal ?10.0-54.7 03/06/2022 8:04 AM CDT 03/06/2022 8:06 AM CDT Narrative [facility] - 03/12/2022 5:09 PM CDT INSURANCE ON PHONE FASTING:YES COLLECTION KIT GIVEN TO PATIENT. PATIENT ADVISED FASTING: YES Catinaroland Rios SET UP AND LAY OUT INSPECTOR LABORATORY Final Res ult Performing Organization Address [facility]/[place] Co de Phone Number [facility] [address] [place] [address] * (ABNORMAL) IRON SAT PANEL (IRON,IBC,%SAT) (03/06/2022 8:04 AM CDT) Pathologist [facility] IRON 44 40 - 190 mcg/dL [facility] IRON BINDING CAPACITY 462(H) 250 - 450 mcg/dL (calc) [facility] % IRON SATURATION 10(L) 16 - 45 % (calc) [facility] 03/06/2022 8:04 AM CDT 03/06/2022 8:06 AM CDT Narrative [facility] - 03/12/2022 5:09 PM CDT INSURANCE ON PHONE FASTING:YES COLLECTION KIT GIVEN TO PATIENT. PATIENT ADVISED FASTING: YES Catina Rios SET UP AND LAY OUT INSPECTOR LABORATORY Final Res ult Performing Organization Address [facility]/[place] Co de Phone Number [facility] [address] [place] [address] * FSH, FOLLICLE STIM HORMONE (03/06/2022 8:04 AM CDT) FSH 7.3 mIU/mL [facility] Comment: ?Reference Range ? Follicular Phase ? 2.5-10.2 ? Mid-cycle Peak ? 3.1-17.7 ? Luteal Phase ? 1.5- 9.1 ? Postmenopausal ? 23.0-116.3 ? 03/06/2022 8:04 AM CDT 03/06/2022 8:06 AM CDT Narrative [facility] - 03/12/2022 5:09 PM CDT INSURANCE ON PHONE FASTING:YES COLLECTION KIT GIVEN TO PATIENT. PATIENT ADVISED FASTING: YES Catina Rios NP LABORATORY Final Res ult Performing Organization Address [facility]/[place] Co de Phone Number [facility] [address] [place] [address] * (ABNORMAL) FERRITIN (03/06/2022 8:04 AM CDT) FERRITIN 13(L) 16 - 154 ng/mL [facility] 03/06/2022 8:04 AM CDT 03/06/2022 8:06 AM CDT Narrative [facility] - 03/12/2022 5:09 PM CDT INSURANCE ON PHONE FASTING:YES COLLECTION KIT GIVEN TO PATIENT. PATIENT ADVISED FASTING: YES Catina Rios NP LABORATORY Final Res ult Performing Organization Address [facility]/ZIP Co de Phone Number [facility] [address] [place] [address] * ESTROGEN, TOTAL (03/06/2022 8:04 AM CDT) Pathologist [facility] ESTROGEN TOTAL S/P/B 255.4 pg/mL [facility], Comment: Reference Ranges for Total Estrogen: ??Follicular Phase ? (1-12 days): ??90-590 pg/mL ??Luteal Phase: ? 130-460 pg/mL ??Postmenopausal: ?50-170 pg/mL The total estrogen assay is not recommended for use in pre-pubertal children. 03/06/2022 8:04 AM CDT 03/06/2022 8:06 AM CDT Narrative [facility] [place] [facility] - 03/12/2022 5:09 PM CDT INSURANCE ON PHONE FASTING:YES COLLECTION KIT GIVEN TO PATIENT. PATIENT ADVISED FASTING: YES us Catina Rios SET UP AND LAY OUT INSPECTOR LABORATORY Final Res ult Performing Organization Address [facility]/ZIP Co de Phone Number [facility], [address] [place] [address] * (ABNORMAL) COMPREHENSIVE METABOLIC PANEL (03/06/2022 8:04 AM CDT) GLUCOSE 115(H) 65 - 99 mg/dL [facility] [place] Comment: ? Fasting reference interval For someone without known diabetes, a glucose value between 100 and 125 mg/dL is consistent with prediabetes and should be confirmed with a follow-up test. BUN 15 7 - 25 mg/dL [facility] CREATININE S/P/B 0.65 0.50 - 1.10 mg/dL [facility] EGFR NON-AFR. AMER. 117 > OR = 60 mL/min/1. 73m2 [facility] EGFR AFR. AMER. 136 > OR = 60 mL/min/1. 73m2 [facility] BUN CREATININE RATIO NOT APPLICABLE 6 - 22 (calc) [facility] SODIUM S/P/B 138 135 - 146 mmol/L [facility] POTASSIUM S/P/B 4.3 3.5 - 5.3 mmol/L [facility] CHLORIDE S/P/B 106 98 - 110 mmol/L [facility] CO2 24 20 - 32 mmol/L [facility] CALCIUM S/P/B 8.8 8.6 - 10.2 mg/dL [facility] TOTAL PROTEIN S/P/B 6.8 6.1 - 8.1 g/dL [facility] ALBUMIN S/P/B 4.1 3.6 - 5.1 g/dL [facility] GLOBULIN 2.7 1.9 - 3.7 g/dL (calc) [facility] ALBUMIN/GLOBULI N RATIO 1.5 1.0 - 2.5 (calc) [facility] BILIRUBIN TOTAL S/P/B 0.4 0.2 - 1.2 mg/dL [facility] ALKALINE PHOSPHATASE S/P/B 65 31 - 125 U/L [facility] AST 27 10 - 30 U/L [facility] ALT 35(H) 6 - 29 U/L [facility] [place] 03/06/2022 8:04 AM CDT 03/06/2022 8:06 AM CDT Narrative [facility] - 03/12/2022 5:09 PM CDT INSURANCE ON PHONE FASTING:YES COLLECTION KIT GIVEN TO PATIENT. PATIENT ADVISED FASTING: YES us Catina Rios NP LABORATORY Final Res ult [facility] [address] [place], [place] [address] * CELIAC DISEASE ANTIBODY PANEL (03/06/2022 8:04 AM CDT) TISSUE TRANSGLUTAMINASE IGG AB <1.0 U/mL [facility] Comment: Value ?Interpretation ----- ? <15.0 ?Antibody not detected > or = 15.0 ?Antibody detected TISSUE TRANSGLUTAMINASE IGA AB <1.0 U/mL [facility] [place] Comment: Value ?Interpretation ----- ? <15.0 ?Antibody not detected > or = 15.0 ?Antibody detected DEAMIDATED GLIADIN IGA 1.7 U/mL [facility] Comment: Value ?Interpretation ----- ? <15.0 ?Antibody not detected > or = 15.0 ?Antibody detected DEAMIDATED GLIADIN IGG 14.5 U/mL [employer] [place] Comment: Value ?Interpretation ----- ? <15.0 ?Antibody not detected > or = 15.0 ?Antibody detected IGA 151 47 - 310 mg/dL [employer] [place] 03/06/2022 8:04 AM CDT 03/06/2022 8:06 AM CDT Narrative [facility] - 03/12/2022 5:09 PM CDT INSURANCE ON PHONE FASTING:YES COLLECTION KIT GIVEN TO PATIENT. PATIENT ADVISED FASTING: YES us Catina Rios SET UP AND LAY OUT INSPECTOR LABORATORY Final Res ult [facility] [address] [place] [address] * (ABNORMAL) CBC W/DIFF AUTOMATED (03/06/2022 8:04 AM CDT) WBC 4.7 3.8 - 10.8 Thousand/u L [facility] RBC 4.97 3.80 - 5.10 Million/uL [facility] HGB 13.2 11.7 - 15.5 g/dL [facility] HCT 40.5 35.0 - 45.0 % [facility] MCV 81.5 80.0 - 100.0 fL [facility] MCH 26.6(L) 27.0 - 33.0 pg [facility] MCHC 32.6 32.0 - 36.0 g/dL [facility] RDW 14.9 11.0 - 15.0 % [facility] PLT 214 140 - 400 Thousand/u L [facility] MPV 12.2 7.5 - 12.5 fL [facility] ABS. NEUTROPHILS 2,768 1,500 - 7,800 cells/uL [facility] ABS. LYMPHOCYTES 1,523 850 - 3,900 cells/uL [facility] ABS. MONOCYTES 301 200 - 950 cells/uL [facility] ABS. EOSINOPHILS 80 15 - 500 cells/uL [facility] ABS. BASOPHILS 28 0 - 200 cells/uL [facility] SEG NEUTROPHILS 58.9 % [facility] LYMPHOCYTES 32.4 % [facility] MONOCYTES 6.4 % [facility] EOSINOPHILS 1.7 % [facility] BASOPHILS 0.6 % [facility] 03/06/2022 8:04 AM CDT 03/06/2022 8:06 AM CDT Narrative [facility] - 03/12/2022 5:09 PM CDT INSURANCE ON PHONE FASTING:YES COLLECTION KIT GIVEN TO PATIENT. PATIENT ADVISED FASTING: YES us Catina Rios SET UP AND LAY OUT INSPECTOR LABORATORY Final Res ult [facility] [address] [address] [id number] documented in this encounter Visit Diagnoses Diagnosis Diarrhea, unspecified type Menorrhagia with irregular cycle Excessive or frequent menstruation Abnormal uterine bleeding Unspecified disorder of menstruation and other abnormal bleeding from female genital tract Screening for lipoid disorders Screening for thyroid disorder Need for hepatitis C screening test Special screening examination for other specified viral diseases Mild intermittent asthma, unspecified whether complicated (HHS/HCC) Frequent UTI Urinary tract infection, site not specified Hx of recurrent pneumonia Personal history of pneumonia (recurrent) Class 3 severe obesity with body mass index (BMI) of 50.0 to 59.9 in adult, unspecified obesity type, unspecified whether serious comorbidity present (CMS/HCC HHS/HCC) Physical exam, annual Routine general medical examination at a health care facility documented in this encounter Additional Health Concerns Assessment Noted Time PHQ-9 Depression Total Score: 0 10/07/20 21 2:33 PM MIDDLE STITCHER documented as of this encounter Care Teams Carbon Cleaner Relationship Specialty Start Date End Date Catina Rios NP [address] [place] [address] PCP - General NURSE PRACTITIONER 10/06/21 documented as of this encounter
--- OUTSIDE RECORDS SUMMARY | 2024-11-01 05:21 | XMS_ITS | Encounter Summary ---
Author Organization [facility] Address [address] [place] [address]. [place], [place] [address] [place] [address] Care Team Providers Care Pl Sql Programmer Name Role Phone Unavailable Primary Care Provider Unavailabl e Encounter Details Date Type Department Care Team (Late st Contact Info) Description 01/05/2015 Abstract [facility] Emergency Room [address] [place], [place] [id number] Social History Tobacco Use Types Packs/Day Years Used Date Smoking Tobacco: Never Assessed Comments Unknown Sex and Gender Information Value Date Recorded Sex Assigned at Not on file Legal Sex Female 8:34 PM CDT Gender Identity Not on file Sexual Orientation Not on file documented as of this encounter Plan of Treatment Not on file documented as of this encounter Visit Diagnoses Diagnosis Urinary tract infection Urinary tract infection, site not specified documented in this encounter
--- OUTSIDE RECORDS SUMMARY | 2024-11-01 05:21 | XMS_ITS | Encounter Summary ---
Author Organization [facility] Address [address] [place] [address]. [place] [address] [place] [address] Care Team Providers Care Psychologist Name Role Phone Catina Rios NP Primary Care Provider +1 [phone] Encounter Details Date Type Department Care Team (Latest Contact Info) Description 04/08/2022 Travel Social History Tobacco Use Types Packs/Day [...] Score: 0 10/07/20 21 2:33 PM COMMISSION AUDITOR documented as of this encounter Care Teams Psychologist Relationship Specialty Start Date End Date Catina Rios NP [address] [place] [address] PCP - General NURSE PRACTITIONER 10/06/21 documented as of this encounter
--- OUTSIDE RECORDS SUMMARY | 2024-11-01 05:21 | XMS_ITS | Encounter Summary ---
Author Organization [facility] Address [address] [place] [address]. [place], [place] [address] [place] [address] Care Team Providers Care Forestry Patrolman Name Role Phone Catina Rios NP Primary Care Provider +1 [phone] Reason for Visit * Reason Comments Congestion Chest congestion, co ugh, sore throat X 2 days Encounter Details Date Type Department Care Team (Late Contact Info) Description 10/04/2024 11:00 AM DEVELOPMENT TECHNICAL LEAD Office Visit [facility] [address] [place] [phone] Yaquelin Motcezuma PA [address] [place] [address] Congestion (Chest congestion, cough, sore throat X 2 days) Social History Tobacco Use Types Packs/Day Years [...] Comments Blood Pressure 118/82 10/04/2024 11:06 AM DEVELOPMENT TECHNICAL LEAD Pulse 99 10/04/2024 11:06 AM DEVELOPMENT TECHNICAL LEAD Temperature 37.6 ??C (99.7 ??F) 10/04/2024 11:[address] Respiratory Rate 20 10/04/2024 11:06 AM DEVELOPMENT TECHNICAL LEAD Oxygen Saturation 99% 10/04/2024 11:06 AM DEVELOPMENT TECHNICAL LEAD Inhaled Oxygen Concentration - - Weight 121.6 kg (268 lb) 10/04/2024 11:06 AM DEVELOPMENT TECHNICAL LEAD Height 165.1 cm (5' 5 ) 10/04/2024 11:06 AM DEVELOPMENT TECHNICAL LEAD Body Mass Index 44.6 10/04/2024 11:06 AM DEVELOPMENT TECHNICAL LEAD documented in this encounter Patient Instructions * Attachments The following attachments cannot be sent through Care Everywhere. * Acute bronchitis (Armenian) documented in this encounter Progress Notes * CORINA Van - 10/04/2024 11:00 AM CST Images from the original note were not included. _ Reason for Visit: Congestion (Chest congestion, cough, sore throat X 2 days) History of Present Illness: KUNAL Caban is a 34-year-old female here for patient or evaluation through the walk-in clinic for symptoms of upper respiratory infection to include nasal congestion, sore throat, and headache. Patient denies symptoms of visual disturbance or vomiting. Patient has not noticed a fever. Patient has a cough with out wheezing. Patient denies shortness of breath. Patient has not had loose stools. Patient has been symptomatic for almost a week but her throat started hurting 2 days ago. She is not improving with symptoms. She is concerned because she is 36 weeks . Her SHERIFF DEPUTY told her to seek care. ROS: Review of Systems Feeling ill. Denies vision or hearing problems. Denies dysphagia, heartburn or indigestion. No dyspnea or chest pain on exertion. No nausea, abdominal pain, change in bowel habits, black or bloody stools. No urinary tract symptoms. No muscle or joint aches or pains. No foot or leg edema. No numbness, tingling,or weakness. No anxiety or depressive symptoms, Sleeping well. No significant weight gain or loss. Positive fatigue. Medications: Outpatient Medications Marked as Taking for the 10/04/24 encounter (Office Visit) with CORINA Van Medication Sig Dispense Refill albuterol sulfate HFA 108 (90 Base) MCG/ACT inhaler Inhale 2 puffs into the lungs every 6 (six) hours as needed for Wheezing. 18 g 0 azithromycin (ZITHROMAX Z-SHILPI) 250 MG tablet Take 2 tablets by mouth on day one then 1 daily for four days. 6 tablet 0 vitamin ( PLUS) 27-1 MG tablet Take 1 tablet by mouth daily. Review of patient's allergies indicates: No Known Allergies Past Medical History: Diagnosis Date Asthma ([facility]) As a child Pneumonia Seizures ([facility] 2004 Happens with intense pain or fall hard UTI (urinary tract infection) Past Surgical History: Procedure Laterality Date BARIATRIC [...] Nuzhat Kidney Disease Mother Nuzhat Kidney failure Family Status Relation Name Status Mother Nuzhat (Not Specified) No partnership data on file Physical Exam Constitutional: Patient is oriented to person, place, and time. Patient appears well-developed and well-nourished. HENT: Right Ear: External ear normal. Left Ear: External ear normal. Head: Normocephalic. No frontal sinus tenderness Nose: Nose normal. Turbinates are swollen with erythema Mouth/Throat: Oropharynx is clear and moist. Positive postnasal drainage Eyes: Pupils are equal, round, and reactive to light. Neck: No JVD present. No thyromegaly present. No nuchal rigidity Cardiovascular: Normal rate, regular rhythm, normal heart sounds and intact distal pulses. No murmur heard. Pulmonary/Chest: No respiratory distress. Patient has no wheezes. Patient has no rales. Patient exhibits no tenderness. There is loose rhonchi noted good oxygen change no acute distress Abdominal: Patient exhibits no distension and no mass. There is no tenderness. There is no rebound and no guarding. Quite gravid Musculoskeletal: Normal range of motion. Patient exhibits no edema, tenderness or deformity. Lymphadenopathy: Patient has positive cervical adenopathy. Neurological: Patient is alert and oriented to person, place, and time. Skin: No rash noted. No erythema. Psychiatric: Patient has a normal mood and affect. The behavior is normal. Thought content normal. No data to display Vitals: 10/04/24 1106 BP: 118/82 Pulse: 99 Body mass index is 44.6 kg/m??. Assessment and Plan Encounter Diagnose(s) ICD-10-CM SNOMED CT(R) 1. Sore throat J02.9 SORE THROAT STREP A RAPID CULTURE STREP A 2. Suspected COVID-19 virus infection Z20.822 SUSPECTED COVID-19 CORONAVIRUS (COVID-19) INFLUENZA A& B ANTIGEN IA PANEL 3. Bronchitis J40 BRONCHITIS azithromycin (ZITHROMAX Z-SHILPI) 250 MG tablet 1. Sore throat (Primary) - STREP A RAPID - CULTURE STREP A; Future 2. Suspected COVID-19 virus infection - CORONAVIRUS (COVID-19) INFLUENZA A & B ANTIGEN IA PANEL 3. Bronchitis - azithromycin (ZITHROMAX Z-SHILPI) 250 MG tablet; Take 2 tablets by mouth on day one then 1 daily forfour days. Dispense: 6 tablet; Refill: 0 We discussed the risk versus benefit of observing. Patient is opted to go on antibiotic therapy. Orders Placed This Encounter azithromycin (ZITHROMAX Z-SHILPI) 250 MG tablet CORONAVIRUS (COVID-19) INFLUENZA A & B ANTIGEN IA PANEL STREP A RAPID CULTURE STREP A Patient was told to push liquids and get lots of rest. Patient was told to use Tylenol for fever. Patient was told that if symptoms do not improve to utilize the emergency room, call their PCP, or follow back up with the walk-in clinic. If patient needs any additional time off not discussed and spelled out in a work release at this office visit they will need to contact the PCP or be seen in the walk in clinic. Patient should follow annual wellness exams recommended for age and sex of patient. Items to consider but not limited included yearly annual fasting labs, colonscopy or cologuard when indicated. PSA and prostate for males. Mammogram and female exam for females, Portions of this note were dictated using [employer] speech recognition software. Occasional wrong wordor sound-alike substitutions may have occurred due to the inherent limitations of voice recognition software. Please read the chart carefully and recognize, using context, where the substitutions may have occurred. Yaquelin Moctezuma PA-C evaluated and Dr. Zoe Tafoya reviewed and agrees with plan. LOPMENT TECHNICAL LEAD documented in this encounter Plan of Treatment Not on file documented as of this encounter Procedures Procedure Name Priority Date/Time Associated Diagnosis Comments CORONAVIRUS (COVID-19) INFLUENZA A & B ANTIGEN IA PANEL Routine 10/04/2024 Suspected COVID-19 virus infection STREP A RAPID Routine 10/04/2024 Sore throat documented in this encounter Results * CULTURE STREP A (10/04/2024 11:21 AM DEVELOPMENT TECHNICAL LEAD) SPEC DESCRIPTION THROAT 10/04/2024 2:02 PM DEVELOPMENT TECHNICAL LEAD [facility] SPECIAL REQUESTS NO SPECIAL REQUEST 10/04/2024 2:02 PM DEVELOPMENT TECHNICAL LEAD [facility] CULTURE RESULT NO STREPTOCOCCUS PYOGENES (GROUP A) ISOLATED 10/06/2024 6:48 AM DEVELOPMENT TECHNICAL LEAD [facility] THROAT SWAB / Unknown 10/04/2024 11:21 AM DEVELOPMENT TECHNICAL LEAD 10/04/2024 2:05 PM DEVELOPMENT TECHNICAL LEAD Yaquelin ARRIAGA MICROBIOLOGY - GENERAL ORDER GARRY Final Result [facility] [address] [place] [address], [place] [phone] [facility] [address] [place] [address], [place] [phone] * STREP A RAPID (10/04/2024) RAPID STREP TEST NEGATIVE NEGATIVE [id number] [address], [place] Internal Control: VALID VALID [id number] [address], [place] STRUCTURE OF ANTERIOR PORTION OF NECK / Unknown 10/04/2024 us Yaquelin ARRIAGA MICROBIOLOGY - GENERAL ORDER GARRY Final Result Performing Organization Address City/[facility]/ZIP Co de Phone Number [phone], [place] [address] [place] [address], [place] [phone] * CORONAVIRUS (COVID-19) INFLUENZA A & B ANTIGEN IA PANEL (10/04/2024) CORONAVIRUS ANTIGEN IA NEGATIVE NEGATIVE [id number] INFLUEN[facility] A NEGATIVE NEGATIVE [id number], [place] INFLUENZA B NEGATIVE NEGATIVE [id number], [place] Internal Control: VALID VALID [id number], [place] NASAL STRUCTURE / Unknown 10/04/2024 Yaquelin ARRIAGA MICROBIOLOGY - GENERAL ORDER GARRY Final Result Performing Organization Address [facility] Co de Phone Number [phone], [place] [address] [place] [address], [place] [phone] documented in this encounter Visit Diagnoses Diagnosis Sore throat- Primary Acute pharyngitis Suspected COVID-19 virus infection Bronchitis Bronchitis, not specified as acute or chronic documented in this encounter Additional Health Concerns Infection Onset Date Last Indicated Resolved Time COVID-19 Rule Out 10/04/2024 10/04/2024 10/04/2024 11:29 AM DEVELOPMENT TECHNICAL LEAD Assessment Noted Time PHQ-9 Depression Total Score: 0 06/09/20 23 8:23 AM CDT documented as of this encounter Care Teams Forestry Patrolman Relationship Specialty Start Date End Date Catina Rios NP [address] [place] [address] PCP - General NURSE PRACTITIONER 10/06/21 documented as of this encounter
--- OUTSIDE RECORDS SUMMARY | 2024-11-01 05:21 | XMS_ITS | Encounter Summary ---
Author Organization [facility] Address [address] [place] [address]. [place] [address] [place] [address] Care Team Providers Care Senior Reliability Engineer Name Role Phone Catina Rios NP Primary Care Provider [phone] [phone] Encounter Details Date Type Department Care Team (Latest Contact Info) Description 10/15/2021 Travel Social History Tobacco Use Types Packs/Day [...] COVID-19? No / Unsure 10/15/2021 9:42 PM WATERWORKS EMPLOYEE documented as of this encounter Plan of Treatment Not on file documented as of this encounter Visit Diagnoses Not on filedocumented in this encounter Additional Health Concerns Assessment Noted Time PHQ-9 Depression Total Score: 0 10/07/20 21 2:33 PM WATERWORKS EMPLOYEE documented as of this encounter Care Teams Senior Reliability Engineer Relationship Specialty Start Date End Date Catina Rios NP [address] [place] [address] PCP - General NURSE PRACTITIONER 10/06/21 documented as of this encounter
--- OUTSIDE RECORDS SUMMARY | 2024-11-01 05:21 | XMS_ITS | Encounter Summary ---
Author Organization [facility] Address [address] [place] [address]. [place], [place] [address] [place] [address] Care Team Providers Care Procedures Tech Name Role Phone Catina Rios NP Primary Care Provider [phone] -[phone] Reason for Visit * Reason Onset Date Comments FYI 12/14/2022 Encounter Details Date Type Department Care Team ([facility] Contact Info) Description 12/14/2022 Telephone [facility] Family Medicine - [place] [address] [facility] [address] [place] [address] Catina Rios NP [address] [place] [address] FY Social History Tobacco Use Types Packs/Day Years [...] Progress Notes * Catina Rios NP - 12/14/2022 12:16 PM CST Ok let them know it's because she went to the ER today I saw for abdominal pain. CHECKER * Esther Gustafson - 12/14/2022 11:34 AM CST Spencer Morales called to let you know Marika did not keep her appointment with Dr. Martinez today. CHECKER documented in this encounter Plan of Treatment Not on file documented as of this encounter Visit Diagnoses Not on filedocumented in this encounter Additional Health Concerns Assessment Noted Time PHQ-9 Depression Total Score: 0 10/07/20 2:33 PM SOIL CHECKER documented as of this encounter Care Teams Procedures Tech Relationship Specialty Start Date End Date Catina Rios NP [address] [place] [address] PCP - General NURSE PRACTITIONER 10/06/21 documented as of this encounter
--- OUTSIDE RECORDS SUMMARY | 2024-11-01 05:21 | XMS_ITS | Encounter Summary ---
Author Organization [facility] Address [address] [place] [address]. [place] [address] [place] [address] Care Team Providers Care Pneumatic Tube Repairer Name Role Phone Catina Rios NP Primary Care Provider [phone] [phone] Encounter Details Date Type Department Care Team (Latest Contact Info) Description 10/04/2024 Travel Social History Tobacco Use Types Packs/Day [...] Rule Out 10/04/2024 10/04/2024 10/04/2024 11:29 AM JEWEL OLIVING MACHINE OPERATOR Assessment Noted Time PHQ-9 Depression Total Score: 0 06/09/20 23 8:23 AM CDT documented as of this encounter Care Teams Pneumatic Tube Repairer Relationship Specialty Start Date End Date Catina Rios NP [address] [place] [address] PCP - General NURSE PRACTITIONER 10/06/21 documented as of this encounter
--- OUTSIDE RECORDS SUMMARY | 2024-11-01 05:21 | XMS_ITS | Encounter Summary ---
Author Organization [facility] Address [address] [place] [address]. [place] [address] [place] [address] Care Team Providers Care Electrical Worker Name Role Phone Catina Rios NP Primary Care Provider +1 [phone] Encounter Details Date Type Department Care Team (Latest Contact Info) Description 03/06/2022 Travel Social History Tobacco Use Types Packs/Day [...] suspected to have Coronavirus/COVID-19? No / Unsure 03/06/2022 10:54 AM CDT documented as of this encounter Plan of Treatment Not on file documented as of this encounter Visit Diagnoses Not on filedocumented in this encounter Additional Health Concerns Assessment Noted Time PHQ-9 Depression Total Score: 0 10/07/20 21 2:33 PM SALES FACILITATOR documented as of this encounter Care Teams Electrical Worker Relationship Specialty Start Date End Date Catina Rios NP [address] [place] [address] PCP - General NURSE PRACTITIONER 10/06/21 documented as of this encounter
--- OUTSIDE RECORDS SUMMARY | 2024-11-01 05:21 | XMS_ITS | Encounter Summary ---
Author Organization [facility] Address [address] [place] [address]. [place] [address] [place] [address] Care Team Providers Care Ergonomics Consultant Name Role Phone Catina Rios NP Primary Care Provider [phone] -[phone] Reason for Referral * Consultation/Treatment (Routine) - Closed Specialty Diagnoses / Procedures Referred By Poncho thompson Referred To Contact GENERAL SURGERY Diagnoses Gallbladder disorder H/O gastric sleeve Procedures OFFICE/OUTPT VISIT,NEW,LEVL III OFFICE/OUTPT VISIT,NEW,LEVL IV OFFICE/OUTPT VISIT,NEW,LEVL V OFFICE/OUTPT VISIT,EST,LEVL III OFFICE/OUTPT VISIT,EST,LEVL IV OFFICE/OUTPT VISIT,EST,LEVL V Catina Rios NP [address] [place] [address] Phone: tel: fax: Tres Martinez MD [facility] [address] [place] [address] Phone: tel: fax: Referral ID Status Reason Start Date Expiration Date V isits Requested Visits Authorized [id number] Closed Consultation 11/15/2022 11/15/2023 99 99 Scheduling Instructions Please refer pt to [facility] ICAL TECHNOLOGIST Encounter Details Date Type Department Care Team (Late st Contact Info) Description 11/15/2022 StatSocialt Message Enc [facility] Family Medicine [facility] [address] [facility] [address] [place] [address] Catina Rios NP [address] [place] [address] Referral Social History Tobacco Use Types Packs/Day Years [...] Coronavirus/COVID-19? No / Unsure 11/12/2022 12:00 PM SURGICAL TECHNOLOGIST documented as of this encounter Progress Notes * Catina Rios NP - 11/15/2022 10:20 AM CSTFrom: Marika Caban To: Catina Rios Sent: 11/15/2022 8:42 AM SURGICAL TECHNOLOGIST Subject: Referral I did not know how to respond to your comment on the test result but yes I am ok with you sending areferral. Thank you. ICAL TECHNOLOGIST documented in this encounter Plan of Treatment Scheduled Referrals Name Type Priority Associated Diagnoses Orde r Schedule Ambulatory referral to General Surgery (OTHER) Referral Routine Gallbladder disorder H/O gastric sleeve Ordered: 11/15/2022 documented as of this encounter Visit Diagnoses Diagnosis H/O gastric sleeve- Primary Gallbladder disorder Unspecified disorder of gallbladder documented in this encounter Additional Health Concerns Assessment Noted Time PHQ-9 Depression Total Score: 0 10/07/20 21 2:33 PM SURGICAL TECHNOLOGIST documented as of this encounter Care Teams Ergonomics Consultant Relationship Specialty Start Date End Date Catina Rios NP [address] [place] [address] PCP - General NURSE PRACTITIONER 10/06/21 documented as of this encounter
--- OUTSIDE RECORDS SUMMARY | 2024-11-01 05:21 | XMS_ITS | Encounter Summary ---
Author Organization [facility] Address [address] [place] [address]. [place] [address] [place] [address] Care Team Providers Care Stenographer Secretary Name Role Phone Catina Rios NP Primary Care Provider [phone] [phone] Encounter Details Date Type Department Care Team (Latest Contact Info) Description 01/13/2022 Travel Social History Tobacco Use Types Packs/Day [...] Total Score: 0 10/07/20 21 2:33 PM TELEVISION INSTALLER documented as of this encounter Care Teams Stenographer Secretary Relationship Specialty Start Date End Date Catina Rios NP [address] [place] [address] PCP - General NURSE PRACTITIONER 10/06/21 documented as of this encounter
--- OUTSIDE RECORDS SUMMARY | 2024-11-01 05:21 | XMS_ITS | Encounter Summary ---
Author Organization [facility] Address [address] [place] [address]. [place], [place] [id number] [place] [id number] Care Team Providers Care Senior Commercial Loan Officer Name Role Phone Jose Francisco Tobar MD Primary Care Provider [phone] Reason for Visit * Reason Comments Cough Shortness Of Breath Encounter Details Date Type Department Care Team ([facility] st Contact Info) Description 02/20/2021 4:45 PM CDT - 02/20/2021 5:51 PM CDT Emergency [facility] Emergency Room [address] [place] [address] Clifford Mckinney MD [address] [place] [address] Cough; Shortness Of Breath Discharge Disposition: Home or Self Care (Routine [...] Sign Reading Time Taken Comments Blood Pressure 140/90 02/20/2021 4:47 PM CDT Pulse 122 02/20/2021 4:47 PM CDT Temperature 37.1 ??C (98.7 ??F) 02/20/2021 4:47 PM CD T Respiratory Rate 18 02/20/2021 4:47 PM CDT Oxygen Saturation 97% 02/20/2021 4:47 PM CDT Inhaled Oxygen Concentration - - Weight 127 kg (280 lb) 02/20/2021 4:47 PM CDT Height 165.1 cm (5' 5 ) 02/20/2021 4:47 PM CDT Body Mass Index 46.59 02/20/2021 4:47 PM CDT documented in this encounter Discharge Instructions * Discharge Instructions* Clifford Mckinney MD - 02/20/2021 5:45 PM CDT Ibuprofen and tylenol as needed for aches and pains. Albuterol as needed for cough/wheezing. Rest. Drink plenty of fluids. Follow up with your PCP. Our practice is committed to providing you the very best in healthcare. We want to hear from you! Please fill out the survey you get from us. Your feedback is anonymous & helps us improve the patient experience for you and others in the community we serve. * Attachments The following attachments cannot be sent through Care Everywhere. * Cough Discharge Instructions, Adult (Iraqi) documented in this encounter Medications at Time of Discharge albuterol sulfate HFA 108 (90 Base) MCG/ACT inhaler Inhale 2 puffs into the lungs every 4 (four) hours as needed for Wheezing. 18 g 02/20/2021 10/07/2021 documented as of this encounter ED Notes * Clifford Mckinney MD - 02/20/2021 5:03 PM CDT Chief Complaint Chief Complaint Patient presents with ??? Cough ??? Shortness Of Breath Provider at Bedside Date/Time Event User Comments 02/20/21 7355 Provider at Bedside Assessing Patient CLIFFORD MCKINNEY [facility] patient. Patient/family informed of level of care and verbalizes understanding. History of Present Illness Patient presents with cough and shortness of breath x2 days that seems similar to previous pneumonia. Her son is sick with similar symptoms. She has been using Claritin and DayQuil without significant relief. She has been vaccinated against Covid already. She denies fever. Denies significant sore throat. Says she has been eating and drinking well. Otherwise healthy. Cough Associated symptoms: shortness of breath Associated symptoms: no chest pain, no chills and no fever Shortness Of Breath Pertinent negatives include no abdominal pain, chest pain, fever or vomiting. Medical History ALLERGIES: No Known Allergies MEDICATIONS: No current outpatient medications on file as of 02/20/2021. PAST MEDICAL HISTORY: History reviewed. No pertinent past medical history. PAST SURGICAL HISTORY: History reviewed. No pertinent surgical history. FAMILY HISTORY: No family history on file. SOCIAL HISTORY: Social History Tobacco Use ??? Smoking status: Never Smoker ??? Smokeless tobacco: Never Used Substance Use Topics ??? Alcohol use: Not Currently ??? Drug use: Never Review of Systems Review of Systems Constitutional: Negative for chills and fever. HENT: Negative for nosebleeds. Eyes: Negative for photophobia. Respiratory: Positive for cough and shortness of breath. Cardiovascular: Negative for chest pain. Gastrointestinal: Negative for abdominal pain, diarrhea, nausea and vomiting. Genitourinary: Negative for difficulty urinating. Musculoskeletal: Negative for back pain. Neurological: Negative for dizziness. Psychiatric/Behavioral: Negative for agitation. All other systems reviewed and are negative. Physical Exam Filed Vitals: 02/20/21 1647 BP: 140/90 Pulse: 122 Resp: 18 Temp: 98.7 ??F (37.1 ??C) TempSrc: Temporal SpO2: 97% Weight: 127 kg (280 lb) Height: 5' 5 (1.651 m) Physical Exam Constitutional: General: She is not in acute distress. Appearance: She is well-developed. HENT: Head: Normocephalic. Mouth/Throat: Mouth: Mucous membranes are moist. Eyes: Conjunctiva/sclera: Conjunctivae normal. Neck: Musculoskeletal: Normal range of motion. Cardiovascular: Rate and Rhythm: Tachycardia present. Pulmonary: Effort: Pulmonary effort is normal. Breath sounds: Decreased breath sounds present. No rales. Abdominal: General: There is no distension. Musculoskeletal: Normal range of motion. Skin: General: Skin is dry. Neurological: Mental Status: She is alert and oriented to person, place, and time. Psychiatric: Mood and Affect: Mood normal. Diagnostic Studies / Procedures ELECTROCARDIOGRAMS: No results found for this visit on 02/20/21. LABORATORY STUDIES: No results found for this visit on 02/20/21. IMAGING STUDIES XR CHEST PORTABLE Final Result by User, [id number] (02/20 823) IMAGING STUDIES: XR CHEST PORTABLE DATE: 02/20/2021 5:08 PM HISTORY: Cough and shortness of breath COMPARISON: No comparison. FINDINGS: The cardiomediastinal silhouette is normal. The lungs are well expanded and clear. No pleural effusion or pneumothorax. No significant bony abnormalities. IMPRESSION: No acute cardiopulmonary pathology. Referred By: CLIFFORD MCKINNEY Interpreted By: Suresh Monge, 02/20/2021 5:32 PM ED Course / Medical Decision Making MDM Number of Diagnoses or Management Options Cough: Diagnosis management comments: CXR shows no obvious pneumonia or acute pathology. Patient was prescribed albuterol as needed. Antibiotics not indicated. She feels well and agrees with plan for discharge. I do not think the patient has an emergent medical condition requiring admission at this time. On reevaluation, the patient is tolerating PO, ambulatory in the ED, and in no distress. The patient will be discharged home. Return precautions are discussed. Clinical Impression Cough (Primary) Disposition: Discharge Discharge Medication List as of 02/20/2021 5:49 PM START taking these medications Details albuterol sulfate HFA 108 (90 Base) MCG/ACT inhaler Inhale 2 puffs into the lungs every 4 (four) hours as needed for Wheezing., Starting Tue02/20/2021, Eprescribe Class: Eprescribe Pharmacy: [id number] [place], [place] - [address] [place] [address] AT [facility] [address] (Ph #: [phone]) Clifford Mckinney MD 02/20/21 1824 * Janet Pabon RN - 02/20/2021 4:59 PM CDT Presents to ED with c/o cough, shortness of breath, sinus pressure and drainage started yesterday, and today the shortness of breath, chest pain when inhaling. documented in this encounter Plan of Treatment Not on file documented as of this encounter Procedures Procedure Name Priority Date/Time Associated Diagnosis Comments XR CHEST PORTABLE STAT 02/20/2021 5:1 5 PM CDT documented in this encounter Results * XR CHEST PORTABLE (02/20/2021 5:15 PM CDT) Anatomical Region Laterality Modality Chest Radiographic Miriam ging 02/20/2021 5:32 PM CDT Impressions 02/20/2021 5:32 PM CDT IMPRESSION: No acute cardiopulmonary pathology. Referred By: CLIFFORD MCKINNEY Interpreted By: Suresh Monge, 02/20/2021 5:32 PM Narrative 02/20/2021 5:32 PM CDT IMAGING STUDIES: ?? XR CHEST PORTABLE ? DATE: 02/20/2021 5:08 PM HISTORY: ??Cough and shortness of breath COMPARISON: ??No comparison. FINDINGS: The cardiomediastinal silhouette is normal. ??The lungs are well expanded and clear. ??No pleural effusion or pneumothorax. ??No significant bony abnormalities. Procedure Note Suresh Hill MD - 02/20/2021 IMAGING STUDIES: XR CHEST PORTABLE DATE: 02/20/2021 5:08 PM HISTORY: Cough and shortness of breath COMPARISON: No comparison. FINDINGS: The cardiomediastinal silhouette is normal. The lungs are well expanded and clear. No pleural effusion or pneumothorax. No significant bony abnormalities. IMPRESSION: No acute cardiopulmonary pathology. Referred By: CLIFFORD MCKINNEY Interpreted By: Suresh Monge, 02/20/2021 5:32 PM us Clifford Mckinney MD GENERAL IMAGING Final Resul t documented in this encounter Visit Diagnoses Diagnosis Cough- Primary documented in this encounter Care Teams Senior Commercial Loan Officer Relationship Specialty Start Date End Date Jose Francisco Tobar MD PCP - General FAMILY PRACTICE 02/20/21 10/05/21 documented as of this encounter
--- OUTSIDE RECORDS SUMMARY | 2024-11-01 05:21 | XMS_ITS | Encounter Summary ---
Author Organization [facility] Address [address] [place] [address]. [place] [address] [place] [address] Care Team Providers Care Icu Specialist Name Role Phone Catina Rios NP Primary Care Provider [phone] Encounter Details Date Type Department Care Team (Latest Contact Info) Description 07/31/2024 Travel Social History Tobacco Use Types Packs/Day [...] documented as of this encounter Care Teams Icu Specialist Relationship Specialty Start Date End Date Catina Rios NP [address] [place] [address] PCP - General NURSE PRACTITIONER 10/06/21 documented as of this encounter
--- OUTSIDE RECORDS SUMMARY | 2024-11-01 05:21 | XMS_ITS | Encounter Summary ---
Author Organization [facility] Address [facility]. [place], [place] [address] [place] [address] Care Team Providers Care Clamp Remover Name Role Phone Catina Rios NP Primary Care Provider [phone] Encounter Details Date Type Department Care Team (Late st Contact Info) Description 10/02/2024 [employer] Message Enc [facility] Family Medicine - [place] [address] [facility] [address] [place] [address] [phone] Catina Rios NP [address] [place] [address] Sick Social History Tobacco Use Types Packs/Day Years [...] as of this encounter Progress Notes * Any Rodas MD - 10/02/2024 3:33 PM CST Could be seen in walk in clinic or see if Catina has openings tomorrow to see her again. [facility] [employer]ATE [employer] documented in this encounter Plan of Treatment Not on file documented as of this encounter Visit Diagnoses Not on filedocumented in this encounter Additional Health Concerns Infection Onset Date Last Indicated Resolved Time COVID-19 Rule Out 10/04/2024 10/04/2024 10/04/2024 11:[address] [employer] Assessment Noted Time PHQ-9 Depression Total Score: 0 06/09/20 23 8:23 AM CDT documented as of this encounter Care Teams Clamp Remover Relationship Specialty Start Date End Date Catina Rios NP [address] [place] [address] PCP - General NURSE PRACTITIONER 10/06/21 documented as of this encounter
--- OUTSIDE RECORDS SUMMARY | 2024-11-01 05:21 | XMS_ITS | Encounter Summary ---
Author Organization [facility] Address [address] [place] [address] Care Team Providers Care Depositing Machine Operator Name Role Phone Unavailable Primary Care Provider Unavailabl e Encounter Details Date Type Department Care Team (Late st Contact Info) Description 05/27/2007 12:38 PM CDT - 05/27/2007 5:07 PM CDT Emergency ER at [facility] [address] [place] [address] Maverick Kauffman MD [address] [place] [address] Discharge Disposition: Home or Self Care Social [...]
== END 2024-10-27 12:40 | disposition home or self-care (01) | DRG 785 ==
LOC: ANHLDR 06:46 → ANHOBPP 11:36 → ANHOB2 16:24
PROVIDERS: Admitting Provider Obstetrics & Gynecology; Visit Provider Obstetrics & Gynecology
PROC: 10D00Z1 Extraction of Products of Conception, Low, Open Approach (ICD-10-PCS; CPT 59514; principal; 2024-10-25 07:30)
DX: O34.211 Maternal care for low transverse scar from previous cesarean delivery (principal); Z37.0 Single live birth; Z3A.39 39 weeks gestation of pregnancy; O24.429 Gestational diabetes mellitus in childbirth, unspecified control; Z30.2 Encounter for sterilization; D64.9 Anemia, unspecified; O99.02 Anemia complicating childbirth
CPT/HCPCS: 36415; 82948; 85025; 85055; 86592; 86703; 86850; 86900; 86901; 87340; 88302; A9270; G0432; J0690; J1200; J1885; J2274; J2405; J2590; J7120